=== PATIENT | male | born 1940 | race Caucasian/White ===

== ENCOUNTER → 2016-12-02 | Outpatient (CLI) | payer MEDICARE ==
--- NOTE | 2016-12-02 10:30 | US ---
EXAMINATION TYPE: US renal artery duplex complete DATE OF EXAM: 12/02/2016 9:35 AM COMPARISON: NONE CLINICAL HISTORY: N18.3 chronic kidney disease, stage 3; newly diabetic; Ht 5'10 and Wt 234lbs; patie nt states HTN is controlled with medication. Exam is limited in renal artery and aorta assessment due to overlying bowel gas and patient's large b alysia habitus. MEASUREMENTS: RENAL SIZE: Rt Kidney: 12.9 x 5.9 x 6.0cm Lt Kidney: 9.9 x 6.8 x 5.8cm Post void volume is normal at 42.6ml (normal <50ml). RESISTANCE INDEX Right: 0.74 Left: 0.97 RA/AO RATIO (< 3.5 ) Right: 1.8 Left: 1.4 RA VELOCITY ( < 180 cm/s) Right: 133.1cm/s mid Left: 104.6 cm/s prox Right Kidney: two cysts are noted mid and lower pole, larger cyst at lower pole = 4.0 x 3.6 x 3.6cm a nd smaller medial cyst = 2.5 x 2.2 x 2.1cm. Intimal wall thickening is noted throughout abdominal aor ta. Resistive index in left kidney at arcuate artery level is abnormal as is >0.8. Grayscale, color Doppler, spectral Doppler imaging performed over the kidneys and bladder no abdomina l aortic aneurysm is evident in the visualized portions of the aorta.. Bilateral ureteral flow is pre sent within the bladder. There is mild cortical thinning. Cortical medullary differentiation is maint ained. IMPRESSION: Exam is somewhat limited to evaluate renal artery stenosis. There is some mild elevation of the resis tance index on the left. There is cortical thinning bilaterally compatible with patient's history of chronic renal disease. Renal artery MRA or CTA could be performed for additional evaluation.
--- NOTE | 2016-12-02 12:22 | US ---
EXAMINATION TYPE: US Parathyroid per order DATE OF EXAM: 12/02/2016 8:32 AM COMPARISON: NONE CLINICAL HISTORY: E21.3 hyperparathyroidism. Thyroid was not measured but assessed at all neck levels during parathyroid US imaging. Right Parathyroid levels: no parathyroid nodules are seen. Left Parathyroid level inferiorly: a solid, hyperechoic oval nodule = 0.5 x 0.5 x 0.3cm is seen infer olateral to thyroid gland and second solid, hypoechoic oval nodule = 0.5 x 0.6 x 0.3cm is noted infer omedial to thyroid gland. Incidental Right thyroid nodule is seen in inferior gland: 1. 0.7 X 0.7 x 0.5 cm hypoechoic mixed nodule at the lower pole with well-defined margins. This nod ule is wider than tall and shows no intranodular vascularity. Grayscale, color Doppler imaging performed Thyroid echotexture somewhat heterogeneous. IMPRESSION: Hyperechoic appearance seen is not typical for adenoma however there is an additional hypoechoic focu s possibly representing parathyroid on the left. Dedicated nuclear medicine parathyroid imaging may b e of benefit. Right thyroid nodule is subcentimeter in size.
== END | disposition home or self-care (01) ==
LOC: RADUSMAIN 08:01
PROVIDERS: ATTEND Family Medicine
DX: N18.3 Chronic kidney disease, stage 3 (moderate) (principal); E04.1 Nontoxic single thyroid nodule
CPT/HCPCS: 76536; 93975

== ENCOUNTER → 2016-12-16 | Outpatient (CLI) | payer MEDICARE ==
--- NOTE | 2016-12-17 09:40 | NM ---
EXAMINATION TYPE: NM parathyroid DATE OF EXAM: 12/16/2016 4:27 PM COMPARISON: NONE HISTORY: TECHNIQUE: Following administration of 27.1 mCi Tc99m Sestamibi. Anterior projection images of the neck and ches t were obtained 10 minutes and 3 hours post injection FINDINGS: Thyroid tracer washout: Delayed images demonstrate near-complete tracer washout from the thyroid. Parathyroid uptake: No abnormal uptake is seen within the left thyroid bed corresponding to the ultra sound abnormality. There is faint uptake in the right but there is no corresponding ultrasound abnorm ality. This could be correlated with CT of the neck. Normal uptake: There is physiological tracer uptake in the myocardium, liver, salivary glands, and th yroid gland. IMPRESSION: No abnormal uptake is seen within the left thyroid bed corresponding to the ultrasound abnormality. T here is faint uptake in the right but there is no corresponding ultrasound abnormality. This could be correlated with CT of the neck. Therefore, no diagnostic evidence of adenoma.
== END | disposition home or self-care (01) ==
LOC: RADNMMAIN 11:14
PROVIDERS: ATTEND Family Medicine
DX: E21.3 Hyperparathyroidism, unspecified (principal)
CPT/HCPCS: 78070; A9500

== ENCOUNTER → 2016-12-29 | Outpatient (CLI) | payer MEDICARE ==
[2016-12-29 14:43] LABS: Blood Urea Nitrogen 21 mg/dL (9-20); Non-African American GFR(MDRD) 59 (>60 ml/min/1.73 sqM)
== END | disposition home or self-care (01) ==
LOC: RADMRIMAIN 14:16
PROVIDERS: ATTEND Family Medicine
DX: N18.3 Chronic kidney disease, stage 3 (moderate) (principal)
CPT/HCPCS: 36415; 82565; 84520

== ENCOUNTER → 2017-04-16 | Outpatient (CLI) | payer MEDICARE | END | disposition home or self-care (01) | LOC: LABWHC1 11:34 | PROVIDERS: ATTEND Family Medicine | DX: M54.16 Radiculopathy, lumbar region (principal) | CPT/HCPCS: 36415; 82565 ==

== ENCOUNTER → 2017-04-17 | Outpatient (CLI) | payer MEDICARE ==
--- NOTE | 2017-04-17 14:01 | MR ---
EXAMINATION TYPE: MR lumbar spine wo/w con DATE OF EXAM: 04/17/2017 COMPARISON: NONE HISTORY: Radiculopathy, lumbar region, back and leg pain TECHNIQUE: Multiplanar, multisequence images of the lumbar spine were acquired utilizing 10.5 mL intravenous Rene avist gadolinium contrast. L1-L2: Normal disc appearance without desiccation. No herniation, protrusion or disc bulging. No ca nal stenosis is present. Foramina are patent bilaterally. L2-L3: Small right eccentric broad-based disc bulge is seen without significant spinal canal stenosis or neural foraminal narrowing. Mild facet arthropathy and ligamentum flavum buckling are noted. L3-L4: Large broad-based disc bulge is present with extensive ligamentum flavum buckling and moderate facet arthropathy creating moderate spinal canal stenosis impressing upon the thecal sac and creatin g buckling of the cauda equina. L4-L5: Large broad-based disc bulge, slightly right eccentric creates moderate right neural foraminal narrowing and mild left neural foraminal narrowing as well as extensive ligamentum flavum buckling a nd moderate facet arthropathy contributing to mild spinal canal stenosis. L5-S1: Right lateral disc herniation extends into the neural foramen creating moderate to severe righ t neural foraminal narrowing. Mild left neural foraminal narrowing is seen as a result of a broad-bas ed disc bulge and facet arthropathy. Eccentric right-sided ligamentum flavum buckling is noted. No sp inal canal stenosis. Lumbar segments are intact. Bone marrow signal is within normal limits. Conus medullaris has a mayra l appearance. Partial visualization of a cystic T2 hyperintense/T1 hypointense lesion inferior to the right kidney is seen possibly representing an exophytic right lower pole renal cyst. No abnormal pos tcontrast enhancement. No enhancing mass. IMPRESSION: 1. Right lateral disc herniation at L5-S1 resulting in moderate to severe right neural foraminal narr owing with impression upon the L5 nerve root. 2. Large broad-based disc bulges and extensive ligamentum flavum buckling in combination with facet a rthropathy at L3-L4 and L4-L5 create moderate and mild spinal canal stenosis respectively. 3. Multilevel degenerative disc disease resulting in variable degrees of neural foraminal stenosis as described above. 4. Partial visualization of a right-sided cystic lesion inferior to the right kidney which could repr esent an exophytic renal cyst. This is incompletely visualized and characterized.
== END | disposition home or self-care (01) ==
LOC: RADMRIMAIN 10:18
PROVIDERS: ATTEND Family Medicine
DX: M48.06 Spinal stenosis, lumbar region (principal); M99.73 Connective tissue and disc stenosis of intervertebral foramina of lumbar region; M51.17 Intervertebral disc disorders with radiculopathy, lumbosacral region; M51.16 Intervertebral disc disorders with radiculopathy, lumbar region; M46.86 Other specified inflammatory spondylopathies, lumbar region
CPT/HCPCS: 72158; A9581

== ENCOUNTER 2017-12-28 09:36 | Emergency (ER) | payer MEDICARE ==
[2017-12-28] MEDS ORDERED: HYDROcodone/APAP 5-325MG 1 EACH TAB PO STA (10:50)
--- NOTE | 2017-12-28 10:53 | ED ---
General Adult HPI - General Chief complaint: Head Injury Stated complaint: Headache Time Seen by Provider: 12/28/17 10:36 Source: patient, RN notes reviewed Mode of arrival: ambulatory Limitations: no limitations - History of Present Illness Initial comments: 77-year-old male presents with chief complaint headache. Headache has been present for the past 5 weeks. Patient did have a fall with head injury at the onset of pain. No loss consciousness. He was seen by his primary care physician approximately one week after this and told to present to the emergency Department if symptoms persisted. He's had a daily headache since this time. Describes it as constant, dull aching headache which was initially global, now is frontal. He has some associated photophobia. No nausea or vomiting. No focal weakness. No paresthesias. Patient is on Coumadin with history of atrial fibrillation. - Related Data Home Medications Medication Instructions Recorded Confirmed Acetaminophen with Codeine 1 tab PO 5XD PRN 05/23/14 12/28/17 [Tylenol w/codeine #4] Omeprazole [PriLOSEC] 20 mg PO DAILY 03/27/15 12/28/17 Aspirin EC [Ecotrin Low Dose] 81 mg PO HS 02/05/16 12/28/17 Atorvastatin [Lipitor] 20 mg PO HS 12/28/17 12/28/17 Losartan [Cozaar] 25 mg PO DAILY 12/28/17 12/28/17 Warfarin [Coumadin] 2 mg PO HS 12/28/17 12/28/17 Previous Rx's Medication Instructions Recorded Amiodarone [Cordarone] 200 mg PO DAILY #90 tab 03/03/16 HYDROcodone/APAP 5-325MG [Brunswick 1 tab PO Q6HR PRN #24 tab 12/28/17 5-325] Allergies Allergy/AdvReac Type Severity Reaction Status Date / Time No Known Allergies Allergy Verified 12/28/17 11:00 Review of Systems ROS Statement: Those systems with pertinent positive or pertinent negative responses have been documented in the HPI. ROS Other: All systems not noted in ROS Statement are negative. Past Medical History Past Medical History: Atrial Fibrillation, Heart Failure, GI Bleed, Hyperlipidemia, Hypertension, Myocardial Infarction ([place]), Osteoarthritis (OA), Syncope Additional Past Medical History / Comment(s): past hx. GI bleed 2001, back pain , pt not sure about thyroid disorder states the doctor is still testing. Last Myocardial Infarction Date:: 2007 & 2013 History of Any Multi-Drug Resistant Organisms: None Reported Past Surgical History: Back Surgery, Heart Catheterization With Stent, Hernia Repair Additional Past Surgical History / Comment(s): sinus surgery, heart stents x2 Past Anesthesia/Blood Transfusion Reactions: No Reported Reaction Date of Last Stent Placement:: 09-21-14 Past Psychological History: No Psychological Hx Reported Smoking Status: Former smoker Past Alcohol Use History: None Reported Past Drug Use History: None Reported - Past Family History Son(s) Family Medical History: Cancer Additional Family Medical History / Comment(s): FROM LUNG CANCER Mother Family Medical History: No Reported History Additional Family Medical History / Comment(s): father had mi also Father Family Medical History: Myocardial Infarction ([place]) General Exam Limitations: no limitations General appearance: alert, in no apparent distress Head exam: Present: atraumatic, normocephalic Eye exam: Present: normal appearance, PERRL ENT exam: Present: normal exam Neck exam: Present: normal inspection. Absent: tenderness, meningismus Respiratory exam: Present: normal lung sounds bilaterally. Absent: respiratory distress, wheezes Cardiovascular Exam: Present: regular rate, normal rhythm GI/Abdominal exam: Present: soft. Absent: distended, tenderness Extremities exam: Present: normal inspection, full ROM, normal capillary refill. Absent: pedal edema Neurological exam: Present: alert, oriented X3, CN II-XII intact. Absent: motor sensory deficit Psychiatric exam: Present: normal affect, normal mood Skin exam: Present: warm, dry, intact. Absent: cyanosis, diaphoretic Course Vital Signs 12/28/17 09:52 Temperature 98.0 F Pulse Rate 61 Respiratory 20 Rate Blood Pressure 116/61 O2 Sat by Pulse 98 Oximetry Medical Decision Making - Medical Decision Making 77-year-old male presenting with 5 weeks of headache status post fall. Patient is on Coumadin, there is concern for intracranial hemorrhage, CT is obtained this is negative for intracranial hemorrhage or mass effect. CBC CMP and PT/ INR are obtained. INR is therapeutic at 2.2, no abnormalities in CBC or CMP. Patient given Brunswick with only minimal relief. Headache is likely posttraumatic and concussive in nature. He will follow-up with his primary care physician. He'll be prescribed Brunswick at this time as he is on anticoagulation. - Lab Data Result diagrams: 12/28/17 12:15 12/28/17 12:15 Lab Results 12/28/17 12/28/17 12/28/17 Range/Units 12:15 12:15 12:15 WBC 7.2 (3.8-10.6) k/uL RBC 4.82 (4.30-5.90) m/uL Hgb 14.4 (13.0-17.5) gm/dL Hct 45.8 (39.0-53.0) % MCV 95.0 (80.0-100.0) fL MCH 29.8 (25.0-35.0) pg MCHC 31.4 (31.0-37.0) g/dL RDW 14.9 (11.5-15.5) % Plt Count 106 L (150-450) k/uL Neutrophils % 72 % Lymphocytes % 18 % Monocytes % 7 % Eosinophils % 2 % Basophils % 0 % Neutrophils # 5.2 (1.3-7.7) k/uL Lymphocytes # 1.3 (1.0-4.8) k/uL Monocytes # 0.5 (0-1.0) k/uL Eosinophils # 0.1 (0-0.7) k/uL Basophils # 0.0 (0-0.2) k/uL PT 19.9 H (9.0-12.0) sec INR 2.2 H (<1.2) Sodium 141 (137-145) mmol/L Potassium 4.3 (3.5-5.1) mmol/L Chloride 104 (98-107) mmol/L Carbon Dioxide 24 (22-30) mmol/L Anion Gap 13 mmol/L BUN 19 (9-20) mg/dL Creatinine 1.32 H (0.66-1.25) mg/dL Est GFR (CKD-EPI)AfAm 60 (>60 ml/min/1.73 sqM) Est GFR (CKD-EPI)NonAf 52 (>60 ml/min/1.73 sqM) Glucose 94 (74-99) mg/dL Calcium 8.6 (8.4-10.2) mg/dL Total Bilirubin 0.9 (0.2-1.3) mg/dL AST 36 (17-59) U/L ALT 42 (21-72) U/L Alkaline Phosphatase 106 (38-126) U/L Total Protein 6.2 L (6.3-8.2) g/dL Albumin 3.7 (3.5-5.0) g/dL Disposition Clinical Impression: Closed head injury, Concussion without loss of consciousness Disposition: HOME SELF-CARE Condition: Fair Instructions: Concussion (ED) Prescriptions: HYDROcodone/APAP 5-325MG [Brunswick 5-325] 1 tab PO Q6HR PRN #24 tab PRN Reason: Pain Is patient prescribed a controlled substance at d/c from ED?: Yes When asked, does pt state using other controlled substances?: Yes If prescribed controlled substance>3 days was MAPS reviewed?: No If opioid is for acute pain is fill amount 7 days or less?: Yes Referrals: Kelvin Navas MD [Primary Care Provider] - 1-2 days Time of Disposition: 12:56
--- NOTE | 2017-12-28 11:37 | CT ---
EXAMINATION TYPE: CT brain cspine wo con DATE OF EXAM: 12/28/2017 COMPARISON: CT brain and cervical spine February 05, 2016 HISTORY: Left sided head injury 5 weeks ago. Headache and neck pain since. CT DLP: 1782 mGycm. Automated Exposure Control for Dose Reduction was Utilized. TECHNIQUE: CT scan of the head and cervical spine are performed without contrast. FINDINGS: There is no acute intracranial hemorrhage or midline shift identified. There is ventricul ar and sulcal prominence consistent with diffuse cerebral atrophy redemonstrated. There is low-atten uation in the periventricular and deep white matter likely on basis of product of chronic small vesse l ischemic change redemonstrated. The globes are intact and the visualized sinuses are clear. There i s evidence of prior surgery at level of the paranasal sinuses. The calvarium is intact. Cervical spine is visualized in its entirety from C1 through upper thoracic levels and demonstrates s atisfactory alignment without evidence of acute fracture or dislocation. Prevertebral soft tissue ap pears within normal limits. The C1-C2 articulation is within normal limits on the coronal images. Vertebral body heights are maintained. There is mild to moderate disc space narrowing C5-C6 level. Ca lcified disc herniation C3-C4 and C5-C6 level are effacing anterior thecal sac. Review of axial image s shows multilevel uncovertebral facet degenerative changes bilaterally. Thyroid gland is felt within normal limits. Lung apices are not included. Moderate to severe calcified plaque at bilateral caroti d bulbs is redemonstrated. IMPRESSION: 1. There is no acute fracture or dislocation evident in the cervical spine. 2. No acute intracranial hemorrhage or midline shift is seen.
[2017-12-28 12:26] LABS: Basophils % (A) 0 %; Eosinophils # (A) 0.1 k/uL (0-0.7); Eosinophils % (A) 2 %; HCT 45.8 % (39.0-53.0); HGB 14.4 gm/dL (13.0-17.5); Lymphocytes # (A) 1.3 k/uL (1.0-4.8); Lymphocytes % (A) 18 %; MCH 29.8 pg (25.0-35.0); MCHC 31.4 g/dL (31.0-37.0); Mean Platelet Volume 8.8; Monocytes # (A) 0.5 k/uL (0-1.0); Monocytes % (A) 7 %; Neutrophils # (A) 5.2 k/uL (1.3-7.7); Neutrophils % (A) 72 %; Platelet Count 106 k/uL (150-450); RBC 4.82 m/uL (4.30-5.90); RDW 14.9 % (11.5-15.5); WBC 7.2 k/uL (3.8-10.6)
[2017-12-28 12:35] LABS: Albumin 3.7 g/dL (3.5-5.0); Calcium 8.6 mg/dL (8.4-10.2); Potassium 4.3 mmol/L (3.5-5.1); Total Bilirubin 0.9 mg/dL (0.2-1.3); Total Protein 6.2 g/dL (6.3-8.2)
[2017-12-28 12:39] LABS: INR 2.2 (<1.2); Prothrombin Time 19.9 sec (9.0-12.0)
[2017-12-28 13:36] VITALS: BP 115/60; PULSE 78; RESP 18; TEMP 98.2
== END 2017-12-28 13:35 | disposition home or self-care (01) ==
LOC: EC 09:36
DX: S06.0X0A Concussion without loss of consciousness, initial encounter (principal); I48.91 Unspecified atrial fibrillation; I11.0 Hypertensive heart disease with heart failure; I50.9 Heart failure, unspecified; I25.2 Old myocardial infarction; E78.5 Hyperlipidemia, unspecified; Z95.5 Presence of coronary angioplasty implant and graft; Z87.891 Personal history of nicotine dependence; Z79.82 Long term (current) use of aspirin; Z79.01 Long term (current) use of anticoagulants; Z79.899 Other long term (current) drug therapy; W19.XXXA Unspecified fall, initial encounter; Y92.009 Unspecified place in unspecified non-institutional (private) residence as the place of occurrence of the external cause
CPT/HCPCS: 36415; 70450; 72125; 80053; 85025; 85610; 99284

== ENCOUNTER 2018-03-03 09:33 | Inpatient (IN) | payer MEDICARE ==
[2018-03-03] MEDS ORDERED: SODIUM CHLORIDE 0.9% 1,000 ML IV STA (10:56)
[2018-03-03 11:12] LABS: Basophils % (A) 0 %; Eosinophils # (A) 0.1 k/uL (0-0.7); Eosinophils % (A) 1 %; HCT 41.7 % (39.0-53.0); HGB 13.1 gm/dL (13.0-17.5); Lymphocytes # (A) 1.1 k/uL (1.0-4.8); Lymphocytes % (A) 13 %; MCH 30.2 pg (25.0-35.0); MCHC 31.5 g/dL (31.0-37.0); MCV 95.7 fL (80.0-100.0); Mean Platelet Volume 9.6; Monocytes # (A) 0.6 k/uL (0-1.0); Monocytes % (A) 7 %; Neutrophils # (A) 6.7 k/uL (1.3-7.7); Neutrophils % (A) 78 %; Platelet Count 105 k/uL (150-450); RBC 4.35 m/uL (4.30-5.90); RDW 14.6 % (11.5-15.5); WBC 8.7 k/uL (3.8-10.6)
[2018-03-03 11:25] LABS: Appearance,Urine Clear (Clear); Bilirubin,Urine Negative (Negative); Blood,Urine Negative (Negative); Color,Urine Yellow; Glucose,Urine (UA) Negative (Negative); Ketones,Urine Negative (Negative); Leukocyte Esterase,Urine Negative (Negative); Nitrite,Urine Negative (Negative); PH, Urine 5.5 (5.0-8.0); Protein,Urine Negative (Negative); Specific Gravity,Urine 1.015 (1.001-1.035)
[2018-03-03 11:26] LABS: Albumin 3.3 g/dL (3.5-5.0); Calcium 8.5 mg/dL (8.4-10.2); Magnesium 1.9 mg/dL (1.6-2.3); Potassium 4.8 mmol/L (3.5-5.1); Total Protein 5.7 g/dL (6.3-8.2)
[2018-03-03 11:43] LABS: Creatine Kinase 195 U/L (55-170)
--- NOTE | 2018-03-03 11:46 | XR ---
EXAMINATION TYPE: XR abdomen 1V DATE OF EXAM: 03/03/2018 COMPARISON: NONE HISTORY: Pain TECHNIQUE: One view abdominal series FINDINGS: The osseous structures are intact. The bowel gas pattern is nonspecific. Postsurgical change lumbar spine. Arthropathy involving the hip joints. IMPRESSION: 1. Nonspecific abdomen.
--- NOTE | 2018-03-03 11:47 | XR ---
EXAMINATION TYPE: XR chest 2V DATE OF EXAM: 03/03/2018 COMPARISON: 09/14/2014 TECHNIQUE: PA and lateral views submitted. HISTORY: Syncope FINDINGS: The lungs are clear and there is no pneumothorax, pleural effusion, or focal pneumonia. Pleural-bas ed calcifications are seen and there is evidence of calcified granuloma. Arthropathy of the shoulders . Subsegmental changes at both lung bases. Hypertrophic and degenerative change of the spine. IMPRESSION: 1. Blunting the costophrenic angle on the right likely related to tiny effusion or pleural thickening . Calcifications likely representing a combination of granulomatous disease and asbestos related dise ase.
[2018-03-03 11:50] LABS: INR 1.2 (<1.2); Partial Thromboplastin Time 23.8 sec (22.0-30.0); Prothrombin Time 11.1 sec (9.0-12.0)
--- NOTE | 2018-03-03 11:50 | XR ---
EXAMINATION TYPE: XR Hip Complete RT DATE OF EXAM: 03/03/2018 COMPARISON: NONE HISTORY: Pain TECHNIQUE: 2 views submitted FINDINGS: There is no evidence of erosive change or acute fracture. Moderate to severe concentric narrowing of the joint space. Vascular calcifications are seen. IMPRESSION: 1. No evidence of acute fracture or dislocation. 2. Post arthritic changes.
--- NOTE | 2018-03-03 11:50 | ED ---
General Adult HPI - General Chief complaint: Syncope Stated complaint: SYNCOPE, LEFT RIB PAIN, RT HIP PAIN Source: patient Mode of arrival: wheelchair Limitations: no limitations - History of Present Illness Initial comments: Dictation was produced using [employer] dictation software. please excuse any grammatical, word or spelling errors. Chief Complaint: 69-year-old male past medical history of A. fib, fell , GI bleed, [place] since after 2 episodes of syncope. History of Present Illness: She had 2 episodes of syncope. First episode was yesterday. He states he stood up to adjust the thermostat. While he was just in the thermostat he fell to the ground. Earlier today he had another episode where he was using the restroom. While he was being he syncopized. States that he has pain to his left rib area and is right hip. Denies any constitutional symptoms. Patient otherwise feels well. Besides standing patient does not report any other exacerbating or mitigating factors. The ROS documented in this emergency department record has been reviewed and confirmed by me. Those systems with pertinent positive or negative responses have been documented in the HPI. All other systems are other negative and/or noncontributory. - Related Data Home Medications Medication Instructions Recorded Confirmed Acetaminophen with Codeine 1 tab PO Q4H PRN 05/23/14 03/03/18 [Tylenol w/codeine #4] Omeprazole [PriLOSEC] 20 mg PO DAILY 03/27/15 03/03/18 Aspirin EC [Ecotrin Low Dose] 81 mg PO HS 02/05/16 03/03/18 Atorvastatin [Lipitor] 20 mg PO HS 12/28/17 03/03/18 Losartan [Cozaar] 25 mg PO DAILY 12/28/17 03/03/18 Warfarin [Coumadin] 2 mg PO HS 12/28/17 03/03/18 Previous Rx's Medication Instructions Recorded Amiodarone [Cordarone] 200 mg PO DAILY #90 tab 03/03/16 Allergies Allergy/AdvReac Type Severity Reaction Status Date / Time No Known Allergies Allergy Verified 03/03/18 09:50 Review of Systems ROS Statement: Those systems with pertinent positive or pertinent negative responses have been documented in the HPI. ROS Other: All systems not noted in ROS Statement are negative. Past Medical History Past Medical History: Atrial Fibrillation, Heart Failure, GI Bleed, Hyperlipidemia, Hypertension, Myocardial Infarction ([place]), Osteoarthritis (OA), Syncope Additional Past Medical History / Comment(s): past hx. GI bleed 2001, back pain , pt not sure about thyroid disorder states the doctor is still testing. Last Myocardial Infarction Date:: 2007 & 2013 History of Any Multi-Drug Resistant Organisms: None Reported Past Surgical History: Back Surgery, Heart Catheterization With Stent, Hernia Repair Additional Past Surgical History / Comment(s): sinus surgery, heart stents x2, back surgery 05-20-17 Past Anesthesia/Blood Transfusion Reactions: No Reported Reaction Date of Last Stent Placement:: 09-21-14 Past Psychological History: No Psychological Hx Reported Smoking Status: Former smoker Past Alcohol Use History: None Reported Past Drug Use History: None Reported - Past Family History Son(s) Family Medical History: Cancer Additional Family Medical History / Comment(s): FROM LUNG CANCER Mother Family Medical History: No Reported History Additional Family Medical History / Comment(s): father had mi also Father Family Medical History: Myocardial Infarction ([place]) General Exam - General Exam Comments Initial Comments: PHYSICAL EXAM: General Impression: Alert and oriented x3, not in acute distress HEENT: Normocephalic atraumatic, extra-ocular movements intact, pupils equal and reactive to light bilaterally, mucous membranes moist. Cardiovascular: Heart regular rate and rhythm, S1&S2 audible, no murmurs, rubs or gallops Chest: Lungs clear to auscultation bilaterally, no rhonchi, no wheeze, no rales , tenderness to the left anterior ribs Abdomen: Bowel sounds present, abdomen soft, non-tender, non-distended, no organomegaly Musculoskeletal: Pulses present and equal in all extremities, no peripheral edema Motor: Power 5/5 bilaterally, no focal deficits noted Neurological: CN II-XII grossly intact, no focal motor or sensory deficits noted Skin: Intact with no visualized rashes Psych: Normal affect and mood Limitations: no limitations Course Vital Signs 03/03/18 03/03/18 03/03/18 09:34 10:19 11:04 Temperature 97.7 F Pulse Rate 67 63 70 Respiratory 18 18 16 Rate Blood Pressure 109/64 135/62 125/54 O2 Sat by Pulse 96 94 L 100 Oximetry 03/03/18 12:56 Temperature Pulse Rate 55 L Respiratory 16 Rate Blood Pressure 141/59 O2 Sat by Pulse 93 L Oximetry Medical Decision Making - Medical Decision Making ED course: 77-year-old male with multiple comorbidities presents with episodes of syncope. Patient hemodynamically stable at this time. Vital signs upon arrival are within normal limits. Lavatory evaluation obtained. CBC unremarkable. Coag panel is unremarkable. D -dimer is 3.36. Elevated creatinine with a number of 1.46. Mild hyperglycemia. Rest of labs look okay. Urinalysis is negative. Hip x-ray, chest x-ray and abdominal x-ray are unremarkable unremarkable. There was some concern that patient's symptoms represent abdominal aortic aneurysm. There appears to be no evidence to suggest aortic aneurysm. Given elevated d-dimer and elevated creatinine nuclear medicine scan/Pollner perfusion imaging was obtained showing intermediate risk of PE. Patient started on heparin at this time. Patient be admitted. There is suspicion that patient's symptoms are suggestive of PE given that he is mildly hypoxic, there are EKG changes and nuclear medicine scan to suggest PE. EKG interpretation: Ventricular rate 57, sinus bradycardia, MI interval 242, QS 160, QTc 502, right bundle branch block pattern. No MI prolongation, no QTC prolongation, no ST or T-wave changes noted. - Lab Data Result diagrams: 03/03/18 10:26 03/03/18 10:26 Lab Results 03/03/18 03/03/18 03/03/18 Range/Units 10:26 10:26 10:26 WBC 8.7 (3.8-10.6) k/uL RBC 4.35 (4.30-5.90) m/uL Hgb 13.1 (13.0-17.5) gm/dL Hct 41.7 (39.0-53.0) % MCV 95.7 (80.0-100.0) fL MCH 30.2 (25.0-35.0) pg MCHC 31.5 (31.0-37.0) g/dL RDW 14.6 (11.5-15.5) % Plt Count 105 L (150-450) k/uL Neutrophils % 78 % Lymphocytes % 13 % Monocytes % 7 % Eosinophils % 1 % Basophils % 0 % Neutrophils # 6.7 (1.3-7.7) k/uL Lymphocytes # 1.1 (1.0-4.8) k/uL Monocytes # 0.6 (0-1.0) k/uL Eosinophils # 0.1 (0-0.7) k/uL Basophils # 0.0 (0-0.2) k/uL PT (9.0-12.0) sec INR (<1.2) APTT (22.0-30.0) sec D-Dimer (<0.60) mg/L FEU Sodium 137 (137-145) mmol/L Potassium 4.8 (3.5-5.1) mmol/L Chloride 106 (98-107) mmol/L Carbon Dioxide 22 (22-30) mmol/L Anion Gap 9 mmol/L BUN 19 (9-20) mg/dL Creatinine 1.46 H (0.66-1.25) mg/dL Est GFR (CKD-EPI)AfAm 53 (>60 ml/min/1.73 sqM) Est GFR (CKD-EPI)NonAf 45 (>60 ml/min/1.73 sqM) Glucose 121 H (74-99) mg/dL POC Glucose (mg/dL) (75-99) mg/dL POC Glu Spot Worker ID Calcium 8.5 (8.4-10.2) mg/dL Magnesium 1.9 (1.6-2.3) mg/dL Total Bilirubin 1.0 (0.2-1.3) mg/dL AST 46 (17-59) U/L ALT 42 (21-72) U/L Alkaline Phosphatase 102 (38-126) U/L Total Creatine Kinase 195 H (55-170) U/L CK-MB (CK-2) 3.0 H* (0.0-2.4) ng/mL CK-MB (CK-2) Rel Index 1.5 Troponin I <0.012 (0.000-0.034) ng/mL Total Protein 5.7 L (6.3-8.2) g/dL Albumin 3.3 L (3.5-5.0) g/dL Urine Color Urine Appearance (Clear) Urine pH (5.0-8.0) Ur Specific [place] (1.001-1.035) Urine Protein (Negative) Urine Glucose (UA) (Negative) Urine Ketones (Negative) Urine Blood (Negative) Urine Nitrite (Negative) Urine Bilirubin (Negative) Urine Urobilinogen (<2.0) mg/dL Ur Leukocyte Esterase (Negative) 03/03/18 03/03/18 03/03/18 Range/Units 10:26 11:05 11:42 WBC (3.8-10.6) k/uL RBC (4.30-5.90) m/uL Hgb (13.0-17.5) gm/dL Hct (39.0-53.0) % MCV (80.0-100.0) fL MCH (25.0-35.0) pg MCHC (31.0-37.0) g/dL RDW (11.5-15.5) % Plt Count (150-450) k/uL Neutrophils % % Lymphocytes % % Monocytes % % Eosinophils % % Basophils % % Neutrophils # (1.3-7.7) k/uL Lymphocytes # (1.0-4.8) k/uL Monocytes # (0-1.0) k/uL Eosinophils # (0-0.7) k/uL Basophils # (0-0.2) k/uL PT 11.1 (9.0-12.0) sec INR 1.2 H (<1.2) APTT 23.8 (22.0-30.0) sec D-Dimer 3.36 H (<0.60) mg/L FEU Sodium (137-145) mmol/L Potassium (3.5-5.1) mmol/L Chloride (98-107) mmol/L Carbon Dioxide (22-30) mmol/L Anion Gap mmol/L BUN (9-20) mg/dL Creatinine (0.66-1.25) mg/dL Est GFR (CKD-EPI)AfAm (>60 ml/min/1.73 sqM) Est GFR (CKD-EPI)NonAf (>60 ml/min/1.73 sqM) Glucose (74-99) mg/dL POC Glucose (mg/dL) 109 H (75-99) mg/dL POC Glu Spot Worker ID JanitLandon searsn Calcium (8.4-10.2) mg/dL Magnesium (1.6-2.3) mg/dL Total Bilirubin (0.2-1.3) mg/dL AST (17-59) U/L ALT (21-72) U/L Alkaline Phosphatase (38-126) U/L Total Creatine Kinase (55-170) U/L CK-MB (CK-2) (0.0-2.4) ng/mL CK-MB (CK-2) Rel Index Troponin I (0.000-0.034) ng/mL Total Protein (6.3-8.2) g/dL Albumin (3.5-5.0) g/dL Urine Color Yellow Urine Appearance Clear (Clear) Urine pH 5.5 (5.0-8.0) Ur Specific [place] 1.015 (1.001-1.035) Urine Protein Negative (Negative) Urine Glucose (UA) Negative (Negative) Urine Ketones Negative (Negative) Urine Blood Negative (Negative) Urine Nitrite Negative (Negative) Urine Bilirubin Negative (Negative) Urine Urobilinogen 3.0 (<2.0) mg/dL Ur Leukocyte Esterase Negative (Negative) Disposition Clinical Impression: Pulmonary embolus, Syncope Disposition: ADMITTED IP TO THIS HOSP Condition: Fair Referrals: Kelvin Navas MD [Primary Care Provider] - 1-2 days Time of Disposition: 15:53
[2018-03-03 11:56] LABS: D-Dimer 3.36 mg/L FEU (<0.60); Troponin I <0.012 ng/mL (0.000-0.034)
[2018-03-03 12:20] LABS: Glucose,Whole Blood 109 mg/dL (75-99)
--- NOTE | 2018-03-03 13:47 | US ---
EXAMINATION TYPE: US abdomen complete DATE OF EXAM: 03/03/2018 COMPARISON: 12/02/2016 CLINICAL HISTORY: Pain. Pain post fall EXAM MEASUREMENTS: Liver Length: 16.9 cm Gallbladder Wall: 0.2 cm CBD: 0.6 cm Spleen: 13.3 cm Right Kidney: 9.3 x 4.5 x 5.1 cm Left Kidney: 10.4 x 5.9 x 4.9 cm Pt very gassy, limited exam Pancreas: Obscured by bowel gas Liver: Left lobe unable to be visualized, right lobe visualized intercostally only Gallbladder: wnl Evidence for sonographic Thomas's sign: No CBD: wnl Spleen: Enlarged Right Kidney: Cortical thinning, cyst lower pole= 4.3 x 3.5 x 3.3 cm Left Kidney: Cortical thinning Upper IVC: wnl Abd Aorta: Proximal portion gassed out/ Wall calcifications, ectatic with no evidence of AAA IMPRESSION: 1. Splenomegaly 2. Bilateral cortical thinning correlate for chronic medical renal disease.
--- NOTE | 2018-03-03 15:43 | NM ---
EXAMINATION TYPE: NM pul vent and perfuse DATE OF EXAM: 03/03/2018 COMPARISON: Chest x-ray 03-19 HISTORY: Elevated d-dimer TECHNIQUE: Utilizing inhalation of 38.3 mCi Tc 99m DTPA aerosol and intravenous injection of 5.4 mCi of Tc 99m MAA, ventilation and perfusion images are acquired post injection in multiple projections. FINDINGS: Is patchy uptake seen on ventilation images. Suggestion of a small fixed matched defect involving the right upper lobe and left upper lobe. No mismatch ventilation perfusion defects. IMPRESSION: Intermediate probability for pulmonary embolism.
[2018-03-03] MEDS ORDERED: HEPARIN SODIUM,PORCINE 5,000 UNIT/ML 1 ML VIAL IV PRN (15:48)
[2018-03-03] MEDS ORDERED: HEPARIN SODIUM,PORCINE 10,000 UNIT/ML 1 ML VIAL IV ONE (15:48)
[2018-03-03] MEDS ORDERED: NALOXONE 0.4 MG/ML 1 ML VIAL IV PRN (15:49)
[2018-03-03] MEDS: HEPARIN SOD,PORK IN 0.45% NACL 25,000 UNIT in 0.45% NACL 1 500ML.BAG IV SCH (16:08)
[2018-03-03] MEDS ORDERED: Acetaminophen-Codeine 300-30mg TAB PO STA (17:14)
[2018-03-03] MEDS: ATORVASTATIN 20 MG TAB PO SCH (19:40)
[2018-03-03] MEDS: Acetaminophen-Codeine 300-30mg TAB PO PRN (19:48)
--- NOTE | 2018-03-03 21:38 | US ---
EXAMINATION TYPE: US venous doppler duplex LE BI DATE OF EXAM: 03/03/2018 7:42 PM COMPARISON: NONE CLINICAL HISTORY: r/o dvt. Pain SIDE PERFORMED: Bilateral TECHNIQUE: The lower extremity deep venous system is examined utilizing real time linear array sonog rainer with graded compression, doppler sonography and color-flow sonography. VESSELS IMAGED: External Iliac Vein (EIV) Common Femoral Vein Deep Femoral Vein Greater Saphenous Vein * Femoral Vein Popliteal Vein Small Saphenous Vein * Proximal Calf Veins (* superficial vessels) Right Leg: Negative for DVT Left Leg: Negative for DVT No evidence of DVT bilateral legs. IMPRESSION: Normal bilateral leg duplex venous sonogram.
[2018-03-03] MEDS ORDERED: WARFARIN 5 MG TAB PO ONE (23:15)
--- NOTE | 2018-03-03 23:55 | HP ---
HISTORY AND PHYSICAL DATE OF ADMISSION: 03/03/2018 PRESENTING COMPLAINT: Passed out. HISTORY OF PRESENTING COMPLAINT: This is a very pleasant 77-year-old patient of Dr. Navas. Chronic stable medical conditions include coronary artery disease, hypertension, hyperlipidemia. Two days ago the patient got up and went to get to the lights and patient does not remember then. Patient maybe for a second passed out. There was no palpitation. No chest pain. There was no tongue-biting or incontinence. The following day, patient went to the bathroom and then he had another episode when patient suddenly nearly passed out, bumped his head on the back of the wall. He really did not pass out, he thinks. Again there was no palpitation, no premonition or symptoms coming on. Normally patient is rather active and does not get any symptoms with activity or exertion. He has had no precordial pain. He presented for the above presentation. REVIEW OF SYSTEMS: CONSTITUTIONAL: None. HEENT: None. RESPIRATORY: None. CARDIOVASCULAR: As above. GASTROINTESTINAL: None. GENITOURINARY: None. MUSCULOSKELETAL: None. DERMATOLOGICAL: None. HEMATOLOGICAL: None. LYMPHATICS: None. PSYCHIATRY: None. NEUROLOGICAL: No focal symptoms. PAST MEDICAL HISTORY: 1. Atrial fibrillation. 2. GI bleed. 3. Hypertension. 4. Hyperlipidemia. 5. Osteoarthritis, minimal. PAST SURGICAL HISTORY: 1. Back surgery in 2017. 2. Cardiac cath with stent. 3. Sinus surgery. SOCIAL HISTORY: Did smoke in the past. No alcohol. 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 . FAMILY HISTORY: Father had a heart attack. HOME MEDICATIONS: 1. Coumadin 2 mg at bedtime. 2. Prilosec 20 mg a day. 3. Cozaar 25 mg a day. 4. Lipitor 20 mg at bedtime. 5. Aspirin 81 mg at bedtime. 6. Cordarone 200 mg p.o. daily. 7. Tylenol with codeine 1 tablet q.4 p.r.n. ALLERGIES: NONE. PHYSICAL EXAMINATION: VITAL SIGNS ON PRESENTATION: Temperature 97.7, pulse 57, respiration 18, blood pressure 109/64, pulse ox 96% on room air. GENERAL APPEARANCE: Average build. Sitting up, awake. EYES: Pupils equal. Conjunctivae normal. HEENT: External appearance of nose and ears normal. Oral cavity normal. NECK: JVD not raised. Mass not palpable. RESPIRATORY: Effort normal. Lungs are clear. CARDIOVASCULAR: First and second sounds normal. No edema. ABDOMEN: Soft, non-tender. Liver and spleen not palpable. LYMPHATIC: No lymph node palpable in neck or axillae. PSYCHIATRY: Alert and oriented x3. Mood and affect normal. NEUROLOGICAL: Pupils equal. Cranial nerves grossly intact. Power and sensation grossly intact. INVESTIGATIONS: White count 8.7, hemoglobin 13.1, potassium 4.8, BUN 19, creatinine 1.46. Troponin negative. EKG tracing reviewed by me shows right bundle branch block and a first- degree block. V/Q scan intermediate probability. Abdominal ultrasound shows splenomegaly and bilateral cortical thinning, kidneys. Chest x-ray film interpreted by me may be showing some chronic changes. ASSESSMENT: 1. The patient has had 2 episodes of syncope, rather short-lived, with no other cardiac symptoms. No focal neurological symptoms. The patient has a history of atrial fibrillation. The patient may well have had underlying arrhythmia that may have precipitated the presentation. It may be noted that the patient has bradycardia with first-degree block; heart block cannot be ruled out; at least it could have been intermittent. The patient will be kept on telemetry. If nothing shows up while he is here, the patient may be considered for an event monitor or even a loop recorder. 2. Coronary artery disease with prior history of stent. 3. Paroxysmal atrial fibrillation, on Coumadin, currently in sinus rhythm. 4. Essential hypertension. 5. Hyperlipidemia. 6. Intermediate V/Q scan. I did order Dopplers of the lower extremities that have come back negative. I highly doubt patient has got a PE and my clinical suspicion is rather very low. PLAN: Will get a pulmonary opinion to see if they agree that the patient unlikely has a PE. In that case, heparin can be discontinued. The patient is already on Coumadin. Coumadin dose can be adjusted accordingly. Will also get a cardiology opinion. Care was discussed with the patient. Questions were answered. The patient will have to be kept on IV heparin until Coumadin is therapeutic. MMODL / IJN: [id number] /
[2018-03-04] MEDS: HEPARIN SOD,PORK IN 0.45% NACL 25,000 UNIT in 0.45% NACL 1 500ML.BAG IV SCH (00:17)
[2018-03-04] MEDS: Acetaminophen-Codeine 300-30mg TAB PO PRN ×4 (06:24→19:21)
[2018-03-04 06:40] LABS: Basophils % (A) 0 %; Eosinophils # (A) 0.1 k/uL (0-0.7); Eosinophils % (A) 2 %; HCT 37.1 % (39.0-53.0); HGB 11.5 gm/dL (13.0-17.5); Hypochromasia Slight; Lymphocytes # (A) 1.2 k/uL (1.0-4.8); Lymphocytes % (A) 19 %; MCH 29.5 pg (25.0-35.0); MCV 95.2 fL (80.0-100.0); Monocytes # (A) 0.5 k/uL (0-1.0); Monocytes % (A) 8 %; Neutrophils # (A) 4.2 k/uL (1.3-7.7); Neutrophils % (A) 69 %; RDW 14.2 % (11.5-15.5); WBC 6.1 k/uL (3.8-10.6)
[2018-03-04 07:04] LABS: Platelet Count 81 k/uL (150-450)
[2018-03-04] MEDS: PANTOPRAZOLE 40 MG TABLET PO SCH (08:39)
[2018-03-04] MEDS: LOSARTAN 25 MG TAB PO SCH (08:39)
[2018-03-04] MEDS ORDERED: AMIODARONE 200 MG TAB PO SCH (09:00)
[2018-03-04 09:03] LABS: INR 1.4 (<1.2); Prothrombin Time 13.4 sec (9.0-12.0)
--- NOTE | 2018-03-04 10:40 | P.CRDCN ---
History of Present Illness Consult date: 03/04/18 Requesting physician: Froilan Norton Consult reason: sycope Chief complaint: Syncope History of present illness: This is a pleasant 77-year-old gentleman who follows regularly with Dr. Alegre in the office. He has a known history of coronary artery disease with prior stent placement to the RCA in 2007, peripheral vascular disease, hyperlipidemia, family history of coronary artery disease, hypertension , paroxysmal atrial fibrillation, on Coumadin for anticoagulation. Patient recently had some teeth pulled, states that he was off Coumadin for 4 days, he is back on it now. He does have a prior history of smoking. Patient presents to the hospital on this occasion following 2 syncopal episodes at home. According to the patient, the initial event happened when he was getting up out of bed to adjust the thermostat, he states that he reached out for the thermostat in the next thing he recalls is waking up on the floor. Subsequent to that patient states he was in the bathroom and had another syncopal episode. He denies any warning prior to passing out, no dizziness, no lightheadedness, no palpitations, no chest discomfort. Patient started on the second event, he hit himself quite hard, his neck is very sore this morning as is his right hip. Laboratory data on admission here, white blood cell count 8.7, hemoglobin 13.1 , 11.5 this morning. Platelet count 105, 81 this morning. D-dimer 3.36, sodium 137, potassium 4.8, BUN 19, creatinine 1.4. Initial troponin negative. Because of the abnormal d-dimer, patient underwent lung perfusion scan which came back intermediate probability for pulmonary embolism. Hip x-ray does not reveal evidence of acute fracture or dislocation. Chest x-ray shows blunting of the costophrenic angle likely related to tiny effusion or pleural thickening. X-ray of the abdomen did not reveal any acute findings. Abdominal ultrasound shows splenomegaly, bilateral cortical thinning, correlate for chronic medical renal disease. Venous duplex negative for DVT in either extremity. Blood pressure on admission 108/60, heart rate in the 60s, temperature 97.7, he is 96% on room air. EKG on admission shows sinus bradycardia with first-degree AV block and right bundle branch block pattern. At the time of my examination this morning, patient states his neck is sore, he also complains of right hip pain. Denies any chest discomfort, no palpitations , no dizziness or lightheadedness. Past Medical History Past Medical History: Atrial Fibrillation, Heart Failure, GI Bleed, Hyperlipidemia, Hypertension, Myocardial Infarction (MT), Osteoarthritis (OA), Syncope Additional Past Medical History / Comment(s): past hx. GI bleed 2001, back pain , pt not sure about thyroid disorder states the doctor is still testing. Last Myocardial Infarction Date:: 2007 & 2013 History of Any Multi-Drug Resistant Organisms: None Reported Past Surgical History: Back Surgery, Heart Catheterization With Stent, Hernia Repair Additional Past Surgical History / Comment(s): sinus surgery, heart stents x2, back surgery 05-20-17 Past Anesthesia/Blood Transfusion Reactions: No Reported Reaction Date of Last Stent Placement:: 09-21-14 Smoking Status: Former smoker - Past Family History Son(s) Family Medical History: Cancer Additional Family Medical History / Comment(s): FROM LUNG CANCER Mother Family Medical History: No Reported History Additional Family Medical History / Comment(s): father had mi also Father Family Medical History: Myocardial Infarction (MT) Medications and Allergies Home Medications Medication Instructions Recorded Confirmed Type Acetaminophen with Codeine 1 tab PO Q4H PRN 05/23/14 03/03/18 History [Tylenol w/codeine #4] Omeprazole [PriLOSEC] 20 mg PO DAILY 03/27/15 03/03/18 History Aspirin EC [Ecotrin Low Dose] 81 mg PO HS 02/05/16 03/03/18 History Amiodarone [Cordarone] 200 mg PO DAILY #90 tab 03/03/16 03/03/18 Rx Atorvastatin [Lipitor] 20 mg PO HS 12/28/17 03/03/18 History Losartan [Cozaar] 25 mg PO DAILY 12/28/17 03/03/18 History Warfarin [Coumadin] 2 mg PO HS 12/28/17 03/03/18 History Allergies Allergy/AdvReac Type Severity Reaction Status Date / Time No Known Allergies Allergy Verified 03/03/18 09:50 Physical Exam Vitals: Vital Signs Temp Pulse Pulse Resp BP BP Pulse Ox 03/04/18 08:00 97.2 F L 67 18 114/57 96 03/04/18 04:00 59 L 16 119/78 98 03/04/18 00:00 97.8 F 58 L 16 119/70 97 03/03/18 20:00 97.9 F 56 L 16 122/68 98 03/03/18 18:59 98.5 F 56 L 16 130/74 96 03/03/18 17:22 98.8 F 66 18 182/75 99 03/03/18 16:11 54 L 16 98/61 96 03/03/18 14:00 54 L 16 157/78 92 L 03/03/18 12:56 55 L 16 141/59 93 L 03/03/18 11:04 70 16 125/54 100 Intake and Output 03/03/18 03/04/18 03/04/18 22:59 06:59 14:59 Intake Total 267.231 371.208 Output Total 450 500 Balance -450 -232.769 371.208 Intake: Intake, IV Titration 267.231 371.208 Amount Heparin Sod,Pork in 0.45% 267.231 211.208 NaCl 25,000 unit In 0.45 % NaCl 1 500ml.bag @ 18 UNITS/KG/HR 37.55 mls/hr IV .[id number] [facility] Rx#: [id number] Sodium Chloride 0.9% 1, 160 000 ml @ 999 mls/hr IV . Q1H1M STA Rx#:[id number] Output: Urine 450 500 Other: Voiding Method Urinal Urinal # Voids 0 0 # Bowel Movements 0 Weight 104.32 kg 104 kg PHYSICAL EXAMINATION: GENERAL: 77-year-old gentleman in no acute distress at the time of my examination HEENT: Head is atraumatic, normocephalic. Pupils equal, round. Sclera anicteric. Conjunctiva are clear. Mucous membranes of the mouth are moist. Neck is supple. There is no elevated jugular venous pressure. No carotid bruit is heard. HEART EXAMINATION: Heart S1 S2 1 systolic murmur is heard. CHEST EXAMINATION: Lungs are clear to auscultation and precussion. No chest wall tenderness is noted on palpation or with deep breathing. ABDOMEN: Soft, nontender. Bowel sounds are heard. No organomegaly noted. EXTREMITIES: 2+ peripheral pulses with no evidence of peripheral edema and no calf tenderness noted. NEUROLOGIC patient is awake, alert and oriented X3. . Results 03/04/18 05:59 03/03/18 10:26 Cardiac Enzymes 03/03/18 03/03/18 Range/Units 10:26 10:26 AST 46 (17-59) U/L CK-MB (CK-2) 3.0 H* (0.0-2.4) ng/mL Troponin I <0.012 (0.000-0.034) ng/mL Coagulation 03/03/18 03/03/18 03/04/18 Range/Units 10:26 21:52 05:59 PT 11.1 (9.0-12.0) sec APTT 23.8 >200.0 H* >200.0 H* (22.0-30.0) sec 03/04/18 Range/Units 05:59 PT 13.4 H (9.0-12.0) sec APTT (22.0-30.0) sec CBC 03/03/18 03/04/18 Range/Units 10:26 05:59 WBC 8.7 6.1 (3.8-10.6) k/uL RBC 4.35 3.90 L (4.30-5.90) m/uL Hgb 13.1 11.5 L (13.0-17.5) gm/dL Hct 41.7 37.1 L (39.0-53.0) % Plt Count 105 L 81 L (150-450) k/uL Comprehensive Metabolic Panel 03/03/18 Range/Units 10:26 Sodium 137 (137-145) mmol/L Potassium 4.8 (3.5-5.1) mmol/L Chloride 106 (98-107) mmol/L Carbon Dioxide 22 (22-30) mmol/L BUN 19 (9-20) mg/dL Creatinine 1.46 H (0.66-1.25) mg/dL Glucose 121 H (74-99) mg/dL Calcium 8.5 (8.4-10.2) mg/dL AST 46 (17-59) U/L ALT 42 (21-72) U/L Alkaline Phosphatase 102 (38-126) U/L Total Protein 5.7 L (6.3-8.2) g/dL Albumin 3.3 L (3.5-5.0) g/dL Current Medications Generic Name Dose Route Start Last Admin Trade Name Freq PRN Reason Stop Dose Admin Acetaminophen/Codeine Phosphate 1 each 03/03/18 19:38 03/04/18 06:24 Tylenol #3 PO 1 each Q4H PRN Administration MODERATE Pain Amiodarone HCl 200 mg 03/04/18 09:00 03/04/18 08:39 Cordarone PO 200 mg DAILY [facility] Administration Atorvastatin Calcium 20 mg 03/03/18 21:00 03/03/18 19:40 Lipitor PO 20 mg HS [facility] Administration Heparin Sodium (Porcine) 0 unit 03/03/18 15:48 Heparin IV PER PROTOCOL PRN Low PTT Protocol Heparin Sodium/Sodium Chloride 500 mls @ 37.55 mls/hr 03/03/18 16:00 08:30 25,000 unit/ Sodium Chloride IV 12 units/kg/hr .[id number] [facility] 25.03 mls/hr Titration Protocol 18 UNITS/KG/HR Losartan Potassium 25 mg 03/04/18 09:00 03/04/18 08:39 Cozaar PO 25 mg DAILY [facility] Administration Naloxone HCl 0.2 mg 03/03/18 15:49 Narcan IV Q2M PRN Opioid Reversal Pantoprazole Sodium 40 mg 03/04/18 09:00 03/04/18 08:39 Protonix PO 40 mg DAILY [facility] Administration Warfarin Sodium 2.5 mg 03/04/18 18:00 Coumadin PO DAILY@1800 [facility] Intake and Output 03/03/18 03/04/18 03/04/18 22:59 06:59 14:59 Intake Total 267.231 371.208 Output Total 450 500 Balance -450 -232.769 371.208 Intake: Intake, IV Titration 267.231 371.208 Amount Heparin Sod,Pork in 0.45% 267.231 211.208 NaCl 25,000 unit In 0.45 % NaCl 1 500ml.bag @ 18 UNITS/KG/HR 37.55 mls/hr IV .[id number] [facility] Rx#: [id number] Sodium Chloride 0.9% 1, 160 000 ml @ 999 mls/hr IV . Q1H1M STA Rx#:[id number] Output: Urine 450 500 Other: Voiding Method Urinal Urinal # Voids 0 0 # Bowel Movements 0 Weight 104.32 kg 104 kg 03/04/18 05:59 03/03/18 10:26 EKG Interpretations (text) EKG shows a sinus bradycardia with first-degree AV block and right bundle branch block pattern Assessment and Plan Plan: Assessment and plan #1 syncope, rule out cardiac causes. Patient has noted bradycardia with first- degree AV block and right bundle branch block pattern and EKG. He also has history of paroxysmal atrial fibrillation. We will check orthostatics. #2 abnormal d-dimer, lung scan intermediate probability for pulmonary embolism, venous duplex study negative. #3 coronary artery disease with prior stent placement #4 hypertension #5 paroxysmal atrial fibrillation, on Coumadin for anticoagulation #6 peripheral vascular disease #7 hyperlipidemia Plan We will obtain an echocardiogram with Doppler study. Check TSH level. We will continue to monitor for any significant bradycardia or tachyarrhythmias. Check orthostatic heart rate and blood pressure every shift. Patient's lung scan did reveal intermediate probability for pulmonary embolism however the venous duplex study was negative for any DVT. Further recommendations to follow. DNP note has been reviewed, I agree with a documented findings and plan of care. Patient was seen and examined.
[2018-03-04 10:59] LABS: Calcium 8.1 mg/dL (8.4-10.2); Potassium 4.5 mmol/L (3.5-5.1)
--- NOTE | 2018-03-04 12:01 | CT ---
EXAMINATION TYPE: CT hip RT wo con DATE OF EXAM: 03/04/2018 COMPARISON: 03/03/2018 HISTORY: Rt hip pain after fall. CT DLP: 575.5 mGycm Automated exposure control for dose reduction was used. FINDINGS: No evidence of acute fracture or dislocation is seen of the right hip. There is cephalad joint space narrowing and acetabular roof sclerosis with small inferior femoral head osteophyte and chondrocalcin osis of the superior chondral labral junction. Subcutaneous soft tissue swelling is seen overlying th e right posterior lateral right hemisacrum and gluteal musculature. No evidence of acute intramuscula r hemorrhage. Enthesophytes at the initial tuberosity are seen from chronic tendinosis. There is hete rogeneity of the prostate gland seen on the sagittal images. Moderate degree atherosclerosis is seen of the femoral artery. IMPRESSION: 1. NO EVIDENCE OF ACUTE FRACTURE OR DISLOCATION OF THE RIGHT HIP. 2. MODERATE RIGHT FEMORAL ACETABULAR ARTHROPATHY AND CHONDROCALCINOSIS OF THE CHONDRAL LABRAL JUNCTIO N. 3. SUBCUTANEOUS SOFT TISSUE SWELLING OVER THE GLUTEAL MUSCULATURE WITHOUT FOCAL FLUID COLLECTION 4 CT EVIDENCE OF INTRAMUSCULAR HEMATOMA.
--- NOTE | 2018-03-04 12:37 | ECHOF ---
Referral Reason:syncope MEASUREMENTS -------- HEIGHT: 177.8 cm WEIGHT: 103.9 kg BP: RVIDd: 2.8 cm (< 3.3) IVSd: 1.4 cm (0.6 - 1.1) LVIDd: 3.8 cm (3.9 - 5.3) LVPWd: 1.5 cm (0.6 - 1.1) IVSs: 1.6 cm LVIDs: 2.2 cm LVPWs: 2.1 cm Ao Diam: 3.5 cm (2.0 - 3.7) AV Cusp: 1.2 cm (1.5 - 2.6) LA Diam: 3.7 cm (2.7 - 3.8) MV EXCURSION: 17.310 mm (> 18.000) MV EF SLOPE: 47 mm/s (70 - 150) EPSS: 2.4 cm MV E Damien: 0.62 m/s MV DecT: 216 ms MV A Damien: 0.90 m/s MV E/A Ratio: 0.69 AV maxP.02 mmHg AV meanP.78 mmHg RAP: 5.00 mmHg RVSP: 14.63 mmHg FINDINGS -------- Sinus rhythm. This was a technically good study. The left ventricular size is normal. There is moderate concentric left ventricular hypertrophy. O verall left ventricular systolic function is normal with, an EF between 55 - 60 %. The right ventricle is normal in size. The left atrial size is normal. The right atrium is normal in size. Aortic valve is trileaflet and is moderately thickened. Trace amount of aortic regurgitation. Th ere is moderate aortic stenosis present. Peak/mean gradient across the Aortic Valve is 33.02mmHg / 17.78mmHg. The mitral valve leaflets are mildly thickened. Mild mitral regurgitation is present. Mild tricuspid regurgitation present. The right ventricular systolic pressure, as measured by Doppl er, is 14.63mmHg. Pulmonic valve appears structurally normal. The aortic root size is normal. Normal inferior vena cava with normal inspiratory collapse consistent with estimated right atrial pre ssure of 5 mmHg. The pericardium is normal. CONCLUSIONS -------- 1. Sinus rhythm. 2. This was a technically good study. 3. The left ventricular size is normal. 4. There is moderate concentric left ventricular hypertrophy. 5. Overall left ventricular systolic function is normal with, an EF between 55 - 60 %. 6. The right ventricle is normal in size. 7. The left atrial size is normal. 8. The right atrium is normal in size. 9. Aortic valve is trileaflet and is moderately thickened. 10. Trace amount of aortic regurgitation. 11. There is moderate aortic stenosis present. 12. Peak/mean gradient across the Aortic Valve is 33.02mmHg / 17.78mmHg. 13. The mitral valve leaflets are mildly thickened. 14. Mild mitral regurgitation is present. 15. Mild tricuspid regurgitation present. 16. The right ventricular systolic pressure, as measured by Doppler, is 14.63mmHg. 17. Pulmonic valve appears structurally normal. 18. The aortic root size is normal. 19. Normal inferior vena cava with normal inspiratory collapse consistent with estimated right atrial pressure of 5 mmHg. 20. The pericardium is normal. ASSISTANT PARALEGAL: Elizabeth Dumont RDCS
--- NOTE | 2018-03-04 13:52 | P.CNPUL ---
History of Present Illness Consult date: 03/04/18 Chief complaint: Syncope History of present illness: 77-year-old male patient who came in to the hospital after 2 episodes of syncope that occurred [id number] over 2 days. The patient is known to have coronary artery disease and he has undergone previous stenting of RCA back in 2007. He is also known to have paroxysmal atrial fibrillation and his maintained on long-term medical condition with Coumadin addition to peripheral vascular disease and hyperlipidemia and hypertension. The patient was having dental procedures and the patient was taken off Coumadin for a total of 4-5 days prior to his dental procedure and dental extraction. The dental procedure was done without any complications. At home, while patient will calendar thermostats, he acutely had an episode of syncope to which she has no recollection. The describes 1 minutes of loss in consciousness and subsequent regain of consciousness. The second episode occurred while the patient urinating in the bathroom and the patient acutely dropped having a trauma to his head and neck area. This was a similar episode that lasted for around a minute and the patient recovered without any intervention. At that point I decided to bring this patient to the hospital for further workup. Noted the patient did not have any warning signs prior to these episodes of syncope. No dizziness. No irregular heartbeats. No chest pain. No shortness of breath. No pleurisy. No angina. No headaches. No change in her vision or speech. No facial asymmetry. No focal neurological deficit. No seizure activity. His PT/INR was subtherapeutic. Doppler of the lower extremity has been negative. A VQ scan was done and was reported to be of intermediate probability. His d-dimer was at 3.36. Creatinine was at 1.4. His edema was at 315.1. Pulse ox is 96% on room air. His EKG showing sinus bradycardia and first-degree AV block with a right bundle branch block pattern. His PT/INR is subtherapeutic as the patient was off the anticoagulation during these episodes. Currently is resting comfortably in bed. CAT scan of the right hip shows moderate right femoral stop alert arthropathy without evidence of any fractures. There is some subcutaneous tissue swelling over the gluteal musculature without any hematoma. A CAT scan of the brain that was done on in addition to a CAT scan of the neck showed no evidence of any fractures of the cervical spine or acute abnormalities in the head and the CAT scan was done due to a fall and left sided head injury that occurred approximately in November 2017. This episode was not related to syncope. Review of Systems Constitutional: Denies chills, Denies fever Eyes: denies blurred vision, denies bulging eye, denies decreased vision Ears: deny: decreased hearing, ear discharge, earache, tinnitus Ears, nose, mouth and throat: Denies headache, Denies sore throat Cardiovascular: Reports syncope Respiratory: Denies cough Gastrointestinal: Denies abdominal pain, Denies diarrhea, Denies nausea, Denies vomiting Genitourinary: Reports as per HPI Musculoskeletal: Reports as per HPI Musculoskeletal: absent: ankle pain, ankle stiffness, ankle swelling Integumentary: Denies pruritus, Denies rash Neurological: Reports syncope Psychiatric: Denies anxiety, Denies depression Endocrine: Denies fatigue, Denies weight change Hematologic/Lymphatic: Reports as per HPI Allergic/Immunologic: Reports as per HPI Past Medical History Past Medical History: Atrial Fibrillation, Coronary Artery Disease (CAD), GI Bleed, Hyperlipidemia, Hypertension, Myocardial Infarction (SD), Osteoarthritis (OA), Syncope Additional Past Medical History / Comment(s): past hx. GI bleed 2001, back pain , pt not sure about thyroid disorder states the doctor is still testing. Last Myocardial Infarction Date:: 2007 & 2013 History of Any Multi-Drug Resistant Organisms: None Reported Past Surgical History: Back Surgery, Heart Catheterization With Stent, Hernia Repair Additional Past Surgical History / Comment(s): sinus surgery, heart stents x2, back surgery 05-20-17 Past Anesthesia/Blood Transfusion Reactions: No Reported Reaction Date of Last Stent Placement:: 09-21-14 Smoking Status: Former smoker - Past Family History Son(s) Family Medical History: Cancer Additional Family Medical History / Comment(s): FROM LUNG CANCER Mother Family Medical History: No Reported History Additional Family Medical History / Comment(s): father had mi also Father Family Medical History: Myocardial Infarction (SD) Medications and Allergies Home Medications Medication Instructions Recorded Confirmed Type Acetaminophen with Codeine 1 tab PO Q4H PRN 05/23/14 03/03/18 History [Tylenol w/codeine #4] Omeprazole [PriLOSEC] 20 mg PO DAILY 03/27/15 03/03/18 History Aspirin EC [Ecotrin Low Dose] 81 mg PO HS 02/05/16 03/03/18 History Amiodarone [Cordarone] 200 mg PO DAILY #90 tab 03/03/16 03/03/18 Rx Atorvastatin [Lipitor] 20 mg PO HS 12/28/17 03/03/18 History Losartan [Cozaar] 25 mg PO DAILY 12/28/17 03/03/18 History Warfarin [Coumadin] 2 mg PO HS 12/28/17 03/03/18 History Allergies Allergy/AdvReac Type Severity Reaction Status Date / Time No Known Allergies Allergy Verified 03/03/18 09:50 Physical Exam Vitals: Vital Signs Temp Pulse Pulse Resp BP BP Pulse Ox 03/04/18 12:00 98.4 F 67 18 117/58 98 03/04/18 08:00 97.2 F L 67 18 114/57 96 03/04/18 04:00 59 L 16 119/78 98 03/04/18 00:00 97.8 F 58 L 16 119/70 97 03/03/18 20:00 97.9 F 56 L 16 122/68 98 03/03/18 18:59 98.5 F 56 L 16 130/74 96 03/03/18 17:22 98.8 F 66 18 182/75 99 03/03/18 16:11 54 L 16 98/61 96 03/03/18 14:00 54 L 16 157/78 92 L Intake and Output 03/03/18 03/04/18 03/04/18 22:59 06:59 14:59 Intake Total 267.231 371.208 Output Total 450 500 Balance -450 -232.769 371.208 Intake: Intake, IV Titration 267.231 371.208 Amount Heparin Sod,Pork in 0.45% 267.231 211.208 NaCl 25,000 unit In 0.45 % NaCl 1 500ml.bag @ 18 UNITS/KG/HR 37.55 mls/hr IV .[id number] [facility] Rx#: [id number] Sodium Chloride 0.9% 1, 160 000 ml @ 999 mls/hr IV . Q1H1M STA Rx#:[id number] Output: Urine 450 500 Other: Voiding Method Urinal Urinal # Voids 0 0 # Bowel Movements 0 Weight 104.32 kg 104 kg Gen. appearance the patient is calm comfortable no acute distress. Some limited scalp laceration without evidence of any acute bleed. Head exam was generally normal. There was no scleral icterus or corneal arcus. Mucous membranes were moist. Neck was supple and without jugular venous distension, thyromegaly, or carotid bruits. Carotids were easily palpable bilaterally. There was no adenopathy. Lungs were clear to auscultation and percussion, and with normal diaphragmatic excursion. No wheezes or rales were noted. Heart sounds are regular and there is a systolic ejection murmur grade 3/6 heard of the left apex and radiating to the neck. Abdominal exam revealed normal bowel sounds. The abdomen was soft, non-tender, and without masses, organomegaly, or appreciable enlargement of the abdominal aorta. Examination of the extremities revealed easily palpable radial, femoral and pedal pulses. There was no cyanosis, clubbing or edema. Examination of the skin revealed no evidence of significant rashes, suspicious appearing nevi or other concerning lesions. Neurologically the patient is awake and alert and there is no focal neurological deficits. Results - Laboratory Findings CBC and BMP: 03/04/18 05:59 03/04/18 05:59 PT/INR, D-dimer PT 13.4 sec (9.0-12.0) H 03/04/18 05:59 INR 1.4 (<1.2) H 03/04/18 05:59 D-Dimer 3.36 mg/L FEU (<0.60) H 03/03/18 10:26 Abnormal lab findings: Abnormal Labs 03/03/18 03/03/18 03/03/18 10:26 10:26 10:26 RBC Hgb Hct Plt Count 105 L PT INR APTT D-Dimer Creatinine 1.46 H Glucose 121 H POC Glucose (mg/dL) Calcium Total Creatine Kinase 195 H CK-MB (CK-2) 3.0 H* Total Protein 5.7 L Albumin 3.3 L 03/03/18 03/03/18 03/03/18 10:26 11:42 21:52 RBC Hgb Hct Plt Count PT INR 1.2 H APTT >200.0 H* D-Dimer 3.36 H Creatinine Glucose POC Glucose (mg/dL) 109 H Calcium Total Creatine Kinase CK-MB (CK-2) Total Protein Albumin 03/04/18 03/04/18 03/04/18 05:59 05:59 05:59 RBC 3.90 L Hgb 11.5 L Hct 37.1 L Plt Count 81 L PT 13.4 H INR 1.4 H APTT >200.0 H* D-Dimer Creatinine Glucose POC Glucose (mg/dL) Calcium Total Creatine Kinase CK-MB (CK-2) Total Protein Albumin 03/04/18 05:59 RBC Hgb Hct Plt Count PT INR APTT D-Dimer Creatinine 1.26 H Glucose POC Glucose (mg/dL) Calcium 8.1 L Total Creatine Kinase CK-MB (CK-2) Total Protein Albumin - Diagnostic Findings Chest x-ray: image reviewed Assessment and Plan Plan: Assessment 1 syncope currently under investigation. The patient had 2 episodes of syncope , the second occurred while the patient was urinating. Rule out cardiogenic causes for this patient syncope. I do not think there is any indication for pulmonary embolism at least on clinical grounds and I would dismiss the results of the VQ scan which is really came back at an intermediate probability. Doppler proximity to negative. 2 abnormal d-dimer, nonspecific. Overall clicks suspicion for pulmonary embolism is low. Doppler of lower extremities negative. The patient will restart on anticoagulation knowing that the patient has been on long-term articulation with warfarin regarding his history of paroxysmal atrial fibrillation. As such, there is no need for any further investigation workup at this point in time 3 coronary artery disease 4 hypertension 5 peripheral vascular disease 6 chronic renal failure 7 hyperlipidemia 8 osteoarthritis 9 cardiac murmur rule out underlying aortic stenosis. Plan Cardiac monitoring. Restart anticoagulation with warfarin. Keep the patient IV heparin until the anticoagulation is completed with INR is achieved between 2 and 3. Obtain Doppler of the carotids. CAT scan of the brain that was done back in November 2017 was within normal limits. Consider MRI of the brain, if the cardiac workup is negative and not suggestive of or any abnormalities to explain the patient's recurrent syncope. Awaiting the results of the echocardiogram. We'll continue to follow. Cardiology is on the case.
--- NOTE | 2018-03-04 16:47 | CONS ---
CONSULTATION ADDENDUM TO CARDIOLOGY CONSULTATION: Mr. Campa presented with a syncopal episode. He has no prior syncope. He has a history of coronary artery disease, status post percutaneous revascularization, and paroxysmal atrial fibrillation. He presented with 2 syncopal episodes, the first one after he got up to adjust his thermostat and the other one after going to the bathroom. Both of them occurred suddenly, were not preceded by any symptoms and did not have any post-syncopal symptoms. He did not have any chest pain. No dyspnea. No dizziness. No palpitation. On presentation, he was in sinus mechanism and there was no evidence of atrial fibrillation. The patient has no history of significant bradycardia in the past. He underwent a ventilation perfusion scan that showed an intermediate probability for pulmonary embolism. The patient has been anticoagulated in the past in regard to his atrial fibrillation. His EKG shows a sinus mechanism, first-degree block, right bundle branch block and left axis deviation. His lab data showed a hemoglobin of 11.5, BUN and creatinine of 16 and 1.26. His troponin is less than 0.012. His echocardiogram revealed a preserved left ventricular size and systolic function with a mean gradient of 18 mmHg across the aortic valve. IMPRESSION: Syncopal episode of unclear etiology. I do not believe that the patient had a pulmonary embolism and does not explain his symptoms. At the same time, his symptoms are not clearly orthostatic in origin. The patient did not change position rapidly. I have a suspicion that this christiane may have high-grade AV block in view of his right bundle branch block, first-degree AV block and left axis deviation. Will increase his activity, observe his symptoms. If he has no symptoms, then he may be either a candidate for a loop recorder or permanent pacemaker implantation. Depending on his progress, further recommendations will be made. Thank you for this consult. We will follow with you. MMODL / IJN: [id number] /
--- NOTE | 2018-03-04 17:26 | US ---
EXAMINATION TYPE: US carotid duplex BILAT DATE OF EXAM: 03/04/2018 COMPARISON: CLINICAL HISTORY: syncopal episodes. Patient states he passed out twice- Wednesday and Wednesday night. No HTN. EXAM MEASUREMENTS: RIGHT: Peak Systolic Velocity (PSV) cm/sec ----- Right CCA: 79.0 ----- Right ICA: 94.4 ----- Right ECA: 100.8 ICA/CCA ratio: 1.2 RIGHT: End Diastole cm/sec ----- Right CCA: 14.2 ----- Right ICA: 14.2 ----- Right ECA: 0.0 LEFT: Peak Systolic Velocity (PSV) cm/sec ----- Left CCA: 128.6 ----- Left ICA: 149.5 ----- Left ECA: 121.0 ICA/CCA ratio: 1.2 LEFT: End Diastole cm/sec ----- Left CCA: 26.8 ----- Left ICA: 39.2 ----- Left ECA: 0.0 VERTEBRALS (direction of flow): Right Vertebral: Antegrade Left Vertebral: Antegrade Rhythm: Normal Plaque seen in bilateral CCA, bilateral bulbs and right ICA. Elevated proximal right CCA, right dist al CCA and right proximal ICA. No significant stenosis. Bilateral wall thickening. IMPRESSION: Bilateral plaque formation. There is antegrade flow in the vertebral arteries. The image s and measurements suggest 50-70% stenosis in the left internal carotid artery and left common caroti d artery. There is close to 50% stenosis in the right internal carotid artery. Criteria for Assigning % of Stenosis / Diameter reduction (Estimation based on the indirect measurements of the internal carotid artery velocities (ICA PSV). 1. Normal (no stenosis)=ICA PSV < 125 cm/s: ratio < 2.0: ICA EDV<40 cm/s. 2. Less than 50% stenosis=ICA PSV < 125 cm/s: ratio < 2.0: ICA EDV<40 cm/s. 3. 50 to 69% stenosis=ICA PSV of 125 to 230 cm/s: ration 2.0 ? 4.0: ICA EDV 40-100 cm/s. 4. Greater than 70% stenosis to near occlusion= ICA PSV > 230 cm/s: ratio > 4.0: ICA EDV > 100 cm/s. 5. Near occlusion= ICA PSV velocities may be low or undetectable: variable ratio and ICA EDV. 6. Total occlusion=unable to detect flow.
--- NOTE | 2018-03-04 17:29 | CT ---
EXAMINATION TYPE: CT brain wo con DATE OF EXAM: 03/04/2018 COMPARISON: 12/28/2017 HISTORY: Recent syncopal episode with injury CT DLP: 1302 mGycm Automated exposure control for dose reduction was used. FINDINGS: There is mild cerebral cortical atrophy. There is no mass effect nor midline shift. There is no sign of intracranial hemorrhage. There is some mild hypodensity in the white matter around the frontal hor ns of the lateral ventricles. The calvarium is intact. IMPRESSION: CEREBRAL ATROPHY. MINIMAL CHRONIC SMALL VESSEL ISCHEMIA. NO CHANGE COMPARED TO OLD EXAM. NO ACUTE ABN ORMALITY.
[2018-03-04] MEDS: ENOXAPARIN 100 MG/ML SYRINGE SQ SCH ×2 (17:48→19:24)
[2018-03-04] MEDS: WARFARIN 5 MG TAB PO SCH (17:48)
[2018-03-04] MEDS ORDERED: WARFARIN 2.5 MG TAB PO SCH (18:00)
--- NOTE | 2018-03-04 18:14 | PN ---
PROGRESS NOTE DATE OF SERVICE: 03/04/18. PRESENTING COMPLAINT: Passed out INTERVAL HISTORY: This patient presented with 2 episodes of syncope. Consultation being made for arrhythmia. PE is felt to be unlikely. The patient did get consult from Dr. Connell who feels the same. The patient is on IV heparin as INR is subtherapeutic. The patient is having pain in the right hip, not able to weight bear. Hip x-ray was negative for fracture. Some pain in both the shoulders. Breathing is stable. No chest pain. No dizziness, lightheadedness. REVIEW OF SYSTEMS: Done for constitutional, cardiovascular, GI, pulmonary, musculoskeletal; relevant findings as above. CURRENT MEDICATIONS: Reviewed that include IV heparin, Coumadin. PHYSICAL EXAMINATION: Temperature 97.2, pulse 57, respiratory 18, blood pressure 104/57, pulse ox 96% on room air. GENERAL APPEARANCE: Lying in bed, awake. EYES: Pupils equal. Conjunctivae normal. HEENT: External appearance of nose and ears normal. Oral cavity normal. NECK: JVD not raised. Mass not palpable. RESPIRATORY: Effort normal. Lungs are clear. CARDIOVASCULAR: 1st and 2nd sounds, no edema. ABDOMEN: Soft, nontender. Liver and spleen not palpable. MUSCULOSKELETAL: Limited range of motion of the right hip. INVESTIGATIONS: White count 6.1, hemoglobin 11.5, INR 1.4, potassium 4.5, creatinine 1.26. TSH is normal. ProBNP 333. ASSESSMENT: 1. Two episodes of syncope, suspicious for underlying arrhythmia with a prior history of atrial fibrillation. 2. IV heparin monitoring. 3. Coronary artery disease, prior history of stent. 4. Paroxysmal atrial fibrillation on Coumadin, currently in sinus rhythm. 5. Essential hypertension. 6. Hyperlipidemia. 7. Pulmonary embolism extremely doubtful. 8. Coumadin monitoring. 9. Chronic kidney disease stage III from nephrosclerosis. PLAN: At this point, we will switch patient IV heparin to Lovenox until INR is therapeutic. The patient to be maintained on telemetry had. Continue current medication and treatment plan. Increase the dose of Coumadin to 5 mg in the evening and follow INR. MMODL / IJN: [id number] /
[2018-03-04] MEDS: ATORVASTATIN 20 MG TAB PO SCH (21:01)
[2018-03-04 21:12] LABS: Glucose,Whole Blood 114 mg/dL (75-99)
[2018-03-05] MEDS: Acetaminophen-Codeine 300-30mg TAB PO PRN ×6 (03:58→21:27)
[2018-03-05 06:35] LABS: INR 1.9 (<1.2); Prothrombin Time 17.5 sec (9.0-12.0)
[2018-03-05 06:46] LABS: Basophils % (A) 0 %; Eosinophils # (A) 0.1 k/uL (0-0.7); Eosinophils % (A) 1 %; HCT 33.4 % (39.0-53.0); HGB 10.8 gm/dL (13.0-17.5); Lymphocytes # (A) 1.6 k/uL (1.0-4.8); Lymphocytes % (A) 16 %; MCH 30.6 pg (25.0-35.0); MCHC 32.2 g/dL (31.0-37.0); MCV 94.8 fL (80.0-100.0); Mean Platelet Volume 9.4; Monocytes # (A) 0.8 k/uL (0-1.0); Monocytes % (A) 8 %; Neutrophils % (A) 73 %; RBC 3.52 m/uL (4.30-5.90); RDW 14.2 % (11.5-15.5); WBC 9.6 k/uL (3.8-10.6)
[2018-03-05 06:52] LABS: Platelet Count 87 k/uL (150-450)
[2018-03-05] MEDS: LOSARTAN 25 MG TAB PO SCH (08:49)
[2018-03-05] MEDS: ENOXAPARIN 100 MG/ML SYRINGE SQ SCH (08:49)
[2018-03-05] MEDS: PANTOPRAZOLE 40 MG TABLET PO SCH (08:49)
--- NOTE | 2018-03-05 08:50 | P.CNOR ---
History of Present Illness - HPI Consult date: 03/05/18 History of present illness: This is a 77-year-old male who was admitted after 2 episodes of syncope over the last 2-3 days. Patient medical history significant for atrial fibrillation , GI bleed, and myocardial infarction. Orthopedics is consulted due to right hip pain. Patient complains of right hip pain after his syncopal episodes. Patient states that he has not been up and walking on the right lower extremity. Patient states that the pain only occurs with walking and not while sitting in bed. Patient denies any hip pain prior to the syncopal episodes. Patient denies any fever/chills, numbness, weakness or tingling. Review of Systems See HPI. Past Medical History Past Medical History: Atrial Fibrillation, Coronary Artery Disease (CAD), GI Bleed, Hyperlipidemia, Hypertension, Myocardial Infarction ([place]), Osteoarthritis (OA), Syncope Additional Past Medical History / Comment(s): past hx. GI bleed 2001, back pain , pt not sure about thyroid disorder states the doctor is still testing. Last Myocardial Infarction Date:: 2007 & 2013 History of Any Multi-Drug Resistant Organisms: None Reported Past Surgical History: Back Surgery, Heart Catheterization With Stent, Hernia Repair Additional Past Surgical History / Comment(s): sinus surgery, heart stents x2, back surgery 05-20-17 Past Anesthesia/Blood Transfusion Reactions: No Reported Reaction Date of Last Stent Placement:: 09-21-14 Smoking Status: Former smoker - Past Family History Son(s) Family Medical History: Cancer Additional Family Medical History / Comment(s): FROM LUNG CANCER Mother Family Medical History: No Reported History Additional Family Medical History / Comment(s): father had mi also Father Family Medical History: Myocardial Infarction ([place]) Medications and Allergies Home Medications Medication Instructions Recorded Confirmed Type Acetaminophen with Codeine 1 tab PO Q4H PRN 05/23/14 03/03/18 History [Tylenol w/codeine #4] Omeprazole [PriLOSEC] 20 mg PO DAILY 03/27/15 03/03/18 History Aspirin EC [Ecotrin Low Dose] 81 mg PO HS 02/05/16 03/03/18 History Amiodarone [Cordarone] 200 mg PO DAILY #90 tab 03/03/16 03/03/18 Rx Atorvastatin [Lipitor] 20 mg PO HS 12/28/17 03/03/18 History Losartan [Cozaar] 25 mg PO DAILY 12/28/17 03/03/18 History Warfarin [Coumadin] 2 mg PO HS 12/28/17 03/03/18 History Allergies Allergy/AdvReac Type Severity Reaction Status Date / Time No Known Allergies Allergy Verified 03/03/18 09:50 Physical Examination On exam patient is lying in bed in no acute distress and is alert and oriented 3. There is no ecchymosis, swelling or erythema of the right hip. There is no tenderness to palpation over the right hip. Patient has full range of motion of the right hip without pain or difficulty. Calf is soft and nontender to palpation. Sensation intact. Neurovascular status and circulatory status are intact. Results X-rays of the right hip and pelvis dated 03/03/2018 for any fracture or dislocation. Mild arthritic changes. A CT of the right hip dated 03/04/2018 shows: 1. No evidence of acute fracture or dislocation of the right hip. 2. Moderate right femoral acetabular arthropathy and chondrocalcinosis of the chondral labral junction. 3. Subcutaneous soft tissue swelling over the gluteal musculature without focal fluid collection for CT evidence of intramuscular hematoma. - Labs Labs: Abnormal Lab Results - Last 24 Hours (Table) 03/04/18 03/04/18 03/04/18 Range/Units 05:59 05:59 14:40 RBC (4.30-5.90) m/uL Hgb (13.0-17.5) gm/dL Hct (39.0-53.0) % Plt Count (150-450) k/uL PT 13.4 H (9.0-12.0) sec INR 1.4 H (<1.2) APTT >200.0 H* (22.0-30.0) sec Creatinine 1.26 H (0.66-1.25) mg/dL POC Glucose (mg/dL) (75-99) mg/dL Calcium 8.1 L (8.4-10.2) mg/dL 03/04/18 03/05/18 03/05/18 Range/Units 21:10 05:57 05:57 RBC 3.52 L (4.30-5.90) m/uL Hgb 10.8 L (13.0-17.5) gm/dL Hct 33.4 L (39.0-53.0) % Plt Count 87 L (150-450) k/uL PT 17.5 H (9.0-12.0) sec INR 1.9 H (<1.2) APTT (22.0-30.0) sec Creatinine (0.66-1.25) mg/dL POC Glucose (mg/dL) 114 H (75-99) mg/dL Calcium (8.4-10.2) mg/dL H & H 03/03/18 03/04/18 03/05/18 Range/Units 10:26 05:59 05:57 Hgb 13.1 11.5 L 10.8 L (13.0-17.5) gm/dL Hct 41.7 37.1 L 33.4 L (39.0-53.0) % Coagulation 03/03/18 03/04/18 03/05/18 Range/Units 10:26 05:59 05:57 INR 1.2 H 1.4 H 1.9 H (<1.2) Result Diagrams: 03/05/18 05:57 03/04/18 05:59 Assessment and Plan (1) Right hip pain Current Visit: Yes Status: Acute Code(s): M25.551 - PAIN IN RIGHT HIP SNOMED Code(s): 41032259 (2) Fall Current Visit: Yes Status: Acute Code(s): W19.XXXA - UNSPECIFIED FALL, INITIAL ENCOUNTER SNOMED Code(s): 6190356 (3) Contusion of right hip Current Visit: Yes Status: Acute Code(s): S70.01XA - CONTUSION OF RIGHT HIP , INITIAL ENCOUNTER SNOMED Code(s): 77556714 (4) Syncope Current Visit: Yes Status: Acute Code(s): R55 - SYNCOPE AND COLLAPSE SNOMED Code(s): 328385478 Plan: 1. There is no evidence for hip fracture on x-ray or CT. On exam patient has no pain with full range of motion of the right hip. 2. Recommend weightbearing as tolerated with a walker. 3. Recommend physical therapy for gait training. 4. No surgical intervention planned and patient may follow up as an outpatient on an as-needed basis.
--- NOTE | 2018-03-05 10:21 | P.PN ---
Subjective Progress Note Date: 03/05/18 Principal diagnosis: Syncope of unclear etiology 77-year-old male patient who came in to the hospital after 2 episodes of syncope that occurred [id number] over 2 days. The patient is known to have coronary artery disease and he has undergone previous stenting of RCA back in 2007. He is also known to have paroxysmal atrial fibrillation and his maintained on long-term medical condition with Coumadin addition to peripheral vascular disease and hyperlipidemia and hypertension. The patient was having dental procedures and the patient was taken off Coumadin for a total of 4-5 days prior to his dental procedure and dental extraction. The dental procedure was done without any complications. At home, while patient will calendar thermostats, he acutely had an episode of syncope to which she has no recollection. The describes 1 minutes of loss in consciousness and subsequent regain of consciousness. The second episode occurred while the patient urinating in the bathroom and the patient acutely dropped having a trauma to his head and neck area. This was a similar episode that lasted for around a minute and the patient recovered without any intervention. At that point I decided to bring this patient to the hospital for further workup. Noted the patient did not have any warning signs prior to these episodes of syncope. No dizziness. No irregular heartbeats. No chest pain. No shortness of breath. No pleurisy. No angina. No headaches. No change in her vision or speech. No facial asymmetry. No focal neurological deficit. No seizure activity. His PT/INR was subtherapeutic. Doppler of the lower extremity has been negative. A VQ scan was done and was reported to be of intermediate probability. His d-dimer was at 3.36. Creatinine was at 1.4. His edema was at 315.1. Pulse ox is 96% on room air. His EKG showing sinus bradycardia and first-degree AV block with a right bundle branch block pattern. His PT/INR is subtherapeutic as the patient was off the anticoagulation during these episodes. Currently is resting comfortably in bed. CAT scan of the right hip shows moderate right femoral stop alert arthropathy without evidence of any fractures. There is some subcutaneous tissue swelling over the gluteal musculature without any hematoma. A CAT scan of the brain that was done on in addition to a CAT scan of the neck showed no evidence of any fractures of the cervical spine or acute abnormalities in the head and the CAT scan was done due to a fall and left sided head injury that occurred approximately in November 2017. This episode was not related to syncope. Patient is seen today 03/05/2018 in follow-up on the selective care unit. He is currently awake and alert in no acute distress. He denies any further syncopal episodes. No dizziness or lightheadedness. He is maintaining good O2 saturations in the 90s on 2 L/m per nasal cannula. His been afebrile. Hemodynamically stable. Heart rate in the 60s and 70s. Anus rhythm with a first-degree AV block. White count 9.6. Hemoglobin 10.8. INR 1.9. Carotid Doppler reveals 50-70% stenosis of the left internal carotid, 50% stenosis of the right internal carotid. Objective - Vital Signs Vital signs: Vital Signs Temp 97.9 F 03/05/18 08:00 Pulse 72 03/05/18 08:00 Resp 18 03/05/18 08:00 BP 113/48 03/05/18 08:00 Pulse Ox 96 03/05/18 08:00 Intake & Output 03/04/18 03/05/18 03/05/18 18:59 06:59 18:59 Intake Total 521.208 Output Total 200 200 Balance 321.208 -200 Weight 103.1 kg Intake: Intake, IV Titration 371.208 Amount Heparin Sod,Pork in 0.45% 211.208 NaCl 25,000 unit In 0.45 % NaCl 1 500ml.bag @ 18 UNITS/KG/HR 37.55 mls/hr IV [id number] PRINCESS Rx#: [id number] Sodium Chloride 0.9% 1, 160 000 ml @ 999 mls/hr IV . Q1H1M STA Rx#:[id number] Oral 150 Output: Urine 200 200 Other: Voiding Method Urinal - Exam GENERAL EXAM: Alert, active, comfortable in no apparent distress. HEAD: Normocephalic. EYES: Normal reaction of pupils, equal size. NOSE: Clear with pink turbinates. THROAT: No erythema or exudates. NECK: No masses, no JVD. CHEST: No chest wall deformity. LUNGS: Equal air entry with no crackles, wheeze, rhonchi or dullness. CVS: S1 and S2 normal with no audible murmur, regular rhythm. ABDOMEN: No hepatosplenomegaly, normal bowel sounds, no guarding or rigidity. SPINE: No scoliosis or deformity SKIN: No rashes CENTRAL NERVOUS SYSTEM: No focal deficits, tone is normal in all 4 extremities. EXTREMITIES: There is no peripheral edema. No clubbing, no cyanosis. Peripheral pulses are intact. - Labs CBC & Chem 7: 03/05/18 05:57 03/04/18 05:59 Labs: Abnormal Lab Results - Last 24 Hours (Table) 03/04/18 03/04/18 03/04/18 Range/Units 05:59 14:40 21:10 RBC (4.30-5.90) m/uL Hgb (13.0-17.5) gm/dL Hct (39.0-53.0) % Plt Count (150-450) k/uL PT (9.0-12.0) sec INR (<1.2) APTT >200.0 H* (22.0-30.0) sec Creatinine 1.26 H (0.66-1.25) mg/dL POC Glucose (mg/dL) 114 H (75-99) mg/dL Calcium 8.1 L (8.4-10.2) mg/dL 03/05/18 03/05/18 Range/Units 05:57 05:57 RBC 3.52 L (4.30-5.90) m/uL Hgb 10.8 L (13.0-17.5) gm/dL Hct 33.4 L (39.0-53.0) % Plt Count 87 L (150-450) k/uL PT 17.5 H (9.0-12.0) sec INR 1.9 H (<1.2) APTT (22.0-30.0) sec Creatinine (0.66-1.25) mg/dL POC Glucose (mg/dL) (75-99) mg/dL Calcium (8.4-10.2) mg/dL Assessment and Plan Assessment: Assessment 1 syncope currently under investigation. The patient had 2 episodes of syncope , the second occurred while the patient was urinating. Rule out cardiogenic causes for this patient syncope. I do not think there is any indication for pulmonary embolism at least on clinical grounds and I would dismiss the results of the VQ scan which is really came back at an intermediate probability. Doppler of the lower extremities is negative. 2 abnormal d-dimer, nonspecific. Overall suspicion for pulmonary embolism is low. Doppler of lower extremities negative. The patient will restart on anticoagulation knowing that the patient has been on long-term articulation with warfarin regarding his history of paroxysmal atrial fibrillation. As such , there is no need for any further investigation workup at this point in time 3 coronary artery disease 4 hypertension 5 peripheral vascular disease 6 chronic renal failure 7 hyperlipidemia 8 osteoarthritis 9 cardiac murmur rule out underlying aortic stenosis. Echocardiogram reveals preserved left ventricular systolic function. There is moderate aortic stenosis present. No pulmonary hypertension. Plan The patient was seen and evaluated by Dr. Connell. No further episodes of syncope. No significant carotid stenosis. Cardiology is on the case and planning loop recorder versus pacemaker. We will follow the patient on as- needed basis. I, the cosigning physician, performed a history & physical examination of the patient. Lungs sounds are clear. Maintaining good O2 saturations in the 90s on room air. I discussed the assessment and plan of care with my nurse practitioner, Kira Lemus. I attest to the above note as dictated by her.
[2018-03-05] MEDS: AMIODARONE 100 MG TAB PO SCH (14:08)
--- NOTE | 2018-03-05 16:30 | PN ---
PROGRESS NOTE DATE OF SERVICE: 03/05/2018 PRESENTING COMPLAINT: Passed out. INTERVAL HISTORY: Patient presented with 2 episodes of syncope. PE is felt to be unlikely. Cardiology is contemplating an event monitor versus a loop recorder. Fracture was ruled out in the right hip. PT was consulted. Otherwise stable. REVIEW OF SYSTEMS: Done for constitutional, cardiovascular, GI, pulmonary, musculoskeletal; relevant findings as above. CURRENT MEDICATIONS: Reviewed. They include Coumadin. PHYSICAL EXAMINATION: Temperature 97.2, pulse 70, respiration 18, blood pressure 116/44, pulse ox 100% on 3 L. GENERAL APPEARANCE: Sitting in bed, awake. EYES: Pupils equal. Conjunctivae normal. HEENT: External appearance of nose and ears normal. Oral cavity normal. NECK: JVD not raised. Mass not palpable. RESPIRATORY: Effort normal. Lungs are clear. CARDIOVASCULAR: First and second sounds normal. No edema. ABDOMEN: Soft, non-tender. Liver and spleen not palpable. PSYCHIATRY: Alert and oriented x3. Mood and affect normal. INVESTIGATIONS: White count 9.6, INR 1.9. ASSESSMENT: 1. Two episodes of syncope, felt to be possibly arrhythmia in a patient with a history of atrial fibrillation. 2. Coronary artery disease with prior history of stent. 3. Paroxysmal atrial fibrillation, on Coumadin, currently in sinus rhythm. 4. Essential hypertension. 5. Hyperlipidemia. 6. Pulmonary embolism extremely doubtful. 7. Coumadin monitoring. 8. Chronic kidney disease, stage III, from nephrosclerosis. PLAN: Care was discussed with the patient. Awaiting PT input for physical therapy and will go from there. MMODL / IJN: [id number] /
[2018-03-05] MEDS: WARFARIN 5 MG TAB PO SCH (17:10)
--- NOTE | 2018-03-05 20:48 | PN ---
PROGRESS NOTE This patient was admitted with 2 episodes of syncope. The patient has a history of paroxysmal atrial fibrillation. EKG shows evidence of normal sinus rhythm with right bundle branch block pattern as well as first degree AV block. A possibility of intermittent high-degree AV block is considered. We will discuss with Dr. Alegre and may consider putting a loop monitor or consider permanent pacemaker. First and second heart sounds are normal. Lungs are clinically clear to auscultation and percussion. We will decrease the dose of amiodarone to 100 mg daily. MMODL / IJN: [id number] /
[2018-03-05] MEDS: ATORVASTATIN 20 MG TAB PO SCH (21:27)
[2018-03-06] MEDS: Acetaminophen-Codeine 300-30mg TAB PO PRN ×5 (03:01→23:07)
[2018-03-06 06:09] LABS: Basophils % (A) 0 %; Eosinophils # (A) 0.1 k/uL (0-0.7); Eosinophils % (A) 1 %; HCT 30.6 % (39.0-53.0); HGB 9.4 gm/dL (13.0-17.5); Lymphocytes # (A) 1.3 k/uL (1.0-4.8); Lymphocytes % (A) 14 %; MCHC 30.7 g/dL (31.0-37.0); MCV 94.4 fL (80.0-100.0); Mean Platelet Volume 9.9; Monocytes # (A) 0.7 k/uL (0-1.0); Monocytes % (A) 7 %; Neutrophils # (A) 7.2 k/uL (1.3-7.7); Neutrophils % (A) 76 %; RBC 3.24 m/uL (4.30-5.90); RDW 14.4 % (11.5-15.5); WBC 9.4 k/uL (3.8-10.6)
[2018-03-06 06:17] LABS: INR 2.9 (<1.2); Prothrombin Time 26.3 sec (9.0-12.0)
[2018-03-06 06:23] LABS: Platelet Count 86 k/uL (150-450)
[2018-03-06] MEDS: AMIODARONE 100 MG TAB PO SCH (08:52)
[2018-03-06] MEDS: PANTOPRAZOLE 40 MG TABLET PO SCH (08:52)
[2018-03-06] MEDS: LOSARTAN 25 MG TAB PO SCH (08:52)
--- NOTE | 2018-03-06 13:01 | P.PN ---
Subjective Progress Note Date: 03/06/18 This is a 77-year-old male who was admitted for syncopal episodes. Orthopedics was consulted due to right hip pain. Patient states that his right hip is still painful, but much improved over the last 2 days. Patient states that he was able to walk to his door and back using a walker. Patient states she was able to put some weight on the right lower extremity. Patient denies any new complaints or symptoms today. Patient denies any fever/chills, numbness, weakness, tingling, abdominal pain, shortness of breath or chest pain. Objective - Vital Signs Vital signs: Vital Signs Temp 98.4 F 03/06/18 11:49 Pulse 69 03/06/18 11:49 Resp 18 03/06/18 11:49 BP 122/59 03/06/18 11:49 Pulse Ox 93 L 03/06/18 11:49 Intake & Output 03/05/18 03/06/18 03/06/18 18:59 06:59 18:59 Intake Total 240 240 Output Total 250 200 Balance 240 -250 40 Weight 101.5 kg Intake: Oral 240 240 Output: Urine 250 200 Other: Voiding Method Urinal # Voids 1 - Exam On exam patient is alert and oriented 3 and lying in bed in no acute distress. Patient has full active range of motion of the right hip without pain or difficulty. Calf is soft and nontender to palpation. Sensation intact. Neurovascular status and circulatory status are intact. - Labs CBC & Chem 7: 03/06/18 05:37 03/04/18 05:59 Labs: Abnormal Lab Results - Last 24 Hours (Table) 03/06/18 03/06/18 Range/Units 05:37 05:37 RBC 3.24 L (4.30-5.90) m/uL Hgb 9.4 L (13.0-17.5) gm/dL Hct 30.6 L (39.0-53.0) % MCHC 30.7 L (31.0-37.0) g/dL Plt Count 86 L (150-450) k/uL PT 26.3 H (9.0-12.0) sec INR 2.9 H (<1.2) Assessment and Plan (1) Right hip pain Current Visit: Yes Status: Acute Code(s): M25.551 - PAIN IN RIGHT HIP SNOMED Code(s): 46723791 (2) Fall Current Visit: Yes Status: Acute Code(s): W19.XXXA - UNSPECIFIED FALL, INITIAL ENCOUNTER SNOMED Code(s): 6136011 (3) Contusion of right hip Current Visit: Yes Status: Acute Code(s): S70.01XA - CONTUSION OF RIGHT HIP , INITIAL ENCOUNTER SNOMED Code(s): 73399134 (4) Syncope Current Visit: Yes Status: Acute Code(s): R55 - SYNCOPE AND COLLAPSE SNOMED Code(s): 359943788 Plan: 1. There is no evidence for hip fracture on x-ray or CT. On exam patient has no pain with full range of motion of the right hip. 2. Recommend weightbearing as tolerated with a walker. 3. Recommend physical therapy for gait training. 4. No surgical intervention planned and patient may follow up as an outpatient on an as-needed basis. If right hip pain persists patient may need an MRI which can be done as an outpatient.
[2018-03-06] MEDS ORDERED: WARFARIN 2.5 MG TAB PO SCH (18:00)
[2018-03-06] MEDS: ATORVASTATIN 20 MG TAB PO SCH (19:54)
--- NOTE | 2018-03-06 20:37 | PN ---
PROGRESS NOTE DATE OF SERVICE: 03/06/18 PRESENTING COMPLAINT: Passed out. INTERVAL HISTORY: The patient presented with two episodes of syncope. The patient is felt to have arrhythmia. Also the patient had blunt injury to the shoulder and the right hip. The patient actually walked a few steps with a walker, feeling more confident. No arrhythmias. Obvious arrhythmias picked up on the telemetry. The patient tolerated his diet. Pain is better. is present. REVIEW OF SYSTEMS: Done for constitutional, cardiovascular, GI, pulmonary, musculoskeletal; relevant findings as above. CURRENT MEDICATIONS: Reviewed. PHYSICAL EXAMINATION: Temperature 98.4, pulse 69, respirations 18, blood pressure 122/59, pulse ox 93% on room air. GENERAL APPEARANCE: Propped up in bed, awake. EYES: Pupils equal. Conjunctivae normal. HEENT: External appearance of nose and ears normal. Oral cavity normal. NECK: JVD not raised. Mass not palpable. RESPIRATORY: Effort normal. Lungs are clear. CARDIOVASCULAR: 1st and 2nd sounds, no edema. ABDOMEN: Soft, nontender. Liver and spleen not palpable. PSYCHIATRY: Alert and oriented x3. Mood and affect normal. INVESTIGATIONS: White count 9.4, hemoglobin 9.4, INR 2.9. ASSESSMENT: 1. Two episodes of syncope, felt to be a possible arrhythmia in a patient with history of atrial fibrillation. 2. Coronary artery disease with prior history of stent. 3. Paroxysmal atrial fibrillation on Coumadin, currently in sinus rhythm. 4. Right bundle branch block pattern. 5. Essential hypertension. 6. Hyperlipidemia. 7. Pulmonary embolism felt to be unlikely. 8. Coumadin monitoring. 9. Chronic kidney disease stage 3 from nephrosclerosis. 10.Blunt injury to the shoulders and hip. PLAN: Patient started to walk better. Did speak to PA from Orthopedics. No further intervention. Patient to ambulate as tolerated. Also spoke to Dr. Rl Bradley. The patient will probably go home with event monitor tomorrow and then will have a loop recorder placed. I did talk at length with the patient and . Encouraged him to be out of bed. MMODL / MARINAN: [id number] /
[2018-03-07] MEDS: Acetaminophen-Codeine 300-30mg TAB PO PRN ×2 (03:23→07:40)
[2018-03-07 06:27] LABS: INR 3.6 (<1.2); Prothrombin Time 32.3 sec (9.0-12.0)
[2018-03-07 06:31] LABS: Calcium 7.8 mg/dL (8.4-10.2); Potassium 4.8 mmol/L (3.5-5.1)
[2018-03-07 06:38] LABS: Basophils % (A) 0 %; Eosinophils # (A) 0.2 k/uL (0-0.7); Eosinophils % (A) 2 %; HCT 28.5 % (39.0-53.0); HGB 8.8 gm/dL (13.0-17.5); Lymphocytes # (A) 1.3 k/uL (1.0-4.8); Lymphocytes % (A) 16 %; MCH 29.1 pg (25.0-35.0); MCHC 30.9 g/dL (31.0-37.0); MCV 94.1 fL (80.0-100.0); Mean Platelet Volume 10.3; Monocytes # (A) 0.5 k/uL (0-1.0); Monocytes % (A) 6 %; Neutrophils # (A) 6.2 k/uL (1.3-7.7); Neutrophils % (A) 75 %; Platelet Count 92 k/uL (150-450); RBC 3.03 m/uL (4.30-5.90); RDW 14.4 % (11.5-15.5); WBC 8.4 k/uL (3.8-10.6)
[2018-03-07] MEDS: PANTOPRAZOLE 40 MG TABLET PO SCH (07:36)
[2018-03-07] MEDS: AMIODARONE 100 MG TAB PO SCH (07:36)
[2018-03-07] MEDS: ATORVASTATIN 20 MG TAB PO SCH (07:36)
[2018-03-07] MEDS: LOSARTAN 25 MG TAB PO SCH (07:36)
[2018-03-07 11:03] LABS: Reticulocyte % 1.8 % (0.5-2.0)
[2018-03-07] MEDS: TYLENOL PO SCH ×4 (11:15→23:23)
[2018-03-07] MEDS ORDERED: LACTULOSE 20 GM/30 ML CUP PO ONE (11:17)
[2018-03-07 11:26] VITALS: BMI 32.2
--- NOTE | 2018-03-07 14:36 | P.PN ---
Subjective Progress Note Date: 03/07/18 This is a 77-year-old male who was admitted for syncopal episodes. Orthopedics was consulted due to right hip pain. Patient states that there is pain of the right hip this morning. Patient states that he is going to work with physical therapy this morning. Patient denies any new complaints or symptoms today. Patient denies any fever/chills, numbness, weakness, tingling, abdominal pain, shortness of breath or chest pain. Objective - Vital Signs Vital signs: Vital Signs Temp 98.2 F 03/07/18 07:32 Pulse 79 03/07/18 07:32 Resp 16 03/07/18 07:32 BP 134/62 03/07/18 07:32 Pulse Ox 90 L 03/07/18 07:32 Intake & Output 03/06/18 03/07/18 03/07/18 18:59 06:59 18:59 Intake Total 480 250 Output Total 200 750 Balance 280 -500 Weight 101.8 kg Intake: Oral 480 250 Output: Urine 200 750 Other: Voiding Method Urinal Urinal - Exam On exam patient is alert and oriented 3 and lying in bed in no acute distress. Patient has full active range of motion of the right hip without pain or difficulty. Calf is soft and nontender to palpation. Sensation intact. Neurovascular status and circulatory status are intact. - Labs CBC & Chem 7: 03/07/18 05:33 03/07/18 05:33 Labs: Abnormal Lab Results - Last 24 Hours (Table) 03/07/18 03/07/18 03/07/18 Range/Units 05:33 05:33 05:33 RBC 3.03 L (4.30-5.90) m/uL Hgb 8.8 L (13.0-17.5) gm/dL Hct 28.5 L (39.0-53.0) % MCHC 30.9 L (31.0-37.0) g/dL Plt Count 92 L (150-450) k/uL PT 32.3 H (9.0-12.0) sec INR 3.6 H (<1.2) Sodium 133 L (137-145) mmol/L BUN 22 H (9-20) mg/dL Glucose 108 H (74-99) mg/dL Calcium 7.8 L (8.4-10.2) mg/dL Assessment and Plan (1) Right hip pain Current Visit: Yes Status: Acute Code(s): M25.551 - PAIN IN RIGHT HIP SNOMED Code(s): 30376306 (2) Fall Current Visit: Yes Status: Acute Code(s): W19.XXXA - UNSPECIFIED FALL, INITIAL ENCOUNTER SNOMED Code(s): 8574181 (3) Contusion of right hip Current Visit: Yes Status: Acute Code(s): S70.01XA - CONTUSION OF RIGHT HIP , INITIAL ENCOUNTER SNOMED Code(s): 44215039 (4) Syncope Current Visit: Yes Status: Acute Code(s): R55 - SYNCOPE AND COLLAPSE SNOMED Code(s): 482121563 Plan: 1. There is no evidence for hip fracture on x-ray or CT. On exam patient has no pain with full range of motion of the right hip. 2. Recommend weightbearing as tolerated with a walker. 3. Recommend physical therapy for gait training. 4. No surgical intervention planned and patient may follow up as an outpatient on an as-needed basis. If right hip pain persists patient may need an MRI which can be done as an outpatient.
--- NOTE | 2018-03-07 14:44 | P.PN ---
Subjective Progress Note Date: 03/07/18 This is a pleasant 77-year-old gentleman who follows regularly with Dr. Alegre in the office. He has a known history of coronary artery disease with prior stent placement to the RCA in 2007, peripheral vascular disease, hyperlipidemia, family history of coronary artery disease, hypertension , paroxysmal atrial fibrillation, on Coumadin for anticoagulation. Patient recently had some teeth pulled, states that he was off Coumadin for 4 days, he is back on it now. He does have a prior history of smoking. Patient presents to the hospital on this occasion following 2 syncopal episodes at home. According to the patient, the initial event happened when he was getting up out of bed to adjust the thermostat, he states that he reached out for the thermostat in the next thing he recalls is waking up on the floor. Subsequent to that patient states he was in the bathroom and had another syncopal episode. He denies any warning prior to passing out, no dizziness, no lightheadedness, no palpitations, no chest discomfort. Patient started on the second event, he hit himself quite hard, his neck is very sore this morning as is his right hip. Laboratory data on admission here, white blood cell count 8.7, hemoglobin 13.1 , 11.5 this morning. Platelet count 105, 81 this morning. D-dimer 3.36, sodium 137, potassium 4.8, BUN 19, creatinine 1.4. Initial troponin negative. Because of the abnormal d-dimer, patient underwent lung perfusion scan which came back intermediate probability for pulmonary embolism. Hip x-ray does not reveal evidence of acute fracture or dislocation. Chest x-ray shows blunting of the costophrenic angle likely related to tiny effusion or pleural thickening. X-ray of the abdomen did not reveal any acute findings. Abdominal ultrasound shows splenomegaly, bilateral cortical thinning, correlate for chronic medical renal disease. Venous duplex negative for DVT in either extremity. Blood pressure on admission 108/60, heart rate in the 60s, temperature 97.7, he is 96% on room air. EKG on admission shows sinus bradycardia with first-degree AV block and right bundle branch block pattern. At the time of my examination this morning, patient states his neck is sore, he also complains of right hip pain. Denies any chest discomfort, no palpitations , no dizziness or lightheadedness. 03/07/2018 Patient seen and examined this morning, overall feeling well, it is noted this morning that the patient did have a drop in his hemoglobin, according to the patient, he states he has not had a bowel movement for the past 5 days. We will recommend to give the patient a stool softener, check stool for Hemoccult. Recommend GI workup. Blood pressure 134/60 with a heart rate in the 70s, 92% on room air. Blood cell count 8.4, hemoglobin 8.8, INR 3.6, sodium 133, potassium 4.8, BUN 22, creatinine 1.2. Objective - Vital Signs Vital signs: Vital Signs Temp 97.8 F 03/07/18 11:18 Pulse 70 03/07/18 11:18 Resp 18 03/07/18 11:18 BP 145/69 03/07/18 11:18 Pulse Ox 92 L 03/07/18 11:18 Intake & Output 03/06/18 03/07/18 03/07/18 18:59 06:59 18:59 Intake Total 480 250 358 Output Total 200 750 Balance 280 -500 358 Weight 101.8 kg 101.8 kg Intake: Oral 480 250 358 Output: Urine 200 750 Other: Voiding Method Urinal Urinal - Exam PHYSICAL EXAMINATION: GENERAL: 77-year-old gentleman in no acute distress at the time of my examination HEENT: Head is atraumatic, normocephalic. Pupils equal, round. Sclera anicteric. Conjunctiva are clear. Mucous membranes of the mouth are moist. Neck is supple. There is no elevated jugular venous pressure.] bruit is heard. HEART EXAMINATION: Heart S1, S2 systolic murmur heard . No murmur or gallop heard. CHEST EXAMINATION: Lungs are clear to auscultation and precussion. No chest wall tenderness is noted on palpation or with deep breathing. Ecchymosis at the flank areas noted. ABDOMEN: Soft, nontender. Bowel sounds are heard. No organomegaly noted. EXTREMITIES: 2+ peripheral pulses with no evidence of peripheral edema and no calf tenderness noted. NEUROLOGIC patient is awake, alert and oriented ?-3. . - Labs CBC & Chem 7: 03/07/18 05:33 03/07/18 05:33 Labs: Abnormal Lab Results - Last 24 Hours (Table) 03/07/18 03/07/18 03/07/18 Range/Units 05:33 05:33 05:33 RBC 3.03 L (4.30-5.90) m/uL Hgb 8.8 L (13.0-17.5) gm/dL Hct 28.5 L (39.0-53.0) % MCHC 30.9 L (31.0-37.0) g/dL Plt Count 92 L (150-450) k/uL PT 32.3 H (9.0-12.0) sec INR 3.6 H (<1.2) Sodium 133 L (137-145) mmol/L BUN 22 H (9-20) mg/dL Glucose 108 H (74-99) mg/dL Calcium 7.8 L (8.4-10.2) mg/dL Assessment and Plan Plan: Assessment and plan #1 syncope, rule out cardiac causes. Patient has noted bradycardia with first- degree AV block and right bundle branch block pattern and EKG. He also has history of paroxysmal atrial fibrillation. . #2 abnormal d-dimer, lung scan intermediate probability for pulmonary embolism, venous duplex study negative. #3 coronary artery disease with prior stent placement #4 hypertension #5 paroxysmal atrial fibrillation, on Coumadin for anticoagulation #6 peripheral vascular disease #7 hyperlipidemia #8 anemia Plan Patient does have ice possibility of intermittent high degree AV block, once he is discharged from the hospital a loop monitor may be placed and consider possible pacemaker. However today because of the drop in hemoglobin, we recommend patient have a workup from a GI perspective prior to discharge. DNP note has been reviewed, I agree with a documented findings and plan of care. Patient was seen and examined.
--- NOTE | 2018-03-07 16:35 | PN ---
PROGRESS NOTE DATE OF SERVICE: 03/06/2018 This patient came with 2 episodes of syncope. He is doing well while on the monitor. No dysrhythmias are noted. Blood pressure is 120/59 mmHg. Heart rate is 80 per minute. First and second heart sounds are normal. Lungs are clinically clear to auscultation and percussion. Patient's hemoglobin has dropped to 8.8. On admission, patient's hemoglobin was 13 grams patient did not had any bowel movement since admission. Serial hemoglobins will be followed. Discussed the condition with Dr. Norton. We will discharge patient home on an event monitor and subsequently, if no bradyarrhythmias are noted, a loop monitor would be considered. Patient has a right bundle branch block, first-degree AV block and mild aortic stenosis. MMODL / IJN: [id number] /
[2018-03-07 16:58] LABS: Iron Saturation 5.58 (15.00-50.00)
[2018-03-07] MEDS ORDERED: WARFARIN 5 MG TAB PO SCH (18:00)
--- NOTE | 2018-03-07 21:41 | PN ---
PROGRESS NOTE DATE OF SERVICE: March 07, 2018. PRESENTING COMPLAINT: Passed out. INTERVAL HISTORY: This patient presented with two episodes of syncope, felt to be underlying arrhythmia. Patient did have a blunt injury to the shoulder and the right hip, buttock area. The patient has dropped his hemoglobin down to 8.2, the hematoma on his but is not that big. The patient has not had any bowel movements for the last 4 or 5 days. The patient does feel a bit tired and run down. is present. REVIEW OF SYSTEMS: Done for constitutional, cardiovascular, GI, pulmonary; relevant findings as above. CURRENT MEDICATIONS: Reviewed. Coumadin has been held. PHYSICAL EXAMINATION: VITAL SIGNS: Temperature 97.8, pulse 72, respiratory 18, blood pressure 145/69, pulse ox 92% on room air. GENERAL APPEARANCE: Sitting up, awake. EYES: Pupils equal. Conjunctivae pale. HEENT: External appearance of nose and ears normal. Oral cavity normal. NECK: JVD not raised. Mass not palpable. RESPIRATORY: Effort normal. LUNGS: Clear. CARDIOVASCULAR: 1st and 2nd sounds normal. No edema. ABDOMEN: Soft, nontender. Liver and spleen not palpable. MUSCULOSKELETAL: There is a hematoma in the buttock area, maybe size of the half of tennis ball. Some bruising also in the right shoulder area. PSYCH: AO x3. Mood and affect normal. INVESTIGATIONS: White count 8.4, hemoglobin 8.8, INR 3.6, creatinine 1.22. Stool occult blood negative. ASSESSMENT: 1. Two episodes of syncope felt to be possible in a patient with a history of atrial fibrillation, will be getting an event monitor. 2. Coronary artery disease with prior history of stent. 3. Paroxysmal atrial fibrillation on Coumadin, currently in sinus rhythm. 4. Acute blood loss anemia. Given the size of the hemoglobin drop, cannot explain that. Maybe that the patient was dehydrated when he came in and the hemoglobin does drop is not significant. Also patient has not had a bowel movement, but later when I called to check, the patient did have a good size bowel movement, but no blood was present. 5. Right bundle branch block. 6. Essential hypertension. 7. Hyperlipidemia. 8. Coumadin monitoring. 9. Chronic kidney stage 3 from nephrosclerosis. 10.Blunt injury to shoulder and the right hip and buttocks with a hematoma. PLAN: At this point, we will repeat hemoglobin in the morning. Gastroenterology consult was done. The stool was dark stool but the occult was negative. We will decide tomorrow based on hemoglobin which course to take. The patient is rather tachycardia and blood pressure is well maintained. Hence there is no need for any blood transfusion. Care was discussed at length with the and also Dr. Bradley from Cardiology. MMODL / MARINAN: [id number] /
[2018-03-08 00:02] VITALS: RESP 18
[2018-03-08] MEDS: TYLENOL PO SCH ×4 (02:58→16:24)
[2018-03-08 06:29] LABS: Basophils % (A) 0 %; Eosinophils # (A) 0.2 k/uL (0-0.7); Eosinophils % (A) 3 %; HCT 27.6 % (39.0-53.0); HGB 9.2 gm/dL (13.0-17.5); Lymphocytes # (A) 1.3 k/uL (1.0-4.8); Lymphocytes % (A) 18 %; MCH 31.2 pg (25.0-35.0); MCHC 33.3 g/dL (31.0-37.0); MCV 93.7 fL (80.0-100.0); Mean Platelet Volume 9.1; Monocytes # (A) 0.5 k/uL (0-1.0); Monocytes % (A) 6 %; Neutrophils # (A) 5.1 k/uL (1.3-7.7); Neutrophils % (A) 71 %; Platelet Count 108 k/uL (150-450); RBC 2.94 m/uL (4.30-5.90); RDW 14.4 % (11.5-15.5); WBC 7.1 k/uL (3.8-10.6)
[2018-03-08 06:30] LABS: INR 3.9 (<1.2); Prothrombin Time 35.2 sec (9.0-12.0)
[2018-03-08 06:55] LABS: Calcium 7.8 mg/dL (8.4-10.2); Potassium 4.7 mmol/L (3.5-5.1)
[2018-03-08] MEDS: LOSARTAN 25 MG TAB PO SCH (08:30)
[2018-03-08] MEDS: PANTOPRAZOLE 40 MG TABLET PO SCH (08:30)
[2018-03-08] MEDS: AMIODARONE 100 MG TAB PO SCH (08:30)
[2018-03-08 09:45] VITALS: TEMP 98.7
--- NOTE | 2018-03-08 14:09 | P.PN ---
Subjective Progress Note Date: 03/08/18 This is a pleasant 77-year-old gentleman who follows regularly with Dr. Alegre in the office. He has a known history of coronary artery disease with prior stent placement to the RCA in 2007, peripheral vascular disease, hyperlipidemia, family history of coronary artery disease, hypertension , paroxysmal atrial fibrillation, on Coumadin for anticoagulation. Patient recently had some teeth pulled, states that he was off Coumadin for 4 days, he is back on it now. He does have a prior history of smoking. Patient presents to the hospital on this occasion following 2 syncopal episodes at home. According to the patient, the initial event happened when he was getting up out of bed to adjust the thermostat, he states that he reached out for the thermostat in the next thing he recalls is waking up on the floor. Subsequent to that patient states he was in the bathroom and had another syncopal episode. He denies any warning prior to passing out, no dizziness, no lightheadedness, no palpitations, no chest discomfort. Patient started on the second event, he hit himself quite hard, his neck is very sore this morning as is his right hip. Laboratory data on admission here, white blood cell count 8.7, hemoglobin 13.1 , 11.5 this morning. Platelet count 105, 81 this morning. D-dimer 3.36, sodium 137, potassium 4.8, BUN 19, creatinine 1.4. Initial troponin negative. Because of the abnormal d-dimer, patient underwent lung perfusion scan which came back intermediate probability for pulmonary embolism. Hip x-ray does not reveal evidence of acute fracture or dislocation. Chest x-ray shows blunting of the costophrenic angle likely related to tiny effusion or pleural thickening. X-ray of the abdomen did not reveal any acute findings. Abdominal ultrasound shows splenomegaly, bilateral cortical thinning, correlate for chronic medical renal disease. Venous duplex negative for DVT in either extremity. Blood pressure on admission 108/60, heart rate in the 60s, temperature 97.7, he is 96% on room air. EKG on admission shows sinus bradycardia with first-degree AV block and right bundle branch block pattern. At the time of my examination this morning, patient states his neck is sore, he also complains of right hip pain. Denies any chest discomfort, no palpitations , no dizziness or lightheadedness. 03/07/2018 Patient seen and examined this morning, overall feeling well, it is noted this morning that the patient did have a drop in his hemoglobin, according to the patient, he states he has not had a bowel movement for the past 5 days. We will recommend to give the patient a stool softener, check stool for Hemoccult. Recommend GI workup. Blood pressure 134/60 with a heart rate in the 70s, 92% on room air. Blood cell count 8.4, hemoglobin 8.8, INR 3.6, sodium 133, potassium 4.8, BUN 22, creatinine 1.2. 03/08/2018 Patient seen and examined this morning, he did have a bowel movement. Stool was sent which was negative for any occult blood. Sitting up in the chair at the time of my examination, feeling mildly weak. Blood pressure 108/56, heart rate in the 70s, 93% on room air. Hemoglobin today is 9.2, INR 3.9, sodium 134 , potassium 4.7, BUN 21, creatinine 1.1. Objective - Vital Signs Vital signs: Vital Signs Temp 98.7 F 03/08/18 08:00 Pulse 73 03/08/18 12:00 Resp 18 03/08/18 12:00 BP 108/55 03/08/18 12:00 Pulse Ox 93 L 03/08/18 12:00 Intake & Output 03/07/18 03/08/18 03/08/18 18:59 06:59 18:59 Intake Total 598 550 240 Output Total 500 Balance 598 50 240 Weight 101.8 kg 102.6 kg Intake: Oral 598 550 240 Output: Urine 500 Other: Voiding Method Urinal Urinal # Voids 2 # Bowel Movements 1 - Exam PHYSICAL EXAMINATION: GENERAL: 77-year-old gentleman in no acute distress at the time of my examination HEENT: Head is atraumatic, normocephalic. Pupils equal, round. Sclera anicteric. Conjunctiva are clear. Mucous membranes of the mouth are moist. Neck is supple. There is no elevated jugular venous pressure.] bruit is heard. HEART EXAMINATION: Heart S1, S2 systolic murmur heard . No murmur or gallop heard. CHEST EXAMINATION: Lungs are clear to auscultation and precussion. No chest wall tenderness is noted on palpation or with deep breathing. Ecchymosis noted at the right posterior shoulder and right shoulder area as well as the patient' s buttocks ABDOMEN: Soft, nontender. Bowel sounds are heard. No organomegaly noted. EXTREMITIES: 2+ peripheral pulses with no evidence of peripheral edema and no calf tenderness noted. NEUROLOGIC patient is awake, alert and oriented ?-3. . - Labs CBC & Chem 7: 03/08/18 06:07 03/08/18 06:07 Labs: Abnormal Lab Results - Last 24 Hours (Table) 03/07/18 03/08/18 03/08/18 Range/Units 05:53 06:07 06:07 RBC 2.94 L (4.30-5.90) m/uL Hgb 9.2 L (13.0-17.5) gm/dL Hct 27.6 L (39.0-53.0) % Plt Count 108 L (150-450) k/uL PT 35.2 H (9.0-12.0) sec INR 3.9 H (<1.2) Sodium (137-145) mmol/L BUN (9-20) mg/dL Glucose (74-99) mg/dL Calcium (8.4-10.2) mg/dL Iron 11 L (65-175) ug/dL TIBC 197 L (228-460) ug/dL Iron Saturation 5.58 L (15.00-50.00) 03/08/18 Range/Units 06:07 RBC (4.30-5.90) m/uL Hgb (13.0-17.5) gm/dL Hct (39.0-53.0) % Plt Count (150-450) k/uL PT (9.0-12.0) sec INR (<1.2) Sodium 134 L (137-145) mmol/L BUN 21 H (9-20) mg/dL Glucose 107 H (74-99) mg/dL Calcium 7.8 L (8.4-10.2) mg/dL Iron (65-175) ug/dL TIBC (228-460) ug/dL Iron Saturation (15.00-50.00) Assessment and Plan Plan: Assessment and plan #1 syncope, rule out cardiac causes. Patient has noted bradycardia with first- degree AV block and right bundle branch block pattern and EKG. He also has history of paroxysmal atrial fibrillation. . #2 abnormal d-dimer, lung scan intermediate probability for pulmonary embolism, venous duplex study negative. #3 coronary artery disease with prior stent placement #4 hypertension #5 paroxysmal atrial fibrillation, on Coumadin for anticoagulation #6 peripheral vascular disease #7 hyperlipidemia #8 anemia Plan Patient does have ice possibility of intermittent high degree AV block, once he is discharged from the hospital a loop monitor may be placed and consider possible pacemaker. He may be able to be discharged home from our perspective, we'll make him a follow-up appointment to see Dr. Alegre in the office post discharge. DNP note has been reviewed, I agree with a documented findings and plan of care. Patient was seen and examined.
[2018-03-08 14:34] LABS: Reticulocyte % 1.8 % (0.5-2.0)
[2018-03-08 17:55] VITALS: BP 129/56; PULSE 70
--- NOTE | 2018-03-10 07:59 | DS ---
DISCHARGE SUMMARY DATE OF ADMISSION: 03/03/2018 DATE OF DISCHARGE: 03/08/2018 FINAL DIAGNOSES: 1. Two episodes of syncope, felt to be from underlying arrhythmia. The patient has known atrial fibrillation. 2. Coronary artery disease with prior history of stent. 3. Paroxysmal atrial fibrillation, currently in sinus rhythm. 4. Acute blood loss anemia probably from hematoma. 5. Right bundle branch block. 6. Essential hypertension. 7. Hyperlipidemia. 8. Coumadin monitoring. 9. Chronic kidney disease stage III from nephrosclerosis. 10.Blunt injury to shoulder and right hip and buttock resulting in a hematoma. 11.Moderate aortic stenosis, nonrheumatic. CONSULTATION: Dr. Rl Bradley from Cardiology; Dr. Coguhlin from Orthopedics; Dr. Connell from Pulmonary. HOSPITAL COURSE: This patient presented with 2 episodes of near syncope. It is suspected the patient may have underlying arrhythmia. The patient does have a history of paroxysmal atrial fibrillation. The patient had some bruising on the shoulders and a hematoma on the buttock. Patient did drop hemoglobin, some of that was felt to be dilutional getting corrected. It was 13.5 and 11.5, did stabilize at 9.2. The patient is seen by PT, OTYolanda Johnson to go home. DISCHARGE MEDICATIONS: 1. Tylenol No. 4 one tablet q.4 p.r.n. 2. Prilosec 20 mg a day. 3. Aspirin 81 mg at bedtime. 4. Lipitor 20 mg at bedtime. 5. Cozaar 25 mg p.o. daily. 6. Cordarone 100 mg p.o. daily. 7. Coumadin 2.5 mg p.o. daily. Follow up with Dr. Navas on 03/11/2018; Dr. Alegre on 03/17/2018; Dr. Coughlin as needed. PT, INR, CBC in 3 days. Event monitor will be sent to the patient after discharge. Discussion and discharge planning more than 35 minutes. The patient did have a carotid Doppler that showed 50% to 70% stenosis left internal carotid artery and 50% stenosis of right internal carotid artery, not felt to be related to the current presentation. CT scan of the brain shows cerebral atrophy. CT scan of the hip was negative for fracture. A 2-D echocardiogram showed EF of 55% to 60% and moderate amount of aortic stenosis. Venous Doppler negative for DVT. Discussion and discharge planning more than 35 minutes. ON EXAMINATION: LUNGS: Decreased breath sounds. Cardiovascular: First and second sounds normal. PSYCH: AO x3. MMODL / IJN: [id number] /
== END 2018-03-08 18:19 | disposition home or self-care (01) | DRG 309 ==
LOC: EC 09:33 → 6SEL 15:49
PROVIDERS: ADMIT Hospitalist; ATTEND Hospitalist
DX: I49.9 Cardiac arrhythmia, unspecified (principal); D62 Acute posthemorrhagic anemia; I13.0 Hypertensive heart and chronic kidney disease with heart failure and stage 1 through stage 4 chronic kidney disease, or unspecified chronic kidney disease; S09.90XA Unspecified injury of head, initial encounter; E78.5 Hyperlipidemia, unspecified; I50.9 Heart failure, unspecified; I65.23 Occlusion and stenosis of bilateral carotid arteries; R16.1 Splenomegaly, not elsewhere classified; E86.0 Dehydration; I44.0 Atrioventricular block, first degree; I25.10 Atherosclerotic heart disease of native coronary artery without angina pectoris; I25.2 Old myocardial infarction; I35.0 Nonrheumatic aortic (valve) stenosis; I45.10 Unspecified right bundle-branch block; I48.0 Paroxysmal atrial fibrillation; I73.9 Peripheral vascular disease, unspecified; M19.90 Unspecified osteoarthritis, unspecified site; N18.3 Chronic kidney disease, stage 3 (moderate); R79.1 Abnormal coagulation profile; M25.551 Pain in right hip; R73.9 Hyperglycemia, unspecified; S30.0XXA Contusion of lower back and pelvis, initial encounter; S70.01XA Contusion of right hip, initial encounter; Z79.01 Long term (current) use of anticoagulants; Z79.82 Long term (current) use of aspirin; Z79.899 Other long term (current) drug therapy; Z95.5 Presence of coronary angioplasty implant and graft; Z87.891 Personal history of nicotine dependence; Z82.49 Family history of ischemic heart disease and other diseases of the circulatory system; Z80.1 Family history of malignant neoplasm of trachea, bronchus and lung; W19.XXXA Unspecified fall, initial encounter
CPT/HCPCS: 36415; 70450; 71046; 73502; 74018; 76700; 78582; 80048; 80053; 81003; 82272; 82550; 82553; 82728; 83540; 83550; 83735; 83880; 84443; 84484; 85025; 85045; 85379; 85610; 85730; 93005; 93306; 93880; 93970; 96361; 96365; 96376; 99285

== ENCOUNTER 2018-07-19 07:51 | Day surgery (SDC) | payer MEDICARE ==
[2018-07-14 15:17] VITALS: BMI 29.0
[~2018-07-19 07:51] MED LIST: SODIUM CHLORIDE 0.9% 1,000 ML IV SCH
[2018-07-19] MEDS ORDERED: SODIUM CHLORIDE 0.9% 500 ML 500 ML IV ONE (08:16)
[2018-07-19 08:20] VITALS: RESP 16; TEMP 97.6
[2018-07-19 08:38] LABS: INR 1.7 (<1.2); Prothrombin Time 16.5 sec (9.0-12.0)
[2018-07-19 10:18] VITALS: BP 149/83; PULSE 69
--- NOTE | 2018-07-19 13:54 | P.PCN ---
Preoperative Diagnosis: Diagnosis Recurrent syncope Twelve-lead ECG shows sinus rhythm mildly prolonged [place] interval right bundle branch block pattern secondary ST-T changes Tilt table test per protocol Baseline blood pressure 142/56. His mercury 158 beats a minute patient was tilted upright at an angle of 70 per protocol there was any major drop in blood pressure by about 25 points. The blood pressure remained between 110-120 mmHg with a mild increase in heart rate and he remained asymptomatic through the procedure When he was laid supine his but pressure improved to 147/65 mmHg Impression Likely orthostatic hypotension syndrome based upon the blood pressure response during this tilt table test but the patient had no syncopal spell during this procedure. He remained asymptomatic despite the drop in blood pressure of 25 mmHg Disposition: same day
== END 2018-07-19 10:18 | disposition home or self-care (01) ==
LOC: CATHEP 07:51
PROVIDERS: ATTEND Internal Medicine Clinical Cardiac Electrophysiology
DX: I95.1 Orthostatic hypotension (principal)
CPT/HCPCS: 85610; 93660

== ENCOUNTER 2019-01-01 13:35 | Inpatient (IN) | payer MEDICARE ==
[2019-01-01] MEDS ORDERED: MORPHINE SULFATE 2 MG/ML SYRINGE IVP ONE (13:59)
[2019-01-01] MEDS ORDERED: ONDANSETRON 4 MG/2 ML VIAL IVP STA (13:59)
--- NOTE | 2019-01-01 14:03 | ED ---
Chest Pain HPI - General Chief Complaint: Chest Pain Stated Complaint: chest pain, syncope Time Seen by Provider: 01/01/19 13:52 Source: patient, RN notes reviewed Mode of arrival: wheelchair Limitations: no limitations - History of Present Illness Initial Comments: 78-year-old male presents emergency Department chief complaint of chest pain. Patient states pain started approximately 30-45 minutes prior arrival. Patient states is sharp stabbing pain and central chest. Patient had multiple heart attacks in the past multiple stent placement. Patient states he does take daily Coumadin. Patient has a history of hypertension and hyperlipidemia and is a former smoker. Patient denies any nausea vomiting. Patient has no current shortness of breath. Patient took 2 nitro while in the car and states that he became very lightheaded and passed out. Patient states it was very brief. He denies any current headache no focal weakness no blurred vision this time. - Related Data Home Medications Medication Instructions Recorded Confirmed Aspirin EC [Ecotrin Low Dose] 81 mg PO HS 02/05/16 01/01/19 Albuterol Inhaler [Ventolin Hfa 1 puff INHALATION BID PRN 07/14/18 01/01/19 Inhaler] Ascorbic Acid [Vitamin C] 1,000 mg PO DAILY 07/14/18 01/01/19 Atorvastatin [Lipitor] 80 mg PO HS 07/14/18 01/01/19 Calcium Carbonate/Vitamin D3 1 tab PO DAILY 07/14/18 01/01/19 [Calcium 600-Vit D3 400 Tablet] Cholecalciferol [Vitamin D3] 5,000 unit PO DAILY 07/14/18 01/01/19 Losartan Potassium 25 mg PO DAILY 07/14/18 01/01/19 Warfarin [Coumadin] 2 mg PO DAILY 07/14/18 01/01/19 Ferrous Sulfate [Feosol] 325 mg PO Q48H 01/01/19 01/01/19 Warfarin [Coumadin] 3 mg PO MOFR 01/01/19 01/01/19 Previous Rx's Medication Instructions Recorded Amiodarone [Cordarone] 100 mg PO DAILY #90 tab 03/08/18 Allergies Allergy/AdvReac Type Severity Reaction Status Date / Time No Known Allergies Allergy Verified 01/01/19 14:05 Review of Systems ROS Statement: Those systems with pertinent positive or pertinent negative responses have been documented in the HPI. ROS Other: All systems not noted in ROS Statement are negative. EKG Findings - EKG Comments: EKG Findings:: EKG performed at 13:59 sinus bradycardia with first-degree block and right bundle rate of 57 DC to 36 QRS 146 QT/QTC 498/484 there are no acute changes from prior EKG Past Medical History Past Medical History: GI Bleed, Osteoarthritis (OA), Pneumonia Additional Past Medical History / Comment(s): GI Bleed 2001, See Dr Mcdonough H&P, having dizzy spells Last Myocardial Infarction Date:: 2007 & 2013 History of Any Multi-Drug Resistant Organisms: None Reported Past Surgical History: Back Surgery, Heart Catheterization With Stent, Hernia Repair Additional Past Surgical History / Comment(s): sinus surgery, heart stents x2, karina cataracts Past Anesthesia/Blood Transfusion Reactions: No Reported Reaction Date of Last Stent Placement:: 09-21-14 Past Psychological History: No Psychological Hx Reported Smoking Status: Former smoker Past Alcohol Use History: None Reported Past Drug Use History: None Reported - Past Family History Son(s) Family Medical History: Cancer Additional Family Medical History / Comment(s): FROM LUNG CANCER General Exam Limitations: no limitations General appearance: alert, in no apparent distress Head exam: Present: atraumatic, normocephalic, normal inspection ENT exam: Present: normal exam, normal oropharynx, mucous membranes moist Neck exam: Present: normal inspection, full ROM. Absent: tenderness, meningismus, lymphadenopathy Respiratory exam: Present: normal lung sounds bilaterally. Absent: respiratory distress, wheezes, rales, rhonchi, stridor Cardiovascular Exam: Present: regular rate, normal rhythm, normal heart sounds. Absent: systolic murmur, diastolic murmur, rubs, gallop, clicks GI/Abdominal exam: Present: soft, normal bowel sounds. Absent: distended, tenderness, guarding, rebound, rigid Back exam: Absent: CVA tenderness (R), CVA tenderness (L) Neurological exam: Present: alert, oriented X3, CN II-XII intact Skin exam: Present: warm, dry, intact, normal color. Absent: rash Course Vital Signs 01/01/19 01/01/19 13:40 15:20 Temperature 97.9 F Pulse Rate 63 56 L Respiratory 18 18 Rate Blood Pressure 104/58 141/77 O2 Sat by Pulse 95 94 L Oximetry Chest Pain MDM - MDM 78-year-old male present emergency Department for chest pain. Patient's symptoms have improved at this time. EKG does not reveal any acute changes troponin is negative. Patiently admitted for observation for cardiac rule out. Disposition Clinical Impression: Chest pain Disposition: ADMITTED IP TO THIS HOSP Condition: Fair Referrals: Kelvin Navas MD [Primary Care Provider] - 1-2 days
[2019-01-01 15:33] LABS: Calcium 7.7 mg/dL (8.4-10.2); Potassium 5.1 mmol/L (3.5-5.1); Total Bilirubin 1.1 mg/dL (0.2-1.3); Total Protein 5.5 g/dL (6.3-8.2)
[2019-01-01 15:37] LABS: Basophils % (A) 0 %; Eosinophils # (A) 0.2 k/uL (0-0.7); Eosinophils % (A) 2 %; HCT 39.3 % (39.0-53.0); HGB 12.6 gm/dL (13.0-17.5); Lymphocytes # (A) 1.3 k/uL (1.0-4.8); Lymphocytes % (A) 15 %; MCH 30.1 pg (25.0-35.0); MCV 93.9 fL (80.0-100.0); Mean Platelet Volume 10.1; Monocytes # (A) 0.6 k/uL (0-1.0); Monocytes % (A) 7 %; Neutrophils # (A) 6.5 k/uL (1.3-7.7); Neutrophils % (A) 75 %; RBC 4.19 m/uL (4.30-5.90); RDW 14.7 % (11.5-15.5); WBC 8.7 k/uL (3.8-10.6)
--- NOTE | 2019-01-01 15:41 | XR ---
EXAMINATION TYPE: XR chest 2V DATE OF EXAM: 01/01/2019 COMPARISON: 03/03/2018 HISTORY: Chest pain and syncopal episode TECHNIQUE: Frontal and lateral views of the chest are obtained. FINDINGS: There is no focal air space opacity, pleural effusion, or pneumothorax seen. The cardiac silhouette size is within normal limits. The osseous structures are intact. Chronic interstitial pr ominence is unchanged from the prior with biapical pleural parenchymal scarring. Mild multilevel dege nerative changes of the spine and diffuse osseous demineralization are noted. Pleural based calcifica tions and granulomas are again suggested. IMPRESSION: Chronic findings with no acute cardiopulmonary process.
[2019-01-01 15:51] LABS: INR 1.9 (<1.2); Partial Thromboplastin Time 23.7 sec (22.0-30.0); Prothrombin Time 18.7 sec (9.0-12.0)
[2019-01-01 15:59] LABS: Platelet Count 92 k/uL (150-450)
[2019-01-01] MEDS ORDERED: NITROGLYCERIN SL TABS 0.4 MG TAB SUBLINGUAL PRN (16:02)
[2019-01-01] MEDS ORDERED: ALBUTEROL NEBULIZED 2.5 MG/3 ML INHALATION PRN (19:04)
[2019-01-01] MEDS ORDERED: WARFARIN 2 MG TAB PO SCH (20:00)
[2019-01-01] MEDS: ATORVASTATIN 80 MG TAB PO SCH (20:54)
[2019-01-01] MEDS: WARFARIN 2 MG TAB PO SCH (20:54)
[2019-01-01] MEDS ORDERED: NON-FORMULARY DRUG (Aspirin Ec 81 MG) PO SCH (21:00)
[2019-01-01] MEDS: GABAPENTIN 300 MG CAP PO SCH (21:37)
[2019-01-02] MEDS: MAG HYDROX/AL HYDROX/SIMETH 30 ML CUP PO PRN ×2 (03:15→22:15)
[2019-01-02 03:48] LABS: Cholesterol 93 mg/dL (<200); HDL Cholesterol 41 mg/dL (40-60); LDL Cholesterol,Calculated 31 mg/dL (0-99); Triglycerides 103 mg/dL (<150)
--- NOTE | 2019-01-02 08:05 | P.CRDCN ---
History of Present Illness Consult date: 01/02/19 Chief complaint: Chest discomfort History of present illness: This is a 78-year-old gentleman who sees Dr. Dr. Alegre in the office as an outpatient with history of CAD and prior stenting of the RCA in 2014, paroxysmal atrial fibrillation on oral anticoagulation, hypertension, and dyslipidemia, and history of syncope, presented to the hospital complaining of chest discomfort. He was in his usual state of health where he was in the car with his and suddenly started experiencing discomfort in the mid of the chest, as a pressure on the chest, without any radiation to the arm or neck or shoulders, and without any associated symptoms of shortness of breath, sweating, dizziness, heart racing, but he did develop syncope. He stated that he lost his consciousness for a few seconds. That was witnessed with his was driving the car. After he was brought to the hospital, he did have another episode of chest discomfort. Currently he is chest pain-free. The EKG showed sinus rhythm with bifascicular block with first-degree AV block and right bundle branch block. Cardiac enzymes were checked and came in to be unremarkable. The chest x-ray did not show any acute abnormalities. The patient underwent stenting of the RCA back in 2014. The last echocardiogram from March 2018 revealed normal LV function with evidence of [id number] aortic stenosis. Currently on exam, he does have fairly significant systolic murmur consistent with aortic stenosis. Before we pursue any testing to assess for coronary artery disease, I am going to obtain an echocardiogram to assess the severity of the aortic stenosis. Further r ecommendation to follow that. Past Medical History Past Medical History: GI Bleed, Osteoarthritis (OA), Pneumonia Additional Past Medical History / Comment(s): GI Bleed 2001, having dizzy spells Last Myocardial Infarction Date:: 2007 & 2013 History of Any Multi-Drug Resistant Organisms: None Reported Past Surgical History: Back Surgery, Heart Catheterization With Stent, Hernia Repair Additional Past Surgical History / Comment(s): sinus surgery, heart stents x2, karina cataracts Past Anesthesia/Blood Transfusion Reactions: No Reported Reaction Date of Last Stent Placement:: 09-21-14 Past Psychological History: No Psychological Hx Reported Smoking Status: Former smoker Past Alcohol Use History: None Reported Additional Past Alcohol Use History / Comment(s): quit smoking 1979, smoked since age 5. Past Drug Use History: None Reported - Past Family History Son(s) Family Medical History: Cancer Additional Family Medical History / Comment(s): FROM LUNG CANCER Medications and Allergies Home Medications Medication Instructions Recorded Confirmed Type Aspirin EC [Ecotrin Low Dose] 81 mg PO HS 02/05/16 01/01/19 History Amiodarone [Cordarone] 100 mg PO DAILY #90 tab 03/08/18 01/01/19 Rx Albuterol Inhaler [Ventolin Hfa 1 puff INHALATION BID PRN 07/14/18 01/01/19 History Inhaler] Ascorbic Acid [Vitamin C] 1,000 mg PO DAILY 07/14/18 01/01/19 History Atorvastatin [Lipitor] 80 mg PO HS 07/14/18 01/01/19 History Calcium Carbonate/Vitamin D3 1 tab PO DAILY 07/14/18 01/01/19 History [Calcium 600-Vit D3 400 Tablet] Cholecalciferol [Vitamin D3] 5,000 unit PO DAILY 07/14/18 01/01/19 History Losartan Potassium 25 mg PO DAILY 07/14/18 01/01/19 History Warfarin [Coumadin] 2 mg PO DAILY 07/14/18 01/01/19 History Ferrous Sulfate [Feosol] 325 mg PO Q48H 01/01/19 01/01/19 History Gabapentin [Neurontin] 300 mg PO TID 01/01/19 01/01/19 History Warfarin [Coumadin] 3 mg PO MOFR 01/01/19 01/01/19 History Allergies Allergy/AdvReac Type Severity Reaction Status Date / Time No Known Allergies Allergy Verified 01/01/19 14:05 Physical Exam Vitals: Vital Signs Temp Pulse Pulse Resp BP BP Pulse Ox 01/02/19 07:10 98 F 63 15 144/73 95 01/02/19 04:00 98.0 F 66 15 140/61 98 01/02/19 03:19 16 01/01/19 23:35 16 01/01/19 23:25 98.2 F 59 L 15 118/68 97 01/01/19 20:00 18 01/01/19 17:38 61 18 01/01/19 17:12 97.6 F 61 18 184/75 97 01/01/19 16:30 98.1 F 57 L 18 150/67 96 01/01/19 15:20 56 L 18 141/77 94 L 01/01/19 13:40 97.9 F 63 18 104/58 95 Intake and Output 01/01/19 01/02/19 01/02/19 22:59 06:59 14:59 Other: Voiding Method Toilet Toilet # Voids 1 - Constitutional General appearance: no acute distress - Respiratory Respiratory: bilateral: CTA - Cardiovascular Rhythm: regular Heart sounds: normal: S1, S2 Abnormal Heart Sounds: systolic murmur Results 01/01/19 15:16 01/01/19 15:16 Cardiac Enzymes 01/01/19 01/01/19 01/01/19 Range/Units 15:16 15:16 21:21 AST 25 (17-59) U/L Troponin I <0.012 <0.012 (0.000-0.034) ng/mL 01/02/19 Range/Units 02:56 AST (17-59) U/L Troponin I <0.012 (0.000-0.034) ng/mL Coagulation 01/01/19 Range/Units 15:16 PT 18.7 H (9.0-12.0) sec APTT 23.7 (22.0-30.0) sec Lipids 01/02/19 Range/Units 02:56 Triglycerides 103 (<150) mg/dL Cholesterol 93 (<200) mg/dL HDL Cholesterol 41 (40-60) mg/dL CBC 01/01/19 Range/Units 15:16 WBC 8.7 (3.8-10.6) k/uL RBC 4.19 L (4.30-5.90) m/uL Hgb 12.6 L (13.0-17.5) gm/dL Hct 39.3 (39.0-53.0) % Plt Count 92 L (150-450) k/uL Comprehensive Metabolic Panel 01/01/19 Range/Units 15:16 Sodium 139 (137-145) mmol/L Potassium 5.1 (3.5-5.1) mmol/L Chloride 109 H (98-107) mmol/L Carbon Dioxide 26 (22-30) mmol/L BUN 17 (9-20) mg/dL Creatinine 1.32 H (0.66-1.25) mg/dL Glucose 96 (74-99) mg/dL Calcium 7.7 L (8.4-10.2) mg/dL AST 25 (17-59) U/L ALT 22 (21-72) U/L Alkaline Phosphatase 70 (38-126) U/L Total Protein 5.5 L (6.3-8.2) g/dL Albumin 3.0 L (3.5-5.0) g/dL Current Medications Generic Name Dose Route Start Last Admin Trade Name Freq PRN Reason Stop Dose Admin Acetaminophen 650 mg 01/02/19 03:17 Tylenol Tab PO Q4HR PRN Fever and/ or Pain Al Hydroxide/Mg Hydroxide 30 ml 01/02/19 03:03 01/02/19 03:15 Maalox PO 30 ml Q4HR PRN Administration GI Upset Albuterol Sulfate 2.5 mg 01/01/19 19:04 Ventolin Nebulized INHALATION RT-BID PRN Shortness Of Breath Amiodarone HCl 100 mg 01/02/19 09:00 Cordarone PO DAILY [facility] Ascorbic Acid 1,000 mg 01/02/19 09:00 Vitamin C PO DAILY [facility] Aspirin 325 mg 01/02/19 09:00 Aspirin PO DAILY [facility] Atorvastatin Calcium 80 mg 01/01/19 21:00 01/01/19 20:54 Lipitor PO 80 mg HS [facility] Administration Calcium Carbonate 1 each 01/02/19 09:00 Oscal 500+D PO DAILY [facility] Cholecalciferol 5,000 unit 01/02/19 09:00 Vitamin D3 (25 Mcg = 1000 Iu) PO DAILY [facility] Ferrous Sulfate 325 mg 01/03/19 09:00 Feosol PO Q48H [facility] Gabapentin 300 mg 01/01/19 22:00 01/01/19 21:37 Neurontin PO 300 mg TID [facility] Administration Losartan Potassium 25 mg 01/02/19 09:00 Cozaar PO DAILY [facility] Nitroglycerin 0.4 mg 01/01/19 16:02 Nitrostat SUBLINGUAL Q5M PRN Chest Pain Warfarin Sodium 3 mg 01/02/19 18:00 Coumadin PO [id number] [facility] Warfarin Sodium 2 mg 01/01/19 20:00 01/01/19 20:54 Coumadin PO 2 mg [id number] [facility] Administration Intake and Output 01/01/19 01/02/19 01/02/19 22:59 06:59 14:59 Other: Voiding Method Toilet Toilet # Voids 1 01/01/19 15:16 01/01/19 15:16 Assessment and Plan Assessment: Assessment #1 chest discomfort #2 syncopal episode #3 known CAD and prior RCA stenting #4 known aortic stenosis #5 multiple comorbid conditions Plan #1 acute coronary event was ruled out #2 currently the patient is chest pain-free #3 before we pursue any further testing for the CAD, I am going to obtain an echocardiogram to assess the severity of aortic stenosis. The patient does have very significant systolic murmur. #4 further recommendation to follow that Thank you for allowing us participate in his care and we will continue following up with the patient
[2019-01-02] MEDS: CHOLECALCIFEROL 1,000 UNIT TAB PO SCH (10:25)
[2019-01-02] MEDS: ASPIRIN 325 MG TAB PO SCH (10:26)
[2019-01-02] MEDS: ASCORBIC ACID 500 MG TAB PO SCH (10:26)
[2019-01-02] MEDS: AMIODARONE 100 MG TAB PO SCH (10:26)
[2019-01-02] MEDS: CALCIUM CARB-VIT D 500MG-200UN 1 EACH TAB PO SCH (10:26)
[2019-01-02] MEDS: GABAPENTIN 300 MG CAP PO SCH ×3 (10:26→20:24)
[2019-01-02] MEDS: LOSARTAN 25 MG TAB PO SCH (10:26)
[2019-01-02] MEDS ORDERED: SODIUM CHLORIDE 0.9% IV ONE (10:56)
[2019-01-02] MEDS ORDERED: CAFFEINE CITRATE 60 MG/3 ML VIAL IV PRN (10:56)
[2019-01-02] MEDS ORDERED: DIPYRIDAMOLE IV ONE (10:56)
[2019-01-02] MEDS ORDERED: AMINOPHYLLINE 500 MG/20 ML VIAL IV PRN (10:56)
--- NOTE | 2019-01-02 10:56 | ECHOF ---
Referral Reason:murmur MEASUREMENTS -------- HEIGHT: 162.6 cm WEIGHT: 106.6 kg BP: IVSd: 1.3 cm (0.6 - 1.1) LVIDd: 4.2 cm (3.9 - 5.3) LVPWd: 1.3 cm (0.6 - 1.1) IVSs: 2.0 cm LVIDs: 2.2 cm LVPWs: 1.4 cm Ao Diam: 2.9 cm (2.0 - 3.7) AV Cusp: 1.3 cm (1.5 - 2.6) LA Diam: 5.0 cm (2.7 - 3.8) EPSS: 1.9 cm MV E Damien: 0.75 m/s MV DecT: 306 ms MV A Damien: 0.93 m/s MV E/A Ratio: 0.81 AV maxP.01 mmHg AV meanP.93 mmHg RAP: 5.00 mmHg RVSP: 25.42 mmHg MV EF SLOPE: 42.54 mm/s (70 - 150) MV EXCURSION: 1.27 cm (> 18.000) FINDINGS -------- Sinus rhythm. This was a technically good study. The left ventricular size is normal. There is mild concentric left ventricular hypertrophy. Overa ll left ventricular systolic function is normal with, an EF between 55 - 60 %. The right ventricle is normal in size. The left atrium is moderately dilated. The right atrial size is normal. Aortic valve is trileaflet and is mildly thickened. There is mild aortic stenosis present. Peak/m yifan gradient across the valve is 28.01mmHg / 15.93mmHg. The mitral valve leaflets are mildly thickened. Mild mitral regurgitation is present. Mild tricuspid regurgitation present. The right ventricular systolic pressure, as measured by Doppl er, is 25.42mmHg. There is no pulmonic regurgitation present. The aortic root size is normal. The inferior vena cava was not well visualized. There is no pericardial effusion. CONCLUSIONS -------- 1. Sinus rhythm. 2. This was a technically good study. 3. The left ventricular size is normal. 4. There is mild concentric left ventricular hypertrophy. 5. Overall left ventricular systolic function is normal with, an EF between 55 - 60 %. 6. The right ventricle is normal in size. 7. The left atrium is moderately dilated. 8. The right atrial size is normal. 9. Aortic valve is trileaflet and is mildly thickened. 10. There is mild aortic stenosis present. 11. Peak/mean gradient across the valve is 28.01mmHg / 15.93mmHg. 12. The mitral valve leaflets are mildly thickened. 13. Mild mitral regurgitation is present. 14. Mild tricuspid regurgitation present. 15. The right ventricular systolic pressure, as measured by Doppler, is 25.42mmHg. 16. There is no pulmonic regurgitation present. 17. The aortic root size is normal. 18. The inferior vena cava was not well visualized. 19. There is no pericardial effusion. CHEFS: Elizabeth Dumont RDCS
[2019-01-02] MEDS: ACETAMINOPHEN TAB 325 MG TAB PO PRN ×2 (15:52→22:14)
--- NOTE | 2019-01-02 16:22 | HP ---
HISTORY AND PHYSICAL DATE OF ADMISSION: January 01, 2019. DATE OF SERVICE: January 02, 2019. PRESENTING COMPLAINT: Chest pain. HISTORY OF PRESENTING COMPLAINT: This is a 78-year-old patient of Dr. Navas and interactive digital media specialist Dr. Alegre. Patient's chronic stable medical conditions include coronary artery disease with stent, paroxysmal atrial fibrillation, right bundle branch block, hypertension, hyperlipidemia, chronic kidney disease stage 3 from nephrosclerosis and aortic stenosis, nonrheumatic. Patient follows with Dr. Alegre from Cardiology. The patient yesterday driving [place]. was driving. Suddenly developed pressure across the chest. The patient 1st took 1 nitroglycerin, then took a 2nd one. The 2nd one did help and the patient kept holding his chest. The pain did not radiate and the patient did start perspiring. The patient for a short time passed out. According to the , was totally pale. Patient presented to the ER admitted with unstable angina. Currently no more cardiac symptoms. Cardiology was consulted. The patient's last stress test was a while ago. The patient is on Coumadin for his atrial fibrillation. REVIEW OF SYSTEMS: CONSTITUTIONAL: Tired. HEENT: None. RESPIRATORY: As above. CARDIOVASCULAR as above. GASTROINTESTINAL: None. GENITOURINARY: None. MUSCULOSKELETAL: None. DERMATOLOGIC, HEMATOLOGIC AND LYMPHATIC: None. PSYCHIATRY none. NEUROLOGICAL none. PAST MEDICAL HISTORY: Of aortic stenosis, chronic kidney disease stage 3, hyperlipidemia, hypertension, right bundle branch block. Paroxysmal atrial fibrillation, coronary artery disease with stent. PAST SURGICAL HISTORY: Back surgery, cardiac cath with stent, hernia repair, sinus surgery, bilateral cataract surgery. SOCIAL HISTORY: The patient is . 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 The patient smoked for about 30 years, stopped in 1979. FAMILY HISTORY: Lung cancer. HOME MEDICATIONS: 1. Coumadin 3 mg on Wednesday and Wednesday 2 mg daily. 2. Losartan 25 mg a day. 3. Neurontin 300 mg t.i.d. 4. Iron 325 p.o. q.48 hours. 5. Vitamin D3 units p.o. daily. 6. Calcium with vitamin D3 one tablet p.o. daily. 7. Lipitor 80 mg q.h.s. 8. Aspirin 81 mg p.o. q.h.s. 9. Vitamin C 1000 mg p.o. daily. 10.Amiodarone 100 mg p.o. daily. 11.Ventolin HFA 1 puff b.i.d. p.r.n. ALLERGIES: None. PHYSICAL EXAMINATION: VITAL SIGNS: Vital signs on presentation: Temperature 97.9, pulse 63, respiratory 18, blood pressure 104/58, pulse ox 95% on room air. GENERAL APPEARANCE: Well built. BMI 40.3. Lying in bed, a bit tired-appearing. EYES: Pupils are equal. Conjunctivae normal. HEENT: External appearance of nose and ears normal. Oral cavity normal. NECK: JVD not raised. Mass not palpable. RESPIRATORY: Effort normal. LUNGS fair entry. CARDIOVASCULAR: First and second sounds normal. No edema. ABDOMEN: Soft, nontender. Liver and spleen not palpable. LYMPHATICS: No lymph nodes palpable in the neck and axilla. PSYCHIATRY: Alert and oriented x3. Mood and affect normal. NEUROLOGICAL: Pupils equal. Cranial nerves grossly intact. Power and sensation grossly intact. INVESTIGATIONS: White count 8.7, hemoglobin 12.6, INR 1.9, potassium 5.1, BUN 17, creatinine 1.32. Troponin x3 negative. LDL 31. 2D echocardiogram shows EF of 55-60 percent, mild aortic stenosis. EKG tracing personally reviewed by me, shows right bundle branch block pattern, first-degree AV block. Chest x-ray film personally reviewed by me shows borderline cardiomegaly, questionable venous prominence. The patient's proBNP is 384. ASSESSMENT: 1. Possible unstable angina in a patient with known coronary artery disease. 2. Coronary artery disease with prior history of stent. 3. Paroxysmal atrial fibrillation currently in sinus rhythm. 4. Right bundle branch block. 5. Essential hypertension. 6. Hyperlipidemia. 7. Coumadin monitoring. 8. Chronic kidney disease stage 3 from nephrosclerosis. 9. Aortic stenosis, documented as moderate in the past. On this echocardiogram, appears to be mild. PLAN: Home medications are resumed. Cardiology was consulted. The patient may need at least a nuclear stress test. Discussed with Dr. Keen. He will make a clinical determination of the same. Copy to Dr. Navas, Dr. Alegre. MMODL / IJN: [id number] /
[2019-01-02] MEDS ORDERED: WARFARIN 3 MG TAB PO SCH (18:00)
[2019-01-02] MEDS: ATORVASTATIN 80 MG TAB PO SCH (20:24)
[2019-01-03] MEDS ORDERED: DIPYRIDAMOLE IV ONE (09:00)
[2019-01-03] MEDS ORDERED: SODIUM CHLORIDE 0.9% IV ONE (09:00)
--- NOTE | 2019-01-03 09:45 | P.PN ---
Subjective This is a pleasant 78-year-old male past medical history significant for coronary artery disease status post stent placement to the RCA in 2014, paroxysmal atrial fibrillation on long-term anticoagulation, hypertension and dyslipidemia. He follows in the office with Dr. Alegre. Echocardiogram obtained reveals preserved LV systolic function with ejection fraction 55-60%, mild aortic stenosis with a mean gradient of 15 mmHg, mild mitral regurgitation and mild tricuspid regurgitation. Blood pressure 154/69 heart rate 88 afebrile maintaining oxygen saturation on room air. Currently maintained on amiodarone 100 mg daily, aspirin 325 mg daily, atorvastatin 80 mg daily, losartan 25 mg daily and Coumadin. Pt is seen and examined in no acute distress. He denies any symptoms of chest pain, shortness of breath, dizziness or palpitations. Telemetry tracings reviewed and unremarkable. GENERAL: Well-appearing, well-nourished and in no acute distress. NECK: Supple without JVD or thyromegaly. LUNGS: Breath sounds clear to auscultation bilaterally. Respiration equal and unlabored. No wheezes, rales or rhonchi. HEART: Regular rate and rhythm with systolic ejection murmur at the base, no rubs or gallops. S1 and S2 heard. EXTREMITIES: Normal range of motion, no edema. No clubbing or cyanosis. Peripheral pulses intact. ASSESSMENT Chest pain, atypical for angina. An acute coronary event has been ruled out Syncopal episode Aortic stenosis, mild History of coronary artery disease status post stent placement to the RCA Paroxysmal atrial fibrillation on long-term anticoagulation Hypertension Dyslipidemia PLAN Proceed with stress test as ordered. If abnormal we will consider coronary angiography. If negative he is stable for a discharge to follow up with Dr. Alegre. Nurse Practitioner note has been reviewed, I agree with a documented findings and plan of care. Patient was seen and examined. Objective - Vital Signs Vital signs: Vital Signs Temp 97.8 F 01/03/19 07:10 Pulse 80 01/03/19 07:10 Resp 18 01/03/19 07:10 BP 154/69 01/03/19 07:10 Pulse Ox 94 L 01/03/19 07:10 Intake & Output 01/02/19 01/03/19 01/03/19 18:59 06:59 18:59 Other: Voiding Method Toilet Toilet Toilet # Voids 3 1 - Labs CBC & Chem 7: 06/02/19 15:16 01/01/19 15:16
[2019-01-03] MEDS: ACETAMINOPHEN TAB 325 MG TAB PO PRN ×2 (10:37→21:49)
[2019-01-03] MEDS: AMIODARONE 100 MG TAB PO SCH (10:38)
[2019-01-03] MEDS: ASPIRIN 325 MG TAB PO SCH (10:38)
[2019-01-03] MEDS: CHOLECALCIFEROL 1,000 UNIT TAB PO SCH (10:38)
[2019-01-03] MEDS: LOSARTAN 25 MG TAB PO SCH (10:38)
[2019-01-03] MEDS: GABAPENTIN 300 MG CAP PO SCH ×3 (10:38→21:49)
[2019-01-03] MEDS: CALCIUM CARB-VIT D 500MG-200UN 1 EACH TAB PO SCH (10:39)
[2019-01-03] MEDS: FERROUS SULFATE 325 MG TAB PO SCH (10:39)
[2019-01-03] MEDS: ASCORBIC ACID 500 MG TAB PO SCH (10:39)
--- NOTE | 2019-01-03 11:25 | NM ---
EXAMINATION TYPE: NM stress persantine cardiolit DATE OF EXAM: 01/03/2019 COMPARISON: NONE HISTORY: Chest pain TECHNIQUE: After the intravenous administration of 10.1 mCi Tc 99m Sestamibi - Cardiolite resting SP ECT images acquired 60 minutes post injection. The patient received 61 mg Persantine, 26.9 mCi Tc 99m Sestamibi - Stress images obtained 35 minutes post injection FINDINGS: Review of stress and rest SPECT images demonstrates fixed defect involving the inferior wall the myoc ardium with corresponding wall motion abnormality. Small area of stress-induced reversibility within the apex not excluded. Ejection fraction 67%. IMPRESSION: Predominantly fixed defect involving the inferior wall the myocardium. However, small are a of stress-induced reversible ischemia in the anteroapical myocardium not excluded correlate clinica lly.
[2019-01-03] MEDS ORDERED: traMADol 50 MG TAB PO STA (11:47)
--- NOTE | 2019-01-03 12:11 | EST ---
EXERCISE STRESS DATE OF SERVICE: 01/03/2019 AGE: 78 SEX: Male HT: 5'4" WT: 235 PROTOCOL: Persantine Cardiolite STAGE: DURATION OF EXERCISE: HEART RATE REST: 73 BLOOD PRESSURE REST: 150/57 MAXIMUM HEART RATE ACHIEVED: 76 MAXIMUM BLOOD PRESSURE: 150/57 85% MPHR: 100% MPHR: METS: INDICATIONS: Chest pain. CLINICAL INFORMATION: STRESS DATA: Heart rate 73, pressure is 150/57 mmHg. Baseline EKG showed sinus mechanism with RBBB. The patient was given 61 mg of Persantine per protocol. Max heart rate was 76 beats per minute and maximum pressure was 150/57 mmHg. Clinically the patient did not have any symptoms and the EKG did not show any significant ST or T-wave abnormalities concerning for ischemia. CONCLUSION: 1. Nondiagnostic electrocardiogram stress testing in response to . 2. Please follow up on the Cardiolite portion on separate report from radiology department. MMODL / IJN: [id number] /
[2019-01-03] MEDS: WARFARIN 2 MG TAB PO SCH (17:19)
[2019-01-03] MEDS ORDERED: SODIUM CHLORIDE 0.9% 1,000 ML in EMPTY BAG 1 BAG IV ONE (18:15)
[2019-01-03] MEDS ORDERED: ALPRAZolam 0.5 MG TAB PO PRN (18:15)
[2019-01-03] MEDS ORDERED: ALPRAZolam 0.25 MG TAB PO PRN (18:15)
--- NOTE | 2019-01-03 18:21 | P.PN ---
Progress Note - Text Persantine stress test results reviewed with the patient and his family at the bedside. We recommend proceeding with cardiac catheterization to assess for progression of coronary artery disease. Procedure has been explained in great detail including risks involved such as bleeding, infection, heart attack, stroke and . Questions have been answered appropriately and he is agreeable to move forward with the above stated procedure. Case has been boarded with his primary cardiolgist, Dr. Alegre, for tomorrow morning at 0900. NPO after midnight tonight. Hold coumadin. Hydrate the patient and repeat PT/INR/BMP in the am.
[2019-01-03] MEDS: ATORVASTATIN 80 MG TAB PO SCH (21:49)
--- NOTE | 2019-01-03 23:47 | PN ---
PROGRESS NOTE DATE OF SERVICE: 01/03/2019 PRESENTING COMPLAINT: Chest pain. INTERVAL HISTORY: This patient presented with chest pain, had a stress test today that came back positive. The patient is now getting boarded for a cardiac cath tomorrow morning. REVIEW OF SYSTEMS: Done for constitutional, cardiovascular, GI, pulmonary; relevant findings as above. CURRENT MEDICATIONS: Reviewed. PHYSICAL EXAMINATION: Temperature 97.6, pulse 64, respiration 16, blood pressure 155/91, pulse ox 97% on room air. GENERAL APPEARANCE: Lying in bed. Awake. EYES: Pupils equal. Conjunctivae normal. NECK: JVD not raised. Mass not palpable. RESPIRATORY: Effort normal. LUNGS: Fair air entry. CARDIOVASCULAR: First and second sounds normal. No edema. ABDOMEN: Soft, non-tender. Liver and spleen not palpable. PSYCHIATRY: Alert and oriented x3. Mood and affect normal. ASSESSMENT: 1. Unstable angina in a patient now with a positive stress test. 2. Coronary artery disease with prior history of stent. 3. Paroxysmal atrial fibrillation, currently in sinus rhythm. 4. Right bundle branch block. 5. Essential hypertension. 6. Hyperlipidemia. 7. Coumadin monitoring. 8. Chronic kidney disease, stage III, from nephrosclerosis. 9. Aortic stenosis, documented as moderate in the past. PLAN: Continue current medication and treatment plan. Repeat electrolytes in the morning. Patient is on normal saline. MMODL / IJN: [id number] /
[2019-01-04] MEDS ORDERED: ASPIRIN 325 MG TAB PO ONE (06:00)
[2019-01-04 06:27] LABS: INR 1.9 (<1.2); Prothrombin Time 18.9 sec (9.0-12.0)
[2019-01-04] MEDS: GABAPENTIN 300 MG CAP PO SCH ×3 (06:27→22:38)
[2019-01-04] MEDS: ATORVASTATIN 80 MG TAB PO SCH (06:27)
[2019-01-04] MEDS: AMIODARONE 100 MG TAB PO SCH (06:27)
[2019-01-04] MEDS: CHOLECALCIFEROL 1,000 UNIT TAB PO SCH (06:27)
[2019-01-04] MEDS: ASCORBIC ACID 500 MG TAB PO SCH (06:27)
[2019-01-04] MEDS: LOSARTAN 25 MG TAB PO SCH (06:27)
[2019-01-04] MEDS: CALCIUM CARB-VIT D 500MG-200UN 1 EACH TAB PO SCH (06:27)
[2019-01-04 06:29] LABS: Calcium 8.3 mg/dL (8.4-10.2); Potassium 4.9 mmol/L (3.5-5.1)
[2019-01-04] MEDS ORDERED: IV FLUID CONTINUATION 1,000 ML IV ONE (08:56)
[2019-01-04] MEDS ORDERED: LIDOCAINE 1% INJ 10MG/ML (20 ML MDV) ONE (08:57)
[2019-01-04] MEDS ORDERED: VERAPAMIL 2.5 MG/ML 2 ML AMP ONE (08:58)
[2019-01-04] MEDS ORDERED: ASPIRIN 81 MG PO SCH (09:00)
[2019-01-04] MEDS ORDERED: fentaNYL (PF) 50 MCG/ML 2 ML AMP ONE (09:18)
[2019-01-04] MEDS ORDERED: MIDAZOLAM (PF) 2 MG/2 ML VIAL IV ONE (09:20)
[2019-01-04] MEDS ORDERED: fentaNYL (PF) 50 MCG/ML 2 ML AMP IV ONE (09:20)
[2019-01-04] MEDS ORDERED: LIDOCAINE 1% INJ 10MG/ML (20 ML MDV) SQ ONE (09:21)
[2019-01-04] MEDS ORDERED: VERAPAMIL SYRINGE (5 MG/10 ML) INTRAARTER ONE (09:23)
[2019-01-04] MEDS ORDERED: HEPARIN SODIUM 1,000 UN/ML (10ML VL) ONE (09:23)
[2019-01-04] MEDS ORDERED: HEPARIN SODIUM 1,000 UN/ML (10ML VL) IV ONE (09:24)
[2019-01-04] MEDS ORDERED: BIVALIRUDIN BOLUS 250 MG/50 ML IV ONE (09:58)
[2019-01-04] MEDS ORDERED: BIVALIRUDIN 250 MG in SODIUM CHLORIDE 0.9% 50 ML IV ONE (09:59)
[2019-01-04] MEDS ORDERED: IOPAMIDOL-370 125ML BTL INJ ONE (10:06)
[2019-01-04] MEDS ORDERED: NITROGLYCERIN 1000MCG/10ML SYRINGE INTRACORON ONE (10:18)
[2019-01-04] MEDS ORDERED: CLOPIDOGREL 75 MG TAB ONE ×2 (10:19→10:20)
[2019-01-04] MEDS ORDERED: CLOPIDOGREL 75 MG TAB PO ONE (10:25)
[2019-01-04] MEDS ORDERED: RX INFO: IV CONTRAST WAS GIVEN 1 EACH MISC MISCELLANE PRN (10:34)
[2019-01-04] MEDS ORDERED: ATROPINE SULFATE 0.1 MG/ML 10ML SYRINGE IV PRN (10:34)
[2019-01-04] MEDS ORDERED: IOPAMIDOL-370 100ML BTL INJ ONE (10:45)
[2019-01-04] MEDS ORDERED: SODIUM CHLORIDE 0.9% 1,000 ML IV SCH (10:45)
[2019-01-04] MEDS: MAG HYDROX/AL HYDROX/SIMETH 30 ML CUP PO PRN ×2 (12:44→17:13)
[2019-01-04 14:07] VITALS: BMI 40.3
[2019-01-04 17:05] LABS: Glucose,Whole Blood 148 mg/dL (75-99)
[2019-01-04 19:38] VITALS: RESP 18
--- NOTE | 2019-01-04 19:42 | PTCA ---
PERCUTANEOUSTRANS CORORONARY ANGIOGRAPHY DATE OF SERVICE: January 04, 2019 PERFORMING PHYSICIAN: Isai Keen MD, senior property manager. PROCEDURE PERFORMED: Successful stenting of the mid LAD using 3.25 x 15 mm Xience drug-eluting stent as well as a 2.0 x 15 mm om next drug-eluting stent, which was postdilated using 3.5 mm balloon with an excellent angiographic results and reduction of stenosis from 70% to 0%. INDICATION: This is a 78-year-old gentleman who sees Dr. Alegre in the office as an outpatient who was experiencing symptoms of chest discomfort and he underwent myocardial perfusion imaging stress test and that revealed an intact anterior ischemia. Because of that, a heart catheterization was advised. The patient underwent heart catheterization by Dr. Alegre and was found to have severe disease involving the mid LAD. Because of that, PCI was advised. APPROACH: Right radial artery. COMPLICATION: None. LEVEL OF SEDATION: Moderate with sedation length of 60 minutes. PROCEDURE DESCRIPTION: Please refer to diagnostic heart catheterization was performed by Dr. Alegre earlier today. Anticoagulation was initiated using Angiomax. Subsequently I took an XB3 guide and the left main was engaged. I did wire the LAD using a run-through wire. I did balloon angioplasty of the lesion in mid LAD using a 3.0 x 12 mm balloon. I tried advancing 3.25 x 15 mm stent to the LAD in the midportion, but the stent will not cross the proximal portion. I was able to get the stent to the proximal portion using adjunctive GuideLiner. The stent in the mid LAD was positioned under fluoroscopy guidance and deployed under 14 atmospheres for 20 seconds. The following angiogram showed that lesion proximal to the stented segment is hazy and concerning and because of that, I decided to cover that with a stent. I attempted advancing 2nd stent to that LAD proximal to the previous stent but the stent will not make the turn in spite of adjunctive use of GuideLiner and also in spite of using double wire. Finally, I was able to get our next drug-eluting stent, which was 2.0 x 15 to the mid LAD where the stent was positioned under fluoroscopy guidance and deployed under 18 atmospheres for 20 seconds. I post dilated the stent using 3.5 mm balloon. The final angiogram showed good results and the procedure was completed without any complication. POSTPROCEDURE MANAGEMENT: 1. Dual anti-platelet therapy. 2. Risk factors modifications. 3. Follow up with the patient. MMODL / IJN: [id number] /
--- NOTE | 2019-01-04 19:42 | LTR ---
DATE OF SERVICE: January 04, [address] Navas: Mr. Conrad Campa presented to the hospital with chest discomfort and underwent myocardial perfusion imaging stress test and that came in to be abnormal showing anterior ischemia. He underwent a heart catheterization by Dr. Alegre and was found to have severe disease involving the mid LAD. I did perform successful stenting of the mid LAD with good angiographic results and without any complication. Thank you for allowing us to participate in his care and please do not hesitate to call if you have any question or concerns. Sincerely, MMODL / IJN: [id number] /
[2019-01-05 01:56] LABS: Glucose,Whole Blood 104 mg/dL (75-99)
[2019-01-05 06:44] LABS: Basophils % (A) 0 %; Eosinophils # (A) 0.2 k/uL (0-0.7); Eosinophils % (A) 2 %; HCT 40.6 % (39.0-53.0); HGB 12.8 gm/dL (13.0-17.5); Lymphocytes # (A) 1.6 k/uL (1.0-4.8); Lymphocytes % (A) 18 %; MCH 29.8 pg (25.0-35.0); MCHC 31.6 g/dL (31.0-37.0); MCV 94.4 fL (80.0-100.0); Mean Platelet Volume 9.4; Monocytes # (A) 0.7 k/uL (0-1.0); Monocytes % (A) 8 %; Neutrophils # (A) 6.1 k/uL (1.3-7.7); Neutrophils % (A) 69 %; RDW 14.6 % (11.5-15.5); WBC 8.9 k/uL (3.8-10.6)
[2019-01-05 06:53] LABS: Calcium 8.5 mg/dL (8.4-10.2)
[2019-01-05 06:58] LABS: Platelet Count 87 k/uL (150-450)
--- NOTE | 2019-01-05 07:03 | PN ---
PROGRESS NOTE DATE OF SERVICE: 01/04/2019. PRESENTING COMPLAINT: Chest pain. INTERVAL HISTORY: This patient presented with chest pain and passed out and had a positive stress test. The patient did go for a cardiac cath today and a stent to the LAD was done. Currently, no chest pain. REVIEW OF SYSTEMS: Done for constitutional, cardiovascular, GI, pulmonary; relevant findings as above. CURRENT MEDICATIONS: Current medications are reviewed. PHYSICAL EXAMINATION: On examination, temperature 97.7, pulse 61, respiration 20, blood pressure 128/55, pulse ox 94% on room air. GENERAL APPEARANCE: Lying in bed, awake. EYES: Pupils equal. Conjunctivae normal. NECK: JVD not raised. Mass not palpable. RESPIRATORY: Effort normal. LUNGS: Fair entry. CARDIOVASCULAR: First and second sounds normal. No edema. ABDOMEN: Soft, nontender. Liver and spleen not palpable. PSYCHIATRY: Alert and oriented x3. Mood and affect normal. INVESTIGATIONS: INR 1.9. Potassium 4.9. BUN 20, creatinine 1.29. ASSESSMENT: 1. Unstable angina in a patient cardiac cath now with stent to the LAD with underlying positive stress test today. 2. Coronary artery disease, prior history of stent. 3. Paroxysmal atrial fibrillation, currently in sinus rhythm. 4. Right bundle branch block. 5. Essential hypertension. 6. Hyperlipidemia. 7. Coumadin monitoring. 8. Chronic kidney disease stage 3 from nephrosclerosis. 9. Aortic stenosis, [id number], nonrheumatic. PLAN: Continue current medication and treatment plan. Check electrolytes in the morning in view of the cardiac catheterization. Care was discussed with the patient. Will follow. MMODL / IJN: [id number] /
[2019-01-05] MEDS: ASCORBIC ACID 500 MG TAB PO SCH (08:57)
[2019-01-05] MEDS: CHOLECALCIFEROL 1,000 UNIT TAB PO SCH (08:57)
[2019-01-05] MEDS: LOSARTAN 25 MG TAB PO SCH (08:57)
[2019-01-05] MEDS: AMIODARONE 100 MG TAB PO SCH (08:58)
[2019-01-05] MEDS: GABAPENTIN 300 MG CAP PO SCH (08:58)
[2019-01-05] MEDS: FERROUS SULFATE 325 MG TAB PO SCH (08:58)
[2019-01-05] MEDS: CALCIUM CARB-VIT D 500MG-200UN 1 EACH TAB PO SCH (08:58)
[2019-01-05] MEDS ORDERED: CLOPIDOGREL 75 MG TAB PO SCH (09:00)
[2019-01-05] MEDS ORDERED: ASPIRIN 325 MG TAB PO SCH (09:00)
[2019-01-05] MEDS ORDERED: ASPIRIN 81 MG PO SCH (09:00)
[2019-01-05 11:10] VITALS: BP 135/92; PULSE 80; TEMP 98
--- NOTE | 2019-01-05 13:02 | P.PN ---
Subjective Progress Note Date: 01/05/19 This is a 78-year-old gentleman who sees Dr. Dr. Alegre in the office as an outpatient with history of CAD and prior stenting of the RCA in 2014, paroxysmal atrial fibrillation on oral anticoagulation, hypertension, and dyslipidemia, and history of syncope, presented to the hospital complaining of chest discomfort. He was in his usual state of health where he was in the car with his and suddenly started experiencing discomfort in the mid of the chest, as a pressure on the chest, without any radiation to the arm or neck or shoulders, and without any associated symptoms of shortness of breath, sweating, dizziness, heart racing, but he did develop syncope. He stated that he lost his consciousness for a few seconds. That was witnessed with his was driving the car. After he was brought to the hospital, he did have another episode of chest discomfort. Currently he is chest pain-free. The EKG showed sinus rhythm with bifascicular block with first-degree AV block and right bundle branch block. Cardiac enzymes were checked and came in to be unremarkable. The chest x-ray did not show any acute abnormalities. The patient underwent stenting of the RCA back in 2014. The last echocardiogram from March 2018 revealed normal LV function with evidence of [id number] aortic stenosis. Currently on exam, he does have fairly significant systolic murmur consistent with aortic stenosis. Before we pursue any testing to assess for coronary artery disease, I am going to obtain an echocardiogram to assess the severity of the aortic stenosis. Further recommendation to follow that. 01/05/2019 Patient was taken to the cardiac catheterization lab where he underwent a cardi ac cath with subsequent stenting of the mid LAD. He was seen and examined this morning, denied any chest pain or difficulty in breathing. Hemodynamically stable. Blood pressure 134/90 with a heart rate in the 80s, 94% on room air. White blood cell count 8.9, hemoglobin 12.8, platelet count 87. Sodium 139, potassium 5.0, BUN 21 and creatinine 1.3 Objective - Vital Signs Vital signs: Vital Signs Temp 98.0 F 01/05/19 08:00 Pulse 80 01/05/19 08:00 Resp 18 01/05/19 08:00 BP 135/92 01/05/19 08:00 Pulse Ox 94 L 01/05/19 08:00 Intake & Output 01/04/19 01/05/19 01/05/19 18:59 06:59 18:59 Intake Total 1286 360 Balance 1286 360 Weight 106.594 kg 101.3 kg Intake: IV 800 Sodium Chloride 0.9% 1, 600 000 ml @ 75 mls/hr IV . [id number] PRINCESS Rx#:[id number] Oral 486 360 Other: Voiding Method Toilet Toilet Toilet # Voids 2 3 - Exam PHYSICAL EXAMINATION: GENERAL: 78-year-old gentleman in no acute distress at the time of my examination HEENT: Head is atraumatic, normocephalic. Pupils equal, round. Sclera anicteric. Conjunctiva are clear. Mucous membranes of the mouth are moist. Neck is supple. There is no elevated jugular venous pressure.] bruit is heard. HEART EXAMINATION: Heart S1 S2 1 systolic murmur is heard CHEST EXAMINATION: Lungs are clear to auscultation and precussion. No chest wall tenderness is noted on palpation or with deep breathing. ABDOMEN: Soft, nontender. Bowel sounds are heard. No organomegaly noted. EXTREMITIES: 2+ peripheral pulses with no evidence of peripheral edema and no calf tenderness noted. Radial site is clean and dry, good distal pulse. NEUROLOGIC patient is awake, alert and oriented ?-3. . - Labs CBC & Chem 7: 01/05/19 06:17 01/05/19 06:17 Labs: Abnormal Lab Results - Last 24 Hours (Table) 01/04/19 01/05/19 01/05/19 Range/Units 17:03 01:55 06:17 Hgb 12.8 L (13.0-17.5) gm/dL Plt Count 87 L (150-450) k/uL Chloride (98-107) mmol/L BUN (9-20) mg/dL Creatinine (0.66-1.25) mg/dL Glucose (74-99) mg/dL POC Glucose (mg/dL) 148 H 104 H (75-99) mg/dL 01/05/19 Range/Units 06:17 Hgb (13.0-17.5) gm/dL Plt Count (150-450) k/uL Chloride 110 H (98-107) mmol/L BUN 21 H (9-20) mg/dL Creatinine 1.33 H (0.66-1.25) mg/dL Glucose 102 H (74-99) mg/dL POC Glucose (mg/dL) (75-99) mg/dL Assessment and Plan Plan: Assessment and plan #1 status post angioplasty and stenting of the LAD #2 syncope #3 known coronary artery disease with prior RCA stenting #4 aortic stenosis #5 hyperlipidemia Plan From cardiology's perspective, patient may be able to be discharged home today. We'll make a follow-up appointment for him to see Dr. Alegre in the office post discharge. DNP note has been reviewed, I agree with a documented findings and plan of care. Patient was seen and examined.
--- NOTE | 2019-01-06 08:42 | DS ---
DISCHARGE SUMMARY DATE OF ADMISSION: 01/01/2019 DATE OF DISCHARGE: 01/05/2019 FINAL DIAGNOSES: 1. Unstable angina. 2. Coronary artery disease with stent to the LAD. 3. Paroxysmal atrial fibrillation currently in sinus rhythm. 4. Right bundle branch block. 5. Essential hypertension. 6. Hyperlipidemia. 7. Coumadin monitoring. 8. Chronic kidney disease stage 3 from nephrosclerosis. 9. Aortic stenosis, [id number] nonrheumatic. HOSPITAL COURSE: This is a patient presented with an episode of chest pain and passing out. The patient did have a nuclear stress test that was positive. Cardiac catheterization, patient did get a stent to the LAD. More details in Dr. Keen's note. Overall, patient is doing much better. The patient did have a 2-D echocardiogram that did show EF of 55-60 percent and mild aortic stenosis was reported. On the day of discharge, patient doing much better up and about. PHYSICAL EXAMINATION: Temperature 98, pulse 80, respirations 18, blood pressure 135/92, pulse ox 94 percent on room air. Lungs fair entry. Cardiovascular: First and second sounds normal. INVESTIGATIONS: BUN 21, creatinine 1.33. DISCHARGE MEDICATIONS: 1. Aspirin 81 mg q.h.s. 2. Cordarone 100 mg p.o. daily. 3. Ventolin HFA 1 puff b.i.d. p.r.n. 4. Vitamin C 1000 mg p.o. daily. 5. Lipitor 80 mg q.h.s. 6. Calcium vitamin D 600/400 1 tab p.o. daily. 7. Vitamin D3 5000 units p.o. daily. 8. Losartan 25 mg p.o. daily. 9. Coumadin 2 mg p.o. daily. 10.Iron 325 p.o. q.48 hours. 11.Neurontin 300 mg t.i.d. 12.Coumadin 3 mg on Wednesday and Wednesday. 13.Plavix 75 mg daily. 14.Nitrostat 0.4 sublingual q.5 p.r.n. CONSULTATIONS: Dr. Keen from Cardiology. FOLLOWUP: Follow up with Dr. Navas on January 10, 2019, follow up with Dr. Alegre 01/19/2019. Copy to Dr. Navas. MMODL / IJN: [id number] /
--- NOTE | 2019-02-20 12:16 | P.CARDCATH ---
Date of Procedure: 02/20/19 Preoperative Diagnosis: Unstable angina Postoperative Diagnosis: Critical lesion involving mid LAD Procedure(s) Performed: Left heart catheterization without left ventriculography Description of Procedure: HISTORY: This is a 78-year-old gentleman with history of previous stent placement and known coronary artery disease was admitted to the hospital with chest pain. Patient had a stress test which was suggestive of ischemia. Patient is advised to have a cardiac catheterization. Patient and family were explained the risks and benefits of the procedure. CONSENT:I have discussed the risks, benefits and alternative therapies for the above-mentioned procedure and for both sedation/analgesia as well as necessary blood product administration, if indicated, as they pertain to this patient. The patient has indicated understanding and acceptance of the risks and procedures discussed. PROCEDURE: Patient was brought to the lab in a fasting state. Patient was given some IV sedation. The right wrist is infiltrated with lidocaine and right radial artery was entered using Seldinger technique. A 6-Djiboutian catheter was left in place and selective coronary arteriography and left ventriculography was performed. Patient tolerated the procedure well. Patient went on to have stent placement of the mid LAD. No immediate complications were noted and patient was transferred to [facility] in a stable condition Conscious Sedation: Versed 1mg Fentanyl 50 g Duration 21minutes HEMODYNAMICS: Aortic pressure is about 130/80. Left ventricular end-diastolic pressure 15-20. No gradient across the aortic valve SELECTIVE CORONARY ARTERIOGRAPHY: LEFT MAIN: Normal length and free of any occlusive disease THE LEFT ANTERIOR DESCENDING CORONARY ARTERY:. This is a good caliber vessel with a patent stent in the proximal portion. With a critical lesion in the mid left anterior descending coronary artery. There is mild diffuse disease distally THE LEFT CIRCUMFLEX AND IS CORONARY ARTERY: This is a moderate caliber vessel with mild disease proximally and patent stent in the midportion THE RIGHT CORONARY ARTERY:. This is a moderate caliber vessel with diffuse disease with patent stents throughout its length LEFT VENTRICULOGRAPHY: Not performed FINAL IMPRESSION:. Critical lesion in the mid LAD with patent stents in the proximal LAD, circumflex and the right coronary artery PLAN: Stent placement of the mid LAD to be done by Dr. Mazariegos PROGNOSIS:. Fair
== END 2019-01-05 13:09 | disposition home or self-care (01) | DRG 247 ==
LOC: EC 13:35 → 1SOBS 16:06 → OBSVTOIN 01-04 09:03 → 3SCARD 01-04 11:07
PROVIDERS: ADMIT Hospitalist; ATTEND Hospitalist
PROC: B2111ZZ Fluoroscopy of Multiple Coronary Arteries using Low Osmolar Contrast (ICD-10-PCS; 2019-01-04)
PROC: 027035Z Dilation of Coronary Artery, One Artery with Two Drug-eluting Intraluminal Devices, Percutaneous Approach (ICD-10-PCS; principal; 2019-01-04 09:00)
PROC: 4A023N7 Measurement of Cardiac Sampling and Pressure, Left Heart, Percutaneous Approach (ICD-10-PCS; 2019-01-04 09:00)
DX: I25.110 Atherosclerotic heart disease of native coronary artery with unstable angina pectoris (principal); I45.2 Bifascicular block; I35.0 Nonrheumatic aortic (valve) stenosis; I45.10 Unspecified right bundle-branch block; I48.0 Paroxysmal atrial fibrillation; N18.3 Chronic kidney disease, stage 3 (moderate); E78.5 Hyperlipidemia, unspecified; I12.9 Hypertensive chronic kidney disease with stage 1 through stage 4 chronic kidney disease, or unspecified chronic kidney disease; I25.2 Old myocardial infarction; I44.0 Atrioventricular block, first degree; M19.90 Unspecified osteoarthritis, unspecified site; R55 Syncope and collapse; Z79.01 Long term (current) use of anticoagulants; Z79.82 Long term (current) use of aspirin; Z79.899 Other long term (current) drug therapy; Z95.5 Presence of coronary angioplasty implant and graft; Z87.891 Personal history of nicotine dependence; Z87.01 Personal history of pneumonia (recurrent); Z98.42 Cataract extraction status, left eye; Z98.41 Cataract extraction status, right eye; Z96.1 Presence of intraocular lens; Z80.1 Family history of malignant neoplasm of trachea, bronchus and lung
CPT/HCPCS: 36415; 71046; 78452; 80048; 80053; 80061; 83735; 83880; 84484; 85025; 85610; 85730; 93005; 93017; 93306; 93458; 94640; 99285; C1874

== ENCOUNTER → 2019-06-26 | Outpatient (CLI) | payer MEDICARE ==
[2019-06-26 18:44] LABS: Albumin/Globulin Ratio 2.22 (1.60-3.17); Bilirubin, Conjugated 0.3 mg/dL (0.20-0.40); Bilirubin,Unconjugated 0.5 mg/dL; Globulin 1.8 g/dL (1.6-3.3); Total Bilirubin 0.8 mg/dL (0.2-1.2); Total Protein 5.8 g/dL (6.2-8.2)
[2019-06-26 18:52] LABS: T4, Free (Free Thyroxine) 1.2 ng/dL (0.80-1.80)
== END | disposition home or self-care (01) ==
LOC: LABWHC1 13:35
PROVIDERS: ATTEND Internal Medicine Cardiovascular Disease
DX: I48.91 Unspecified atrial fibrillation (principal); E03.2 Hypothyroidism due to medicaments and other exogenous substances
CPT/HCPCS: 36415; 80076; 84439; 84443

== ENCOUNTER 2019-07-09 12:12 | Emergency (ER) | payer MEDICARE ==
[2019-07-09 12:22] VITALS: PULSE 68; RESP 18; TEMP 97.4
[2019-07-09] MEDS ORDERED: LIDOCAINE (PF) 10 MG/ML 2 ML VIAL SQ STA (12:35)
[2019-07-09] MEDS ORDERED: SODIUM CHLORIDE 0.9% 1,000 ML IV STA (12:37)
[2019-07-09 13:28] LABS: Basophils % (A) 0 %; Eosinophils # (A) 0.2 k/uL (0-0.7); Eosinophils % (A) 2 %; HCT 37.9 % (39.0-53.0); HGB 12.5 gm/dL (13.0-17.5); Lymphocytes # (A) 1.4 k/uL (1.0-4.8); Lymphocytes % (A) 13 %; MCH 31.1 pg (25.0-35.0); Mean Platelet Volume 10.2; Monocytes # (A) 0.6 k/uL (0-1.0); Monocytes % (A) 6 %; Neutrophils # (A) 8.6 k/uL (1.3-7.7); Neutrophils % (A) 79 %; Platelet Count 140 k/uL (150-450); RBC 4.03 m/uL (4.30-5.90); RDW 13.6 % (11.5-15.5); WBC 10.9 k/uL (3.8-10.6)
--- NOTE | 2019-07-09 13:28 | ED ---
Dizziness HPI - General Chief Complaint: Dizziness Stated Complaint: Fall, Head Injury Time Seen by Provider: 07/09/19 12:17 Source: patient Mode of arrival: EMS Limitations: no limitations - History of Present Illness Initial Comments: Patient presents after syncopal episode. He sustained injuries to the right ear and left side of the forehead. He denies any chest pain or shortness of breath. He has no belly or back pain. He has no nausea or vomiting. He has no diaphoresis. He has no focal weakness. He has no vision or hearing changes. - Related Data Home Medications Medication Instructions Recorded Confirmed Aspirin EC [Ecotrin Low Dose] 81 mg PO HS 02/05/16 01/01/19 Albuterol Inhaler [Ventolin Hfa 1 puff INHALATION BID PRN 07/14/18 01/01/19 Inhaler] Ascorbic Acid [Vitamin C] 1,000 mg PO DAILY 07/14/18 01/01/19 Atorvastatin [Lipitor] 80 mg PO HS 07/14/18 01/01/19 Calcium Carbonate/Vitamin D3 1 tab PO DAILY 07/14/18 01/01/19 [Calcium 600-Vit D3 400 Tablet] Cholecalciferol [Vitamin D3 (25 5,000 unit PO DAILY 07/14/18 01/01/19 Mcg = 1000 Iu)] Losartan Potassium 25 mg PO DAILY 07/14/18 01/01/19 Warfarin [Coumadin] 2 mg PO DAILY 07/14/18 01/01/19 Ferrous Sulfate [Iron (65 MG 325 mg PO Q48H 01/01/19 01/01/19 Elemental)] Gabapentin [Neurontin] 300 mg PO TID 01/01/19 01/01/19 Warfarin [Coumadin] 3 mg PO MOFR 01/01/19 01/01/19 Previous Rx's Medication Instructions Recorded Amiodarone [Cordarone] 100 mg PO DAILY #90 tab 03/08/18 Clopidogrel [Plavix] 75 mg PO DAILY #30 tab 01/05/19 Nitroglycerin Sl Tabs [Nitrostat] 0.4 mg SUBLINGUAL Q5M PRN #25 tab 01/05/19 Allergies Allergy/AdvReac Type Severity Reaction Status Date / Time No Known Allergies Allergy Verified 01/01/19 14:05 Review of Systems ROS Statement: Those systems with pertinent positive or pertinent negative responses have been documented in the HPI. ROS Other: All systems not noted in ROS Statement are negative. Past Medical History Past Medical History: GI Bleed, Osteoarthritis (OA), Pneumonia Additional Past Medical History / Comment(s): GI Bleed 2001, having dizzy spells Last Myocardial Infarction Date:: 2007 & 2013 History of Any Multi-Drug Resistant Organisms: None Reported Past Surgical History: Back Surgery, Heart Catheterization With Stent, Hernia Repair Additional Past Surgical History / Comment(s): sinus surgery, heart stents x2, karina cataracts Past Anesthesia/Blood Transfusion Reactions: No Reported Reaction Date of Last Stent Placement:: 09-21-14 Past Psychological History: No Psychological Hx Reported Smoking Status: Former smoker Past Alcohol Use History: None Reported Past Drug Use History: None Reported - Past Family History Son(s) Family Medical History: Cancer Additional Family Medical History / Comment(s): FROM LUNG CANCER General Exam Limitations: no limitations General appearance: alert, in no apparent distress Head exam: Present: atraumatic, normocephalic, normal inspection Eye exam: Present: normal appearance, PERRL, EOMI. Absent: scleral icterus, conjunctival injection, periorbital swelling ENT exam: Present: normal exam, mucous membranes moist Neck exam: Present: normal inspection. Absent: tenderness, meningismus, lymphadenopathy Respiratory exam: Present: normal lung sounds bilaterally. Absent: respiratory distress, wheezes, rales, rhonchi, stridor Cardiovascular Exam: Present: regular rate, normal rhythm, normal heart sounds. Absent: systolic murmur, diastolic murmur, rubs, gallop, clicks GI/Abdominal exam: Present: soft, normal bowel sounds. Absent: distended, tenderness, guarding, rebound, rigid Extremities exam: Present: normal inspection, full ROM, normal capillary refill. Absent: tenderness, pedal edema, joint swelling, calf tenderness Back exam: Present: normal inspection Neurological exam: Present: alert, oriented X3, CN II-XII intact Psychiatric exam: Present: normal affect, normal mood Skin exam: Present: warm, dry, normal color, other (Patient has lacerations l). Absent: rash Course Vital Signs 07/09/19 12:18 Temperature 97.4 F L Pulse Rate 68 Respiratory 18 Rate Blood Pressure 88/48 O2 Sat by Pulse 93 L Oximetry EKG Findings - EKG Comments: EKG Findings:: Twelve-lead EKG shows ventricular rate 65 bpm, normal IN interval, there is a right bundle branch block, interpreted by me as normal sinus rhythm. Medical Decision Making - Medical Decision Making Patient sustained a head injury from a fall after syncopal episode. He has left side for her laceration approaching the eyelid, and multiple through and through lacerations to the right ear with extensive cartilage exposure. I do not have plastics or ENT, therefore patient be transferred to a higher level care trauma center for further evaluation. Disposition Clinical Impression: Syncope Disposition: OTHER INSTITUTION NOT DEFINED Condition: Fair Referrals: Kelvin Navas MD [Primary Care Provider] - 1-2 days - Out of Hospital Transfer - Req. Specs Out of Hospital Transfer - Requested Specifics: Other Emergency Center (Accepted by Dr. Banrey)
--- NOTE | 2019-07-09 13:30 | CT ---
EXAMINATION TYPE: CT brain kathya chavez DATE OF EXAM: 07/09/2019 COMPARISON: Previous CT scan of the brain dated 03/04/2018. HISTORY: syncopeal fall CT DLP: 1382.2 mGycm Automated exposure control for dose reduction was used. TECHNIQUE: CT scan of the head and cervical spine are performed without contrast. FINDINGS: BRAIN:There are mild, generalized changes of sulcal prominence and ventriculomegaly, compatible with atrophic change. There is diffuse periventricular white matter lucency, compatible with chronic white matter ischemic change. There is evidence of an old lacunar infarct in the external capsule on the l eft. There is no acute focal lesion, mass effect or midline shift identified. I do not see evidence o f intracranial blood. Visualized portions of the paranasal sinuses and mastoids are clear. The bony calvarium is intact. IMPRESSION: 1. NO ACUTE INTRACRANIAL ABNORMALITY. 2. MILD DEGENERATIVE CHANGE. CERVICAL SPINE: There are emphysematous changes throughout the visualized portions of the lungs. There is moderate atheromatous calcification of the carotid bulbs bilaterally. Prevertebral soft tiss ues are otherwise unremarkable. Vertebral body height and alignment are maintained. Atlantoaxial relationships are normal. There is m ild degenerative disc disease at C4-5 and C5-6. Uncovertebral joint disease at these levels as well. There is facet arthropathy bilaterally at C2-3 and C3-4 as well as on the left C5-6 and to a lesser e xtent on the right. No definite protrusion is seen. No fracture is seen. IMPRESSION: 1. NO ACUTE OSSEOUS LESION. 2. [id number] DEGENERATIVE CHANGE.
--- NOTE | 2019-07-09 13:32 | XR ---
EXAMINATION TYPE: XR chest 2V DATE OF EXAM: 07/09/2019 HISTORY: syncope. REFERENCE: Previous study dated 01/01/2019. FINDINGS: Heart size upper limits of normal. There is some scarring or atelectasis at the lung bases bilaterally. There is blunting of the left CP angle and I could not exclude a small effusion. IMPRESSION: 1. BORDERLINE CARDIOMEGALY. 2. SCARRING VERSUS ATELECTASIS, BOTH LUNG BASES. 3. I COULD NOT EXCLUDE A SMALL LEFT EFFUSION
[2019-07-09 13:37] LABS: INR 1.9 (<1.2); Prothrombin Time 18.4 sec (9.0-12.0)
[2019-07-09 13:38] LABS: Albumin 3.7 g/dL (3.5-5.0); Calcium 8.3 mg/dL (8.4-10.2); Total Bilirubin 1.2 mg/dL (0.2-1.3); Total Protein 6.4 g/dL (6.3-8.2)
[2019-07-09 13:52] LABS: Potassium 4.8 mmol/L (3.5-5.1)
[2019-07-09 13:56] VITALS: BP 96/48
== END 2019-07-09 13:56 | disposition other institution (70) ==
LOC: EC 12:12
DX: R55 Syncope and collapse (principal); R42 Dizziness and giddiness; S01.112A Laceration without foreign body of left eyelid and periocular area, initial encounter; S01.311A Laceration without foreign body of right ear, initial encounter; I25.2 Old myocardial infarction; Z79.82 Long term (current) use of aspirin; Z79.899 Other long term (current) drug therapy; Z79.01 Long term (current) use of anticoagulants; Z87.891 Personal history of nicotine dependence; Z95.5 Presence of coronary angioplasty implant and graft; W18.09XA Striking against other object with subsequent fall, initial encounter
CPT/HCPCS: 36415; 70450; 71046; 72125; 80053; 84484; 85025; 85610; 93005; 99285

== ENCOUNTER → 2019-08-21 | Outpatient (CLI) | payer MEDICARE ==
[2019-08-21 10:41] LABS: African American GFR (CKD) 60 (>60 ml/min/1.73 sqM); Anion Gap 5 mmol/L; Blood Urea Nitrogen 14 mg/dL (9-20); Calcium 7.9 mg/dL (8.4-10.2); Carbon Dioxide 37 mmol/L (22-30); Chloride 98 mmol/L (98-107); Glucose 124 mg/dL (74-99); Non-African American GFR(CKD) 52 (>60 ml/min/1.73 sqM); Potassium 3.4 mmol/L (3.5-5.1); Sodium 140 mmol/L (137-145)
== END | disposition home or self-care (01) ==
LOC: LABWHC1 10:10
PROVIDERS: ATTEND Internal Medicine Cardiovascular Disease
DX: I35.0 Nonrheumatic aortic (valve) stenosis (principal)
CPT/HCPCS: 36415; 80048

== ENCOUNTER 2020-02-27 14:30 | Emergency (ER) | payer MEDICARE ==
[~2020-02-27 14:30] MED LIST changes: +HUMAN PROTHROMBIN COMPLX 500 UNIT/16 ML VIAL IV ONE; -SODIUM CHLORIDE 0.9% 1,000 ML IV SCH
[2020-02-27 15:13] LABS: Basophils % (A) 0 %; Eosinophils # (A) 0.3 k/uL (0-0.7); Eosinophils % (A) 3 %; HCT 40.7 % (39.0-53.0); HGB 13.4 gm/dL (13.0-17.5); Hypochromasia Slight; Lymphocytes # (A) 2.1 k/uL (1.0-4.8); Lymphocytes % (A) 21 %; MCH 30.7 pg (25.0-35.0); MCV 93.1 fL (80.0-100.0); Mean Platelet Volume 10.1; Monocytes # (A) 0.6 k/uL (0-1.0); Monocytes % (A) 6 %; Neutrophils # (A) 6.9 k/uL (1.3-7.7); Neutrophils % (A) 68 %; Platelet Count 120 k/uL (150-450); RBC 4.37 m/uL (4.30-5.90); RDW 14.5 % (11.5-15.5); WBC 10.1 k/uL (3.8-10.6)
[2020-02-27 15:28] LABS: Albumin 3.7 g/dL (3.5-5.0); Calcium 8.6 mg/dL (8.4-10.2); Magnesium 2.1 mg/dL (1.6-2.3); Potassium 3.8 mmol/L (3.5-5.1); Total Bilirubin 0.8 mg/dL (0.2-1.3); Total Protein 6.2 g/dL (6.3-8.2)
[2020-02-27 15:35] LABS: Partial Thromboplastin Time 23.3 sec (22.0-30.0); Prothrombin Time 10.3 sec (9.0-12.0)
--- NOTE | 2020-02-27 15:43 | ED ---
General Adult HPI <Dhruv He - Last Filed: 02/27/20 16:34> - General Source: patient, family Mode of arrival: wheelchair Limitations: physical limitation <Ketty Roy - Last Filed: 02/27/20 16:41> - General Chief complaint: Syncope Stated complaint: Syncope, Head Lac Time Seen by Provider: 02/27/20 14:41 - History of Present Illness Initial comments: Patient is an 79-year-old male presenting to the emergency department after having a syncopal episode. She does is here with him now and is providing some of the history. The states that patient was opening the refrigerator to get a drink when he passed out and fell backwards. Patient's states that he was out for approximately 1-2 minutes. Patient is on xarelto secondary to A. fib. Patient states that he has had dizziness and syncopal episodes in the past. Patient states he currently "feels fine." He denies any dizziness, chest pain, shortness of breath. He denies any nausea or vomiting. He denies any new medications in the past couple weeks. He denies any abdominal pain, he denies any urinary complaints. He has no further complaints at this time. Upon arrival to the ER, his vital signs are stable. (Ketty Roy) - Related Data Home Medications Medication Instructions Recorded Confirmed Aspirin EC [Ecotrin Low Dose] 81 mg PO HS 02/05/16 01/01/19 Albuterol Inhaler (Mhu) [Ventolin 1 puff INHALATION BID PRN 07/14/18 01/01/19 Hfa Inhaler (Mhu)] Ascorbic Acid [Vitamin C] 1,000 mg PO DAILY 07/14/18 01/01/19 Atorvastatin [Lipitor] 80 mg PO HS 07/14/18 01/01/19 Calcium Carbonate/Vitamin D3 1 tab PO DAILY 07/14/18 01/01/19 [Calcium 600-Vit D3 400 Tablet] Cholecalciferol [Vitamin D3 (25 5,000 unit PO DAILY 07/14/18 01/01/19 Mcg = 1000 Iu)] Losartan Potassium 25 mg PO DAILY 07/14/18 01/01/19 Warfarin [Coumadin] 2 mg PO DAILY 07/14/18 01/01/19 Ferrous Sulfate [Iron (65 MG 325 mg PO Q48H 01/01/19 01/01/19 Elemental)] Gabapentin [Neurontin] 300 mg PO TID 01/01/19 01/01/19 Warfarin [Coumadin] 3 mg PO MOFR 01/01/19 01/01/19 Previous Rx's Medication Instructions Recorded Amiodarone [Cordarone] 100 mg PO DAILY #90 tab 03/08/18 Clopidogrel [Plavix] 75 mg PO DAILY #30 tab 01/05/19 Nitroglycerin Sl Tabs [Nitrostat] 0.4 mg SUBLINGUAL Q5M PRN #25 tab 01/05/19 Allergies Allergy/AdvReac Type Severity Reaction Status Date / Time No Known Allergies Allergy Verified 02/27/20 14:38 Review of Systems ROS Other: All systems not noted in ROS Statement are negative. <Dhruv He - Last Filed: 02/27/20 16:34> ROS Other: All systems not noted in ROS Statement are negative. <Ketty Roy - Last Filed: 02/27/20 16:41> ROS Statement: Those systems with pertinent positive or pertinent negative responses have been documented in the HPI. Past Medical History Past Medical History: Atrial Fibrillation, GI Bleed, Osteoarthritis (OA), Pneumonia Additional Past Medical History / Comment(s): GI Bleed 2001, having dizzy spells Last Myocardial Infarction Date:: 2007 & 2013 History of Any Multi-Drug Resistant Organisms: None Reported Past Surgical History: Back Surgery, Heart Catheterization With Stent, Hernia Repair Additional Past Surgical History / Comment(s): sinus surgery, heart stents x2, karina cataracts Past Anesthesia/Blood Transfusion Reactions: No Reported Reaction Date of Last Stent Placement:: 09-21-14 Past Psychological History: No Psychological Hx Reported Smoking Status: Never smoker Past Alcohol Use History: None Reported Past Drug Use History: None Reported - Past Family History Son(s) Family Medical History: Cancer Additional Family Medical History / Comment(s): FROM LUNG CANCER <Ketty Roy - Last Filed: 02/27/20 16:41> General Exam Limitations: physical limitation <Ketty Roy - Last Filed: 02/27/20 16:41> - General Exam Comments Initial Comments: GENERAL: Patient is well-developed and well-nourished. Patient is nontoxic and in no acute distress. HEAD: Patient has small hematoma to the posterior right head. EYES: Pupils equal round and reactive to light, extraocular movements intact, sclera anicteric, conjunctiva are normal. Eyelids were unremarkable. ENT: TMs normal, nares patent, oropharynx clear without exudates. Moist mucous membranes. NECK: Normal range of motion, supple without lymphadenopathy or JVD. LUNGS: Unlabored respirations. Breath sounds clear to auscultation bilaterally and equal. No wheezes rales or rhonchi. HEART: Regular rate and rhythm without murmurs, rubs or gallops. ABDOMEN: Soft, nontender, normoactive bowel sounds. No guarding, no rebound. No masses appreciated. : Deferred MUSCULOSKELETAL: Normal extremities with adequate strength and normal range of motion, no pitting or edema. No clubbing or cyanosis. NEUROLOGICAL: Patient is alert and oriented x 3. Motor and sensory are also intact. Cranial nerves II through XII grossly intact. Normal speech, normal gait. Symmetrical smile. PSYCH: Normal mood, normal affect. SKIN: Warm, Dry, normal turgor, no rashes. Patient has a 2 cm laceration to the posterior right head. There is no active bleeding. (Ketty Roy) Course <Dhruv He - Last Filed: 02/27/20 16:34> Vital Signs 02/27/20 02/27/20 02/27/20 14:35 15:26 16:03 Temperature 97.6 F Pulse Rate 66 61 Pulse Rate [ 59 L Pulse Oximetery ] Respiratory 20 18 Rate Blood Pressure 158/64 146/70 O2 Sat by Pulse 98 97 Oximetry - Reevaluation(s) Reevaluation #1: 02/27/20 16:35 Patient reevaluated and reexamined by myself, Dr. He. I do agree with Pa Findings. This includes diagnostic interpretation and treatment plan. Patient is alert and appropriate. Patient is oriented. No focal deficits on exam. Pa tient and family updated. CT reviewed. Patient will be transferred. (Dhruv He) EKG Findings - EKG Comments: EKG Findings:: EKG read sinus rhythm with first-degree AV block, RBBB, left anterior fascicular block. Similarity to previous EKG on 07/09/2019. No signs of acute ischemia. Ventricular rate 64, AR interval 2:30, QT 488. <Ketty Roy - Last Filed: 02/27/20 16:41> Procedures - Laceration Laceration #1 Consent Obtained: verbal consent Indication: laceration Site: scalp Size (cm): 2 Description: linear Depth: simple, single layer Patient Tolerated Procedure: well <Ketty Roy - Last Filed: 02/27/20 16:41> - Laceration Laceration #1 Additional Comments: Patient's wound was closed with 4 mya. No lidocaine was used. Patient tolerated procedure well. (Ketty Roy) Medical Decision Making - Lab Data Result diagrams: 02/27/20 15:04 02/27/20 15:04 <Dhruv He - Last Filed: 02/27/20 16:34> - Lab Data Result diagrams: 02/27/20 15:04 02/27/20 15:04 <Ketty Roy - Last Filed: 02/27/20 16:41> - Medical Decision Making Patient is an 79-year-old male, with history of A. fib, presenting after having a syncopal episode at his house. Patient's witnessed this event states he was out for 1-2 minutes. Patient is on xarelto for A. fib. Patient's exam reveals a 2 cm laceration to the posterior scalp, very mild bleeding at this point. As was closed with 4 mya. The rest of exam is unremarkable, no n euro deficits. EKG reveals no acute findings. CT of the brain reveals a subdural hematoma proximally 5-6 mm in the left frontal location. There is no significant mass effect. Rest the patient's lab work is unremarkable, troponin is normal. Patient will be transferred to the [facility] for neurosurgery specialty, Dr. De La Cruz is accepting. Patient is agreement with this plan of care. Case was discussed with Dr. He. (Ketty Roy) - Lab Data Lab Results 02/27/20 02/27/20 02/27/20 Range/Units 15:04 15:04 15:04 WBC 10.1 (3.8-10.6) k/uL RBC 4.37 (4.30-5.90) m/uL Hgb 13.4 (13.0-17.5) gm/dL Hct 40.7 (39.0-53.0) % MCV 93.1 (80.0-100.0) fL MCH 30.7 (25.0-35.0) pg MCHC 33.0 (31.0-37.0) g/dL RDW 14.5 (11.5-15.5) % Plt Count 120 L (150-450) k/uL Neutrophils % 68 % Lymphocytes % 21 % Monocytes % 6 % Eosinophils % 3 % Basophils % 0 % Neutrophils # 6.9 (1.3-7.7) k/uL Lymphocytes # 2.1 (1.0-4.8) k/uL Monocytes # 0.6 (0-1.0) k/uL Eosinophils # 0.3 (0-0.7) k/uL Basophils # 0.0 (0-0.2) k/uL Hypochromasia Slight PT 10.3 (9.0-12.0) sec INR 1.0 (<1.2) APTT 23.3 (22.0-30.0) sec Sodium 138 (137-145) mmol/L Potassium 3.8 (3.5-5.1) mmol/L Chloride 105 (98-107) mmol/L Carbon Dioxide 26 (22-30) mmol/L Anion Gap 7 mmol/L BUN 20 (9-20) mg/dL Creatinine 1.32 H (0.66-1.25) mg/dL Est GFR (CKD-EPI)AfAm 59 (>60 ml/min/1.73 sqM) Est GFR (CKD-EPI)NonAf 51 (>60 ml/min/1.73 sqM) Glucose 111 H (74-99) mg/dL Calcium 8.6 (8.4-10.2) mg/dL Magnesium 2.1 (1.6-2.3) mg/dL Total Bilirubin 0.8 (0.2-1.3) mg/dL AST 25 (17-59) U/L ALT 13 (4-49) U/L Alkaline Phosphatase 112 (38-126) U/L Troponin I (0.000-0.034) ng/mL Total Protein 6.2 L (6.3-8.2) g/dL Albumin 3.7 (3.5-5.0) g/dL Urine Color Urine Appearance (Clear) Urine pH (5.0-8.0) Ur Specific [place] (1.001-1.035) Urine Protein (Negative) Urine Glucose (UA) (Negative) Urine Ketones (Negative) Urine Blood (Negative) Urine Nitrite (Negative) Urine Bilirubin (Negative) Urine Urobilinogen (<2.0) mg/dL Ur Leukocyte Esterase (Negative) Urine RBC (0-5) /hpf Urine WBC (0-5) /hpf Ur Squamous Epith Cells (0-4) /hpf Hyaline Casts (0-2) /lpf Urine Mucus (None) /hpf 02/27/20 02/27/20 Range/Units 15:04 16:17 WBC (3.8-10.6) k/uL RBC (4.30-5.90) m/uL Hgb (13.0-17.5) gm/dL Hct (39.0-53.0) % MCV (80.0-100.0) fL MCH (25.0-35.0) pg MCHC (31.0-37.0) g/dL RDW (11.5-15.5) % Plt Count (150-450) k/uL Neutrophils % % Lymphocytes % % Monocytes % % Eosinophils % % Basophils % % Neutrophils # (1.3-7.7) k/uL Lymphocytes # (1.0-4.8) k/uL Monocytes # (0-1.0) k/uL Eosinophils # (0-0.7) k/uL Basophils # (0-0.2) k/uL Hypochromasia PT (9.0-12.0) sec INR (<1.2) APTT (22.0-30.0) sec Sodium (137-145) mmol/L Potassium (3.5-5.1) mmol/L Chloride (98-107) mmol/L Carbon Dioxide (22-30) mmol/L Anion Gap mmol/L BUN (9-20) mg/dL Creatinine (0.66-1.25) mg/dL Est GFR (CKD-EPI)AfAm (>60 ml/min/1.73 sqM) Est GFR (CKD-EPI)NonAf (>60 ml/min/1.73 sqM) Glucose (74-99) mg/dL Calcium (8.4-10.2) mg/dL Magnesium (1.6-2.3) mg/dL Total Bilirubin (0.2-1.3) mg/dL AST (17-59) U/L ALT (4-49) U/L Alkaline Phosphatase (38-126) U/L Troponin I <0.012 (0.000-0.034) ng/mL Total Protein (6.3-8.2) g/dL Albumin (3.5-5.0) g/dL Urine Color Light Yellow Urine Appearance Clear (Clear) Urine pH 5.0 (5.0-8.0) Ur Specific [place] 1.009 (1.001-1.035) Urine Protein Negative (Negative) Urine Glucose (UA) Negative (Negative) Urine Ketones Negative (Negative) Urine Blood Negative (Negative) Urine Nitrite Negative (Negative) Urine Bilirubin Negative (Negative) Urine Urobilinogen <2.0 (<2.0) mg/dL Ur Leukocyte Esterase Large H (Negative) Urine RBC 1 (0-5) /hpf Urine WBC 10 H (0-5) /hpf Ur Squamous Epith Cells <1 (0-4) /hpf Hyaline Casts 10 H (0-2) /lpf Urine Mucus Rare H (None) /hpf Critical Care Time Critical Care Time: Yes Total Critical Care Time: 35 (Syncopal episode today, on Xarelto for A. fib, CT reveals a subdural hematoma. Patient was transferred to [facility].) <Ketty Roy - Last Filed: 02/27/20 16:41> Disposition <Dhruv He - Last Filed: 02/27/20 16:34> Is patient prescribed a controlled substance at d/c from ED?: No - Out of Hospital Transfer - Req. Specs Out of Hospital Transfer - Requested Specifics: Other Emergency Center ([facility]) <Ketty Roy - Last Filed: 02/27/20 16:41> Clinical Impression: Subdural hematoma, Fall, Laceration of scalp, Syncope Disposition: OTHER INSTITUTION NOT DEFINED Condition: Stable Additional Instructions: Transfer to [facility]. Accepted by Dr. De La Cruz. Referrals: Kelvin Navas MD [Primary Care Provider] - 1-2 days
[2020-02-27 16:07] VITALS: PULSE 61
--- NOTE | 2020-02-27 16:14 | CT ---
EXAMINATION TYPE: CT brain wo con DATE OF EXAM: 02/27/2020 COMPARISON: Prior CT brain 07/09/2019 HISTORY: syncope, posterior scalp laceration CT DLP: 1059.4 mGycm Automated exposure control for dose reduction was used. Helical imaging through the brain. FINDINGS: There is a cephalohematoma over the posterior convexity. Abnormal increased attenuation is present along the left frontal location without significant mass effect on the underlying brain, maxi mal thickness is approximately 5 to 6 mm, the hematoma measures approximately 3.4 cm in greatest oliver sverse dimension by 0.6 mm by 7 to 8 mm, this is increased in size as compared to prior exam. No evid ent fracture, calvarium is intact There is no hydrocephalus. Cerebral vascular calcifications are present. There is cortical atrophy pr esent. Periventricular white matter shows patchy low attenuation. IMPRESSION: FINDINGS LIKELY REPRESENT SUBDURAL HEMATOMA. Results relayed to Ketty telephonically at the time o f interpretation.
--- NOTE | 2020-02-27 16:26 | XR ---
EXAMINATION TYPE: XR chest 2V DATE OF EXAM: 02/27/2020 CLINICAL HISTORY: Syncope and fall TECHNIQUE: Frontal and lateral views of the chest are obtained. COMPARISON: Chest radiograph 07/09/2019 FINDINGS: Cardiac stent is seen, possibly post TAVR. The cardiomediastinal silhouette is within mayra l limits for size. Likely pleural-based calcifications and granulomas redemonstrated. Pulmonary vascu lature is normal. There is no focal air space opacity, pleural effusion, or pneumothorax seen. The os seous structures are demineralized. No evidence of displaced rib fracture. IMPRESSION: No acute cardiopulmonary process. Chronic changes as above.
[2020-02-27 16:27] LABS: Appearance,Urine Clear (Clear); Bilirubin,Urine Negative (Negative); Blood,Urine Negative (Negative); Color,Urine Light Yellow; Glucose,Urine (UA) Negative (Negative); Hyaline Casts,Urine 10 /lpf (0-2); Ketones,Urine Negative (Negative); Leukocyte Esterase,Urine Large (Negative); Mucus,Urine Rare /hpf; Nitrite,Urine Negative (Negative); Protein,Urine Negative (Negative); RBC,Urine 1 /hpf (0-5); Specific Gravity,Urine 1.009 (1.001-1.035); Squamous Epithelial Cell,Urine <1 /hpf (0-4); Urobilinogen,Urine <2.0 mg/dL (<2.0); WBC,Urine 10 /hpf (0-5)
[2020-02-27] MEDS ORDERED: Kcentra PER PHARMACY 1 EACH MISC MISCELLANE PRN (16:36)
[2020-02-27] MEDS ORDERED: HUMAN PROTHROMBIN COMPLX IV ONE (17:00)
[2020-02-27 17:05] VITALS: BP 164/75; RESP 17; TEMP 98.5
== END 2020-02-27 17:13 | disposition other institution (70) ==
LOC: EC 14:30
DX: S06.5X9A Traumatic subdural hemorrhage with loss of consciousness of unspecified duration, initial encounter (principal); S01.01XA Laceration without foreign body of scalp, initial encounter; R55 Syncope and collapse; I48.91 Unspecified atrial fibrillation; I25.2 Old myocardial infarction; Z79.01 Long term (current) use of anticoagulants; Z79.82 Long term (current) use of aspirin; Z79.899 Other long term (current) drug therapy; Z95.5 Presence of coronary angioplasty implant and graft; W19.XXXA Unspecified fall, initial encounter; Y92.009 Unspecified place in unspecified non-institutional (private) residence as the place of occurrence of the external cause
CPT/HCPCS: 36415; 93005; 80053; 83735; 84484; 85025; 85610; 85730; 81001; 71046; 70450; 99291; 12001; 96374; C9132

== ENCOUNTER → 2020-05-03 | Outpatient (CLI) | payer MEDICARE ==
--- NOTE | 2020-05-03 07:55 | CT ---
EXAMINATION TYPE: CT brain wo con DATE OF EXAM: 05/03/2020 HISTORY: Subdural hemorrhage couple weeks ago. CT DLP: 1110.1 mGycm. Automated Exposure Control for Dose Reduction was Utilized. TECHNIQUE: CT scan of the head is performed without contrast. COMPARISON: CT brain February 27, 2020. FINDINGS: There is no acute intracranial hemorrhage or midline shift identified currently. Interval resolution of the left frontal extra-axial acute hemorrhage. There is diffuse ventricular and sulcal prominence consistent with diffuse age-related cerebral atrophy. There is low-attenuation in the pe riventricular white matter consistent with chronic small vessel ischemic change in patient this age. Old lacunar infarct or prominent Virchow bry space left basal ganglia axial image 25 is stable. Old fracture deformity medial wall right orbit redemonstrated. Visualized sinuses are clear. IMPRESSION: No acute intracranial hemorrhage or midline shift currently. There is mild to moderate diffuse age-related cerebral atrophy and moderate to advanced chronic small vessel ischemic change re demonstrated.
== END | disposition home or self-care (01) ==
LOC: RADCTMAIN 07:27
PROVIDERS: ATTEND Family Medicine
DX: I67.82 Cerebral ischemia (principal); G31.1 Senile degeneration of brain, not elsewhere classified
CPT/HCPCS: 70450

== ENCOUNTER 2020-12-03 11:02 | Observation (INO) | payer MEDICARE ==
--- NOTE | 2020-12-03 11:26 | ED ---
General Adult HPI - General Chief complaint: Syncope Stated complaint: Syncope/low BP Time Seen by Provider: 12/03/20 11:04 Source: EMS Mode of arrival: EMS Limitations: no limitations - History of Present Illness Initial comments: Dictation was produced using [email or web address] dictation software. please excuse any grammatical, word or spelling errors. This patient was cared for during a federal and state declared state of emergency secondary to Covid 19 Chief Complaint: 80-year-old male presents after syncope History of Present Illness: She is 80-year-old male he has previous history of syncope. Patient has a syncopal episode in several months. He has been worked up for syncope in the past. He was told that there is no obvious cause of his syncope. Over the last 4 days patient has had a few syncopal episodes. He started a new diuretic medication just prior to his episode of syncope. Patient states he fell at home on Wednesday and then fell again today in the shower. States he hit his head on Wednesday but not today. Does not take any anticoagulation medications. Patient states that the bedside he feels fine. He states he's been tested for syncope multiple occasions with no obvious cause. He has no complaints currently. Denies any pain. The ROS documented in this emergency department record has been reviewed and confirmed by me. Those systems with pertinent positive or negative responses have been documented in the HPI. All other systems are other negative and/or noncontributory. PHYSICAL EXAM: General Impression: Alert and oriented x3, not in acute distress HEENT: Normocephalic atraumatic, extra-ocular movements intact, pupils equal and reactive to light bilaterally, mucous membranes moist. Cardiovascular: Heart regular rate and rhythm Chest: Able to complete full sentences, no retractions, no tachypnea Abdomen: abdomen soft, non-tender, non-distended, no organomegaly Musculoskeletal: Pulses present and equal in all extremities, no peripheral edema Motor: no focal deficits noted Neurological: CN II-XII grossly intact, no focal motor or sensory deficits noted Skin: Intact with no visualized rashes Psych: Normal affect and mood ED course: 80-year-old male with history of syncope, negative syncope workup several months ago presents after multiple syncopal episodes over the weekend. All signs upon arrival are within acceptable limits. Patient states that he believes that his symptoms are secondary to starting a new diuretic medication. EKG shows prolonged QTc which appears to be comparable to recent EKG. Likely secondary to cardiac medications. Laboratory evaluation obtained. CBC, coag panel is unremarkable. Metabolic panel shows creatinine of 2.0 with a BUN of 42. This appears to be higher than patient's baseline likely secondary to diuretic use. Patient really value to bedside for basilar medical condition. Patient's symptoms likely related to recent Lasix use. Does have prolonged QT may be related to cardiac event although he has history of slightly prolonged QTC. Patient be admitted for syncope observation. discussed with Dr. Johnson of [facility]. EKG interpretation: Ventricular rate 57, sinus bradycardia,. Interval to 32, right bundle branch block, QRS 162, QTc 527. No DE prolongation, no ST or T- wave changes noted. EKG compared to 02/19/2020 showing no changes. Overall, this EKG is unremarkable - Related Data Home Medications Medication Instructions Recorded Confirmed Gabapentin [Neurontin] 300 mg PO TID 01/01/19 12/03/20 Atorvastatin [Lipitor] 40 mg PO HS 12/03/20 12/03/20 Bumetanide [BUMEX] 2 mg PO DAILY 12/03/20 12/03/20 Celecoxib [CeleBREX] 200 mg PO BID 12/03/20 12/03/20 Clobetasol Propionate [Temovate 1 applic TOPICAL BID 12/03/20 12/03/20 0.05% Cream] DULoxetine HCL [Cymbalta] 60 mg PO DAILY 12/03/20 12/03/20 Fluticasone Nasal [place] [Flonase 2 spr EA NOSTRIL DAILY PRN 12/03/20 12/03/20 Nasal [place]] Furosemide [Lasix] 40 mg PO DAILY 12/03/20 12/03/20 Linagliptin [Tradjenta] 5 mg PO DAILY 12/03/20 12/03/20 Midodrine HCl [ProAmatine] 10 mg PO TID 12/03/20 12/03/20 Tobramycin/Dexamethasone [Tobradex 1 drop BOTH EYES BID 12/03/20 12/03/20 Ophth Susp] Previous Rx's Medication Instructions Recorded Amiodarone [Cordarone] 100 mg PO DAILY #90 tab 03/08/18 Allergies Allergy/AdvReac Type Severity Reaction Status Date / Time No Known Allergies Allergy Verified 12/03/20 12:11 Review of Systems ROS Statement: Those systems with pertinent positive or pertinent negative responses have been documented in the HPI. ROS Other: All systems not noted in ROS Statement are negative. Past Medical History Past Medical History: Atrial Fibrillation, GI Bleed, Osteoarthritis (OA), Pneumonia Additional Past Medical History / Comment(s): GI Bleed 2001, having dizzy spells Last Myocardial Infarction Date:: 2007 & 2013 History of Any Multi-Drug Resistant Organisms: None Reported Past Surgical History: Back Surgery, Heart Catheterization With Stent, Hernia Repair Additional Past Surgical History / Comment(s): sinus surgery, heart stents x2, karina cataracts Past Anesthesia/Blood Transfusion Reactions: No Reported Reaction Date of Last Stent Placement:: 09-21-14 Past Psychological History: No Psychological Hx Reported Smoking Status: Never smoker Past Alcohol Use History: None Reported Past Drug Use History: None Reported - Past Family History Son(s) Family Medical History: Cancer Additional Family Medical History / Comment(s): FROM LUNG CANCER General Exam Limitations: no limitations Course Vital Signs 12/03/20 11:06 Temperature 97.7 F Pulse Rate 60 Respiratory 18 Rate Blood Pressure 149/78 O2 Sat by Pulse 96 Oximetry Medical Decision Making - Lab Data Result diagrams: 12/03/20 11:25 12/03/20 11:25 Lab Results 12/03/20 12/03/20 12/03/20 Range/Units 11:25 11:25 11:25 WBC 8.6 (3.8-10.6) k/uL RBC 4.37 (4.30-5.90) m/uL Hgb 13.4 (13.0-17.5) gm/dL Hct 41.1 (39.0-53.0) % MCV 94.1 (80.0-100.0) fL MCH 30.6 (25.0-35.0) pg MCHC 32.5 (31.0-37.0) g/dL RDW 14.2 (11.5-15.5) % Plt Count 100 L (150-450) k/uL MPV 10.9 Neutrophils % 65 % Lymphocytes % 22 % Monocytes % 8 % Eosinophils % 3 % Basophils % 0 % Neutrophils # 5.6 (1.3-7.7) k/uL Lymphocytes # 1.9 (1.0-4.8) k/uL Monocytes # 0.7 (0-1.0) k/uL Eosinophils # 0.3 (0-0.7) k/uL Basophils # 0.0 (0-0.2) k/uL PT 10.3 (9.0-12.0) sec INR 1.0 (<1.2) APTT 20.5 L (22.0-30.0) sec Sodium 134 L (137-145) mmol/L Potassium 4.4 (3.5-5.1) mmol/L Chloride 100 (98-107) mmol/L Carbon Dioxide 27 (22-30) mmol/L Anion Gap 7 mmol/L BUN 42 H (9-20) mg/dL Creatinine 2.00 H (0.66-1.25) mg/dL Est GFR (CKD-EPI)AfAm 35 (>60 ml/min/1.73 sqM) Est GFR (CKD-EPI)NonAf 30 (>60 ml/min/1.73 sqM) Glucose 113 H (74-99) mg/dL Calcium 8.9 (8.4-10.2) mg/dL Ionized Calcium Pat 4.6 (4.5-5.3) mg/dL Magnesium 2.2 (1.6-2.3) mg/dL Total Bilirubin 1.0 (0.2-1.3) mg/dL AST 31 (17-59) U/L ALT 26 (4-49) U/L Alkaline Phosphatase 93 (38-126) U/L Troponin I (0.000-0.034) ng/mL Total Protein 6.0 L (6.3-8.2) g/dL Albumin 3.6 (3.5-5.0) g/dL Influenza Type A (PCR) (Not Detectd) Influenza Type B (PCR) (Not Detectd) RSV (PCR) (Not Detectd) SARS-CoV-2 (PCR) (Not Detectd) 12/03/20 12/03/20 Range/Units 11:25 11:25 WBC (3.8-10.6) k/uL RBC (4.30-5.90) m/uL Hgb (13.0-17.5) gm/dL Hct (39.0-53.0) % MCV (80.0-100.0) fL MCH (25.0-35.0) pg MCHC (31.0-37.0) g/dL RDW (11.5-15.5) % Plt Count (150-450) k/uL MPV Neutrophils % % Lymphocytes % % Monocytes % % Eosinophils % % Basophils % % Neutrophils # (1.3-7.7) k/uL Lymphocytes # (1.0-4.8) k/uL Monocytes # (0-1.0) k/uL Eosinophils # (0-0.7) k/uL Basophils # (0-0.2) k/uL PT (9.0-12.0) sec INR (<1.2) APTT (22.0-30.0) sec Sodium (137-145) mmol/L Potassium (3.5-5.1) mmol/L Chloride (98-107) mmol/L Carbon Dioxide (22-30) mmol/L Anion Gap mmol/L BUN (9-20) mg/dL Creatinine (0.66-1.25) mg/dL Est GFR (CKD-EPI)AfAm (>60 ml/min/1.73 sqM) Est GFR (CKD-EPI)NonAf (>60 ml/min/1.73 sqM) Glucose (74-99) mg/dL Calcium (8.4-10.2) mg/dL Ionized Calcium Pat (4.5-5.3) mg/dL Magnesium (1.6-2.3) mg/dL Total Bilirubin (0.2-1.3) mg/dL AST (17-59) U/L ALT (4-49) U/L Alkaline Phosphatase (38-126) U/L Troponin I <0.012 (0.000-0.034) ng/mL Total Protein (6.3-8.2) g/dL Albumin (3.5-5.0) g/dL Influenza Type A (PCR) Not Detected (Not Detectd) Influenza Type B (PCR) Not Detected (Not Detectd) RSV (PCR) Not Detected (Not Detectd) SARS-CoV-2 (PCR) Not Detected (Not Detectd) Disposition Clinical Impression: Syncope, DELMAR (acute kidney injury) Disposition: ADMITTED IP TO THIS HOSP Condition: Fair Referrals: Kelvin Navas MD [Primary Care Provider] - 1-2 days Decision Time: 13:04
--- NOTE | 2020-12-03 12:00 | CT ---
EXAMINATION TYPE: CT brain cspine wo con DATE OF EXAM: 12/03/2020 COMPARISON: CT brain May 03, 2020. CT cervical spine May 09, 2019 HISTORY: Syncopal episode with possible injury CT DLP: 1673.3 mGycm. Automated Exposure Control for Dose Reduction was Utilized. TECHNIQUE: CT scan of the head and cervical spine are performed without contrast. FINDINGS: There is no acute intracranial hemorrhage or midline shift identified. Mild to moderate v entricular and sulcal prominence. Moderate to advanced low attenuation in the deep and periventricula r white matter. Calcifications distal internal carotid arteries. Calvarium intact. The globes are in tact and the visualized sinuses are clear. Cervical spine is visualized in its entirety from C1 through upper thoracic levels and demonstrates s table and satisfactory alignment without evidence of acute fracture or dislocation. Prevertebral sof t tissue appears within normal limits. The C1-C2 articulation is within normal limits on the coronal images. Vertebral body heights are maintained. [id number] disc space narrowing C5-C6 level wi th posterior calcified disc herniation effacing anterior thecal sac is redemonstrated, similar pediatrician managing partner ior calcified disc herniation C3-C4 level effacing anterior thecal sac is redemonstrated. Moderate to severe calcified plaque bilateral carotid bulb level. IMPRESSION: 1. There is no acute fracture or dislocation evident in the cervical spine. 2. No acute intracranial hemorrhage or midline shift is seen. No significant change from prior studies.
[2020-12-03 12:14] LABS: Basophils % (A) 0 %; Eosinophils # (A) 0.3 k/uL (0-0.7); Eosinophils % (A) 3 %; HCT 41.1 % (39.0-53.0); HGB 13.4 gm/dL (13.0-17.5); Lymphocytes # (A) 1.9 k/uL (1.0-4.8); Lymphocytes % (A) 22 %; MCH 30.6 pg (25.0-35.0); MCHC 32.5 g/dL (31.0-37.0); MCV 94.1 fL (80.0-100.0); Mean Platelet Volume 10.9; Monocytes # (A) 0.7 k/uL (0-1.0); Monocytes % (A) 8 %; Neutrophils # (A) 5.6 k/uL (1.3-7.7); Neutrophils % (A) 65 %; Platelet Count 100 k/uL (150-450); RBC 4.37 m/uL (4.30-5.90); RDW 14.2 % (11.5-15.5); WBC 8.6 k/uL (3.8-10.6)
[2020-12-03 12:28] LABS: Prothrombin Time 10.3 sec (9.0-12.0)
[2020-12-03 12:30] LABS: Ionized Calcium 4.6 mg/dL (4.5-5.3)
--- NOTE | 2020-12-03 12:30 | XR ---
EXAMINATION TYPE: XR chest 1V portable DATE OF EXAM: 12/03/2020 CLINICAL HISTORY: syncope. TECHNIQUE: Portable frontal view of the chest. COMPARISON: 02/19/2020 FINDINGS: Left-sided cardiac loop recorder. Valvular stent is difficult to visualize. Cardiomegaly. Pulmonary vasculature is normal. Pleural calcifications redemonstrated. There is no focal air space o pacity. Small right pleural effusion. No pneumothorax seen. No acute displaced osseous fracture. IMPRESSION: 1. Small right pleural effusion. 2. Likely calcified pleural plaques. 3. Cardiomegaly.
[2020-12-03 12:39] LABS: Albumin 3.6 g/dL (3.5-5.0); Calcium 8.9 mg/dL (8.4-10.2); Magnesium 2.2 mg/dL (1.6-2.3); Potassium 4.4 mmol/L (3.5-5.1)
[2020-12-03 12:41] LABS: Partial Thromboplastin Time 20.5 sec (22.0-30.0)
[2020-12-03] MEDS ORDERED: ACETAMINOPHEN TAB 325 MG TAB PO PRN (13:00)
[2020-12-03] MEDS ORDERED: NALOXONE 0.4 MG/ML 1 ML VIAL IV PRN (13:00)
[2020-12-03] MEDS ORDERED: SODIUM CHLORIDE 0.9% 1,000 ML IV SCH (13:00)
--- NOTE | 2020-12-03 13:26 | P.HPIM ---
History of Present Illness H&P Date: 12/03/20 Chief Complaint: Dizziness This is an 80-year-old white male who reported to the hospital because of dizziness. Symptoms started a few days ago. He was treated as an outpatient for congestive heart failure with Lasix but Bumexwas also added to his regimen. Since Bumex was started patient has been feeling dizzy and had at least 2 episodes of falling. One time he had. He denies loss of consciousness. He has lost about 10 pounds in the past few days. Chest pain subjective fever or diarrhea. At the time of examination patient does not appear to be in distress. His is at bedside. Review of Systems 10 systems reviewed, pertinent positive and negative findings as in HPI. No chest pain, positive for dizziness Past Medical History Past Medical History: Atrial Fibrillation, GI Bleed, Osteoarthritis (OA), Pneumonia Additional Past Medical History / Comment(s): GI Bleed 2001, having dizzy spells Last Myocardial Infarction Date:: 2007 & 2013 History of Any Multi-Drug Resistant Organisms: None Reported Past Surgical History: Back Surgery, Heart Catheterization With Stent, Hernia Repair Additional Past Surgical History / Comment(s): sinus surgery, heart stents x2, karina cataracts Past Anesthesia/Blood Transfusion Reactions: No Reported Reaction Date of Last Stent Placement:: 09-21-14 Past Psychological History: No Psychological Hx Reported Smoking Status: Never smoker Past Alcohol Use History: None Reported Past Drug Use History: None Reported - Past Family History Son(s) Family Medical History: Cancer Additional Family Medical History / Comment(s): FROM LUNG CANCER Medications and Allergies Home Medications Medication Instructions Recorded Confirmed Type Amiodarone [Cordarone] 100 mg PO DAILY #90 tab 03/08/18 12/03/20 Rx Gabapentin [Neurontin] 300 mg PO TID 01/01/19 12/03/20 History Atorvastatin [Lipitor] 40 mg PO HS 12/03/20 12/03/20 History Bumetanide [BUMEX] 2 mg PO DAILY 12/03/20 12/03/20 History Celecoxib [CeleBREX] 200 mg PO BID 12/03/20 12/03/20 History Clobetasol Propionate [Temovate 1 applic TOPICAL BID 12/03/20 12/03/20 History 0.05% Cream] DULoxetine HCL [Cymbalta] 60 mg PO DAILY 12/03/20 12/03/20 History Fluticasone Nasal [place] [Flonase 2 spr EA NOSTRIL DAILY PRN 12/03/20 12/03/20 History Nasal [place]] Furosemide [Lasix] 40 mg PO DAILY 12/03/20 12/03/20 History Linagliptin [Tradjenta] 5 mg PO DAILY 12/03/20 12/03/20 History Midodrine HCl [ProAmatine] 10 mg PO TID 12/03/20 12/03/20 History Tobramycin/Dexamethasone [Tobradex 1 drop BOTH EYES BID 12/03/20 12/03/20 History Ophth Susp] Allergies Allergy/AdvReac Type Severity Reaction Status Date / Time No Known Allergies Allergy Verified 12/03/20 12:11 Physical Exam Vitals: Vital Signs Temp Pulse Resp BP Pulse Ox 12/03/20 13:16 52 L 18 179/76 97 12/03/20 11:06 97.7 F 60 18 149/78 96 Intake and Output 12/02/20 12/03/20 12/03/20 22:59 06:59 14:59 Other: Weight 106.594 kg Constitutional: No acute distress, conversant, pleasant Eyes: Anicteric sclerae, moist conjunctiva, no lid-lag, PERRLA ENMT: NC/AT Neck:Supple, FROM, no masses, or JVD, No carotid bruits; No thyromegaly Lungs: Clear to auscultation, Clear to percussion, Normal respiratory effort, no accessory muscle use Cardiovascular: Heart regular in rate and rhythm, No murmurs, gallops, or rubs , trace bilateral peripheral edema Abdominal: Soft Nontender, non distended, no guarding, Skin: Normal temperature, tone, texture, turgor Extremities:No digital cyanosis No clubbing Psychiatric: Alert and oriented to person, place and time, Appropriate affect Intact judgement Neuro: Muscles Strength 5/5 in all 4 extremities, Sensation to light touch grossly present throughout, Cranial nerves II-XII grossly intact. No focal sensory deficits Results CBC & Chem 7: 12/03/20 11:25 12/03/20 11:25 Labs: Abnormal Lab Results - Last 24 Hours (Table) 12/03/20 12/03/20 12/03/20 Range/Units 11:25 11:25 11:25 Plt Count 100 L (150-450) k/uL APTT 20.5 L (22.0-30.0) sec Sodium 134 L (137-145) mmol/L BUN 42 H (9-20) mg/dL Creatinine 2.00 H (0.66-1.25) mg/dL Glucose 113 H (74-99) mg/dL Total Protein 6.0 L (6.3-8.2) g/dL Assessment and Plan Plan: 1. Acute kidney injury secondary to hypovolemia, serum creatinine 2 from baseline of 1.3, start normal saline at 75 mL/h. Avoid nephrotoxins, maintain euvolemia 2. Dizziness likely associated with hypotension and hypovolemia: Brain CT negative for acute findings, continue to check cardiac enzymes 3. Chronic congestive heart failure chronic diastolic, ejection fraction 55-60% hold diuretics. 4. Chronic kidney disease stage III a secondary to hypertension: Monitor serum creatinine, baseline 1.3. 5. Obesity: BMI 33.7 6. Paroxysmal atrial fibrillation: Continue amiodarone 7. History of aortic stenosis mild to moderate: Monitor 8. Coronary artery disease without evidence of acute bone syndrome: Continue to check cardiac enzymes 9. Depression: Continue Cymbalta 10. Hyperlipidemia: Continue statin DVT prophylaxis: SCDs Disposition: Home in 1-2 days
[2020-12-03] MEDS ORDERED: SODIUM CHLORIDE 0.9% 1,000 ML IV STA ×2 (13:27→14:23)
[2020-12-03 14:13] LABS: Basophils % (A) 0 %; Eosinophils # (A) 0.2 k/uL (0-0.7); Eosinophils % (A) 2 %; HCT 42.3 % (39.0-53.0); HGB 13.5 gm/dL (13.0-17.5); Lymphocytes # (A) 1.6 k/uL (1.0-4.8); Lymphocytes % (A) 16 %; MCH 30.2 pg (25.0-35.0); MCHC 31.9 g/dL (31.0-37.0); MCV 94.5 fL (80.0-100.0); Mean Platelet Volume 10.7; Monocytes # (A) 0.6 k/uL (0-1.0); Monocytes % (A) 6 %; Neutrophils # (A) 7.4 k/uL (1.3-7.7); Neutrophils % (A) 74 %; RBC 4.48 m/uL (4.30-5.90); RDW 14.1 % (11.5-15.5)
[2020-12-03 14:36] LABS: Platelet Count 86 k/uL (150-450)
[2020-12-03 14:38] LABS: Albumin 3.7 g/dL (3.5-5.0); Potassium 4.5 mmol/L (3.5-5.1); Total Bilirubin 1.1 mg/dL (0.2-1.3); Total Protein 6.1 g/dL (6.3-8.2)
[2020-12-03] MEDS: GABAPENTIN 300 MG CAP PO SCH ×2 (16:10→20:55)
[2020-12-03] MEDS: MIDODRINE 5 MG TAB PO SCH ×2 (16:10→20:53)
[2020-12-03] MEDS ORDERED: ATORVASTATIN 40 MG TAB PO SCH (21:00)
--- NOTE | 2020-12-03 21:24 | NM ---
EXAMINATION TYPE: NM pul vent and perfuse DATE OF EXAM: 12/03/2020 COMPARISON: Same-day radiograph. HISTORY: Dizziness and elevated d-dimer. TECHNIQUE: Utilizing inhalation of 38.3 mCi Tc 99m DTPA aerosol and intravenous injection of 5.2 mCi of Tc 99m MAA, ventilation and perfusion images are acquired post injection in multiple projections. FINDINGS: There is homogeneous radiotracer uptake on the perfusion images without significant defect. There is heterogeneous radiotracer uptake on the ventilation images. IMPRESSION: Low probability for acute PE. Heterogeneous ventilation radiotracer uptake may relate to air trapping. No significant infiltrates r adiographs.
[2020-12-04 04:14] VITALS: RESP 16
[2020-12-04 07:52] LABS: Basophils % (A) 1 %; Eosinophils # (A) 0.3 k/uL (0-0.7); Eosinophils % (A) 4 %; HCT 38.8 % (39.0-53.0); HGB 12.7 gm/dL (13.0-17.5); Lymphocytes # (A) 2.5 k/uL (1.0-4.8); Lymphocytes % (A) 28 %; MCH 31.4 pg (25.0-35.0); MCHC 32.8 g/dL (31.0-37.0); MCV 95.6 fL (80.0-100.0); Mean Platelet Volume 10.5; Monocytes # (A) 0.6 k/uL (0-1.0); Monocytes % (A) 6 %; Neutrophils # (A) 5.3 k/uL (1.3-7.7); Neutrophils % (A) 60 %; RBC 4.06 m/uL (4.30-5.90); RDW 13.9 % (11.5-15.5); WBC 8.8 k/uL (3.8-10.6)
[2020-12-04 07:56] LABS: Platelet Count 80 k/uL (150-450)
[2020-12-04 08:03] LABS: Albumin 3.2 g/dL (3.5-5.0); Calcium 8.7 mg/dL (8.4-10.2); Potassium 4.3 mmol/L (3.5-5.1); Total Bilirubin 0.9 mg/dL (0.2-1.3); Total Protein 5.5 g/dL (6.3-8.2)
--- NOTE | 2020-12-04 08:24 | P.DS ---
Providers Date of admission: 12/03/20 13:00 Expected date of discharge: 12/04/20 Attending physician: Pili Pierce DO Primary care physician: Kel[facility] Course: HPI: This is an 80-year-old white male who reported to the hospital because of dizziness. Symptoms started a few days ago. He was treated as an outpatient for congestive heart failure with Lasix but Bumex was also added to his regimen. Since Bumex was started patient has been feeling dizzy and had at least 2 episodes of falling. One time he had. He denies loss of consciousness. He has lost about 10 pounds in the past few days. Chest pain subjective fever or diarrhea. At the time of examination patient does not appear to be in distress. His is at bedside. Hospital course and treatment: Patient was admitted to the hospital with dizziness and acute kidney injury likely associated with being on Bumex and Lasix for congestive heart failure. Creatinine was 2 at the time of admission, he was treated with IV fluid resuscitation, serum creatinine has improved down to 1.6. Cardiac enzymes were negative d-dimer was elevated but VQ scan was consistent with low probability for pulmonary embolism. He remained hemodynamically stable, blood pressure is much better. He will be discharged home holding both diuretics for now, he will follow up with PCP. We also requesting a repeat BMP in a couple days to reevaluate his renal function. Patient Condition at Discharge: Stable Plan - Discharge Summary Discharge Rx Participant: No New Discharge Prescriptions: Continue Amiodarone [Cordarone] 100 mg PO DAILY #90 tab Gabapentin [Neurontin] 300 mg PO TID Clobetasol Propionate [Temovate 0.05% Cream] 1 applic TOPICAL BID DULoxetine HCL [Cymbalta] 60 mg PO DAILY Fluticasone Nasal [place] [Flonase Nasal [place]] 2 spr EA NOSTRIL DAILY PRN PRN Reason: Congestion Midodrine HCl [ProAmatine] 10 mg PO TID Tobramycin/Dexamethasone [Tobradex Ophth Susp] 1 drop BOTH EYES BID Atorvastatin [Lipitor] 40 mg PO HS Linagliptin [Tradjenta] 5 mg PO DAILY Discontinued Bumetanide [BUMEX] 2 mg PO DAILY Celecoxib [CeleBREX] 200 mg PO BID Furosemide [Lasix] 40 mg PO DAILY Discharge Medication List Amiodarone [Cordarone] 100 mg PO DAILY #90 tab 03/08/18 [Rx] Gabapentin [Neurontin] 300 mg PO TID 01/01/19 [History] Atorvastatin [Lipitor] 40 mg PO HS 12/03/20 [History] Clobetasol Propionate [Temovate 0.05% Cream] 1 applic TOPICAL BID 12/03/20 [History] DULoxetine HCL [Cymbalta] 60 mg PO DAILY 12/03/20 [History] Fluticasone Nasal [place] [Flonase Nasal [place]] 2 spr EA NOSTRIL DAILY PRN 12/03/20 [History] Linagliptin [Tradjenta] 5 mg PO DAILY 12/03/20 [History] Midodrine HCl [ProAmatine] 10 mg PO TID 12/03/20 [History] Tobramycin/Dexamethasone [Tobradex Ophth Susp] 1 drop BOTH EYES BID 12/03/20 [History] Follow up Appointment(s)/Referral(s): Kelvin Navas MD [Primary Care Provider] - 1-2 days Ambulatory/Diagnostic Orders: Basic Metabolic Panel [LAB.AMB] Time Frame: 2 Days, Facility: [facility], Location: Laboratory Department Discharge Disposition: HOME SELF-CARE
[2020-12-04] MEDS: MIDODRINE 5 MG TAB PO SCH (08:29)
[2020-12-04] MEDS: GABAPENTIN 300 MG CAP PO SCH (08:29)
[2020-12-04] MEDS ORDERED: AMIODARONE 200 MG TAB PO SCH (09:00)
[2020-12-04] MEDS ORDERED: DULoxetine HCL 60 MG CAPSULE.DR PO SCH (09:00)
[2020-12-04 09:35] VITALS: BP 138/66; PULSE 72; TEMP 98.1
[2020-12-04] MEDS ORDERED: TOBRA-DEXAMET 0.3-0.1% OPHTH DROPS 2.5 ML BTL BOTH EYES SCH (09:45)
[2020-12-04 11:35] LABS: Glucose,Whole Blood 91 mg/dL (75-99)
== END 2020-12-04 13:06 | disposition home or self-care (01) ==
LOC: EC 11:02 → 6NMEDSUR 13:00 → 3SCARD 17:04
PROVIDERS: ADMIT Internal Medicine; ATTEND Internal Medicine
DX: N17.9 Acute kidney failure, unspecified (principal); I13.0 Hypertensive heart and chronic kidney disease with heart failure and stage 1 through stage 4 chronic kidney disease, or unspecified chronic kidney disease; I50.32 Chronic diastolic (congestive) heart failure; E86.1 Hypovolemia; N18.30 Chronic kidney disease, stage 3 unspecified; E66.9 Obesity, unspecified; I48.0 Paroxysmal atrial fibrillation; I25.10 Atherosclerotic heart disease of native coronary artery without angina pectoris; E78.5 Hyperlipidemia, unspecified; F32.9 Major depressive disorder, single episode, unspecified; E11.22 Type 2 diabetes mellitus with diabetic chronic kidney disease; E11.42 Type 2 diabetes mellitus with diabetic polyneuropathy; I45.10 Unspecified right bundle-branch block; I35.0 Nonrheumatic aortic (valve) stenosis; I25.2 Old myocardial infarction; R29.6 Repeated falls; W19.XXXA Unspecified fall, initial encounter; Y93.E1 Activity, personal bathing and showering; Y92.009 Unspecified place in unspecified non-institutional (private) residence as the place of occurrence of the external cause; M19.90 Unspecified osteoarthritis, unspecified site; Z20.822 Contact with and (suspected) exposure to COVID-19; Z68.33 Body mass index [BMI] 33.0-33.9, adult; Z79.899 Other long term (current) drug therapy; Z79.1 Long term (current) use of non-steroidal anti-inflammatories (NSAID); Z79.84 Long term (current) use of oral hypoglycemic drugs; Z95.5 Presence of coronary angioplasty implant and graft; Z87.01 Personal history of pneumonia (recurrent); Z80.1 Family history of malignant neoplasm of trachea, bronchus and lung
CPT/HCPCS: 96361 ×3; 96360; 99285; 36415; 93005; 85379; 80053 ×2; 82330; 83735; 84484; 85025 ×2; 85610; 85730; 87636; 71045; 72125; 70450; 78582; G0378 ×2; A9540; A9567

== ENCOUNTER 2021-01-24 10:18 | Emergency (ER) | payer MEDICARE ==
[2021-01-24 10:23] VITALS: BP 166/87; PULSE 72; RESP 18; TEMP 97.8
[2021-01-24] MEDS ORDERED: FLUORESCEIN STRIPS 1 MG STRIP RIGHT EYE ONE (10:25)
[2021-01-24] MEDS ORDERED: PROPARACAINE 0.5% OPHTH DROPS 15 ML BTL RIGHT EYE STA (10:25)
[2021-01-24] MEDS ORDERED: TOBRAMYCIN 0.3% OPHTH OINT 3.5 GM TUBE RIGHT EYE STA (10:46)
--- NOTE | 2021-01-24 10:47 | ED ---
Eye Problem HPI - General Chief complaint: Eye Problems Stated complaint: Rt Eye Problem Time Seen by Provider: 01/24/21 10:25 Source: patient, family, RN notes reviewed Mode of arrival: ambulatory Limitations: no limitations - History of Present Illness Initial comments: 80-year-old male presents emergency Department with chief complaint of right eye irritation. Patient states feels like there something in his right after last 1 week. No visual disturbance oh height dizziness no redness. Patient states he does not remember doing anything out of the usual. Patient had prior cataract surgery no other eye surgeries in the past. - Related Data Home Medications Medication Instructions Recorded Confirmed Gabapentin [Neurontin] 300 mg PO TID 01/01/19 12/03/20 Atorvastatin [Lipitor] 40 mg PO HS 12/03/20 12/03/20 Clobetasol Propionate [Temovate 1 applic TOPICAL BID 12/03/20 12/03/20 0.05% Cream] DULoxetine HCL [Cymbalta] 60 mg PO DAILY 12/03/20 12/03/20 Fluticasone Nasal [place] [Flonase 2 spr EA NOSTRIL DAILY PRN 12/03/20 12/03/20 Nasal [place]] Linagliptin [Tradjenta] 5 mg PO DAILY 12/03/20 12/03/20 Midodrine HCl [ProAmatine] 10 mg PO TID 12/03/20 12/03/20 Tobramycin/Dexamethasone [Tobradex 1 drop BOTH EYES BID 12/03/20 12/03/20 Ophth Susp] Previous Rx's Medication Instructions Recorded Amiodarone [Cordarone] 100 mg PO DAILY #90 tab 03/08/18 Allergies Allergy/AdvReac Type Severity Reaction Status Date / Time No Known Allergies Allergy Verified 01/24/21 10:23 Review of Systems ROS Statement: Those systems with pertinent positive or pertinent negative responses have been documented in the HPI. ROS Other: All systems not noted in ROS Statement are negative. Past Medical History Past Medical History: Atrial Fibrillation, Coronary Artery Disease (CAD), Heart Failure, CVA/TIA, Diabetes Mellitus, GERD/Reflux, GI Bleed, Hyperlipidemia, Hypertension, Myocardial Infarction ([place]), Osteoarthritis (OA), Pneumonia, Renal Disease, Syncope Additional Past Medical History / Comment(s): Past syncopal episodes with past work ups, TIA, recent diagnosis of diabetes, neuropathy bilateral legs, pt has had "low blood counts" and is to see a surgical scrub technologist, CKD stage III, chronic low back pain/pt was to have permanent spinal stimulator placed today, bilateral lower leg edema, past small intestinal bleed, benign colon polyp, hemorrhoids, aortic stenosis and has had valve replaced. Last Myocardial Infarction Date:: 2007 History of Any Multi-Drug Resistant Organisms: None Reported Past Surgical History: Back Surgery, Heart Catheterization, Heart Catheterization With Stent, Hernia Repair, Orthopedic Surgery Additional Past Surgical History / Comment(s): TAVR, CHRISTIAN/cardioversions, PCI with stents, nasal benign polypectomy, bilateral cataract removal/lens implants, EGD, colonoscopies/benign polypectomy, R inguinal hernia repair, low back surgery with edie/screws, temporary spinal stimulator, bilateral ACL arthroscopic surgery, vasectomy. Past Anesthesia/Blood Transfusion Reactions: No Reported Reaction Additional Past Anesthesia/Blood Transfusion Reaction / Comment(s): Pt had blood transfusion with back surgery without reaction. Date of Last Stent Placement:: 2018 Past Psychological History: No Psychological Hx Reported Smoking Status: Former smoker Past Alcohol Use History: None Reported Past Drug Use History: None Reported - Past Family History Son(s) Family Medical History: Cancer Additional Family Medical History / Comment(s): FROM LUNG CANCER Father Family Medical History: Myocardial Infarction ([place]) Additional Family Medical History / Comment(s): Father in a MVA. Mother Family Medical History: CVA/TIA, Myocardial Infarction ([place]) General Exam Limitations: no limitations General appearance: alert, in no apparent distress Head exam: Present: atraumatic, normocephalic, normal inspection Eye exam: Present: PERRL, EOMI, other (No foreign body noted patient states proparacaine did help some, Wood's lamp and fluorescein dye were used no uptake, intraocular pressure 18 right intraocular pressure left 17). Absent: normal appearance (Very small stye noted on the upper eyelid), scleral icterus, conjunctival injection, periorbital swelling Neck exam: Present: full ROM Respiratory exam: Present: normal lung sounds bilaterally. Absent: respiratory distress, wheezes, rales, rhonchi, stridor Cardiovascular Exam: Present: regular rate, normal rhythm, normal heart sounds. Absent: systolic murmur, diastolic murmur, rubs, gallop, clicks GI/Abdominal exam: Present: soft, normal bowel sounds. Absent: distended, tenderness, guarding, rebound, rigid Back exam: Absent: CVA tenderness (R), CVA tenderness (L) Neurological exam: Present: alert Skin exam: Present: warm, dry, intact, normal color. Absent: rash Course Vital Signs 01/24/21 10:20 Temperature 97.8 F Pulse Rate 72 Respiratory 18 Rate Blood Pressure 166/87 O2 Sat by Pulse 96 Oximetry Medical Decision Making - Medical Decision Making 80-year-old presented for right eyer irritation patient has a small stye there is no other foreign body noted intraocular pressures are within normal limits. Patient will follow-up with his liquor grinding mill operator Josefina. Patient provided Tobrex eye limits, warm compresses and return parameters were discussed. Disposition Clinical Impression: Hordeolum of right eye Disposition: HOME SELF-CARE Condition: Stable Instructions (If sedation given, give patient instructions): Andreea (ED) Additional Instructions: Please return to the Emergency Department if symptoms worsen or any other concerns. Is patient prescribed a controlled substance at d/c from ED?: No Referrals: Kelvin Navas MD [Primary Care Provider] - 1-2 days Time of Disposition: 10:46
== END 2021-01-24 11:12 | disposition home or self-care (01) ==
LOC: EC 10:18
DX: H00.013 Hordeolum externum right eye, unspecified eyelid (principal); I48.91 Unspecified atrial fibrillation; I25.10 Atherosclerotic heart disease of native coronary artery without angina pectoris; I11.0 Hypertensive heart disease with heart failure; I50.9 Heart failure, unspecified; E11.9 Type 2 diabetes mellitus without complications; K21.9 Gastro-esophageal reflux disease without esophagitis; E78.5 Hyperlipidemia, unspecified; I10 Essential (primary) hypertension; I25.2 Old myocardial infarction; M19.90 Unspecified osteoarthritis, unspecified site; Z95.5 Presence of coronary angioplasty implant and graft; Z87.891 Personal history of nicotine dependence; Z86.73 Personal history of transient ischemic attack (TIA), and cerebral infarction without residual deficits
CPT/HCPCS: 99283

== ENCOUNTER → 2021-02-19 | Outpatient (CLI) | payer MEDICARE ==
--- NOTE | 2021-02-19 12:44 | US ---
EXAMINATION TYPE: US venous doppler duplex LE DATE OF EXAM: 02/19/2021 12:31 PM COMPARISON: NONE CLINICAL HISTORY: I87.2 Venous insufficiency (chronic) (peripheral). Pt states leg pain SIDE PERFORMED: Bilateral TECHNIQUE: The lower extremity deep venous system is examined utilizing real time linear array sonog rainer with graded compression, doppler sonography and color-flow sonography. VESSELS IMAGED: Common Femoral Vein Deep Femoral Vein Greater Saphenous Vein * Femoral Vein Popliteal Vein Small Saphenous Vein * Proximal Calf Veins (* superficial vessels) Right Leg: Negative for DVT Left Leg: Negative for DVT IMPRESSION: No sonographic evidence for DVT in the bilateral lower extremities.
== END | disposition home or self-care (01) ==
LOC: RADUSWWP 12:09
PROVIDERS: ATTEND Internal Medicine Cardiovascular Disease
DX: I87.2 Venous insufficiency (chronic) (peripheral) (principal)
CPT/HCPCS: 93970

== ENCOUNTER 2021-10-18 08:28 | Inpatient (IN) | payer MEDICARE ==
--- NOTE | 2021-10-18 09:03 | ED ---
General Adult HPI - General Chief complaint: Fall Stated complaint: fall Time Seen by Provider: 10/18/21 08:41 Source: patient, EMS, RN notes reviewed, old records reviewed Mode of arrival: EMS Limitations: no limitations - History of Present Illness Initial comments: 81-year-old male presenting status post fall. Patient states he fell falling onto his right shoulder and right hip and knee. He is uncertain exactly why fell. He is mildly confused on my initial evaluation. He has history of atrial fibrillation but denies current anticoagulation. Uncertain if there was head trauma. He was noted to be hypoxic in the mid 80s. He denies central chest pain. Denies fever. Denies abdominal pain. - Related Data Home Medications Medication Instructions Recorded Confirmed Gabapentin [Neurontin] 300 mg PO TID 01/01/19 12/03/20 Atorvastatin [Lipitor] 40 mg PO HS 12/03/20 12/03/20 Clobetasol Propionate [Temovate 1 applic TOPICAL BID 12/03/20 12/03/20 0.05% Cream] DULoxetine HCL [Cymbalta] 60 mg PO DAILY 12/03/20 12/03/20 Fluticasone Nasal [place] [Flonase 2 spr EA NOSTRIL DAILY PRN 12/03/20 12/03/20 Nasal [place]] Linagliptin [Tradjenta] 5 mg PO DAILY 12/03/20 12/03/20 Midodrine HCl [ProAmatine] 10 mg PO TID 12/03/20 12/03/20 Tobramycin/Dexamethasone [Tobradex 1 drop BOTH EYES BID 12/03/20 12/03/20 Ophth Susp] Previous Rx's Medication Instructions Recorded Amiodarone [Cordarone] 100 mg PO DAILY #90 tab 03/08/18 Allergies Allergy/AdvReac Type Severity Reaction Status Date / Time No Known Allergies Allergy Verified 10/18/21 08:47 Review of Systems ROS Statement: Those systems with pertinent positive or pertinent negative responses have been documented in the HPI. ROS Other: All systems not noted in ROS Statement are negative. Past Medical History Past Medical History: Atrial Fibrillation, Coronary Artery Disease (CAD), Heart Failure, CVA/TIA, Diabetes Mellitus, GERD/Reflux, GI Bleed, Hyperlipidemia, Hypertension, Myocardial Infarction ([place]), Osteoarthritis (OA), Pneumonia, Renal Disease, Syncope Additional Past Medical History / Comment(s): Past syncopal episodes with past work ups, TIA, recent diagnosis of diabetes, neuropathy bilateral legs, pt has had "low blood counts" and is to see a commissary agent, CKD stage III, chronic low back pain/pt was to have permanent spinal stimulator placed today, bilateral lower leg edema, past small intestinal bleed, benign colon polyp, hemorrhoids, aortic stenosis and has had valve replaced. Last Myocardial Infarction Date:: 2007 History of Any Multi-Drug Resistant Organisms: None Reported Past Surgical History: Back Surgery, Heart Catheterization, Heart Catheterization With Stent, Hernia Repair, Orthopedic Surgery Additional Past Surgical History / Comment(s): TAVR, CHRISTIAN/cardioversions, PCI with stents, nasal benign polypectomy, bilateral cataract removal/lens implants, EGD, colonoscopies/benign polypectomy, R inguinal hernia repair, low back surgery with edie/screws, temporary spinal stimulator, bilateral ACL arthroscopic surgery, vasectomy. Past Anesthesia/Blood Transfusion Reactions: No Reported Reaction Additional Past Anesthesia/Blood Transfusion Reaction / Comment(s): Pt had blood transfusion with back surgery without reaction. Date of Last Stent Placement:: 2018 Past Psychological History: No Psychological Hx Reported Smoking Status: Former smoker Past Alcohol Use History: None Reported Past Drug Use History: None Reported - Past Family History Son(s) Family Medical History: Cancer Additional Family Medical History / Comment(s): FROM LUNG CANCER Father Family Medical History: Myocardial Infarction ([place]) Additional Family Medical History / Comment(s): Father in a MVA. Mother Family Medical History: CVA/TIA, Myocardial Infarction ([place]) General Exam Limitations: no limitations General appearance: alert, in distress (Mild tachypnea) Head exam: Present: atraumatic, normocephalic Eye exam: Present: PERRL ENT exam: Present: mucous membranes dry Respiratory exam: Present: respiratory distress, rhonchi, decreased breath sounds Cardiovascular Exam: Present: tachycardia, irregular rhythm GI/Abdominal exam: Present: soft, distended. Absent: tenderness, guarding, rebound Extremities exam: Present: pedal edema Neurological exam: Present: alert. Absent: oriented X3 (2 moderately confused), motor sensory deficit Skin exam: Present: warm, dry Course Vital Signs 10/18/21 10/18/21 10/18/21 08:35 09:01 09:03 Temperature 99.5 F Pulse Rate 112 H 122 H Respiratory 24 21 Rate Blood Pressure 119/55 124/67 O2 Sat by Pulse 86 L 96 94 L Oximetry 10/18/21 10/18/21 10:00 11:04 Temperature Pulse Rate 111 H 112 H Respiratory 20 Rate Blood Pressure 124/67 114/67 O2 Sat by Pulse 94 L 95 Oximetry EKG Findings - EKG Comments: EKG Findings:: EKG: Atrial fibrillation with RVR very poor quality EKG, right bundle branch block, rate of 120, QRS duration 158, QTC 438, no ST segment elevation appreciated. Medical Decision Making - Medical Decision Making 82 81-year-old male with fall, confusion. Patient was hypoxic on initial assessment. He does sleep with oxygen normally but does not wear oxygen continuously. His indicates that he's had some increased cough. No reported fevers. Chest x-ray showing infiltrate in the right lung concerning for pneumonia. As far as his fall x-rays were obtained of the knee pelvis shoulder and CT brain. There is no acute traumatic injury. He has chronic kidney disease which is stable from baseline. He has elevated white blood cell count of 15.4. Blood cultures are obtained he started on IV antibiotics. Case discussed with Dr. Alvaernga who will admit. - Lab Data Result diagrams: 10/18/21 08:59 10/18/21 08:59 Lab Results 10/18/21 10/18/21 10/18/21 Range/Units 08:59 08:59 08:59 WBC 15.4 H (3.8-10.6) k/uL RBC 4.15 L (4.30-5.90) m/uL Hgb 12.4 L (13.0-17.5) gm/dL Hct 40.3 (39.0-53.0) % MCV 97.0 (80.0-100.0) fL MCH 29.9 (25.0-35.0) pg MCHC 30.8 L (31.0-37.0) g/dL RDW 14.4 (11.5-15.5) % Plt Count 106 L (150-450) k/uL MPV 10.9 Neutrophils % 92 % Lymphocytes % 3 % Monocytes % 4 % Eosinophils % 1 % Basophils % 0 % Neutrophils # 14.2 H (1.3-7.7) k/uL Lymphocytes # 0.4 L (1.0-4.8) k/uL Monocytes # 0.6 (0-1.0) k/uL Eosinophils # 0.1 (0-0.7) k/uL Basophils # 0.0 (0-0.2) k/uL Hypochromasia Moderate Sodium 137 (137-145) mmol/L Potassium 4.4 (3.5-5.1) mmol/L Chloride 107 (98-107) mmol/L Carbon Dioxide 25 (22-30) mmol/L Anion Gap 5 mmol/L BUN 28 H (9-20) mg/dL Creatinine 1.54 H (0.66-1.25) mg/dL Est GFR (CKD-EPI)AfAm 48 (>60 ml/min/1.73 sqM) Est GFR (CKD-EPI)NonAf 41 (>60 ml/min/1.73 sqM) Glucose 137 H (74-99) mg/dL Plasma Lactic Acid Jaxon 1.4 (0.7-2.0) mmol/L Calcium 7.9 L (8.4-10.2) mg/dL Magnesium 1.9 (1.6-2.3) mg/dL Total Bilirubin 1.1 (0.2-1.3) mg/dL AST 23 (17-59) U/L ALT 11 (4-49) U/L Alkaline Phosphatase 84 (38-126) U/L Troponin I (0.000-0.034) ng/mL NT-Pro-B Natriuret Pep pg/mL Total Protein 5.8 L (6.3-8.2) g/dL Albumin 3.1 L (3.5-5.0) g/dL 10/18/21 10/18/21 Range/Units 08:59 08:59 WBC (3.8-10.6) k/uL RBC (4.30-5.90) m/uL Hgb (13.0-17.5) gm/dL Hct (39.0-53.0) % MCV (80.0-100.0) fL MCH (25.0-35.0) pg MCHC (31.0-37.0) g/dL RDW (11.5-15.5) % Plt Count (150-450) k/uL MPV Neutrophils % % Lymphocytes % % Monocytes % % Eosinophils % % Basophils % % Neutrophils # (1.3-7.7) k/uL Lymphocytes # (1.0-4.8) k/uL Monocytes # (0-1.0) k/uL Eosinophils # (0-0.7) k/uL Basophils # (0-0.2) k/uL Hypochromasia Sodium (137-145) mmol/L Potassium (3.5-5.1) mmol/L Chloride (98-107) mmol/L Carbon Dioxide (22-30) mmol/L Anion Gap mmol/L BUN (9-20) mg/dL Creatinine (0.66-1.25) mg/dL Est GFR (CKD-EPI)AfAm (>60 ml/min/1.73 sqM) Est GFR (CKD-EPI)NonAf (>60 ml/min/1.73 sqM) Glucose (74-99) mg/dL Plasma Lactic Acid Jaxon (0.7-2.0) mmol/L Calcium (8.4-10.2) mg/dL Magnesium (1.6-2.3) mg/dL Total Bilirubin (0.2-1.3) mg/dL AST (17-59) U/L ALT (4-49) U/L Alkaline Phosphatase (38-126) U/L Troponin I 0.013 (0.000-0.034) ng/mL NT-Pro-B Natriuret Pep 4040 pg/mL Total Protein (6.3-8.2) g/dL Albumin (3.5-5.0) g/dL Disposition Clinical Impression: Fall, Pneumonia Disposition: ADMITTED IP TO THIS [facility] Condition: Stable Is patient prescribed a controlled substance at d/c from ED?: No Referrals: Kelvin Navas MD [Primary Care Provider] - 1-2 days Decision to Admit Reason: Admit from EC Decision Date: 10/18/21 Decision Time: 11:21
[2021-10-18 09:19] LABS: Basophils % (A) 0 %; Eosinophils # (A) 0.1 k/uL (0-0.7); Eosinophils % (A) 1 %; HCT 40.3 % (39.0-53.0); HGB 12.4 gm/dL (13.0-17.5); Hypochromasia Moderate; Lymphocytes # (A) 0.4 k/uL (1.0-4.8); Lymphocytes % (A) 3 %; MCH 29.9 pg (25.0-35.0); MCHC 30.8 g/dL (31.0-37.0); Mean Platelet Volume 10.9; Monocytes # (A) 0.6 k/uL (0-1.0); Monocytes % (A) 4 %; Neutrophils # (A) 14.2 k/uL (1.3-7.7); Neutrophils % (A) 92 %; Platelet Count 106 k/uL (150-450); RBC 4.15 m/uL (4.30-5.90); RDW 14.4 % (11.5-15.5); WBC 15.4 k/uL (3.8-10.6)
[2021-10-18 09:30] LABS: Albumin 3.1 g/dL (3.5-5.0); Calcium 7.9 mg/dL (8.4-10.2); Magnesium 1.9 mg/dL (1.6-2.3); Potassium 4.4 mmol/L (3.5-5.1); Total Bilirubin 1.1 mg/dL (0.2-1.3); Total Protein 5.8 g/dL (6.3-8.2)
--- NOTE | 2021-10-18 09:57 | CT ---
EXAMINATION TYPE: CT brain cspine wo con DATE OF EXAM: 10/18/2021 COMPARISON: CT brain and cervical spine December 03, 2020 HISTORY: Fall injury with headache and neck pain. CT DLP: 1642.1 mGycm. Automated Exposure Control for Dose Reduction was Utilized. TECHNIQUE: CT scan of the head and cervical spine are performed without contrast. FINDINGS: There is no acute intracranial hemorrhage or midline shift identified. Mild to moderate v entricular and sulcal prominence is redemonstrated. Moderate to advanced low attenuation in the deep and periventricular white matter is again seen. Calcifications distal internal carotid arteries. Quan varium remains intact. Small amount of new dependent fluid right maxillary sinus. Old fracture deform ity medial wall right orbit redemonstrated. Cervical spine is visualized in its entirety from C1 through upper thoracic levels and demonstrates s table and satisfactory alignment without evidence of acute fracture or dislocation. Prevertebral sof t tissue remains within normal limits. The C1-C2 articulation is within normal limits on the coronal images. Vertebral body heights are maintained. [id number]-[id number]-[id number] disc space narrowing with vacuum di sc phenomenon C5-C6 level with posterior calcified disc herniation effacing anterior thecal sac is re demonstrated. Similar posterior calcified disc herniation C3-C4 level effacing anterior thecal sac is redemonstrated. Axial images show multilevel uncovertebral facet degenerative changes causing bilateral multilevel ne ural foraminal narrowing Moderate to severe calcified plaque bilateral carotid bulb level is redemons trated. New groundglass opacities and organizing consolidation in the visualized portion of right upp er lobe noted. IMPRESSION: 1. There is no acute fracture or dislocation evident in the cervical spine. 2. No acute intracranial hemorrhage or midline shift is seen. No significant change from prior study. New groundglass opacities and organizing consolidations in the visualized right upper lung. Correlate clinically.
--- NOTE | 2021-10-18 09:58 | XR ---
EXAMINATION TYPE: XR knee complete RT DATE OF EXAM: 10/18/2021 CLINICAL HISTORY: Pain after fall injury. TECHNIQUE: Three views of the right knee are obtained. COMPARISON: None. FINDINGS: There is no acute fracture/dislocation evident in right knee. Mild to moderate narrowing a nd spurring patellofemoral compartment. Moderate narrowing and mild spurring medial tibiofemoral comp artment. Meniscal calcification is present. Mild to moderate posterior arteriovascular calcification. IMPRESSION: There is no acute fracture or dislocation in the right knee.
--- NOTE | 2021-10-18 10:01 | XR ---
EXAMINATION TYPE: XR pelvis AP view DATE OF EXAM: 10/18/2021 CLINICAL HISTORY: Pain after fall injury. TECHNIQUE: A single AP view of the pelvis is obtained. COMPARISON: Right hip x-ray March 03, 2018 FINDINGS: There is no acute fracture/dislocation evident in the pelvis. Sacroiliac joints show right greater than left moderate to severe narrowing. Moderate axial joint space loss in both hips right g reater than left is present. Pubic symphysis is intact. Partial visualization of surgical change in t he lower lumbar spine. IMPRESSION: There is no acute displaced fracture in the pelvis.
--- NOTE | 2021-10-18 10:02 | XR ---
EXAMINATION TYPE: XR shoulder complete RT DATE OF EXAM: 10/18/2021 CLINICAL HISTORY: Pain after fall injury. TECHNIQUE: Three views of the right shoulder are obtained. COMPARISON: None. FINDINGS: Osseous structures are demineralized. There is no acute fracture/dislocation evident in th e right shoulder. [id number] narrowing at acromioclavicular joint. Mild to moderate narrowing g lenohumeral joint. High riding humeral head suggests possible chronic rotator cuff tear, correlate cl inically. The visualized ribs are intact. Visualized right upper lung shows increased opacity. IMPRESSION: There is no acute fracture or dislocation in the right shoulder.
--- NOTE | 2021-10-18 10:03 | XR ---
EXAMINATION TYPE: XR chest 1V portable DATE OF EXAM: 10/18/2021 COMPARISON: Chest x-ray December 03, 2020 HISTORY: Dyspnea after fall injury. TECHNIQUE: Single frontal view of the chest is obtained. FINDINGS: There is chronic parenchymal change with increased opacity throughout the right lung. The cardiac silhouette size is enlarged. Surgical change left shoulder is partially imaged new from prio r. Spinal stimulator device mid to lower thoracic spinal canal now present. IMPRESSION: Chronic changes and cardiomegaly with new diffuse right lung infiltrates and/or edema. C sera clinically.
[2021-10-18] MEDS ORDERED: AZITHROMYCIN 500 MG in SODIUM CHLORIDE 0.9% 250 ML IVPB STA (11:07)
[2021-10-18] MEDS ORDERED: cefTRIAXone IN SWFI 1,000 MG/10 ML SYRINGE IVP STA (11:07)
[2021-10-18] MEDS ORDERED: NALOXONE 0.4 MG/ML 1 ML VIAL IV PRN (11:18)
[2021-10-18] MEDS: ACETAMINOPHEN TAB 325 MG TAB PO PRN (11:59)
[2021-10-18 12:08] LABS: INR 1.1 (<1.2); Prothrombin Time 11.6 sec (9.0-12.0)
[2021-10-18] MEDS ORDERED: PNEUMONIA PROTOCOL UTILIZED 1 EACH MISC PO PRN (12:19)
[2021-10-18] MEDS ORDERED: HEPARIN SODIUM 1,000 UN/ML (10ML VL) IV PRN (14:20)
[2021-10-18] MEDS ORDERED: HEPARIN SODIUM 1,000 UN/ML (10ML VL) IV ONE (14:20)
--- NOTE | 2021-10-18 14:21 | P.HPIM ---
History of Present Illness H&P Date: 10/18/21 Chief Complaint: Fall, hypoxia 81-year-old man with a history of paroxysmal atrial fibrillation, CAD, diabetes, hypertension, hyperlipidemia presented after he had a fall, and was found to be hypoxic on admission. Patient is confused, history is taken from ER provider signout, chart review, who is at bedside. From my understanding, patient had been feeling okay until yesterday, where he had episodes of dizziness, shortness of breath, which prompted a visit to his primary care physician. He was sent home, however, he continued to decline. Today, he had an episode where he fell to his right side and hurt his shoulder and his right hip. He reports chills, cough, right hip and shoulder pain. He denies fevers, nausea, vomiting, chest pain, palpitations, abdominal pain, constipation, diarrhea, dysuria, dyschezia, numbness/weakness of extremities. In the ER, patient was afebrile, 103/67, heart rate 115, 93% on 4 L nasal cannula. CBC demonstrates leukocytosis of 15.4, mild anemia to 12.4, thrombus cytopenia to 106. Chemistries show BUN/creatinine of 28/1.54, which is baseline or at LFTs are unremarkable. BNP is 4040. Troponin was negative. Covid was negative. Influenza A/B were negative. EKG demonstrates paroxysmal atrial fibrillation with left bundle-branch block. Chest x-ray demonstrates right lung infiltrate, cardia megaly. knee/pelvis/shoulder x-rays are all negative for fracture. Head/cervical spine CT were negative for fracture or hemorrhage. All Systems reviewed and pertinent positives and negatives noted in HPI, all other symptoms are negative Gen: awake, alert HEENT: normocephalic, atraumatic, good hearing acuity, moist mucous membranes Resp: good air exchange, breathing comfortably with no accessory muscle use, right-sided crackles posteriorly CVS: good distal perfusion x 4, tachycardic, regular GI: soft, NTTP, ND : no SPT, no CVAT, cruz catheter not present MSK: Positive pitting edema, no clubbing Neuro: non-focal, moving all extremities Psych: cooperative, euthymic mood Labs and imaging reviewed Assessment/plan: Sepsis with Acute hypoxemic respiratory failure Community acquired pneumonia -Admit to inpatient, with telemetry. -Follow blood cultures -Ceftriaxone/azithromycin -Follow up pro-calcitonin -Follow up sputum culture Acute on chronic diastolic heart failure exacerbation Proximal atrial fibrillation with RVR -Echocardiogram -Patient is not on anticoagulation due to history of GI bleed -Lasix 40 mg IV daily -Heparin drip -continue amiodarone, CAD Hypertension Hyperlipidemia Diabetes type 2 with peripheral neuropathy -Home medications reviewed and reconciled, changes in the above Patient is a full code DVT prophylaxis will be covered with heparin Past Medical History Past Medical History: Atrial Fibrillation, Coronary Artery Disease (CAD), Heart Failure, CVA/TIA, Diabetes Mellitus, GERD/Reflux, GI Bleed, Hyperlipidemia, Hypertension, Myocardial Infarction ([place]), Osteoarthritis (OA), Pneumonia, Renal Disease, Syncope Additional Past Medical History / Comment(s): Past syncopal episodes with past work ups, TIA, recent diagnosis of diabetes, neuropathy bilateral legs, pt has had "low blood counts" and is to see a printing assistant, CKD stage III, chronic low back pain/pt was to have permanent spinal stimulator placed today, bilateral lower leg edema, past small intestinal bleed, benign colon polyp, hemorrhoids, aortic stenosis and has had valve replaced. Last Myocardial Infarction Date:: 2007 History of Any Multi-Drug Resistant Organisms: None Reported Past Surgical History: Back Surgery, Heart Catheterization, Heart Catheterization With Stent, Hernia Repair, Orthopedic Surgery Additional Past Surgical History / Comment(s): TAVR, CHRISTIAN/cardioversions, PCI with stents, nasal benign polypectomy, bilateral cataract removal/lens implants, EGD, colonoscopies/benign polypectomy, R inguinal hernia repair, low back surgery with edie/screws, temporary spinal stimulator, bilateral ACL arthroscopic surgery, vasectomy. Past Anesthesia/Blood Transfusion Reactions: No Reported Reaction Additional Past Anesthesia/Blood Transfusion Reaction / Comment(s): Pt had blood transfusion with back surgery without reaction. Date of Last Stent Placement:: 2018 Past Psychological History: No Psychological Hx Reported Smoking Status: Former smoker Past Alcohol Use History: None Reported Past Drug Use History: None Reported - Past Family History Son(s) Family Medical History: Cancer Additional Family Medical History / Comment(s): FROM LUNG CANCER Father Family Medical History: Myocardial Infarction ([place]) Additional Family Medical History / Comment(s): Father in a MVA. Mother Family Medical History: CVA/TIA, Myocardial Infarction ([place]) Medications and Allergies Home Medications Medication Instructions Recorded Confirmed Type Atorvastatin [Lipitor] 40 mg PO HS 12/03/20 10/18/21 History DULoxetine HCL [Cymbalta] 60 mg PO DAILY 12/03/20 10/18/21 History Midodrine HCl [ProAmatine] 10 mg PO TID 12/03/20 10/18/21 History Amiodarone [Cordarone] 100 mg PO BID 10/18/21 10/18/21 History Aspirin EC [Ecotrin Low Dose] 81 mg PO HS 10/18/21 10/18/21 History Celecoxib [CeleBREX] 200 mg PO BID 10/18/21 10/18/21 History Clobetasol Propionate [Temovate 1 applic TOPICAL DAILY PRN 10/18/21 10/18/21 History 0.05% Cream] Dapagliflozin Propanediol [Farxiga] 10 mg PO DAILY 10/18/21 10/18/21 History Doxazosin [Cardura] 2 mg PO DAILY 10/18/21 10/18/21 History Furosemide [Lasix] 40 mg PO DAILY PRN 10/18/21 10/18/21 History Gabapentin 600 mg PO TID 10/18/21 10/18/21 History Ondansetron Odt [Zofran Odt] 8 mg PO Q12H PRN 10/18/21 10/18/21 History Potassium Chloride ER [K-Dur 20] 20 meq PO DAILY PRN 10/18/21 10/18/21 History Pregabalin [Lyrica] 150 mg PO DAILY@1200 10/18/21 10/18/21 History oxyCODONE-APAP 10-325MG [Percocet 1 tab PO Q4H PRN 10/18/21 10/18/21 History 10-325 mg] Allergies Allergy/AdvReac Type Severity Reaction Status Date / Time No Known Allergies Allergy Verified 10/18/21 13:10 Physical Exam Osteopathic Statement: *. No significant issues noted on an osteopathic structural exam other than those noted in the History and Physical/Consult. Vitals: Vital Signs Temp Pulse Resp BP Pulse Ox 10/18/21 11:53 115 H 20 103/67 93 L 10/18/21 11:04 112 H 114/67 95 10/18/21 10:00 111 H 20 124/67 94 L 10/18/21 09:03 122 H 21 124/67 94 L 10/18/21 09:01 96 10/18/21 08:35 99.5 F 112 H 24 119/55 86 L Intake and Output 10/17/21 10/18/21 10/18/21 22:59 06:59 14:59 Other: Weight 106.594 kg Results CBC & Chem 7: 10/18/21 08:59 10/18/21 08:59 Labs: Abnormal Lab Results - Last 24 Hours (Table) 10/18/21 10/18/21 Range/Units 08:59 08:59 WBC 15.4 H (3.8-10.6) k/uL RBC 4.15 L (4.30-5.90) m/uL Hgb 12.4 L (13.0-17.5) gm/dL MCHC 30.8 L (31.0-37.0) g/dL Plt Count 106 L (150-450) k/uL Neutrophils # 14.2 H (1.3-7.7) k/uL Lymphocytes # 0.4 L (1.0-4.8) k/uL BUN 28 H (9-20) mg/dL Creatinine 1.54 H (0.66-1.25) mg/dL Glucose 137 H (74-99) mg/dL Calcium 7.9 L (8.4-10.2) mg/dL Total Protein 5.8 L (6.3-8.2) g/dL Albumin 3.1 L (3.5-5.0) g/dL
[2021-10-18 14:25] LABS: Glucose,Whole Blood 197 mg/dL (75-99)
[2021-10-18] MEDS: FUROSEMIDE 10 MG/ML 4 ML VIAL IV SCH (15:09)
[2021-10-18] MEDS: oxyCODONE-APAP 10-325MG 1 EACH TAB PO PRN (15:10)
[2021-10-18 15:11] LABS: Basophils % (A) 0 %; Eosinophils % (A) 0 %; HCT 36.9 % (39.0-53.0); HGB 11.2 gm/dL (13.0-17.5); Hypochromasia Marked; Lymphocytes # (A) 0.6 k/uL (1.0-4.8); Lymphocytes % (A) 3 %; MCH 30.2 pg (25.0-35.0); MCHC 30.4 g/dL (31.0-37.0); MCV 99.5 fL (80.0-100.0); Macrocytosis Slight; Mean Platelet Volume 11.4; Monocytes # (A) 0.7 k/uL (0-1.0); Monocytes % (A) 4 %; Neutrophils # (A) 15.9 k/uL (1.3-7.7); Neutrophils % (A) 92 %; Platelet Count 106 k/uL (150-450); RBC 3.71 m/uL (4.30-5.90); RDW 14.6 % (11.5-15.5); WBC 17.4 k/uL (3.8-10.6)
[2021-10-18] MEDS: HEPARIN SOD,PORK IN 0.45% NACL 25,000 UNIT in 0.45% NACL 1 250ML.BAG IV SCH (15:13)
[2021-10-18 15:21] LABS: INR 1.1 (<1.2); Partial Thromboplastin Time 24.7 sec (22.0-30.0); Prothrombin Time 11.5 sec (9.0-12.0)
[2021-10-18] MEDS: GABAPENTIN 300 MG CAP PO SCH (16:41)
[2021-10-18 17:06] LABS: Appearance,Urine Clear (Clear); Bilirubin,Urine Negative (Negative); Blood,Urine Negative (Negative); Color,Urine Light Yellow; Glucose,Urine (UA) 4+ (Negative); Ketones,Urine Negative (Negative); Leukocyte Esterase,Urine Negative (Negative); Nitrite,Urine Negative (Negative); Protein,Urine Negative (Negative); Urobilinogen,Urine <2.0 mg/dL (<2.0)
[2021-10-18] MEDS: INSULIN ASPART (NovoLOG) 100 UNIT/ML VIAL SQ SCH (19:16)
[2021-10-18] MEDS: ATORVASTATIN 40 MG TAB PO SCH (21:36)
[2021-10-18] MEDS: MIDODRINE 5 MG TAB PO SCH (21:36)
[2021-10-18] MEDS: ASPIRIN 81 MG PO SCH (21:36)
[2021-10-18] MEDS: AMIODARONE 100 MG TAB PO SCH (21:36)
[2021-10-19] MEDS: GABAPENTIN 300 MG CAP PO SCH ×4 (00:50→20:43)
[2021-10-19 06:10] LABS: Glucose,Whole Blood 171 mg/dL (75-99)
--- NOTE | 2021-10-19 06:50 | XR ---
EXAMINATION TYPE: XR chest 2V DATE OF EXAM: 10/19/2021 COMPARISON: Chest x-ray from yesterday and older studies. HISTORY: Pneumonia. TECHNIQUE: Frontal and lateral views of the chest are obtained. FINDINGS: There is chronic parenchymal change with increased opacity throughout the right lung redem onstrated. Left lung remains clear. Cardiomegaly redemonstrated. Surgical change left shoulder is par tially imaged . Spinal stimulator device mid to lower thoracic spinal canal redemonstrated. Partial v isualization of surgical change in the lumbar spine. IMPRESSION: Chronic changes and cardiomegaly with new diffuse right lung infiltrates and/or edema. N o significant change from one day earlier.
[2021-10-19] MEDS: INSULIN ASPART (NovoLOG) 100 UNIT/ML VIAL SQ SCH ×3 (06:54→17:32)
[2021-10-19] MEDS: oxyCODONE-APAP 10-325MG 1 EACH TAB PO PRN ×3 (06:59→20:43)
[2021-10-19] MEDS: MIDODRINE 5 MG TAB PO SCH ×3 (06:59→17:31)
[2021-10-19] MEDS: DULoxetine HCL 60 MG CAPSULE.DR PO SCH (08:24)
[2021-10-19] MEDS: DOXAZOSIN 2 MG TAB PO SCH (08:24)
[2021-10-19] MEDS: FUROSEMIDE 10 MG/ML 4 ML VIAL IV SCH (08:24)
[2021-10-19] MEDS: AMIODARONE 100 MG TAB PO SCH ×2 (08:25→20:44)
--- NOTE | 2021-10-19 10:25 | P.PN ---
Subjective Progress Note Date: 10/19/21 Pt doing better today, no complaints of dyspnea, dizziness. Pending ambulation with supervision. 96% on 4L NC Gen: awake, alert HEENT: normocephalic, atraumatic, good hearing acuity, moist mucous membranes Resp: good air exchange, breathing comfortably with no accessory muscle use, right-sided crackles posteriorly CVS: good distal perfusion x 4, tachycardic, regular GI: soft, NTTP, ND : no SPT, no CVAT, cruz catheter not present MSK: Positive pitting edema, no clubbing Neuro: non-focal, moving all extremities Psych: cooperative, euthymic mood Assessment/plan: Sepsis with Acute hypoxemic respiratory failure Community acquired pneumonia -Admit to inpatient, with telemetry. -Follow blood cultures, pending -Ceftriaxone/azithromycin -Follow up pro-calcitonin, pending -Follow up sputum culture Acute on chronic diastolic heart failure exacerbation Proximal atrial fibrillation with RVR -Echocardiogram, pending -Patient is not on anticoagulation due to history of GI bleed -Lasix 40 mg IV daily -Heparin drip -continue amiodarone, CAD Hypertension Hyperlipidemia Diabetes type 2 with peripheral neuropathy -Home medications reviewed and reconciled, changes in the above Patient is a full code DVT prophylaxis will be covered with heparin Objective - Vital Signs Vital signs: Vital Signs Temp 98.1 F 10/19/21 08:17 Pulse 101 H 10/19/21 08:17 Resp 18 10/19/21 08:17 BP 137/55 10/19/21 08:17 Pulse Ox 96 10/19/21 08:17 Intake & Output 10/18/21 10/19/21 10/19/21 18:59 06:59 18:59 Intake Total 120.186 480 Output Total 400 Balance -279.814 480 Weight 106.594 kg Intake: Intake, IV Titration 120.186 Amount Heparin Sod,Pork in 0.45% 120.186 NaCl 25,000 unit In 0.45 % NaCl 1 250ml.bag @ 9.38 UNITS/KG/HR 9.999 mls/hr IV .Q24H [facility] Rx#: [id number] Oral 480 Output: Urine 400 - Labs CBC & Chem 7: 10/18/21 14:58 10/18/21 08:59 Labs: Abnormal Lab Results - Last 24 Hours (Table) 0310/18/21 10/18/21 Range/Units 08:58 14:22 14:58 WBC 17.4 H (3.8-10.6) k/uL RBC 3.71 L (4.30-5.90) m/uL Hgb 11.2 L (13.0-17.5) gm/dL Hct 36.9 L (39.0-53.0) % MCHC 30.4 L (31.0-37.0) g/dL Plt Count 106 L (150-450) k/uL Neutrophils # 15.9 H (1.3-7.7) k/uL Lymphocytes # 0.6 L (1.0-4.8) k/uL APTT (22.0-30.0) sec POC Glucose (mg/dL) 197 H (75-99) mg/dL Urine Glucose (UA) 4+ H (Negative) 10/18/21 10/19/21 10/19/21 Range/Units 20:53 05:40 06:03 WBC (3.8-10.6) k/uL RBC (4.30-5.90) m/uL Hgb (13.0-17.5) gm/dL Hct (39.0-53.0) % MCHC (31.0-37.0) g/dL Plt Count (150-450) k/uL Neutrophils # (1.3-7.7) k/uL Lymphocytes # (1.0-4.8) k/uL APTT 191.9 H* 32.0 H (22.0-30.0) sec POC Glucose (mg/dL) 171 H (75-99) mg/dL Urine Glucose (UA) (Negative)
[2021-10-19] MEDS: AZITHROMYCIN 500 MG in SODIUM CHLORIDE 0.9% 250 ML IVPB SCH (11:19)
[2021-10-19 11:53] LABS: Glucose,Whole Blood 168 mg/dL (75-99)
[2021-10-19] MEDS: PREGABALIN 75 MG CAP PO SCH (12:22)
[2021-10-19 12:57] LABS: Basophils # (A) 0.02 X 10*3/uL (0.00-0.10); Basophils % (A) 0.2 %; Eosinophils # (A) 0.15 X 10*3/uL (0.04-0.35); Eosinophils % (A) 1.3 %; HCT 33.3 % (39.6-50.0); HGB 9.9 g/dL (13.0-17.0); Immature Grans, Automated 0.5 %; Lymphocytes # (A) 1.21 X 10*3/uL (0.90-5.00); Lymphocytes % (A) 10.3 %; MCH 29.2 pg (27.0-32.0); MCHC 29.7 g/dL (32.0-37.0); MCV 98.2 fL (80.0-97.0); Mean Platelet Volume 14.3 fL (9.5-12.2); Monocytes # (A) 0.86 X 10*3/uL (0.20-1.00); Monocytes % (A) 7.3 %; NRBC Per 100 WBC 0 /100 WBCS (0.0-0.0); Neutrophils # (A) 9.43 X 10*3/uL (1.80-7.70); Neutrophils % (A) 80.4 %; Platelet Count 90 X 10*3/uL (140-440); RBC 3.39 X 10*6/uL (4.40-5.60); RDW 14.9 % (11.5-14.5); WBC 11.73 X 10*3/uL (4.50-10.00)
[2021-10-19 14:08] LABS: INR 1.14 (0.90-1.11); Prothrombin Time 12.5 sec (9.9-11.9)
[2021-10-19 17:00] LABS: Glucose,Whole Blood 144 mg/dL (75-99)
[2021-10-19] MEDS: HEPARIN SOD,PORK IN 0.45% NACL 25,000 UNIT in 0.45% NACL 1 250ML.BAG IV SCH (17:51)
[2021-10-19 19:48] LABS: Glucose,Whole Blood 123 mg/dL (75-99)
[2021-10-19] MEDS: ASPIRIN 81 MG PO SCH (20:44)
[2021-10-19] MEDS: ATORVASTATIN 40 MG TAB PO SCH (20:44)
[2021-10-20] MEDS: oxyCODONE-APAP 10-325MG 1 EACH TAB PO PRN ×4 (05:21→21:34)
[2021-10-20 06:09] LABS: Glucose,Whole Blood 107 mg/dL (75-99)
[2021-10-20] MEDS: INSULIN ASPART (NovoLOG) 100 UNIT/ML VIAL SQ SCH ×3 (06:44→17:59)
[2021-10-20] MEDS: MIDODRINE 5 MG TAB PO SCH ×3 (06:46→17:59)
[2021-10-20] MEDS: AMIODARONE 100 MG TAB PO SCH ×2 (09:14→21:33)
[2021-10-20] MEDS: DULoxetine HCL 60 MG CAPSULE.DR PO SCH (09:14)
[2021-10-20] MEDS: DOXAZOSIN 2 MG TAB PO SCH (09:15)
[2021-10-20] MEDS: AZITHROMYCIN 500 MG in SODIUM CHLORIDE 0.9% 250 ML IVPB SCH (09:15)
[2021-10-20] MEDS: FUROSEMIDE 10 MG/ML 4 ML VIAL IV SCH (09:15)
[2021-10-20] MEDS: GABAPENTIN 300 MG CAP PO SCH ×3 (09:15→20:52)
[2021-10-20 11:43] LABS: Glucose,Whole Blood 198 mg/dL (75-99)
[2021-10-20] MEDS: PREGABALIN 75 MG CAP PO SCH (12:14)
[2021-10-20] MEDS: HEPARIN SOD,PORK IN 0.45% NACL 25,000 UNIT in 0.45% NACL 1 250ML.BAG IV SCH (12:18)
--- NOTE | 2021-10-20 12:57 | P.CRDCN ---
History of Present Illness Consult date: 10/20/21 History of present illness: HISTORY OF PRESENT ILLNESS: This is a 81-year-old male with a past medical history significant for coronary artery disease with previous stenting, aortic valve replacement, paroxysmal atrial fibrillation not on long-term anticoagulation, and hyperlipidemia. Patient follows with Dr. Alvarado at [facility]. We have been asked to see the patient in consultation for syncope. Patient examined at the bedside. Patient pr esented to the hospital after having a syncopal episode at home. Patients spouse is at the bedside and reports that patient has had multiple episodes of syncope in the past and it was related to orthostatic hypotension. The patient does report losing consciousness for a short period of time at home. He currently denies chest pain or pressure. He denies shortness of breath. Telemetry reveals atrial fibrillation with controlled ventricular rate. Vital signs are stable. * EKG reveals atrial fibrillation with right bundle branch block * Chest xray chronic changes and cardiomegaly with new diffuse right lung infiltrates and/or edema. Correlate clinically. * Laboratory data: WBC 11.7. 3. Hemoglobin 9.9. Platelet count 90. Sodium 137. Potassium 4.4. BUN 28. Creatinine 1.54. Troponin 0.013. ProBNP 4040. * Current home cardiac medications include amiodarone 100 mg twice a day, aspirin 81 mg at night, atorvastatin 40 mg at night, Cardura 2 mg daily * Most recent echocardiogram obtained in 2019 revealing ejection fraction 55- 60%, mild aortic stenosis, mild MR, mild TR * Cardiac catheterization history: 2019 revealing patent stents in the proximal LAD, circumflex, and RCA. Patient underwent PCI to the mid LAD. REVIEW OF SYSTEMS: At the time of my exam: CONSTITUTIONAL: Denies fever or chills. HEENT: Denies blurred vision, vision changes, or eye pain. Denies hemoptysis CARDIOVASCULAR: Denies chest pain. Denies orthopnea. Denies PND. Denies palpi tations RESPIRATORY: Denies shortness of breath. GASTROINTESTINAL: Denies abdominal pain. Denies nausea or vomiting. HEMATOLOGIC: Denies bleeding disorders. GENITOURINARY: Denies any blood in urine. SKIN: Denies pruitis. Denies rash. PHYSICAL EXAM: VITAL SIGNS: Reviewed. GENERAL: Well-developed in no acute distress. HEENT: Head is normocephalic. Pupils are equal, round. Sclerae anicteric. Mucous membranes of the mouth are moist. Neck supple. No JVD or thyromegaly LUNGS: Respirations even and unlabored. Lungs diminished to auscultation bilaterally. HEART: Irregular rate and rhythm. S1 and S2 heard. Systolic murmur noted. ABDOMEN: Soft. Nondistended. Nontender. EXTREMITIES: Normal range of motion. No clubbing or cyanosis. Peripheral pulses intact. Trace lower extremity edema NEUROLOGIC: Awake and alert. Oriented x 3. ASSESSMENT: Syncope Pneumonia Acute hypoxic respiratory failure Acute on chronic congestive heart failure with preserved ejection fraction History of recurrent syncope, secondary to orthostatic hypotension per family History of aortic valve replacement, exact details unknown Coronary artery disease with previous PCI Paroxysmal atrial fibrillation, not on long-term anticoagulation Hyperlipidemia History of loop recorder insertion PLAN: Obtain 2D echo to assess cardiac structure and function Interrogate loop recorder Check TSH Discontinue IV Lasix. Begin oral lasix. Continue IV heparin at this time. Await records from Dr. Vasquez office in regards to anticoagulation Obtain records from Dr. Vasquez office Further recommendations pending patient course Nurse practitioner note has been reviewed by physician. Signing provider agrees with the documented findings, assessment, and plan of care. Past Medical History Past Medical History: Atrial Fibrillation, Coronary Artery Disease (CAD), Heart Failure, CVA/TIA, Diabetes Mellitus, GERD/Reflux, GI Bleed, Hyperlipidemia, Hypertension, Myocardial Infarction ([place]), Osteoarthritis (OA), Pneumonia, Renal Disease, Syncope Additional Past Medical History / Comment(s): Past syncopal episodes with past work ups, TIA, recent diagnosis of diabetes, neuropathy bilateral legs, pt has had "low blood counts" and is to see a design eng, CKD stage III, chronic low back pain/pt was to have permanent spinal stimulator placed today, bilateral lower leg edema, past small intestinal bleed, benign colon polyp, hemorrhoids, aortic stenosis and has had valve replaced. Last Myocardial Infarction Date:: 2007 History of Any Multi-Drug Resistant Organisms: None Reported Past Surgical History: Back Surgery, Heart Catheterization, Heart Catheterization With Stent, Hernia Repair, Orthopedic Surgery Additional Past Surgical History / Comment(s): TAVR, CHRISTIAN/cardioversions, PCI with stents, nasal benign polypectomy, bilateral cataract removal/lens implants, EGD, colonoscopies/benign polypectomy, R inguinal hernia repair, low back surgery with edie/screws, temporary spinal stimulator, bilateral ACL arthroscopic surgery, vasectomy. Past Anesthesia/Blood Transfusion Reactions: No Reported Reaction Additional Past Anesthesia/Blood Transfusion Reaction / Comment(s): Pt had blood transfusion with back surgery without reaction. Date of Last Stent Placement:: 2018 Type of Cardiac Device: Loop Device Placement Date:: 2019 Past Psychological History: No Psychological Hx Reported Smoking Status: Former smoker Past Alcohol Use History: None Reported Past Drug Use History: None Reported - Past Family History Son(s) Family Medical History: Cancer Additional Family Medical History / Comment(s): FROM LUNG CANCER Father Family Medical History: Myocardial Infarction ([place]) Additional Family Medical History / Comment(s): Father in a MVA. Mother Family Medical History: CVA/TIA, Myocardial Infarction ([place]) Medications and Allergies Home Medications Medication Instructions Recorded Confirmed Type Atorvastatin [Lipitor] 40 mg PO HS 12/03/20 10/18/21 History DULoxetine HCL [Cymbalta] 60 mg PO DAILY 12/03/20 10/18/21 History Midodrine HCl [ProAmatine] 10 mg PO TID 12/03/20 10/18/21 History Amiodarone [Cordarone] 100 mg PO BID 10/18/21 10/18/21 History Aspirin EC [Ecotrin Low Dose] 81 mg PO HS 10/18/21 10/18/21 History Celecoxib [CeleBREX] 200 mg PO BID 10/18/21 10/18/21 History Clobetasol Propionate [Temovate 1 applic TOPICAL DAILY PRN 10/18/21 10/18/21 History 0.05% Cream] Dapagliflozin Propanediol [Farxiga] 10 mg PO DAILY 10/18/21 10/18/21 History Doxazosin [Cardura] 2 mg PO DAILY 10/18/21 10/18/21 History Furosemide [Lasix] 40 mg PO DAILY PRN 10/18/21 10/18/21 History Gabapentin 600 mg PO TID 10/18/21 10/18/21 History Ondansetron Odt [Zofran Odt] 8 mg PO Q12H PRN 10/18/21 10/18/21 History Potassium Chloride ER [K-Dur 20] 20 meq PO DAILY PRN 10/18/21 10/18/21 History Pregabalin [Lyrica] 150 mg PO DAILY@1200 10/18/21 10/18/21 History oxyCODONE-APAP 10-325MG [Percocet 1 tab PO Q4H PRN 10/18/21 10/18/21 History 10-325 mg] Allergies Allergy/AdvReac Type Severity Reaction Status Date / Time No Known Allergies Allergy Verified 10/18/21 13:10 Physical Exam Vitals: Vital Signs Temp Pulse Resp BP Pulse Ox 10/20/21 08:00 97.7 F 82 18 108/65 95 10/20/21 04:00 98.3 F 80 16 123/59 95 10/20/21 00:00 98.0 F 98 18 112/57 96 10/19/21 20:00 97.7 F 79 18 128/66 94 L 10/19/21 16:00 97.6 F 92 18 117/65 94 L Intake and Output 10/19/21 10/20/21 10/20/21 22:59 06:59 14:59 Intake Total 518.708 367.862 Output Total 450 Balance 518.708 -450 367.862 Intake: Intake, IV Titration 38.708 249.862 Amount Heparin Sod,Pork in 0.45% 38.708 249.862 NaCl 25,000 unit In 0.45 % NaCl 1 250ml.bag @ 9.38 UNITS/KG/HR 9.999 mls/hr IV .Q24H [facility] Rx#: [id number] Oral 480 118 Output: Urine 450 Other: # Voids 2 1 925 Weight 107.6 kg Results 10/19/21 05:40 10/18/21 08:59 Coagulation 10/19/21 10/19/21 10/19/21 Range/Units 05:40 12:44 21:12 PT 12.5 H (9.9-11.9) sec APTT 32.6 H 43.6 H (22.0-30.0) sec 10/20/21 Range/Units 06:48 PT (9.9-11.9) sec APTT 43.4 H (22.0-30.0) sec CBC 10/19/21 Range/Units 05:40 WBC 11.73 H (4.50-10.00) X 10*3/uL RBC 3.39 L (4.40-5.60) X 10*6/uL Hgb 9.9 L (13.0-17.0) g/dL Hct 33.3 L (39.6-50.0) % Plt Count 90 L (140-440) X 10*3/uL Current Medications Generic Name Dose Route Start Last Admin Trade Name Freq PRN Reason Stop Dose Admin Acetaminophen 650 mg 10/18/21 11:18 10/18/21 11:59 Acetaminophen Tab 325 Mg Tab PO 650 mg Q6HR PRN Administration Mild Pain or Fever > 100.5 Amiodarone HCl 100 mg 10/18/21 21:00 10/20/21 09:14 Amiodarone 100 Mg Tab PO 100 mg BID [facility] Administration Aspirin 81 mg 10/18/21 21:00 10/19/21 20:44 Aspirin 81 Mg PO 81 mg HS [facility] Administration Atorvastatin Calcium 40 mg 10/18/21 21:00 10/19/21 20:44 Atorvastatin 40 Mg Tab PO 40 mg HS [facility] Administration Doxazosin Mesylate 2 mg 10/19/21 09:00 10/20/21 09:15 Doxazosin 2 Mg Tab PO 2 mg DAILY [facility] Administration Duloxetine HCl 60 mg 10/19/21 09:00 10/20/21 09:14 Duloxetine Hcl 60 Mg Capsule.Dr PO 60 mg DAILY [facility] Administration Gabapentin 600 mg 10/18/21 16:00 10/20/21 09:15 Gabapentin 300 Mg Cap PO 600 mg TID [facility] Administration Heparin Sodium (Porcine) 0 unit 10/18/21 14:20 Heparin Sodium 1,000 Un/Ml (10ml Vl) IV PER PROTOCOL PRN Low PTT Protocol Ceftriaxone Sodium 1 gm/ 50 mls @ 100 mls/hr 10/19/21 09:00 10/20/21 09:15 Sodium Chloride IVPB 100 mls/hr Q24HR [facility] Administration Azithromycin 500 mg/ Sodium 250 mls @ 250 mls/hr 10/19/21 09:00 10/20/21 09:15 Chloride IVPB 10/22/21 09:01 250 mls/hr DAILY [facility] Administration Protocol Heparin Sodium/Sodium Chloride 250 mls @ 9.999 mls/hr 10/18/21 14:30 10/20/21 12:18 25,000 unit/ Sodium Chloride IV 14.38 units/kg/hr .Q24H [facility] 15.328 mls/hr Administration Protocol 9.38 UNITS/KG/HR Insulin Aspart 0 unit 10/18/21 17:30 10/20/21 11:56 Insulin Aspart (Novolog) 100 Unit/Ml Vial SQ Not Given AC-TID [facility] Protocol Midodrine 10 mg 10/18/21 17:30 10/20/21 12:16 Midodrine 5 Mg Tab PO 10 mg AC-TID [facility] Administration Miscellaneous Information 1 each 10/18/21 12:19 Pneumonia Protocol Utilized 1 Each Misc PO ONCE PRN Per Protocol Naloxone HCl 0.2 mg 10/18/21 11:18 Naloxone 0.4 Mg/Ml 1 Ml Vial IV Q2M PRN Opioid Reversal Oxycodone/Acetaminophen 1 each 10/18/21 13:23 10/20/21 12:14 Oxycodone-Apap 10-325mg 1 Each Tab PO 1 each Q4H PRN Administration Pain Pregabalin 150 mg 10/19/21 12:00 10/20/21 12:14 Pregabalin 75 Mg Cap PO 150 mg DAILY@1200 [facility] Administration Intake and Output 10/19/21 10/20/21 10/20/21 22:59 06:59 14:59 Intake Total 518.708 367.862 Output Total 450 Balance 518.708 -450 367.862 Intake: Intake, IV Titration 38.708 249.862 Amount Heparin Sod,Pork in 0.45% 38.708 249.862 NaCl 25,000 unit In 0.45 % NaCl 1 250ml.bag @ 9.38 UNITS/KG/HR 9.999 mls/hr IV .Q24H [facility] Rx#: [id number] Oral 480 118 Output: Urine 450 Other: # Voids 2 1 925 Weight 107.6 kg 10/19/21 05:40 10/18/21 08:59
--- NOTE | 2021-10-20 15:15 | P.PN ---
Subjective Patient was examined at bedside not complaining of any new symptomatology. Patient said that he has had syncopal episodes in the past with rapid return to consciousness without any confusion or urinary/bowel incontinence. He does follow cardiology outpatient and had a loop recorder placed for more than 2 years as per patient. He denies any chest pain, palpitations, nausea or vomiting. Collateral information obtained with present Objective - Vital Signs Vital signs: Vital Signs Temp 97.7 F 10/20/21 08:00 Pulse 76 10/20/21 12:00 Resp 18 10/20/21 12:00 BP 117/69 10/20/21 12:00 Pulse Ox 97 10/20/21 12:00 Intake & Output 10/19/21 10/20/21 10/20/21 18:59 06:59 18:59 Intake Total 1879.200 367.862 Output Total 575 450 Balance 1304.200 -450 367.862 Weight 107.6 kg Intake: Intake, IV Titration 119.200 249.862 Amount Heparin Sod,Pork in 0.45% 119.200 249.862 NaCl 25,000 unit In 0.45 % NaCl 1 250ml.bag @ 9.38 UNITS/KG/HR 9.999 mls/hr IV .Q24H [facility] Rx#: [id number] Oral 1760 118 Output: Urine 575 450 Other: # Voids 2 1 925 # Bowel Movements 1 - Exam Gen: awake, alert HEENT: normocephalic, atraumatic, good hearing acuity, moist mucous membranes Resp: good air exchange, breathing comfortably with no accessory muscle use, right-sided crackles posteriorly CVS: good distal perfusion x 4, regular GI: soft, NTTP, ND : no SPT, no CVAT, cruz catheter not present MSK: +2 pitting edema, no clubbing Neuro: non-focal, moving all extremities Psych: cooperative, euthymic mood - Labs CBC & Chem 7: 10/19/21 05:40 10/18/21 08:59 Labs: Abnormal Lab Results - Last 24 Hours (Table) 10/19/21 10/19/21 10/19/21 Range/Units 16:47 19:46 21:12 APTT 43.6 H (22.0-30.0) sec POC Glucose (mg/dL) 144 H 123 H (75-99) mg/dL 10/20/21 10/20/21 10/20/21 Range/Units 06:08 06:48 11:43 APTT 43.4 H (22.0-30.0) sec POC Glucose (mg/dL) 107 H 198 H (75-99) mg/dL Microbiology - Last 24 Hours (Table) 10/18/21 11:40 Blood Culture - Preliminary Blood No Growth after 48 hours 10/18/21 11:25 Blood Culture - Preliminary Blood No Growth after 48 hours Assessment and Plan Plan: Sepsis - Community acquired pneumonia -Admit to inpatient, with telemetry. -Follow blood cultures - no growth right now. -Ceftriaxone/azithromycin -Follow up sputum culture Acute on chronic diastolic heart failure exacerbation Proximal atrial fibrillation with RVR -Echocardiogram -Patient is not on anticoagulation due to history of GI bleed - patient denies this we will wait older records. -Lasix 40 mg IV daily -Heparin drip -continue amiodarone, -cardio consulted, patient has loop recorder that needs to be interrogated. CAD Hypertension Hyperlipidemia Diabetes type 2 with peripheral neuropathy -Home medications reviewed and reconciled, changes in the above Patient is a full code DVT prophylaxis will be covered with heparin
[2021-10-20 16:45] LABS: Glucose,Whole Blood 150 mg/dL (75-99)
[2021-10-20 20:08] LABS: Glucose,Whole Blood 213 mg/dL (75-99)
[2021-10-20] MEDS: ASPIRIN 81 MG PO SCH (20:52)
[2021-10-20] MEDS: ATORVASTATIN 40 MG TAB PO SCH (20:52)
[2021-10-21] MEDS: oxyCODONE-APAP 10-325MG 1 EACH TAB PO PRN ×4 (04:07→23:09)
[2021-10-21 06:05] LABS: Glucose,Whole Blood 125 mg/dL (75-99)
[2021-10-21] MEDS: INSULIN ASPART (NovoLOG) 100 UNIT/ML VIAL SQ SCH ×3 (06:14→17:02)
[2021-10-21] MEDS: MIDODRINE 5 MG TAB PO SCH ×3 (06:50→18:50)
[2021-10-21] MEDS: HEPARIN SOD,PORK IN 0.45% NACL 25,000 UNIT in 0.45% NACL 1 250ML.BAG IV SCH (06:50)
[2021-10-21 08:00] LABS: Basophils % (A) 0 %; Eosinophils # (A) 0.2 k/uL (0-0.7); Eosinophils % (A) 2 %; HCT 33.3 % (39.0-53.0); HGB 10.3 gm/dL (13.0-17.5); Hypochromasia Marked; Lymphocytes # (A) 1.5 k/uL (1.0-4.8); Lymphocytes % (A) 20 %; MCH 30.6 pg (25.0-35.0); MCHC 30.9 g/dL (31.0-37.0); MCV 99.2 fL (80.0-100.0); Mean Platelet Volume 12.8; Monocytes # (A) 0.4 k/uL (0-1.0); Monocytes % (A) 6 %; Neutrophils # (A) 5.4 k/uL (1.3-7.7); Neutrophils % (A) 70 %; RBC 3.36 m/uL (4.30-5.90); RDW 14.4 % (11.5-15.5); WBC 7.7 k/uL (3.8-10.6)
[2021-10-21 08:15] LABS: Potassium 4.4 mmol/L (3.5-5.1)
[2021-10-21] MEDS: AZITHROMYCIN 500 MG in SODIUM CHLORIDE 0.9% 250 ML IVPB SCH (08:42)
[2021-10-21] MEDS: AMIODARONE 100 MG TAB PO SCH ×2 (08:42→20:50)
[2021-10-21] MEDS: DOXAZOSIN 2 MG TAB PO SCH (08:42)
[2021-10-21] MEDS: GABAPENTIN 300 MG CAP PO SCH ×3 (08:42→20:50)
[2021-10-21] MEDS: FUROSEMIDE 40 MG TAB PO SCH (08:42)
[2021-10-21] MEDS: DULoxetine HCL 60 MG CAPSULE.DR PO SCH (08:42)
--- NOTE | 2021-10-21 11:03 | P.PN ---
Subjective Progress Note Date: 10/21/21 HISTORY OF PRESENT ILLNESS: This is a 81-year-old male with a past medical history significant for coronary artery disease with previous stenting, aortic valve replacement, paroxysmal atrial fibrillation not on long-term anticoagulation, and hyperlipidemia. Patient follows with Dr. Alvarado at [facility]. We have been asked to see the patient in consultation for syncope. Patient examined at the bedside. Patient presented to the hospital after having a syncopal episode at home. Patients spouse is at the bedside and reports that patient has had multiple episodes of syncope in the past and it was related to orthostatic hypotension. The patient does report losing consciousness for a short period of time at home. He currently denies chest pain or pressure. He denies shortness of breath. Telemetry reveals atrial fibrillation with controlled ventricular rate. Vital signs are stable. * EKG reveals atrial fibrillation with right bundle branch block * Chest xray chronic changes and cardiomegaly with new diffuse right lung infiltrates and/or edema. Correlate clinically. * Laboratory data: WBC 11.7. 3. Hemoglobin 9.9. Platelet count 90. Sodium 137. Potassium 4.4. BUN 28. Creatinine 1.54. Troponin 0.013. ProBNP 4040. * Current home cardiac medications include amiodarone 100 mg twice a day, aspirin 81 mg at night, atorvastatin 40 mg at night, Cardura 2 mg daily * Most recent echocardiogram obtained in 2019 revealing ejection fraction 55- 60%, mild aortic stenosis, mild MR, mild TR * Cardiac catheterization history: 2019 revealing patent stents in the proximal LAD, circumflex, and RCA. Patient underwent PCI to the mid LAD. 10/21/2021 Patient examined this morning at the bedside. Patient denies chest pain or pressure. Denies SOB. Loop recorder interrogated yesterday with no events noted to account for patients syncope. Records from [facility] including 2D echo and Xochitl scan reviewed. Echo revealed normal EF and Xochitl was negative for ischemia. Echocardiogram obtained yesterday reveals ejection fraction 50-55%, normally functioning bioprosthetic aortic valve, mild mitral regurgitation, mild tricuspid regurgitation, and mild pulmonary hypertension. PHYSICAL EXAM: VITAL SIGNS: Reviewed. GENERAL: Well-developed in no acute distress. HEENT: Head is normocephalic. Pupils are equal, round. Sclerae anicteric. Mucous membranes of the mouth are moist. Neck supple. No JVD or thyromegaly LUNGS: Respirations even and unlabored. Lungs diminished to auscultation bilaterally. HEART: Irregular rate and rhythm. S1 and S2 heard. Systolic murmur noted. ABDOMEN: Soft. Nondistended. Nontender. EXTREMITIES: Normal range of motion. No clubbing or cyanosis. Peripheral pulses intact. Trace lower extremity edema NEUROLOGIC: Awake and alert. Oriented x 3. ASSESSMENT: Syncope Pneumonia Acute hypoxic respiratory failure Acute on chronic congestive heart failure with preserved ejection fraction History of recurrent syncope, secondary to orthostatic hypotension per family History of TAVR Coronary artery disease with previous PCI Paroxysmal atrial fibrillation, not on long-term anticoagulation Hyperlipidemia History of loop recorder insertion PLAN: Discontinue IV heparin From a cardiology standpoint, recommend anticoagulation (CHADVASC score 3 for age and CAD. However, will defer this to patients primary chemical dependency therapist, Dr. Alvarado. Continue additional cardiac medications Patient is currently stable from a cardiac standpoint Nurse practitioner note has been reviewed by physician. Signing provider agrees with the documented findings, assessment, and plan of care. Objective - Vital Signs Vital signs: Vital Signs Temp 97.9 F 10/21/21 08:00 Pulse 88 10/21/21 08:00 Resp 18 10/21/21 08:00 BP 170/67 10/21/21 08:00 Pulse Ox 95 10/21/21 08:00 Intake & Output 10/20/21 10/21/21 10/21/21 18:59 06:59 18:59 Intake Total 485.862 250 240 Output Total 750 Balance 485.862 -500 240 Weight 101.5 kg Intake: Intake, IV Titration 249.862 250 Amount Heparin Sod,Pork in 0.45% 249.862 250 NaCl 25,000 unit In 0.45 % NaCl 1 250ml.bag @ 9.38 UNITS/KG/HR 9.999 mls/hr IV .Q24H [facility] Rx#: [id number] Oral 236 240 Output: Urine 750 Other: # Voids 925 - Labs CBC & Chem 7: 10/21/21 06:19 10/21/21 06:19 Labs: Abnormal Lab Results - Last 24 Hours (Table) 10/20/21 10/20/21 10/20/21 Range/Units 11:43 14:21 16:44 RBC (4.30-5.90) m/uL Hgb (13.0-17.5) gm/dL Hct (39.0-53.0) % MCHC (31.0-37.0) g/dL APTT 63.8 H (22.0-30.0) sec Carbon Dioxide (22-30) mmol/L BUN (9-20) mg/dL Creatinine (0.66-1.25) mg/dL Glucose (74-99) mg/dL POC Glucose (mg/dL) 198 H 150 H (75-99) mg/dL Calcium (8.4-10.2) mg/dL 10/20/21 10/21/21 10/21/21 Range/Units 20:06 06:04 06:19 RBC (4.30-5.90) m/uL Hgb (13.0-17.5) gm/dL Hct (39.0-53.0) % MCHC (31.0-37.0) g/dL APTT (22.0-30.0) sec Carbon Dioxide 33 H (22-30) mmol/L BUN 28 H (9-20) mg/dL Creatinine 1.50 H (0.66-1.25) mg/dL Glucose 106 H (74-99) mg/dL POC Glucose (mg/dL) 213 H 125 H (75-99) mg/dL Calcium 8.0 L (8.4-10.2) mg/dL 10/21/21 10/21/21 Range/Units 06:19 06:19 RBC 3.36 L (4.30-5.90) m/uL Hgb 10.3 L (13.0-17.5) gm/dL Hct 33.3 L (39.0-53.0) % MCHC 30.9 L (31.0-37.0) g/dL APTT 47.8 H (22.0-30.0) sec Carbon Dioxide (22-30) mmol/L BUN (9-20) mg/dL Creatinine (0.66-1.25) mg/dL Glucose (74-99) mg/dL POC Glucose (mg/dL) (75-99) mg/dL Calcium (8.4-10.2) mg/dL Microbiology - Last 24 Hours (Table) 10/18/21 11:40 Blood Culture - Preliminary Blood No Growth after 48 hours 10/18/21 11:25 Blood Culture - Preliminary Blood No Growth after 48 hours
[2021-10-21 11:44] LABS: Glucose,Whole Blood 150 mg/dL (75-99)
--- NOTE | 2021-10-21 13:00 | ECHOF ---
Referral Reason:teto MEASUREMENTS -------- HEIGHT: 177.8 cm WEIGHT: 107.5 kg BP: 123/59 RVIDd: 3.7 cm (< 3.3) IVSd: 1.2 cm (0.6 - 1.1) LVIDd: 4.9 cm (3.9 - 5.3) LVPWd: 1.1 cm (0.6 - 1.1) IVSs: 1.9 cm LVIDs: 4.2 cm LVPWs: 1.5 cm LA Diam: 3.9 cm (2.7 - 3.8) LAESV Index (A-L): 27.44 ml/m Ao Diam: 3.5 cm (2.0 - 3.7) MV EXCURSION: 14.577 mm (> 18.000) MV EF SLOPE: 99 mm/s (70 - 150) EPSS: 0.3 cm AV maxP.30 mmHg AV meanP.16 mmHg RAP: 5.00 mmHg RVSP: 44.53 mmHg FINDINGS -------- Atrial fibrillation. This was a technically difficult study with suboptimal apical views. The left ventricular size is normal. There is borderline concentric left ventricular hypertrophy. Overall left ventricular systolic function is low-normal with, an EF between 50 - 55 %. The right ventricle is mild to moderately enlarged. Normal LA size by volume 22+/-6 ml/m2. The right atrium is normal in size. Interatrial and interventricular septum intact. Peak/mean gradient across the Aortic Valve is 23.30mmHg / 13.16mmHg. Normally functioning bioprosth etic valve. The mitral valve leaflets are mildly thickened. Mild mitral annular calcification present. Mild m itral regurgitation is present. Mild tricuspid regurgitation present. There is mild pulmonary hypertension. The right ventricular systolic pressure, as measured by Doppler, is 44.53mmHg. The pulmonic valve is normal. The aortic root size is normal. Normal inferior vena cava with normal inspiratory collapse consistent with estimated right atrial pre ssure of 5 mmHg. There is no pericardial effusion. CONCLUSIONS -------- 1. The left ventricular size is normal. 2. There is borderline concentric left ventricular hypertrophy. 3. Overall left ventricular systolic function is low-normal with, an EF between 50 - 55 %. 4. The right ventricle is mild to moderately enlarged. 5. Peak/mean gradient across the Aortic Valve is 23.30mmHg / 13.16mmHg. 6. Normally functioning bioprosthetic valve. 7. The mitral valve leaflets are mildly thickened. 8. Mild mitral annular calcification present. 9. Mild mitral regurgitation is present. 10. Mild tricuspid regurgitation present. 11. There is mild pulmonary hypertension. 12. The right ventricular systolic pressure, as measured by Doppler, is 44.53mmHg. 13. There is no pericardial effusion. CERTIFIED FINANCIAL PLANNER: Daksha Cole RDCS
[2021-10-21 13:03] LABS: Platelet Count 89 k/uL (150-450)
[2021-10-21 13:05] LABS: Large Platelets Present
[2021-10-21] MEDS: PREGABALIN 75 MG CAP PO SCH (13:44)
--- NOTE | 2021-10-21 16:04 | P.PN ---
Subjective Patient was examined at bedside today not complaining of any new symptomatology. He does continue to endorse a headache that has been persistent since he came in. This is getting slightly worse is also having some forms of hallucination which comes and goes that is new for him. present at bedside states that he is slightly confused as well. Denies any chest pain, shortness of breath or palpitations. He is currently on 2-3 L nasal cannula saturating above 90% and no productive cough noted. Objective - Vital Signs Vital signs: Vital Signs Temp 97.9 F 10/21/21 08:00 Pulse 85 10/21/21 12:00 Resp 18 10/21/21 12:00 BP 124/64 10/21/21 12:00 Pulse Ox 96 10/21/21 12:00 Intake & Output 10/20/21 10/21/21 10/21/21 18:59 06:59 18:59 Intake Total 485.862 250 358 Output Total 750 Balance 485.862 -500 358 Weight 101.5 kg Intake: Intake, IV Titration 249.862 250 Amount Heparin Sod,Pork in 0.45% 249.862 250 NaCl 25,000 unit In 0.45 % NaCl 1 250ml.bag @ 9.38 UNITS/KG/HR 9.999 mls/hr IV .Q24H PRINCESS Rx#: [id number] Oral 236 358 Output: Urine 750 Other: # Voids 925 - Exam Gen: awake, alert oriented 3 HEENT: normocephalic, atraumatic, good hearing acuity, moist mucous membranes Resp: good air exchange, breathing comfortably with no accessory muscle use, right-sided crackles posteriorly CVS: good distal perfusion x 4, regular GI: soft, NTTP, ND : no SPT, no CVAT, cruz catheter not present MSK: +2 pitting edema, no clubbing Neuro: non-focal deficits noted, moving all extremities Psych: cooperative, euthymic mood - Labs CBC & Chem 7: 10/21/21 06:19 10/21/21 06:19 Labs: Abnormal Lab Results - Last 24 Hours (Table) 10/20/21 10/20/21 10/21/21 Range/Units 16:44 20:06 06:04 RBC (4.30-5.90) m/uL Hgb (13.0-17.5) gm/dL Hct (39.0-53.0) % MCHC (31.0-37.0) g/dL Plt Count (150-450) k/uL APTT (22.0-30.0) sec Carbon Dioxide (22-30) mmol/L BUN (9-20) mg/dL Creatinine (0.66-1.25) mg/dL Glucose (74-99) mg/dL POC Glucose (mg/dL) 150 H 213 H 125 H (75-99) mg/dL Calcium (8.4-10.2) mg/dL 10/21/21 10/21/21 10/21/21 Range/Units 06:19 06:19 06:19 RBC 3.36 L (4.30-5.90) m/uL Hgb 10.3 L (13.0-17.5) gm/dL Hct 33.3 L (39.0-53.0) % MCHC 30.9 L (31.0-37.0) g/dL Plt Count 89 L (150-450) k/uL APTT 47.8 H (22.0-30.0) sec Carbon Dioxide 33 H (22-30) mmol/L BUN 28 H (9-20) mg/dL Creatinine 1.50 H (0.66-1.25) mg/dL Glucose 106 H (74-99) mg/dL POC Glucose (mg/dL) (75-99) mg/dL Calcium 8.0 L (8.4-10.2) mg/dL 10/21/21 Range/Units 11:42 RBC (4.30-5.90) m/uL Hgb (13.0-17.5) gm/dL Hct (39.0-53.0) % MCHC (31.0-37.0) g/dL Plt Count (150-450) k/uL APTT (22.0-30.0) sec Carbon Dioxide (22-30) mmol/L BUN (9-20) mg/dL Creatinine (0.66-1.25) mg/dL Glucose (74-99) mg/dL POC Glucose (mg/dL) 150 H (75-99) mg/dL Calcium (8.4-10.2) mg/dL Microbiology - Last 24 Hours (Table) 10/18/21 11:40 Blood Culture - Preliminary Blood No Growth after 72 hours 10/18/21 11:25 Blood Culture - Preliminary Blood No Growth after 72 hours Assessment and Plan Plan: Sepsis - Community acquired pneumonia -Admit to inpatient, with telemetry. -Follow blood cultures - no growth right now. -Ceftriaxone/azithromycin can be transitioned to Augmentin on discharge to complete 5 days -Follow up sputum culture Acute on chronic diastolic heart failure exacerbation Proximal atrial fibrillation with RVR -Echocardiogram reviewed -Anticoagulation has been discontinued as the patient is not agreeable. He states that his primary municipal clerk has stopped it he does not want to take it without his permission. He does of his need anti-coagulation based on his CHADSVASC. I did discuss with cardiology that is communicated these results as well to me. Patient encouraged to follow-up with Dr. Alvarado primary municipal clerk within 24-48 hours after discharge. CAD Hypertension Hyperlipidemia Diabetes type 2 with peripheral neuropathy -Home medications reviewed and reconciled, changes in the above Intractable headache rule out subdural hematoma less likely versus tension headache -We'll obtain repeat computed tomography scan given the patient was on heparin drip and complaining more pain compared to before also having hallucinations w hich is new for the patient. Patient is a full code DVT prophylaxis Disposition patient is to follow up with primary municipal clerk Dr. Alvarado.
[2021-10-21 16:28] LABS: Glucose,Whole Blood 134 mg/dL (75-99)
--- NOTE | 2021-10-21 18:36 | CT ---
EXAMINATION TYPE: CT brain wo con CT DLP: 1150.4 mGycm, Automated exposure control for dose reduction was used. DATE OF EXAM: 10/21/2021 6:08 PM COMPARISON: Prior CT Brain from 10/18/2021. CLINICAL INDICATION:Male, 81 years old with history of reoccurring headache slightly worse - hx of fa ll, headache TECHNIQUE: Brain: Multiple axial CT images of the brain were obtained without IV contrast. FINDINGS: Brain: Extra-axial spaces: No abnormal extra-axial fluid collections. Ventricular system: Within normal limits Cerebral parenchyma: No acute intraparenchymal hemorrhage or mass effect. The woodward-white junction is well differentiated. Scattered hypoattenuating areas are seen within the white matter. Left probabl e choroidal fissure cyst. Cerebellum: Unremarkable. Mass effect: No evidence of midline shift. Intracranial vasculature: Atherosclerotic calcifications of the intracranial vessels. Soft tissues: Normal. Calvarium/osseous structures: No depressed skull fracture. Paranasal sinuses and mastoid air cells: Mild scattered paranasal sinus disease. Visualized orbits: Orbital contents are intact. IMPRESSION: 1. No acute intracranial process. 2. Nonspecific white matter changes, likely secondary to chronic small vessel ischemic disease.
[2021-10-21 20:08] LABS: Glucose,Whole Blood 156 mg/dL (75-99)
[2021-10-21] MEDS: ASPIRIN 81 MG PO SCH (20:50)
[2021-10-21] MEDS: ATORVASTATIN 40 MG TAB PO SCH (20:50)
[2021-10-22] MEDS: oxyCODONE-APAP 10-325MG 1 EACH TAB PO PRN ×2 (05:47→12:43)
[2021-10-22] MEDS: MIDODRINE 5 MG TAB PO SCH ×2 (05:48→12:44)
[2021-10-22 06:05] LABS: Glucose,Whole Blood 166 mg/dL (75-99)
[2021-10-22] MEDS: INSULIN ASPART (NovoLOG) 100 UNIT/ML VIAL SQ SCH ×2 (06:51→12:45)
[2021-10-22] MEDS: GABAPENTIN 300 MG CAP PO SCH (08:47)
[2021-10-22] MEDS: ACETAMINOPHEN TAB 325 MG TAB PO PRN (08:47)
[2021-10-22] MEDS: DULoxetine HCL 60 MG CAPSULE.DR PO SCH (08:48)
[2021-10-22] MEDS: FUROSEMIDE 40 MG TAB PO SCH (08:48)
[2021-10-22] MEDS: DOXAZOSIN 2 MG TAB PO SCH (08:49)
[2021-10-22] MEDS: AMIODARONE 100 MG TAB PO SCH (08:49)
[2021-10-22] MEDS ORDERED: AZITHROMYCIN 500 MG TAB PO SCH (09:00)
--- NOTE | 2021-10-22 09:09 | XR ---
EXAMINATION TYPE: XR chest 1V portable DATE OF EXAM: 10/22/2021 COMPARISON: 10/19/2021 HISTORY: Shortness of breath TECHNIQUE: Single frontal view of the chest is obtained. FINDINGS: Bilateral coarsened interstitium with patchy infiltrate asymmetrically in the right simila r to the prior exam. No sizable pleural effusion or pneumothorax. Postsurgical change left shoulder. Metallic lead overlying the thoracic spine with hypertrophic degenerative changes IMPRESSION: Early for COPD and chronic interstitial lung disease with patchy right-sided infiltrate stable from prior.
--- NOTE | 2021-10-22 09:33 | P.PN ---
Subjective Progress Note Date: 10/22/21 HISTORY OF PRESENT ILLNESS: This is a 81-year-old male with a past medical history significant for coronary artery disease with previous stenting, aortic valve replacement, paroxysmal atrial fibrillation not on long-term anticoagulation, and hyperlipidemia. Patient follows with Dr. Alvarado at [facility]. We have been asked to see the patient in consultation for syncope. Patient examined at the bedside. Patient presented to the hospital after having a syncopal episode at home. Patients spouse is at the bedside and reports that patient has had multiple episodes of syncope in the past and it was related to orthostatic hypotension. The patient does report losing consciousness for a short period of time at home. He currently denies chest pain or pressure. He denies shortness of breath. Telemetry reveals atrial fibrillation with controlled ventricular rate. Vital signs are stable. * EKG reveals atrial fibrillation with right bundle branch block * Chest xray chronic changes and cardiomegaly with new diffuse right lung infiltrates and/or edema. Correlate clinically. * Laboratory data: WBC 11.7. 3. Hemoglobin 9.9. Platelet count 90. Sodium 137. Potassium 4.4. BUN 28. Creatinine 1.54. Troponin 0.013. ProBNP 4040. * Current home cardiac medications include amiodarone 100 mg twice a day, aspirin 81 mg at night, atorvastatin 40 mg at night, Cardura 2 mg daily * Most recent echocardiogram obtained in 2019 revealing ejection fraction 55- 60%, mild aortic stenosis, mild MR, mild TR * Cardiac catheterization history: 2019 revealing patent stents in the proximal LAD, circumflex, and RCA. Patient underwent PCI to the mid LAD. 10/21/2021 Patient examined this morning at the bedside. Patient denies chest pain or pressure. Denies SOB. Loop recorder interrogated yesterday with no events noted to account for patients syncope. Records from [facility] including 2D echo and Xochitl scan reviewed. Echo revealed normal EF and Xochitl was negative for ischemia. Echocardiogram obtained yesterday reveals ejection fraction 50-55%, normally functioning bioprosthetic aortic valve, mild mitral regurgitation, mild tricuspid regurgitation, and mild pulmonary hypertension. 10/22/2021 Patient examined this morning at the bedside. Patient denies chest pain or pressure. He denies SOB. He remains in atrial fibrillation with controlled ventricular response. Records from Dr. Vasquez office reviewed. It is noted that patient has a history of a subdural hematoma secondary to a syncopal episode in [address] Vasquez records. PHYSICAL EXAM: VITAL SIGNS: Reviewed. GENERAL: Well-developed in no acute distress. HEENT: Head is normocephalic. Pupils are equal, round. Sclerae anicteric. Mucous membranes of the mouth are moist. Neck supple. No JVD or thyromegaly LUNGS: Respirations even and unlabored. Lungs diminished to auscultation bilaterally. HEART: Irregular rate and rhythm. S1 and S2 heard. Systolic murmur noted. ABDOMEN: Soft. Nondistended. Nontender. EXTREMITIES: Normal range of motion. No clubbing or cyanosis. Peripheral pulses intact. Trace lower extremity edema NEUROLOGIC: Awake and alert. Oriented x 3. ASSESSMENT: Syncope Pneumonia Acute hypoxic respiratory failure Acute on chronic congestive heart failure with preserved ejection fraction History of recurrent syncope, secondary to orthostatic hypotension per family History of TAVR Coronary artery disease with previous PCI Paroxysmal atrial fibrillation, not on long-term anticoagulation secondary to history of subdural hematoma Hyperlipidemia History of loop recorder insertion PLAN: Continue current cardiac medications Records reviewed from Dr. Vasquez office revealing patient has a history of subdural hematoma after a syncopal episode in 2019 which explains why the patient is not on anticoagulation on an outpatient basis. Patient is currently stable from a cardiac standpoint Patient to follow-up with his primary oak tanner post discharge. Nurse practitioner note has been reviewed by physician. Signing provider agrees with the documented findings, assessment, and plan of care. Objective - Vital Signs Vital signs: Vital Signs Temp 97.9 F 10/22/21 08:00 Pulse 106 H 10/22/21 08:00 Resp 20 10/22/21 08:15 BP 113/54 10/22/21 08:00 Pulse Ox 94 L 10/22/21 08:15 Intake & Output 10/21/21 10/22/21 10/22/21 18:59 06:59 18:59 Intake Total 598 240 Output Total 375 550 Balance 223 -550 240 Intake: Oral 598 240 Output: Urine 375 550 Other: Voiding Method Urinal - Labs CBC & Chem 7: 10/21/21 06:19 10/21/21 06:19 Labs: Abnormal Lab Results - Last 24 Hours (Table) 10/21/21 10/21/21 10/21/21 Range/Units 06:19 11:42 16:26 Plt Count 89 L (150-450) k/uL POC Glucose (mg/dL) 150 H 134 H (75-99) mg/dL 10/21/21 10/22/21 Range/Units 20:07 06:04 Plt Count (150-450) k/uL POC Glucose (mg/dL) 156 H 166 H (75-99) mg/dL Microbiology - Last 24 Hours (Table) 10/18/21 11:40 Blood Culture - Preliminary Blood No Growth after 72 hours 10/18/21 11:25 Blood Culture - Preliminary Blood No Growth after 72 hours
[2021-10-22 11:29] LABS: Glucose,Whole Blood 173 mg/dL (75-99)
--- NOTE | 2021-10-22 12:19 | P.DS ---
Providers Date of admission: 10/18/21 11:18 Attending physician: Carmela Alvarenga MD Consults: 10/20/21 11:37 Consult Physician Routine Consulting Provider: Charlene Martinez Consult Reason/Comments: syncope Do you want consulting provider notified?: Yes Primary care physician: Kelvin Padilla [facility] Hospital Course: 81-year-old man with a history of paroxysmal atrial fibrillation, CAD, diabetes, hypertension, hyperlipidemia presented after he had a fall, and was found to be hypoxic on admission. Patient is confused, history is taken from ER provider signout, chart review, who is at bedside. From my understanding, patient had been feeling okay until yesterday, where he had episodes of dizziness, shortness of breath, which prompted a visit to his primary care physician. He was sent home, however, he continued to decline. Today, he had an episode where he fell to his right side and hurt his shoulder and his right hip. He reports chills, cough, right hip and shoulder pain. He denies fevers, nausea, vomiting, chest pain, palpitations, abdominal pain, constipation, diarrhea, dysuria, dyschezia, numbness/weakness of extremities. In the ER, patient was afebrile, 103/67, heart rate 115, 93% on 4 L nasal cannula. CBC demonstrates leukocytosis of 15.4, mild anemia to 12.4, thrombus cytopenia to 106. Chemistries show BUN/creatinine of 28/1.54, which is baseline or at LFTs are unremarkable. BNP is 4040. Troponin was negative. Covid was negative. Influenza A/B were negative. EKG demonstrates paroxysmal atrial fibrillation with left bundle-branch block. Chest x-ray demonstrates right lung infiltrate, cardia megaly. knee/pelvis/shoulder x-rays are all negative for fracture. Head/cervical spine CT were negative for fracture or hemorrhage. Patient has been evaluated by cardiology. Based_for residual fibrillation requiring regulation however cardiology did obtain records from his primary radiologic technologist and her holding any anticoagulation at this time due to a history of a possible subdural hematoma. Patient is currently stable computed tomography scan was completed before as he was complaining of any headache which is unremarkable this was completed during his ER admission walking in as well as a repeat after causes headache continue to persist. Today he denies any new symptomatology or including worsening headache, chest pain or palpitations. Patient does use auction at home currently is around 2-3 L saturating above 90%. We have placed a order to evaluate for home oxygen continuous he also needs to follow with cardiology, PCP and pulmonary for COPD evaluation and treatment plan. On discharge I'll send him home on Augmentin to complete 5 more days. Patient will also be sent home on albuterol when necessary medication for shortness of breath he has been educated and is agreeable to be discharged today. He is agreeable to follow with all his consult is within 1 week of discharge. Case discussed with case management and RN and consultants and it agreeable for discharge today. Patient Condition at Discharge: Stable Plan - Discharge Summary Discharge Rx Participant: No New Discharge Prescriptions: New Amoxic-Pot Clav 500-125 mg [Augmentin 500-125 mg] 1 tab PO Q12HR 5 Days #10 tab Albuterol Inhaler [Ventolin Hfa Inhaler] 1 puff INHALATION RT-TID PRN #8 gm PRN Reason: Shortness Of Breath Or Wheezing Continue DULoxetine HCL [Cymbalta] 60 mg PO DAILY Midodrine HCl [ProAmatine] 10 mg PO TID oxyCODONE-APAP 10-325MG [Percocet 10-325 mg] 1 tab PO Q4H PRN PRN Reason: Pain Pregabalin [Lyrica] 150 mg PO DAILY@1200 Aspirin EC [Ecotrin Low Dose] 81 mg PO HS Gabapentin 600 mg PO TID Potassium Chloride ER [K-Dur 20] 20 meq PO DAILY PRN PRN Reason: Edema Amiodarone [Cordarone] 100 mg PO BID Ondansetron Odt [Zofran ODT] 8 mg PO Q12H PRN PRN Reason: Nausea Clobetasol Propionate [Temovate 0.05% Cream] 1 applic TOPICAL DAILY PRN PRN Reason: Rash Atorvastatin [Lipitor] 40 mg PO HS Dapagliflozin Propanediol [Farxiga] 10 mg PO DAILY Furosemide [Lasix] 40 mg PO DAILY PRN PRN Reason: Edema Doxazosin [Cardura] 2 mg PO DAILY Celecoxib [CeleBREX] 200 mg PO BID Discharge Medication List Atorvastatin [Lipitor] 40 mg PO HS 12/03/20 [History] DULoxetine HCL [Cymbalta] 60 mg PO DAILY 12/03/20 [History] Midodrine HCl [ProAmatine] 10 mg PO TID 12/03/20 [History] Amiodarone [Cordarone] 100 mg PO BID 10/18/21 [History] Aspirin EC [Ecotrin Low Dose] 81 mg PO HS 10/18/21 [History] Celecoxib [CeleBREX] 200 mg PO BID 10/18/21 [History] Clobetasol Propionate [Temovate 0.05% Cream] 1 applic TOPICAL DAILY PRN 10/18/21 [History] Dapagliflozin Propanediol [Farxiga] 10 mg PO DAILY 10/18/21 [History] Doxazosin [Cardura] 2 mg PO DAILY 10/18/21 [History] Furosemide [Lasix] 40 mg PO DAILY PRN 10/18/21 [History] Gabapentin 600 mg PO TID 10/18/21 [History] Ondansetron Odt [Zofran ODT] 8 mg PO Q12H PRN 10/18/21 [History] Potassium Chloride ER [K-Dur 20] 20 meq PO DAILY PRN 10/18/21 [History] Pregabalin [Lyrica] 150 mg PO DAILY@1200 10/18/21 [History] oxyCODONE-APAP 10-325MG [Percocet 10-325 mg] 1 tab PO Q4H PRN 10/18/21 [History] Albuterol Inhaler [Ventolin Hfa Inhaler] 1 puff INHALATION RT-TID PRN #8 gm 10/22/21 [Rx] Amoxic-Pot Clav 500-125 mg [Augmentin 500-125 mg] 1 tab PO Q12HR 5 Days #10 tab 10/22/21 [Rx] Follow up Appointment(s)/Referral(s): Kelvin Navas MD [Primary Care Provider] - 1-2 days [facility], [NON-STAFF] - Sarah Connell MD [STAFF PHYSICIAN] - 1 Week Ortiz Alvarado DO [REFERRING] - 1 Week Charlene Martinez MD [STAFF PHYSICIAN] - 1 Week Discharge Disposition: HOME SELF-CARE
[2021-10-22] MEDS: PREGABALIN 75 MG CAP PO SCH (12:44)
[2021-10-22 16:56] VITALS: BP 131/66; PULSE 96; RESP 18; TEMP 98.2
== END 2021-10-22 16:59 | disposition home or self-care (01) | DRG 871 ==
LOC: EC 08:28 → 4SSUR 11:18 → 3SCARD 21:22
PROVIDERS: ADMIT Internal Medicine; ATTEND Internal Medicine
DX: A41.9 Sepsis, unspecified organism (principal); J18.9 Pneumonia, unspecified organism; I50.33 Acute on chronic diastolic (congestive) heart failure; J96.01 Acute respiratory failure with hypoxia; I13.0 Hypertensive heart and chronic kidney disease with heart failure and stage 1 through stage 4 chronic kidney disease, or unspecified chronic kidney disease; W19.XXXA Unspecified fall, initial encounter; D64.9 Anemia, unspecified; N18.30 Chronic kidney disease, stage 3 unspecified; E11.22 Type 2 diabetes mellitus with diabetic chronic kidney disease; E11.42 Type 2 diabetes mellitus with diabetic polyneuropathy; E78.5 Hyperlipidemia, unspecified; I25.10 Atherosclerotic heart disease of native coronary artery without angina pectoris; I95.1 Orthostatic hypotension; I25.2 Old myocardial infarction; I44.7 Left bundle-branch block, unspecified; I48.0 Paroxysmal atrial fibrillation; Z20.822 Contact with and (suspected) exposure to COVID-19; Z79.1 Long term (current) use of non-steroidal anti-inflammatories (NSAID); Z79.84 Long term (current) use of oral hypoglycemic drugs; Z79.899 Other long term (current) drug therapy; Z80.1 Family history of malignant neoplasm of trachea, bronchus and lung; Z82.3 Family history of stroke; Z82.49 Family history of ischemic heart disease and other diseases of the circulatory system; Z86.73 Personal history of transient ischemic attack (TIA), and cerebral infarction without residual deficits; Z86.010 Personal history of colon polyps; Z87.891 Personal history of nicotine dependence; Z95.2 Presence of prosthetic heart valve; Z95.5 Presence of coronary angioplasty implant and graft; Z96.1 Presence of intraocular lens
CPT/HCPCS: 36415; 70450; 71045; 71046; 72125; 72170; 80048; 80053; 81003; 83036; 83605; 83735; 83880; 84145; 84443; 84484; 85025; 85610; 85730; 87040; 87502; 87635; 93005; 93306; 96365; 96366; 96367; 96375; 99285

== ENCOUNTER 2022-11-08 14:10 | Emergency (ER) | payer MEDICARE ==
[2022-11-08 14:17] VITALS: RESP 18; TEMP 97.9
--- NOTE | 2022-11-08 14:39 | ED ---
Fall HPI - General Chief Complaint: Fall Stated Complaint: Fall Time Seen by Provider: 11/08/22 14:21 Source: patient, RN notes reviewed Mode of arrival: wheelchair Limitations: no limitations - History of Present Illness Initial Comments: This 82-year-old male presents emergency Department chief complaint of head injury. Patient states she tripped over a cement curb states he fell striking the back side of his head. Patient has a hematoma, abrasion. His tetanus is up-to-date. He has minimal headache denies any blurred vision, dizziness, focal weakness denies any neck or back pain. Patient was hematuria after the incident. Patient is on Plavix and present emergency from it for evaluation. - Related Data Home Medications Medication Instructions Recorded Confirmed Atorvastatin [Lipitor] 40 mg PO HS 12/03/20 11/08/22 DULoxetine HCL [Cymbalta] 60 mg PO DAILY 12/03/20 11/08/22 Amiodarone [Cordarone] 100 mg PO DAILY 10/18/21 11/08/22 Clobetasol Propionate [Temovate 1 applic TOPICAL DAILY PRN 10/18/21 11/08/22 0.05% Cream] Dapagliflozin Propanediol [Farxiga] 10 mg PO DAILY 10/18/21 11/08/22 Doxazosin [Cardura] 2 mg PO DAILY 10/18/21 11/08/22 Furosemide [Lasix] 40 mg PO DAILY PRN 10/18/21 11/08/22 Clopidogrel [Plavix] 75 mg PO DAILY 11/08/22 11/08/22 Gabapentin [Neurontin] 800 mg PO TID 11/08/22 11/08/22 HYDROcodone/APAP 10-325MG [Arverne 1 tab PO QID 11/08/22 11/08/22 10-325] Midodrine [ProAmatine] 5 mg PO TID 11/08/22 11/08/22 Allergies Allergy/AdvReac Type Severity Reaction Status Date / Time No Known Allergies Allergy Verified 11/08/22 14:56 Review of Systems ROS Statement: Those systems with pertinent positive or pertinent negative responses have been documented in the HPI. ROS Other: All systems not noted in ROS Statement are negative. 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 Last Myocardial Infarction Date:: 2007 History of Any Multi-Drug Resistant Organisms: None Reported Past Surgical History: Back Surgery, Heart Catheterization, Heart Catheterization With Stent, Hernia Repair, Orthopedic Surgery Additional Past Surgical History / Comment(s): TAVR, CHRISTIAN/cardioversions, PCI with stents, nasal benign polypectomy, bilateral cataract removal/lens implants, EGD, colonoscopies/benign polypectomy, R inguinal hernia repair, low back surgery with edie/screws, temporary spinal stimulator, bilateral ACL arthroscopic surgery, vasectomy. Past Anesthesia/Blood Transfusion Reactions: No Reported Reaction Additional Past Anesthesia/Blood Transfusion Reaction / Comment(s): Pt had blood transfusion with back surgery without reaction. Date of Last Stent Placement:: 2018 Type of Cardiac Device: Loop Device Placement Date:: 2019 Past Psychological History: No Psychological Hx Reported Smoking Status: Former smoker Past Alcohol Use History: None Reported Past Drug Use History: None Reported - Past Family History Son(s) Family Medical History: Cancer Additional Family Medical History / Comment(s): FROM LUNG CANCER Father Family Medical History: Myocardial Infarction ([place]) Additional Family Medical History / Comment(s): Father in a MVA. Mother Family Medical History: CVA/TIA, Myocardial Infarction ([place]) General Exam Limitations: no limitations General appearance: alert, in no apparent distress Head exam: Present: normocephalic. Absent: atraumatic, normal inspection (Large posterior hematoma noted) Eye exam: Present: normal appearance, PERRL, EOMI. Absent: scleral icterus, conjunctival injection, periorbital swelling ENT exam: Present: normal exam, normal oropharynx, mucous membranes moist Neck exam: Present: normal inspection, full ROM. Absent: tenderness, meningismus, lymphadenopathy Respiratory exam: Present: normal lung sounds bilaterally. Absent: respiratory distress, wheezes, rales, rhonchi, stridor Cardiovascular Exam: Present: regular rate, normal rhythm, normal heart sounds. Absent: systolic murmur, diastolic murmur, rubs, gallop, clicks Neurological exam: Present: alert, oriented X3, CN II-XII intact, reflexes normal. Absent: motor sensory deficit Skin exam: Present: warm, dry, intact, normal color. Absent: rash Course Vital Signs 11/08/22 14:14 Temperature 97.9 F Pulse Rate 91 Respiratory 18 Rate Blood Pressure 153/70 O2 Sat by Pulse 95 Oximetry Medical Decision Making - Medical Decision Making Was pt. sent in by a medical professional or institution (, PA, OCCUPATIONAL THERAPY SPECIALIST, urgent care, hospital, or senior living...) When possible be specific @ -No Did you speak to anyone other than the patient for history (EMS, parent, family, police, friend...)? What history was obtained from this source @ -No Did you review nursing and triage notes (agree or disagree)? Why? @ -I reviewed and agree with nursing and triage notes Were old charts reviewed (outside hosp., previous admission, EMS record, old EKG, old radiological studies, urgent care reports/EKG's, senior living records)? Report findings @ -No old charts were reviewed Differential Diagnosis (chest pain, altered mental status, abdominal pain women, abdominal pain men, vaginal bleeding, weakness, fever, dyspnea, syncope, headache, dizziness, GI bleed, back pain, seizure, CVA, palpatations, mental health, musculoskeletal)? @ -Intracranial hemorrhage, skull fracture, scalp contusion, scalp hematoma cervical fracture EKG interpreted by me (3pts min.). @ -None] X-rays interpreted by me (1pt min.). @ -None done CT interpreted by me (1pt min.). @ -See to the brain, C-spine shows no intracranial hemorrhage or mass effect there are degenerative changes of the cervical spine without evidence of acute fracture recommend MRI U/S interpreted by me (1pt. min.). @ -None done What testing was considered but not performed or refused? (CT, X-rays, U/S, labs)? Why? @ -Consider MRI though this will Be completed outpatient What meds were considered but not given or refused? Why? @ -None Did you discuss the management of the patient with other professionals (professionals i.e. , PA, OCCUPATIONAL THERAPY SPECIALIST, lab, RT, psych nurse, social service director, senior marketing manager, teacher, credit or loans officer, case liner)? Give summary @ -No Was smoking cessation discussed for >3mins.? @ -No Was critical care preformed (if so, how long)? @ -No Were there social determinants of health that impacted care today? How? (Homelessness, low income, unemployed, alcoholism, drug addiction, transportation, low edu. Level, literacy, decrease access to med. care, snf, rehab)? @ -No Was there de-escalation of care discussed even if they declined (Discuss DNR or withdrawal of care, Hospice)? DNR status @ -No What co-morbidities impacted this encounter? (DM, HTN, Smoking, COPD, CAD, Cancer, CVA, ARF, Chemo, Hep., AIDS, mental health diagnosis, sleep apnea, morbid obesity)? @ -None Was patient admitted / discharged? Hospital course, mention meds given and route, prescriptions, significant lab abnormalities, going to OR and other pertinent info. @ -Discharge patient presented for fall with negative CT head neck. Patient has scalp hematoma will be discharged in stable condition with return parameters Undiagnosed new problem with uncertain prognosis? @ -No Drug Therapy requiring intensive monitoring for toxicity (Heparin, Nitro, Insulin, Cardizem)? @ -No Were any procedures done? @ -No Diagnosis/symptom? @ -Scalp hematoma Acute, or Chronic, or Acute on Chronic? @ -Acute Uncomplicated (without systemic symptoms) or Complicated (systemic symptoms)? @ -uncomplicated Side effects of treatment? @ -No Exacerbation, Progression, or Severe Exacerbation? @ -No Poses a threat to life or bodily function? How? (Chest pain, [place], [place], pneumonia, PE, COPD, DKA, ARF, appy, cholecystitis, CVA, Diverticulitis, Homicidal, Suicidal, threat to staff... and all critical care pts) @ -No Disposition Clinical Impression: Scalp hematoma Disposition: HOME SELF-CARE Condition: Stable Instructions (If sedation given, give patient instructions): Head Injury (ED) Additional Instructions: Please return to the Emergency Department if symptoms worsen or any other concerns. Is patient prescribed a controlled substance at d/c from ED?: No Referrals: Kelvin Navas MD [Primary Care Provider] - 1-2 days Time of Disposition: 15:07
--- NOTE | 2022-11-08 15:04 | CT ---
EXAMINATION TYPE: CT brain cspine wo con DATE OF EXAM: 11/08/2022 COMPARISON: 10/21/2021 HISTORY: fall CT DLP: 1540.2 mGycm Automated exposure control for dose reduction was used. TECHNIQUE: CT scan of the head and cervical spine are performed without contrast. FINDINGS: There is no acute intracranial hemorrhage, mass effect, or midline shift identified. Mild to moderate generalized degenerative change. Nonspecific diffuse low-attenuation the white matter si milar to recent exam most typical remote white matter microvascular ischemia. Suspect a small soft ti ssue hematoma along the posterior superior parietal bone axial image 60. Calvarium intact. Intracrani al atherosclerotic changes.. The globes are intact and the visualized sinuses are clear. Assessment spinal canal nondiagnostic due to resolution artifact. There is multilevel degenerative di sc disease most marked at C5-C6 with posterior spondylosis. Multilevel facet arthropathy contribute t o multilevel foraminal encroachment. Suspect canal stenosis at C5-C6. Recommend follow-up MRI. Nonspecific groundglass changes involving the lung apices with emphysematous changes. Less than 5 mm calcified nodule bilateral lung apex suggestive of granuloma. Atherosclerotic change aorta. Dense car otid artery calcification consider follow-up ultrasound to determine degree of stenosis. IMPRESSION: 1. There is no acute fracture or dislocation evident in the cervical spine. Multilevel degenerative d isc disease with severe changes C5-C6. Multilevel foraminal encroachment suspected. Suspect canal melanie nosis C5-C6. Recommend MRI. 2. No acute intracranial hemorrhage, mass effect, or midline shift is seen. Degenerative and nonspeci fic white matter changes most typical remote ischemia. 3. Lung apices demonstrate emphysematous changes. A calcified tiny granuloma within both lung apex.
[2022-11-08 15:28] VITALS: BP 124/78; PULSE 72
== END 2022-11-08 15:27 | disposition home or self-care (01) ==
LOC: EC 14:10
DX: S00.03XA Contusion of scalp, initial encounter (principal); E11.40 Type 2 diabetes mellitus with diabetic neuropathy, unspecified; E11.22 Type 2 diabetes mellitus with diabetic chronic kidney disease; I13.0 Hypertensive heart and chronic kidney disease with heart failure and stage 1 through stage 4 chronic kidney disease, or unspecified chronic kidney disease; N18.30 Chronic kidney disease, stage 3 unspecified; I50.9 Heart failure, unspecified; I25.2 Old myocardial infarction; I25.10 Atherosclerotic heart disease of native coronary artery without angina pectoris; E78.5 Hyperlipidemia, unspecified; K21.9 Gastro-esophageal reflux disease without esophagitis; M19.90 Unspecified osteoarthritis, unspecified site; I48.91 Unspecified atrial fibrillation; Z79.02 Long term (current) use of antithrombotics/antiplatelets; Z79.84 Long term (current) use of oral hypoglycemic drugs; Z79.899 Other long term (current) drug therapy; Z86.73 Personal history of transient ischemic attack (TIA), and cerebral infarction without residual deficits; Z87.891 Personal history of nicotine dependence; Z95.5 Presence of coronary angioplasty implant and graft; W01.0XXA Fall on same level from slipping, tripping and stumbling without subsequent striking against object, initial encounter
CPT/HCPCS: 70450; 72125; 99284

== ENCOUNTER 2023-03-13 15:59 | Emergency (ER) | payer MEDICARE ==
[2023-03-13 16:03] VITALS: TEMP 98.5
[2023-03-13] MEDS ORDERED: ONDANSETRON 4 MG/2 ML VIAL IVP STA (16:07)
[2023-03-13] MEDS ORDERED: KETOROLAC 15 MG/ML 1 ML VIAL IVP STA (16:13)
--- NOTE | 2023-03-13 16:19 | ED ---
General Adult HPI - General Chief complaint: Nausea/Vomiting/Diarrhea Stated complaint: Pain in Left Side Time Seen by Provider: 03/13/23 16:07 Source: patient Mode of arrival: ambulatory Limitations: no limitations - History of Present Illness Initial comments: Patient is an 82-year-old male presenting to the emergency room with complaints of left flank pain worse with movement and after his bowel movement earlier today which was normal in consistency and color without any blood or mucus this morning. He also complains of 3 episodes of nausea and vomiting but denies any nausea at this time. He denies any pain lying in the bed without mov ement. He denies any chest pain, shortness of breath, abdominal pain not related to radiation from flank pain, diarrhea, dysuria, hematuria, urinary frequency, fevers or chills. Patient has a past medical history significant for atrial fibrillation with a watchman not currently on anticoagulation, CAD, CHF, diabetes not monitoring his blood sugars regularly on oral medications only, CkD stage III, GERD, hypertension and hyperlipidemia along with osteoarthritis. - Related Data Home Medications Medication Instructions Recorded Confirmed Atorvastatin [Lipitor] 40 mg PO HS 12/03/20 11/08/22 DULoxetine HCL [Cymbalta] 60 mg PO DAILY 12/03/20 11/08/22 Amiodarone [Cordarone] 100 mg PO DAILY 10/18/21 11/08/22 Clobetasol Propionate [Temovate 1 applic TOPICAL DAILY PRN 10/18/21 11/08/22 0.05% Cream] Dapagliflozin Propanediol [Farxiga] 10 mg PO DAILY 10/18/21 11/08/22 Doxazosin [Cardura] 2 mg PO DAILY 10/18/21 11/08/22 Furosemide [Lasix] 40 mg PO DAILY PRN 10/18/21 11/08/22 Clopidogrel [Plavix] 75 mg PO DAILY 11/08/22 11/08/22 Gabapentin [Neurontin] 800 mg PO TID 11/08/22 11/08/22 HYDROcodone/APAP 10-325MG [Superior 1 tab PO QID 11/08/22 11/08/22 10-325] Midodrine [ProAmatine] 5 mg PO TID 11/08/22 11/08/22 Allergies Allergy/AdvReac Type Severity Reaction Status Date / Time No Known Allergies Allergy Verified 03/13/23 16:03 Review of Systems ROS Statement: Those systems with pertinent positive or pertinent negative responses have been documented in the HPI. ROS Other: All systems not noted in ROS Statement are negative. Past Medical History Past Medical History: Atrial Fibrillation, Coronary Artery Disease (CAD), Heart Failure, CVA/TIA, Diabetes Mellitus, GERD/Reflux, GI Bleed, Hyperlipidemia, Hypertension, Myocardial Infarction (MO), Osteoarthritis (OA), Pneumonia, Renal Disease, Syncope Additional Past Medical History / Comment(s): Past syncopal episodes with past work ups, TIA, recent diagnosis of diabetes, neuropathy bilateral legs, pt has had "low blood counts" and is to see a sewing supervisor, CKD stage III, chronic low back pain/pt was to have permanent spinal stimulator placed today, bilateral lower leg edema, past small intestinal bleed, benign colon polyp, hemorrhoids, aortic stenosis and has had valve replaced. Last Myocardial Infarction Date:: 2007 History of Any Multi-Drug Resistant Organisms: None Reported Past Surgical History: Back Surgery, Heart Catheterization, Heart Catheterization With Stent, Hernia Repair, Orthopedic Surgery Additional Past Surgical History / Comment(s): TAVR, CHRISTIAN/cardioversions, PCI with stents, nasal benign polypectomy, bilateral cataract removal/lens implants, EGD, colonoscopies/benign polypectomy, R inguinal hernia repair, low back surgery with edie/screws, temporary spinal stimulator, bilateral ACL arthroscopic surgery, vasectomy. Past Anesthesia/Blood Transfusion Reactions: No Reported Reaction Additional Past Anesthesia/Blood Transfusion Reaction / Comment(s): Pt had blood transfusion with back surgery without reaction. Date of Last Stent Placement:: 2018 Type of Cardiac Device: Loop Device Placement Date:: 2019 Past Psychological History: No Psychological Hx Reported Smoking Status: Former smoker Past Alcohol Use History: None Reported Past Drug Use History: None Reported - Past Family History Son(s) Family Medical History: Cancer Additional Family Medical History / Comment(s): FROM LUNG CANCER Father Family Medical History: Myocardial Infarction ([place]) Additional Family Medical History / Comment(s): Father in a MVA. Mother Family Medical History: CVA/TIA, Myocardial Infarction ([place]) General Exam Limitations: no limitations General appearance: alert, in no apparent distress Head exam: Present: atraumatic, normocephalic, normal inspection Eye exam: Present: normal appearance, PERRL, EOMI. Absent: scleral icterus, conjunctival injection, periorbital swelling ENT exam: Present: normal exam, mucous membranes moist Neck exam: Present: normal inspection, full ROM Respiratory exam: Present: normal lung sounds bilaterally. Absent: respiratory distress, wheezes, rales, rhonchi, stridor Cardiovascular Exam: Present: regular rate, normal rhythm, normal heart sounds. Absent: systolic murmur, diastolic murmur, rubs, gallop, clicks GI/Abdominal exam: Present: soft, normal bowel sounds. Absent: distended, tenderness, guarding, rebound, rigid, mass (The) Rectal exam: Present: deferred Extremities exam: Present: normal inspection Back exam: Present: normal inspection, full ROM. Absent: CVA tenderness (R), CVA tenderness (L), muscle spasm Neurological exam: Present: alert, oriented X3, CN II-XII intact Psychiatric exam: Present: normal affect, normal mood Skin exam: Present: warm, dry, intact, normal color. Absent: rash Course Vital Signs 03/13/23 03/13/23 16:01 18:41 Temperature 98.5 F Pulse Rate 75 64 Respiratory 22 16 Rate Blood Pressure 146/83 148/81 O2 Sat by Pulse 96 95 Oximetry Medical Decision Making - Medical Decision Making Was pt. sent in by a medical professional or institution (, PA, HEATING AND REFRIGERATION INSPECTOR, urgent care, hospital, or fdc...) When possible be specific @ -No Did you speak to anyone other than the patient for history (EMS, parent, family, police, friend...)? What history was obtained from this source @ -Yes comments spoke with at the bedside for details of presenting illness as documented in HPI. Did you review nursing and triage notes (agree or disagree)? Why? @ -I reviewed and agree with nursing and triage notes except pain is in the left flank region rather than abdomen. Were old charts reviewed (outside hosp., previous admission, EMS record, old EKG, old radiological studies, urgent care reports/EKG's, fdc records)? Report findings @ -No old charts were reviewed Differential Diagnosis (chest pain, altered mental status, abdominal pain women, abdominal pain men, vaginal bleeding, weakness, fever, dyspnea, syncope, headache, dizziness, GI bleed, back pain, seizure, CVA, palpatations, mental health, musculoskeletal)? @ -Differential Abdominal Pain Men: Appendicitis, cholecystitis, diverticulosis, ischemic bowel, pancreatitis, hepatitis, UTI, gastroenteritis, AAA, incarcerated hernia, bowel obstruction, constipation, inflammatory bowel, hepatitis, peptic ulcer disease, splenic infarction, perforated viscus, testicular torsion, this is not meant to be an all-inclusive list EKG interpreted by me (3pts min.). @ -None done X-rays interpreted by me (1pt min.). @ -KUB: CT interpreted by me (1pt min.). @ -None done U/S interpreted by me (1pt. min.). @ -None done What testing was considered but not performed or refused? (CT, X-rays, U/S, labs)? Why? @ -None What meds were considered but not given or refused? Why? @ -Antiemetics offered and declined. Did you discuss the management of the patient with other professionals (professionals i.e. , PA, HEATING AND REFRIGERATION INSPECTOR, lab, RT, psych nurse, social studies department chair, sleeve setter safety stitch, teacher, operations officer trust department, immigration case worker)? Give summary @ -No Was smoking cessation discussed for >3mins.? @ -No Was critical care preformed (if so, how long)? @ -No Were there social determinants of health that impacted care today? How? (Homelessness, low income, unemployed, alcoholism, drug addiction, transportation, low edu. Level, literacy, decrease access to med. care, shelter, rehab)? @ -No Was there de-escalation of care discussed even if they declined (Discuss DNR or withdrawal of care, Hospice)? DNR status @ -No What co-morbidities impacted this encounter? (DM, HTN, Smoking, COPD, CAD, Cancer, CVA, ARF, Chemo, Hep., AIDS, mental health diagnosis, sleep apnea, morbid obesity)? @ -None Was patient admitted / discharged? Hospital course, mention meds given and route, prescriptions, significant lab abnormalities, going to OR and other pertinent info. @ -82-year-old male presenting to the emergency room with complaints of left flank pain hurts more with movement along with nausea and vomiting 3 times today. No diarrhea fevers or chills. Will start workup with CBC, CMP, amylase, lipase and urinalysis along with KUB. Antiemetics offered and declined as no nausea at this time. Will give Toradol for pain and monitor response. CBC demonstrates chronic thrombocytopenia with platelet count of 97 and slight hypochromia some otherwise no abnormality other abnormalities on CBC. CMP demonstrates known renal impairment with creatinine of 1.39 and normal BUN elevated glucose at 114. Electrolytes are normal. Liver enzymes including alkaline phosphatase and bilirubin all normal. Amylase and lipase normal. Urinalysis demonstrates post for glucose otherwise no abnormalities. KUB with moderate stool burden without evidence of obstruction or fecal impaction. No indication for further diagnostic imaging or laboratory studies at this time. Findings discussed with patient and spouse at bedside. Pain persists but is improved after Toradol. Encouraged good hydration and use of stool softener that has previously been prescribed of MiraLAX daily. Avoidance of laxatives advised. Questions and concerns answered. Return parameters the emergency room discussed. Will discharge home in stable condition advising use of stool softener for constipation and [id number] analgesic of Tylenol or Motrin for left flank pain encouraging follow-up with primary care provider. Undiagnosed new problem with uncertain prognosis? @ -No Drug Therapy requiring intensive monitoring for toxicity (Heparin, Nitro, Insulin, Cardizem)? @ -No Were any procedures done? @ -No Diagnosis/symptom? @ -Constipation Acute, or Chronic, or Acute on Chronic? @ -Acute on chronic Uncomplicated (without systemic symptoms) or Complicated (systemic symptoms)? @ -Uncomplicated Side effects of treatment? @ -No Exacerbation, Progression, or Severe Exacerbation? @ -No Poses a threat to life or bodily function? How? (Chest pain, [place], [place], pneumonia, PE, COPD, DKA, ARF, appy, cholecystitis, CVA, Diverticulitis, Homicidal, Suicidal, threat to staff... and all critical care pts) @ -No Diagnosis/symptom? @ -Left flank pain Acute, or Chronic, or Acute on Chronic? @ -Acute Uncomplicated (without systemic symptoms) or Complicated (systemic symptoms)? @ -Uncomplicated Side effects of treatment? @ -none Exacerbation, Progression, or Severe Exacerbation] @ -no Poses a threat to life or bodily function? @ -no Case discussed with Dr. Duran. - Lab Data Result diagrams: 03/13/23 16:14 03/13/23 16:14 Lab Results 03/13/23 03/13/23 03/13/23 Range/Units 16:14 16:14 16:14 WBC 7.1 (3.8-10.6) k/uL RBC 4.38 (4.30-5.90) m/uL Hgb 13.8 (13.0-17.5) gm/dL Hct 42.5 (39.0-53.0) % MCV 97.1 (80.0-100.0) fL MCH 31.5 (25.0-35.0) pg MCHC 32.5 (31.0-37.0) g/dL RDW 14.2 (11.5-15.5) % Plt Count 97 L (150-450) k/uL MPV 10.7 Neutrophils % 75 % Lymphocytes % 14 % Monocytes % 6 % Eosinophils % 3 % Basophils % 0 % Neutrophils # 5.3 (1.3-7.7) k/uL Lymphocytes # 1.0 (1.0-4.8) k/uL Monocytes # 0.5 (0-1.0) k/uL Eosinophils # 0.2 (0-0.7) k/uL Basophils # 0.0 (0-0.2) k/uL Hypochromasia Slight Sodium 137 (137-145) mmol/L Potassium 4.8 (3.5-5.1) mmol/L Chloride 105 (98-107) mmol/L Carbon Dioxide 24 (22-30) mmol/L Anion Gap 8 mmol/L BUN 20 (9-20) mg/dL Creatinine 1.39 H (0.66-1.25) mg/dL Est GFR (CKD-EPI)AfAm 54 (>60 ml/min/1.73 sqM) Est GFR (CKD-EPI)NonAf 47 (>60 ml/min/1.73 sqM) Glucose 114 H (74-99) mg/dL Calcium 8.6 (8.4-10.2) mg/dL Total Bilirubin 0.8 (0.2-1.3) mg/dL AST 23 (17-59) U/L ALT 16 (4-49) U/L Alkaline Phosphatase 85 (38-126) U/L Total Protein 6.1 L (6.3-8.2) g/dL Albumin 3.4 L (3.5-5.0) g/dL Amylase 48 (30-110) U/L Lipase 37 (23-300) U/L Urine Color Yellow Urine Appearance Clear (Clear) Urine pH 5.5 (5.0-8.0) Ur Specific Chancellor 1.022 (1.001-1.035) Urine Protein Negative (Negative) Urine Glucose (UA) 4+ H (Negative) Urine Ketones Negative (Negative) Urine Blood Negative (Negative) Urine Nitrite Negative (Negative) Urine Bilirubin Negative (Negative) Urine Urobilinogen <2.0 (<2.0) mg/dL Ur Leukocyte Esterase Negative (Negative) Disposition Clinical Impression: Constipation, Left flank pain Disposition: HOME SELF-CARE Condition: Stable Instructions (If sedation given, give patient instructions): Constipation (ED) Additional Instructions: Stay well hydrated. Utilize MiraLAX daily. May utilize Tylenol or Motrin [id number] as needed for pain. Please return to the Emergency Department if symptoms worsen or any other concerns. Is patient prescribed a controlled substance at d/c from ED?: No Referrals: Kelvin Navas MD [Primary Care Provider] - 1-2 days Time of Disposition: 18:00
[2023-03-13 16:31] LABS: Basophils % (A) 0 %; Eosinophils # (A) 0.2 k/uL (0-0.7); Eosinophils % (A) 3 %; HCT 42.5 % (39.0-53.0); HGB 13.8 gm/dL (13.0-17.5); Hypochromasia Slight; Lymphocytes % (A) 14 %; MCH 31.5 pg (25.0-35.0); MCHC 32.5 g/dL (31.0-37.0); MCV 97.1 fL (80.0-100.0); Mean Platelet Volume 10.7; Monocytes # (A) 0.5 k/uL (0-1.0); Monocytes % (A) 6 %; Neutrophils # (A) 5.3 k/uL (1.3-7.7); Neutrophils % (A) 75 %; RBC 4.38 m/uL (4.30-5.90); RDW 14.2 % (11.5-15.5); WBC 7.1 k/uL (3.8-10.6)
[2023-03-13 16:36] LABS: Platelet Count 97 k/uL (150-450)
[2023-03-13 16:54] LABS: ALT 16 U/L (4-49); AST 23 U/L (17-59); African American GFR (CKD) 54 (>60 ml/min/1.73 sqM); Albumin 3.4 g/dL (3.5-5.0); Alkaline Phosphatase 85 U/L (38-126); Amylase 48 U/L (30-110); Anion Gap 8 mmol/L; Blood Urea Nitrogen 20 mg/dL (9-20); Calcium 8.6 mg/dL (8.4-10.2); Carbon Dioxide 24 mmol/L (22-30); Chloride 105 mmol/L (98-107); Glucose 114 mg/dL (74-99); Lipase 37 U/L (23-300); Non-African American GFR(CKD) 47 (>60 ml/min/1.73 sqM); Potassium 4.8 mmol/L (3.5-5.1); Sodium 137 mmol/L (137-145); Total Bilirubin 0.8 mg/dL (0.2-1.3); Total Protein 6.1 g/dL (6.3-8.2)
--- NOTE | 2023-03-13 17:33 | XR ---
EXAMINATION TYPE: XR KUB DATE OF EXAM: 03/13/2023 4:46 PM INDICATION: Patient age:Male; 82 years old; Reason for study: LEFT FLANK PAIN; PHH. COMPARISON: None. TECHNIQUE: One radiographic view of the abdomen was obtained. FINDINGS: The bowel gas pattern is nonspecific without dilated loops of small or large bowel. There i s no evidence for organomegaly or pneumoperitoneum. Posterior lumbar fusion hardware which appears i ntact. Degenerative changes of the visualized thoracic spine and bilateral hip joints. Spinal cord st imulator with battery pack projecting over the left lower abdomen. No abnormal calcifications are pr esent. Moderate colonic stool burden with stool seen in the distal rectum. No evidence to suggest obs truction. Loop recorder projects over the lower chest wall. IMPRESSION: Moderate colonic stool burden. Nonspecific bowel gas pattern without evidence to suggest obstruction.
[2023-03-13 17:42] LABS: Appearance,Urine Clear (Clear); Bilirubin,Urine Negative (Negative); Blood,Urine Negative (Negative); Color,Urine Yellow; Glucose,Urine (UA) 4+ (Negative); Ketones,Urine Negative (Negative); Leukocyte Esterase,Urine Negative (Negative); Nitrite,Urine Negative (Negative); PH, Urine 5.5 (5.0-8.0); Protein,Urine Negative (Negative); Specific Gravity,Urine 1.022 (1.001-1.035); Urobilinogen,Urine <2.0 mg/dL (<2.0)
[2023-03-13 18:47] VITALS: BP 148/81; PULSE 64; RESP 16
== END 2023-03-13 18:49 | disposition home or self-care (01) ==
LOC: EC 15:59
DX: K59.00 Constipation, unspecified (principal); E11.22 Type 2 diabetes mellitus with diabetic chronic kidney disease; I13.0 Hypertensive heart and chronic kidney disease with heart failure and stage 1 through stage 4 chronic kidney disease, or unspecified chronic kidney disease; N18.30 Chronic kidney disease, stage 3 unspecified; I48.91 Unspecified atrial fibrillation; I25.10 Atherosclerotic heart disease of native coronary artery without angina pectoris; I50.9 Heart failure, unspecified; I25.2 Old myocardial infarction; M19.90 Unspecified osteoarthritis, unspecified site; E78.5 Hyperlipidemia, unspecified; Z86.73 Personal history of transient ischemic attack (TIA), and cerebral infarction without residual deficits; Z79.02 Long term (current) use of antithrombotics/antiplatelets; Z79.1 Long term (current) use of non-steroidal anti-inflammatories (NSAID); Z79.84 Long term (current) use of oral hypoglycemic drugs; Z79.899 Other long term (current) drug therapy; Z87.891 Personal history of nicotine dependence
CPT/HCPCS: 36415; 80053; 82150; 83690; 85025; 81003; 74018; 99284; 96374; J1885

== ENCOUNTER 2023-03-31 15:52 | Emergency (ER) | payer MEDICARE ==
[2023-03-31 16:23] VITALS: TEMP 97.9
[2023-03-31] MEDS ORDERED: KETOROLAC 15 MG/ML 1 ML VIAL IM STA (16:27)
[2023-03-31] MEDS ORDERED: SODIUM CHLORIDE 0.9% 1,000 ML IV STA (16:58)
[2023-03-31] MEDS ORDERED: MORPHINE SULFATE 4 MG/ML SYRINGE IVP STA (16:59)
--- NOTE | 2023-03-31 17:02 | ED ---
Abdominal Pain HPI - General Chief Complaint: Abdominal Pain Stated Complaint: DEHYDRATED SENT BY PCP Time Seen by Provider: 03/31/23 16:16 Source: patient Mode of arrival: ambulatory Limitations: no limitations - History of Present Illness Initial Comments: 82-year-old male with a past medical history significant for A. fib with watchman device, COPD, hyperlipidemia presents to ED with a chief complaint of abdominal pain. Patient previously seen here on 03/13/23 with complaints of left and lower abdominal pain especially worse with bowel movements with intermittent nausea and vomiting. Workup at that time including KUB largely unremarkable. Patient states since discharge has had these continuous symptoms of left flank pain and suprapubic pain especially with bowel movements. However, states pain can sometimes affect him randomly. States pain is dull/achy in nature and typically lasts about 20 minutes. Associated intermittent nausea and vomiting. States that since 03/13/23 has had 5 episodes of vomiting. Last bowel movement was today. Denies urinary symptoms. Denies fever. No chest pain or shortness of breath. No other complaints. - Related Data Home Medications Medication Instructions Recorded Confirmed Atorvastatin [Lipitor] 40 mg PO HS 12/03/20 11/08/22 DULoxetine HCL [Cymbalta] 60 mg PO DAILY 12/03/20 11/08/22 Amiodarone [Cordarone] 100 mg PO DAILY 10/18/21 11/08/22 Clobetasol Propionate [Temovate 1 applic TOPICAL DAILY PRN 10/18/21 11/08/22 0.05% Cream] Dapagliflozin Propanediol [Farxiga] 10 mg PO DAILY 10/18/21 11/08/22 Doxazosin [Cardura] 2 mg PO DAILY 10/18/21 11/08/22 Furosemide [Lasix] 40 mg PO DAILY PRN 10/18/21 11/08/22 Clopidogrel [Plavix] 75 mg PO DAILY 11/08/22 11/08/22 Gabapentin [Neurontin] 800 mg PO TID 11/08/22 11/08/22 HYDROcodone/APAP 10-325MG [[place] 1 tab PO QID 11/08/22 11/08/22 10-325] Midodrine [ProAmatine] 5 mg PO TID 11/08/22 11/08/22 Allergies Allergy/AdvReac Type Severity Reaction Status Date / Time No Known Allergies Allergy Verified 03/31/23 16:09 Review of Systems ROS Statement: Those systems with pertinent positive or pertinent negative responses have been documented in the HPI. ROS Other: All systems not noted in ROS Statement are negative. Past Medical History Past Medical History: Atrial Fibrillation, Coronary Artery Disease (CAD), Heart Failure, CVA/TIA, Diabetes Mellitus, GERD/Reflux, GI Bleed, Hyperlipidemia, Hypertension, Myocardial Infarction ([place]), Osteoarthritis (OA), Pneumonia, Renal Disease, Syncope Additional Past Medical History / Comment(s): Past syncopal episodes with past work ups, TIA, recent diagnosis of diabetes, neuropathy bilateral legs, pt has had "low blood counts" and is to see a welt wheeler, CKD stage III, chronic low back pain/pt was to have permanent spinal stimulator placed today, bilateral lower leg edema, past small intestinal bleed, benign colon polyp, hemorrhoids, aortic stenosis and has had valve replaced. Last Myocardial Infarction Date:: 2007 History of Any Multi-Drug Resistant Organisms: None Reported Past Surgical History: Back Surgery, Heart Catheterization, Heart Catheterization With Stent, Hernia Repair, Orthopedic Surgery Additional Past Surgical History / Comment(s): TAVR, CHRISTIAN/cardioversions, PCI with stents, nasal benign polypectomy, bilateral cataract removal/lens implants, EGD, colonoscopies/benign polypectomy, R inguinal hernia repair, low back surgery with edie/screws, temporary spinal stimulator, bilateral ACL arthroscopic surgery, vasectomy. Past Anesthesia/Blood Transfusion Reactions: No Reported Reaction Additional Past Anesthesia/Blood Transfusion Reaction / Comment(s): Pt had blood transfusion with back surgery without reaction. Date of Last Stent Placement:: 2018 Type of Cardiac Device: Loop Device Placement Date:: 2019 Past Psychological History: No Psychological Hx Reported Smoking Status: Former smoker Past Alcohol Use History: None Reported Past Drug Use History: None Reported - Past Family History Son(s) Family Medical History: Cancer Additional Family Medical History / Comment(s): FROM LUNG CANCER Father Family Medical History: Myocardial Infarction ([place]) Additional Family Medical History / Comment(s): Father in a MVA. Mother Family Medical History: CVA/TIA, Myocardial Infarction ([place]) General Exam Limitations: no limitations General appearance: alert, in no apparent distress ENT exam: Present: mucous membranes moist Neck exam: Present: normal inspection Respiratory exam: Present: normal lung sounds bilaterally Cardiovascular Exam: Present: regular rate, normal rhythm GI/Abdominal exam: Present: soft (Suprapubic and left CVA tenderness to pal pation. No rebound guarding or rigidity.), normal bowel sounds Neurological exam: Present: alert, oriented X3 Skin exam: Present: warm, dry Course Vital Signs 03/31/23 03/31/23 03/31/23 16:07 16:09 18:45 Temperature 98.3 F 97.9 F Pulse Rate 91 97 73 Respiratory 20 18 18 Rate Blood Pressure 161/87 180/103 142/100 O2 Sat by Pulse 95 94 L 94 L Oximetry 03/31/23 19:00 Temperature Pulse Rate 90 Respiratory 19 Rate Blood Pressure 154/86 O2 Sat by Pulse 97 Oximetry Medical Decision Making - Medical Decision Making Was pt. sent in by a medical professional or institution ([facility], TILTING SAW OPERATOR, urgent care, hospital, or group home...) When possible be specific @ -No Did you speak to anyone other than the patient for history (EMS, parent, family, police, friend...)? What history was obtained from this source @ -No Did you review nursing and triage notes (agree or disagree)? Why? @ -I reviewed and agree with nursing and triage notes Were old charts reviewed (outside hosp., previous admission, EMS record, old EKG, old radiological studies, urgent care reports/EKG's, group home records)? Report findings @ -Prior visit reviewed on 03/13/23. For further details please see HPI. Differential Diagnosis (chest pain, altered mental status, abdominal pain women, abdominal pain men, vaginal bleeding, weakness, fever, dyspnea, syncope, headache, dizziness, GI bleed, back pain, seizure, CVA, palpatations, mental health, musculoskeletal)? @ -Differential Abdominal Pain Men: Appendicitis, cholecystitis, diverticulosis, ischemic bowel, pancreatitis, hepatitis, UTI, gastroenteritis, AAA, incarcerated hernia, bowel obstruction, constipation, inflammatory bowel, hepatitis, peptic ulcer disease, splenic infarction, perforated viscus, testicular torsion, this is not meant to be an all-inclusive list EKG interpreted by me (3pts min.). @ -As above X-rays interpreted by me (1pt min.). @ -None done CT interpreted by me (1pt min.). @ -CT abdomen and pelvis shows no acute findings. U/S interpreted by me (1pt. min.). @ -None done What testing was considered but not performed or refused? (CT, X-rays, U/S, labs)? Why? @ -None What meds were considered but not given or refused? Why? @ -None Did you discuss the management of the patient with other professionals (professionals i.e. , PA, TILTING SAW OPERATOR, lab, RT, psych nurse, social service liaison, trucking contractor, teacher, gift officer, case management coordinator)? Give summary @ -No Was smoking cessation discussed for >3mins.? @ -No Was critical care preformed (if so, how long)? @ -No Were there social determinants of health that impacted care today? How? (Homelessness, low income, unemployed, alcoholism, drug addiction, transportation, low edu. Level, literacy, decrease access to med. care, senior care, rehab)? @ -No Was there de-escalation of care discussed even if they declined (Discuss DNR or withdrawal of care, Hospice)? DNR status @ -No What co-morbidities impacted this encounter? (DM, HTN, Smoking, COPD, CAD, Cancer, CVA, ARF, Chemo, Hep., AIDS, mental health diagnosis, sleep apnea, morbid obesity)? @ -None Was patient admitted / discharged? Hospital course, mention meds given and route, prescriptions, significant lab abnormalities, going to OR and other pertinent info. @ -Discharge. Laboratory studies here unremarkable. CT abdomen and pelvis shows no acute findings. At this time, patient has good pain control. Patient discharged home in stable condition with instructions to follow up with PCP/GI. Provided referral to Dr. Jurado. Rest return precautions with patient and who verbalizes agreement. Undiagnosed new problem with uncertain prognosis? @ -No Drug Therapy requiring intensive monitoring for toxicity (Heparin, Nitro, In sulin, Cardizem)? @ -No Were any procedures done? @ -No Diagnosis/symptom? @ -Abdominal pain Acute, or Chronic, or Acute on Chronic? @ -Acute on chronic Uncomplicated (without systemic symptoms) or Complicated (systemic symptoms)? @ -Uncomplicated Side effects of treatment? @ -No Exacerbation, Progression, or Severe Exacerbation? @ -No Poses a threat to life or bodily function? How? (Chest pain, [place], [place], pneumonia, PE, COPD, DKA, ARF, appy, cholecystitis, CVA, Diverticulitis, Homicidal, Suicidal, threat to staff... and all critical care pts) @ -No - Lab Data Result diagrams: 03/31/23 17:10 03/31/23 17:10 Lab Results 03/31/23 03/31/23 03/31/23 Range/Units 17:10 17:10 17:10 WBC 8.5 (3.8-10.6) k/uL RBC 4.51 (4.30-5.90) m/uL Hgb 13.8 (13.0-17.5) gm/dL Hct 43.5 (39.0-53.0) % MCV 96.5 (80.0-100.0) fL MCH 30.7 (25.0-35.0) pg MCHC 31.8 (31.0-37.0) g/dL RDW 14.3 (11.5-15.5) % Plt Count 107 L (150-450) k/uL MPV 10.6 Neutrophils % 74 % Lymphocytes % 13 % Monocytes % 7 % Eosinophils % 5 % Basophils % 0 % Neutrophils # 6.3 (1.3-7.7) k/uL Lymphocytes # 1.1 (1.0-4.8) k/uL Monocytes # 0.6 (0-1.0) k/uL Eosinophils # 0.4 (0-0.7) k/uL Basophils # 0.0 (0-0.2) k/uL Hypochromasia Moderate Sodium 140 (137-145) mmol/L Potassium 3.9 (3.5-5.1) mmol/L Chloride 107 (98-107) mmol/L Carbon Dioxide 27 (22-30) mmol/L Anion Gap 6 mmol/L BUN 17 (9-20) mg/dL Creatinine 1.10 (0.66-1.25) mg/dL Est GFR (CKD-EPI)AfAm 72 (>60 ml/min/1.73 sqM) Est GFR (CKD-EPI)NonAf 62 (>60 ml/min/1.73 sqM) Glucose 139 H (74-99) mg/dL Calcium 8.9 (8.4-10.2) mg/dL Total Bilirubin 0.9 (0.2-1.3) mg/dL AST 22 (17-59) U/L ALT 14 (4-49) U/L Alkaline Phosphatase 91 (38-126) U/L Troponin I <0.012 (0.000-0.034) ng/mL Total Protein 6.3 (6.3-8.2) g/dL Albumin 3.5 (3.5-5.0) g/dL Amylase 46 (30-110) U/L Lipase 40 (23-300) U/L Urine Color Urine Appearance (Clear) Urine pH (5.0-8.0) Ur Specific [place] (1.001-1.035) Urine Protein (Negative) Urine Glucose (UA) (Negative) Urine Ketones (Negative) Urine Blood (Negative) Urine Nitrite (Negative) Urine Bilirubin (Negative) Urine Urobilinogen (<2.0) mg/dL Ur Leukocyte Esterase (Negative) 03/31/23 Range/Units 17:10 WBC (3.8-10.6) k/uL RBC (4.30-5.90) m/uL Hgb (13.0-17.5) gm/dL Hct (39.0-53.0) % MCV (80.0-100.0) fL MCH (25.0-35.0) pg MCHC (31.0-37.0) g/dL RDW (11.5-15.5) % Plt Count (150-450) k/uL MPV Neutrophils % % Lymphocytes % % Monocytes % % Eosinophils % % Basophils % % Neutrophils # (1.3-7.7) k/uL Lymphocytes # (1.0-4.8) k/uL Monocytes # (0-1.0) k/uL Eosinophils # (0-0.7) k/uL Basophils # (0-0.2) k/uL Hypochromasia Sodium (137-145) mmol/L Potassium (3.5-5.1) mmol/L Chloride (98-107) mmol/L Carbon Dioxide (22-30) mmol/L Anion Gap mmol/L BUN (9-20) mg/dL Creatinine (0.66-1.25) mg/dL Est GFR (CKD-EPI)AfAm (>60 ml/min/1.73 sqM) Est GFR (CKD-EPI)NonAf (>60 ml/min/1.73 sqM) Glucose (74-99) mg/dL Calcium (8.4-10.2) mg/dL Total Bilirubin (0.2-1.3) mg/dL AST (17-59) U/L ALT (4-49) U/L Alkaline Phosphatase (38-126) U/L Troponin I (0.000-0.034) ng/mL Total Protein (6.3-8.2) g/dL Albumin (3.5-5.0) g/dL Amylase (30-110) U/L Lipase (23-300) U/L Urine Color Light Yellow Urine Appearance Clear (Clear) Urine pH 5.0 (5.0-8.0) Ur Specific [place] 1.018 (1.001-1.035) Urine Protein Negative (Negative) Urine Glucose (UA) 4+ H (Negative) Urine Ketones Negative (Negative) Urine Blood Negative (Negative) Urine Nitrite Negative (Negative) Urine Bilirubin Negative (Negative) Urine Urobilinogen <2.0 (<2.0) mg/dL Ur Leukocyte Esterase Negative (Negative) - EKG Data EKG Comments: EKG shows A. fib at 95 beats for minute. QRS 162, QT/QTc 406/459. Largely unchanged from prior. Disposition Clinical Impression: Abdominal pain Disposition: HOME SELF-CARE Condition: Good Instructions (If sedation given, give patient instructions): Abdominal Pain (ED) Additional Instructions: Please return to the Emergency Department if symptoms worsen or any other kelsey rns. Is patient prescribed a controlled substance at d/c from ED?: No Referrals: Nancy Alvarado MD [Primary Care Provider] - 1-2 days Time of Disposition: 19:19
[2023-03-31 17:33] LABS: Basophils % (A) 0 %; Eosinophils # (A) 0.4 k/uL (0-0.7); Eosinophils % (A) 5 %; HCT 43.5 % (39.0-53.0); HGB 13.8 gm/dL (13.0-17.5); Hypochromasia Moderate; Lymphocytes # (A) 1.1 k/uL (1.0-4.8); Lymphocytes % (A) 13 %; MCH 30.7 pg (25.0-35.0); MCHC 31.8 g/dL (31.0-37.0); MCV 96.5 fL (80.0-100.0); Mean Platelet Volume 10.6; Monocytes # (A) 0.6 k/uL (0-1.0); Monocytes % (A) 7 %; Neutrophils # (A) 6.3 k/uL (1.3-7.7); Neutrophils % (A) 74 %; Platelet Count 107 k/uL (150-450); RBC 4.51 m/uL (4.30-5.90); RDW 14.3 % (11.5-15.5); WBC 8.5 k/uL (3.8-10.6)
[2023-03-31 17:41] LABS: Appearance,Urine Clear (Clear); Bilirubin,Urine Negative (Negative); Blood,Urine Negative (Negative); Color,Urine Light Yellow; Glucose,Urine (UA) 4+ (Negative); Ketones,Urine Negative (Negative); Leukocyte Esterase,Urine Negative (Negative); Nitrite,Urine Negative (Negative); Protein,Urine Negative (Negative); Specific Gravity,Urine 1.018 (1.001-1.035); Urobilinogen,Urine <2.0 mg/dL (<2.0)
[2023-03-31 17:43] LABS: ALT 14 U/L (4-49); AST 22 U/L (17-59); African American GFR (CKD) 72 (>60 ml/min/1.73 sqM); Albumin 3.5 g/dL (3.5-5.0); Alkaline Phosphatase 91 U/L (38-126); Amylase 46 U/L (30-110); Anion Gap 6 mmol/L; Blood Urea Nitrogen 17 mg/dL (9-20); Calcium 8.9 mg/dL (8.4-10.2); Carbon Dioxide 27 mmol/L (22-30); Chloride 107 mmol/L (98-107); Glucose 139 mg/dL (74-99); Lipase 40 U/L (23-300); Non-African American GFR(CKD) 62 (>60 ml/min/1.73 sqM); Potassium 3.9 mmol/L (3.5-5.1); Sodium 140 mmol/L (137-145); Total Bilirubin 0.9 mg/dL (0.2-1.3); Total Protein 6.3 g/dL (6.3-8.2)
[2023-03-31] MEDS ORDERED: HYDROmorphone 1 MG/ML 1 ML SYRINGE IVP STA (18:10)
[2023-03-31] MEDS ORDERED: KETOROLAC 15 MG/ML 1 ML VIAL IVP STA (18:10)
--- NOTE | 2023-03-31 18:58 | CT ---
EXAMINATION TYPE: CT abdomen pelvis wo con DATE OF EXAM: 03/31/2023 COMPARISON: None HISTORY: 82-year-old male suprapubic/Left flank pain CT DLP: 1261.4 mGycm. Automated exposure control for dose reduction was used. TECHNIQUE: Contiguous axial scanning of the abdomen and pelvis without IV contrast. Coronal and sagit saqib reconstructions performed. FINDINGS: Heart mildly enlarged. Coronary artery calcifications. No pericardial effusion. Patchy groundglass ch anges in the lower lungs. No pleural effusion. Tiny hiatal hernia. Gallbladder, adrenal glands, left kidney within normal limits. There is a 4.4 cm cyst at the lower pole right kidney. No nephrolithiasis or hydronephrosis on either side. Spleen is mildly enlarged at 14.2 cm. Pancreas is mildly atrophic but with nodularity at the tail of the pancreas measuring 1.3 cm. Moderate atherosclerotic calcifications abdominal aorta and iliac arteries. Separate origins of the s plenic artery and common hepatic artery from the aorta. Moderate episodic narrowing at the origin of the SMA. No dilated small bowel, free fluid, or free air. Moderate stool burden. No pericolic inflammatory change. Bladder is urine distended. No abnormal fluid collection in the pelvis or pelvic lymphadenopathy. Bones: Mild to moderate degenerative change of the hips and SI joints. Postsurgical change L2-S1 post erior lumbar fusion with corresponding laminectomies. Spinal stimulator is present left posteriorly w ith leads entering across the T12-L1 interlaminar space. IMPRESSION: 1. Patchy groundglass changes in the lower lungs are nonspecific and of uncertain chronicity. Correla te to exclude interstitial pneumonitis or atypical pneumonias. 2. No nephrolithiasis or hydronephrosis. 3. Mild splenomegaly at 14.2 cm.
[2023-03-31 19:04] VITALS: RESP 19
[2023-03-31 19:51] VITALS: BP 144/106; PULSE 91
== END 2023-03-31 19:51 | disposition home or self-care (01) ==
LOC: EC 15:52
DX: R10.32 Left lower quadrant pain (principal); I13.0 Hypertensive heart and chronic kidney disease with heart failure and stage 1 through stage 4 chronic kidney disease, or unspecified chronic kidney disease; E11.22 Type 2 diabetes mellitus with diabetic chronic kidney disease; I50.9 Heart failure, unspecified; N18.30 Chronic kidney disease, stage 3 unspecified; M19.90 Unspecified osteoarthritis, unspecified site; K21.9 Gastro-esophageal reflux disease without esophagitis; J44.9 Chronic obstructive pulmonary disease, unspecified; I48.91 Unspecified atrial fibrillation; I25.2 Old myocardial infarction; I25.10 Atherosclerotic heart disease of native coronary artery without angina pectoris; E78.5 Hyperlipidemia, unspecified; Z86.73 Personal history of transient ischemic attack (TIA), and cerebral infarction without residual deficits; Z87.891 Personal history of nicotine dependence; Z79.899 Other long term (current) drug therapy; Z79.84 Long term (current) use of oral hypoglycemic drugs; Z79.02 Long term (current) use of antithrombotics/antiplatelets
CPT/HCPCS: 36415; 93005; 80053; 82150; 83690; 84484; 85025; 81003; 74176; 99285; 96374; 96375 ×2; 96361; J2270; J1170; J1885

== ENCOUNTER 2023-05-19 18:17 | Observation (INO) | payer MEDICARE ==
--- NOTE | 2023-05-19 19:05 | ED ---
Chest Pain HPI - General Source: patient Mode of arrival: wheelchair Limitations: no limitations <Mally Lveine - Last Filed: 05/19/23 19:04> <Kiran Salazar - Last Filed: 05/19/23 22:13> - General Chief Complaint: Chest Pain Stated Complaint: chest pain since last night Time Seen by Provider: 05/19/23 19:04 - History of Present Illness Initial Comments: Patient 82-year-old male who presents to emergency department for chest pain. (Mally Levine) Dictation was produced using [employer] dictation software. please excuse any grammatical, word or spelling errors. Chief Complaint: 82-year-old male multiple cardiac disease presents to the ER for chest pain History of Present Illness: Patient is an 82-year-old male has past medical history myocardial infarction, coronary artery disease, valve replacement and pacemaker. Yesterday at about of chest pressure. States it was mild. He took a nitroglycerin with improvement of his symptoms. Patient states that he is asymptomatic currently. Denies any radiation of symptoms. No associated nausea or diaphoresis. The ROS documented in this emergency department record has been reviewed and confirmed by me. Those systems with pertinent positive or negative responses have been documented in the HPI. All other systems are other negative and/or noncontributory. (Kiran Salazar) - Related Data Home Medications Medication Instructions Recorded Confirmed Atorvastatin [Lipitor] 40 mg PO HS 12/03/20 04/30/23 DULoxetine HCL [Cymbalta] 60 mg PO DAILY 12/03/20 04/30/23 Amiodarone [Cordarone] 100 mg PO DAILY 10/18/21 04/30/23 Furosemide [Lasix] 40 mg PO DAILY PRN 10/18/21 04/30/23 Gabapentin [Neurontin] 800 mg PO DIRECTED 11/08/22 04/30/23 HYDROcodone/APAP 10-325MG [Brackney 1 tab PO QID 11/08/22 04/30/23 10-325] Midodrine [ProAmatine] 5 mg PO TID 11/08/22 04/30/23 Celecoxib [CeleBREX] 200 mg PO BID PRN 04/30/23 04/30/23 Cholecalciferol [Vitamin D3 (25 25 mcg PO DAILY 04/30/23 04/30/23 Mcg = 1000 Iu)] Triamcinolone 0.1% Cream [Kenalog 1 applicatio TOPICAL BID PRN 04/30/23 04/30/23 0.1% Cream] Vitamin B Complex 1 cap PO DAILY 04/30/23 04/30/23 Vitamin E (Dl,Tocopheryl Acet) 400 unit PO DAILY 04/30/23 04/30/23 [Vitamin E (400 Iu = 180 mg)] Allergies Allergy/AdvReac Type Severity Reaction Status Date / Time No Known Allergies Allergy Verified 05/19/23 18:24 Review of Systems ROS Other: All systems not noted in ROS Statement are negative. <Mally Levine - Last Filed: 05/19/23 19:04> ROS Other: All systems not noted in ROS Statement are negative. <Kiran Salazar - Last Filed: 05/19/23 22:13> ROS Statement: Those systems with pertinent positive or pertinent negative responses have been documented in the HPI. Past Medical History Past Medical History: Atrial Fibrillation, Coronary Artery Disease (CAD), Heart Failure, CVA/TIA, Diabetes Mellitus, GERD/Reflux, GI Bleed, Hyperlipidemia, Hypertension, Myocardial Infarction (PR), Osteoarthritis (OA), Pneumonia, Renal Disease, Syncope Additional Past Medical History / Comment(s): Past syncopal episodes with past work ups, TIA, recent diagnosis of diabetes, neuropathy bilateral legs, pt has had "low blood counts" and is to see a commercial banker, CKD stage III, chronic low back pain/pt was to have permanent spinal stimulator placed today, bilateral lower leg edema, past small intestinal bleed, benign colon polyp, hemorrhoids, aortic stenosis and has had valve replaced. Last Myocardial Infarction Date:: 2007 History of Any Multi-Drug Resistant Organisms: None Reported Past Surgical History: Back Surgery, Heart Catheterization, Heart Catheterization With Stent, Hernia Repair, Orthopedic Surgery Additional Past Surgical History / Comment(s): TAVR, CHRISTIAN/cardioversions, PCI with stents, nasal benign polypectomy, bilateral cataract removal/lens implants, EGD, colonoscopies/benign polypectomy, R inguinal hernia repair, low back surgery with edie/screws, temporary spinal stimulator, bilateral ACL arthroscopic surgery, vasectomy. Past Anesthesia/Blood Transfusion Reactions: No Reported Reaction Additional Past Anesthesia/Blood Transfusion Reaction / Comment(s): Pt had blood transfusion with back surgery without reaction. Date of Last Stent Placement:: 2018 Type of Cardiac Device: Loop Device Placement Date:: 2019 Past Psychological History: No Psychological Hx Reported Smoking Status: Former smoker Past Alcohol Use History: None Reported Past Drug Use History: None Reported - Past Family History Son(s) Family Medical History: Cancer Additional Family Medical History / Comment(s): FROM LUNG CANCER Father Family Medical History: Myocardial Infarction (PR) Additional Family Medical History / Comment(s): Father in a MVA. Mother Family Medical History: CVA/TIA, Myocardial Infarction (PR) <Mally Levine - Last Filed: 05/19/23 19:04> General Exam Limitations: no limitations <Mally Levine - Last Filed: 05/19/23 19:04> <Kiran Salazar - Last Filed: 05/19/23 22:13> - General Exam Comments Initial Comments: Visual Physical Exam Vital signs reviewed General: Well-appearing, nontoxic, no acute distress. Head: Normocephalic, atraumatic Eyes: PERRLA, EOMI ENT: Airway patent Chest: Nonlabored breathing Skin: No visual rash, normal skin tone Neuro: Alert and oriented 3 Musculoskeletal: No gross abnormalities (Mally Levine) PHYSICAL EXAM: General Impression: Alert and oriented x3, not in acute distress HEENT: Normocephalic atraumatic, extra-ocular movements intact, pupils equal and reactive to light bilaterally, mucous membranes moist. Cardiovascular: Heart regular rate and rhythm Chest: Able to complete full sentences, no retractions, no tachypnea Abdomen: abdomen soft, non-tender, non-distended, no organomegaly Musculoskeletal: Pulses present and equal in all extremities, no peripheral edema Motor: no focal deficits noted Neurological: CN II-XII grossly intact, no focal motor or sensory deficits noted Skin: Intact with no visualized rashes Psych: Normal affect and mood (Kiran Salazar) Course <Kiran Salazar - Last Filed: 05/19/23 22:13> Vital Signs 05/19/23 18:20 Temperature 98.0 F Pulse Rate 86 Respiratory 18 Rate Blood Pressure 151/80 O2 Sat by Pulse 92 L Oximetry - Reevaluation(s) Reevaluation #1: 05/19/23 22:09 My EKG interpretation: Ventricular rate 91, QRS 139, QTc 436 right bundle branch block artifacts limit P wave identification. Possible atrial paced rhythm No IL prolongation, no QTC prolongation, no ST or T-wave changes noted. Overall, this EKG is nonspecific (Kiran Salazar) Chest Pain MDM <Mally Leivne - Last Filed: 05/19/23 19:04> <Kiran Salazar - Last Filed: 05/19/23 22:13> - MDM I performed the QuickNote portion of this chart - Mally Levine PA-C (Mally Levine) Was pt. sent in by a medical professional or institution ([facility], [facility] [facility], urgent care, hospital, or [place] health care facility...) When possible be specific @ -No Did you speak to anyone other than the patient for history (EMS, parent, family, police, friend...)? What history was obtained from this source @ -No Did you review nursing and triage notes (agree or disagree)? Why? @ -I reviewed and agree with nursing and triage notes Were old charts reviewed (outside hosp., previous admission, EMS record, old EKG, old radiological studies, urgent care reports/EKG's, [place] health care facility records)? Report findings @ -No old charts were reviewed Differential Diagnosis (chest pain, altered mental status, abdominal pain women, abdominal pain men, vaginal bleeding, musculoskeletal, weakness, fever, dyspnea, syncope, headache, dizziness, GI bleed, back pain, seizure, CVA, palpatations, mental health)? @ -Differential Chest Pain: Stable Angina, Unstable Angina, STEMI, NSTEMI Aortic Dissection, Pneumothorax, Musculoskeletal, Esophageal Spasm GERD, Cholecystitis, Pancreatitis, Zoster, this is not meant to be an all-inclusive list. EKG interpreted by me (3pts min.). @ -See above X-rays interpreted by me (1pt min.). @ -Pulmonary vascular congestion on chest x-ray CT interpreted by me (1pt min.). @ -None done U/S interpreted by me (1pt. min.). @ -None done What testing was considered but not performed or refused? (CT, X-rays, U/S, labs)? Why? @ -None What meds were considered but not given or refused? Why? @ -None Did you discuss the management of the patient with other professionals (professionals i.e. , PA, [employer], lab, RT, psych nurse, sexual assault social worker, fly raiser lockstitch, teacher, structural engineering drafting officer, case worker)? Give summary @ -Case discussed with hospitalist for admission Was smoking cessation discussed for >3mins.? @ -No Was critical care preformed (if so, how long)? @ -No Were there social determinants of health that impacted care today? How? (Homelessness, low income, unemployed, alcoholism, drug addiction, transportation, low edu. Level, literacy, decrease access to med. care, intermediate, rehab)? @ -No Was there de-escalation of care discussed even if they declined (Discuss DNR or withdrawal of care, Hospice)? DNR status @ -No What co-morbidities impacted this encounter? (DM, HTN, Smoking, COPD, CAD, Cancer, CVA, ARF, Chemo, Hep., AIDS, mental health diagnosis, sleep apnea, morbid obesity)? @ -None Was patient admitted / discharged? Hospital course, mention meds given and route, prescriptions, significant lab abnormalities, going to OR and other pertinent info. @ -82 Year-old male with multiple cardiac risk factors presents to the ER for chest pain. Vital signs upon arrival are within acceptable limits. EKG has lots of artifacts however no obvious signs of ST segment elevation PR. No obvious ischemic findings. Patient asymptomatic at the bedside. Laboratory evaluation obtained. Troponin 0.019, BNP of 2960. Respiratory acceptable limits. Patient given aspirin and will be admitted observation with cardiology consultation. Undiagnosed new problem with uncertain prognosis? @ -No Drug Therapy requiring intensive monitoring for toxicity (Heparin, Nitro, Insuli n, Cardizem)? @ -No Were any procedures done? @ -No Diagnosis/symptom? Acute, or Chronic, or Acute on Chronic? Uncomplicated (without systemic symptoms) or Complicated (systemic symptoms)? @ -Chest pain Side effects of treatment? @ -No Exacerbation, Progression, or Severe Exacerbation? @ -No Poses a threat to life or bodily function? How? (Chest pain, [place], PR, pneumonia, PE, COPD, DKA, ARF, appy, cholecystitis, CVA, Diverticulitis, Homicidal, Suicidal, threat to staff... and all critical care pts) @ -yes (Bayudan,Kiran D) Disposition <Mally Levine - Last Filed: 05/19/23 19:04> Decision Time: 22:13 <Kiran Salazar - Last Filed: 05/19/23 22:13> Clinical Impression: Chest pain Disposition: ADMITTED IP TO THIS HOSP Condition: Fair Referrals: Nancy Alvarado MD [Primary Care Provider] - 1-2 days
--- NOTE | 2023-05-19 19:25 | XR ---
EXAMINATION TYPE: XR chest 2V DATE OF EXAM: 05/19/2023 7:19 PM CLINICAL INDICATION:Male, 82 years old with history of Chest Pain; [facility] COMPARISON: Chest radiographs from 10/22/2021. TECHNIQUE: XR chest 2V Frontal and lateral views of the chest. FINDINGS: Lungs/Pleura: Prominent interstitial lung markings are seen scattered throughout the lungs with delgado ening of the diaphragm and increased lucency of the lung apices. No evidence of focal consolidation, pneumothorax or pleural effusion. Pulmonary vascularity: Unremarkable. Heart/mediastinum: Cardiomediastinal silhouette is unremarkable. Musculoskeletal: No acute osseous pathology. IMPRESSION: Subtle scattered opacities which may represent an atypical pneumonia. This is superimposed on COPD ch anges.
[2023-05-19 21:07] LABS: Basophils % (A) 0 %; Eosinophils # (A) 0.2 k/uL (0-0.7); Eosinophils % (A) 3 %; HCT 44.9 % (39.0-53.0); HGB 14.4 gm/dL (13.0-17.5); Hypochromasia Moderate; Lymphocytes # (A) 1.2 k/uL (1.0-4.8); Lymphocytes % (A) 18 %; MCH 31.7 pg (25.0-35.0); MCHC 32.1 g/dL (31.0-37.0); MCV 98.6 fL (80.0-100.0); Mean Platelet Volume 10.4; Monocytes # (A) 0.6 k/uL (0-1.0); Monocytes % (A) 8 %; Neutrophils # (A) 4.5 k/uL (1.3-7.7); Neutrophils % (A) 68 %; RBC 4.56 m/uL (4.30-5.90); RDW 14.9 % (11.5-15.5); WBC 6.6 k/uL (3.8-10.6)
[2023-05-19 21:18] LABS: Partial Thromboplastin Time 26.6 sec (22.0-30.0); Prothrombin Time 10.9 sec (10.0-12.5)
[2023-05-19 21:21] LABS: ALT 14 U/L (4-49); AST 24 U/L (17-59); African American GFR (CKD) 56 (>60 ml/min/1.73 sqM); Albumin 3.5 g/dL (3.5-5.0); Alkaline Phosphatase 78 U/L (38-126); Anion Gap 9 mmol/L; Blood Urea Nitrogen 22 mg/dL (9-20); Calcium 8.5 mg/dL (8.4-10.2); Carbon Dioxide 24 mmol/L (22-30); Chloride 108 mmol/L (98-107); Glucose 123 mg/dL (74-99); Magnesium 2.1 mg/dL (1.6-2.3); Non-African American GFR(CKD) 48 (>60 ml/min/1.73 sqM); Potassium 4.7 mmol/L (3.5-5.1); Sodium 141 mmol/L (137-145); Total Bilirubin 0.7 mg/dL (0.2-1.3); Total Protein 6.3 g/dL (6.3-8.2)
[2023-05-19 21:30] LABS: NT-Pro-B-Type Natriuretic Pept 2960 pg/mL
--- NOTE | 2023-05-19 21:41 | XR ---
EXAMINATION TYPE: XR chest 2V DATE OF EXAM: 05/19/2023 9:29 PM CLINICAL INDICATION:Male, 82 years old with history of CHEST PAIN SINCE LAST NIGHT; [facility] COMPARISON: 10/22/2021 TECHNIQUE: XR chest 2V Frontal and lateral views of the chest. FINDINGS: Lungs/Pleura: There is no evidence of pleural effusion, focal consolidation, or pneumothorax. Pulmonary vascularity: Pulmonary vascular congestion. Heart/mediastinum: Cardiomediastinal silhouette is enlarged and stable. Post aortic valve repair costa nges. Musculoskeletal: No acute osseous pathology. Left shoulder arthroplasty. Hardware appears intact. Danial alcantaar visualized lumbar fixation hardware which appears intact. Stimulator leads terminating over the spine. IMPRESSION: Cardiomegaly and mild pulmonary vascular congestion. Correlate with BNP for congestive heart failure.
[2023-05-19 21:45] LABS: Large Platelets Present; Platelet Count 83 k/uL (150-450); Polychromasia Present
[2023-05-19] MEDS ORDERED: ASPIRIN 81 MG PO STA (22:12)
[2023-05-19] MEDS ORDERED: NITROGLYCERIN SL TABS 0.4 MG TAB SUBLINGUAL PRN (22:13)
[2023-05-20] MEDS: HYDROcodone/APAP 10-325MG 1 EACH TAB PO SCH ×3 (05:55→13:45)
[2023-05-20] MEDS: AMOXIC-POT CLAV 500-125 MG 1 EACH TAB PO SCH ×2 (05:55→08:28)
[2023-05-20] MEDS: AMIODARONE 100 MG TAB PO SCH ×2 (05:55→08:28)
[2023-05-20 08:19] VITALS: RESP 16
[2023-05-20] MEDS ORDERED: ASPIRIN 325 MG TAB PO SCH (09:00)
[2023-05-20] MEDS ORDERED: GABAPENTIN 400 MG CAP PO SCH (09:00)
--- NOTE | 2023-05-20 09:26 | P.CRDCN ---
History of Present Illness Consult date: 05/20/23 Consult reason: chest pain History of present illness: History of present illness: This is an 82-year-old male follows with food porter, Dr. Alvarado, with past medical history of atrial fibrillation previously taken off Coumadin by his food porter, coronary artery disease with previous stent, history of myocardial infarction, hypertension, obstructive sleep apnea unable to tolerate CPAP. We have been asked to evaluate patient for chest pain. Patient states he has had a few episodes of chest pains that are sharp over the past 1-2 days with each episode lasting a few seconds. They usually occur while he is sitting and are located in the upper chest across the upper chest. He has never had anything like this before. He does not feel similar to his previous NV or when he had a stent done. EKG no acute ST changes, atrial fibrillation Chest x-ray: Cardiomegaly with mild pulmonary vascular congestion correlate for heart failure. Platelet count 83 otherwise CBC unremarkable. Sodium 141, potassium 4.7, BUN 22 creatinine 1.35. Glucose 123. Troponin negative 3. ProBNP 2960. Liver function tests are within normal limits. Magnesium 2.1 Home cardiac medications: Amiodarone 100 mg daily, Lipitor 40 mg at bedtime, Lasix 40 mg daily as needed. Note that patient is also on midodrine 5 mg 3 times daily Echocardiogram performed 09/2021 revealed EF 50-55% with borderline concentric left hypertrophy, mild mitral regurgitation, mild tricuspid regurgitation, mild pulmonary hypertension. Review Of Systems: At the time of my evaluation: Constitutional: No fever, no chills. No weakness, fatigue or lethargy. EENT: No headache. No dizziness. Lungs: No shortness of breath, cough, no sputum production. No wheezing. Cardiovascular: Intermittent chest pain, no lower extremity edema. No palpitations. No paroxysmal nocturnal dyspnea. No orthopnea. No lightheadedness or dizziness. No syncopal episodes. Abdominal: No abdominal pain. No nausea, vomiting. Musculoskeletal: No myalgias. No muscle weakness, no frequent falls. Integumentary: No wounds. No rash. No unusual bruising. Neurologic: No aphasia. No facial droop. No change in mentation. Physical examination: Gen: This is an 82-year-old male. He is resting in bed appears to be comfortable and in no acute distress. VS: reviewed 174/75, heart rate 82, pulse ox 95% on 2 L nasal cannula, afebrile. HEENT: Head is atraumatic, normocephalic. Pupils equal, round. Sclerae is anicteric. NECK: Supple. No JVD. . LUNGS: Clear to auscultation. No wheezes or rhonchi. No intercostal retractions. HEART: Irregular rate and rhythm. Systolic murmur. ABDOMEN: Soft No tenderness. EXTREMITIES: No pedal edema. No calf tenderness. NEUROLOGICAL: Patient is awake, alert and oriented x3. Assessment: Chest pain, acute coronary syndrome ruled out Chronic atrial fibrillation History of coronary artery disease Hypertension Obstructive sleep apnea Plan: Continue patient's home cardiac medications Obtain 2-D echocardiogram and Doppler study to assess cardiac structure and function If echocardiogram is unremarkable, patient is cleared for discharge with follow- up with Dr. Alvarado in one week. Thank you kindly for this consultation. Nurse practitioner note has been reviewed, I agree with documented findings and plan of care. Patient was seen and examined. Past Medical History Past Medical History: Atrial Fibrillation, Coronary Artery Disease (CAD), Heart Failure, CVA/TIA, Diabetes Mellitus, GERD/Reflux, GI Bleed, Hyperlipidemia, Hypertension, Myocardial Infarction (NV), Osteoarthritis (OA), Pneumonia, Renal Disease, Syncope Additional Past Medical History / Comment(s): Past syncopal episodes with past work ups, TIA, recent diagnosis of diabetes, neuropathy bilateral legs, pt has had "low blood counts" and is to see a marketing assistant manager, CKD stage III, chronic low back pain/pt was to have permanent spinal stimulator placed today, bilateral lower leg edema, past small intestinal bleed, benign colon polyp, hemorrhoids, aortic stenosis and has had valve replaced. Last Myocardial Infarction Date:: 2007 History of Any Multi-Drug Resistant Organisms: None Reported Past Surgical History: Back Surgery, Heart Catheterization, Heart Catheterization With Stent, Hernia Repair, Orthopedic Surgery Additional Past Surgical History / Comment(s): TAVR, CHRISTIAN/cardioversions, PCI with stents, nasal benign polypectomy, bilateral cataract removal/lens implants, EGD, colonoscopies/benign polypectomy, R inguinal hernia repair, low back surgery with edie/screws, temporary spinal stimulator, bilateral ACL arthroscopic surgery, vasectomy. Past Anesthesia/Blood Transfusion Reactions: No Reported Reaction Additional Past Anesthesia/Blood Transfusion Reaction / Comment(s): Pt had blood transfusion with back surgery without reaction. Date of Last Stent Placement:: 2018 Type of Cardiac Device: Loop Device Placement Date:: 2019 Past Psychological History: No Psychological Hx Reported Smoking Status: Former smoker Past Alcohol Use History: None Reported Past Drug Use History: None Reported - Past Family History Son(s) Family Medical History: Cancer Additional Family Medical History / Comment(s): FROM LUNG CANCER Father Family Medical History: Myocardial Infarction (NV) Additional Family Medical History / Comment(s): Father in a MVA. Mother Family Medical History: CVA/TIA, Myocardial Infarction (NV) Medications and Allergies Home Medications Medication Instructions Recorded Confirmed Type Atorvastatin [Lipitor] 40 mg PO HS 12/03/20 05/19/23 History DULoxetine HCL [Cymbalta] 60 mg PO DAILY 12/03/20 05/19/23 History Amiodarone [Cordarone] 100 mg PO DAILY 10/18/21 05/19/23 History Furosemide [Lasix] 40 mg PO DAILY PRN 10/18/21 05/19/23 History Gabapentin [Neurontin] 800 mg PO TID 11/08/22 05/19/23 History HYDROcodone/APAP 10-325MG [Agness 1 tab PO QID 11/08/22 05/19/23 History 10-325] Midodrine [ProAmatine] 5 mg PO TID 11/08/22 05/19/23 History Celecoxib [CeleBREX] 200 mg PO BID PRN 04/30/23 05/19/23 History Cholecalciferol [Vitamin D3 (25 25 mcg PO DAILY 04/30/23 05/19/23 History Mcg = 1000 Iu)] Triamcinolone 0.1% Cream [Kenalog 1 applic TOPICAL BID PRN 04/30/23 05/19/23 History 0.1% Cream] Vitamin B Complex 1 cap PO DAILY 04/30/23 05/19/23 History Vitamin E (Dl,Tocopheryl Acet) 400 unit PO DAILY 04/30/23 05/19/23 History [Vitamin E (400 Iu = 180 mg)] Amoxic-Pot Clav 500-125 mg 1 tab PO BID 05/19/23 05/19/23 History [Augmentin 500-125 mg] Pantoprazole [Protonix] 40 mg PO DAILY 05/19/23 05/19/23 History Allergies Allergy/AdvReac Type Severity Reaction Status Date / Time No Known Allergies Allergy Verified 05/19/23 22:41 Physical Exam Vitals: Vital Signs Temp Pulse Pulse Resp BP BP Pulse Ox 05/20/23 02:18 98.6 F 78 17 175/67 97 05/19/23 18:20 98.0 F 86 18 151/80 92 L Intake and Output 05/19/23 05/20/23 05/20/23 22:59 06:59 14:59 Other: Weight 97.522 kg Results 05/19/23 19:04 05/19/23 19:04 Cardiac Enzymes 05/19/23 05/19/23 05/19/23 Range/Units 19:04 19:04 22:32 AST 24 (17-59) U/L Troponin I 0.019 <0.012 (0.000-0.034) ng/mL 05/20/23 Range/Units 01:15 AST (17-59) U/L Troponin I <0.012 (0.000-0.034) ng/mL Coagulation 05/19/23 Range/Units 19:04 PT 10.9 (10.0-12.5) sec APTT 26.6 (22.0-30.0) sec CBC 05/19/23 Range/Units 19:04 WBC 6.6 (3.8-10.6) k/uL RBC 4.56 (4.30-5.90) m/uL Hgb 14.4 (13.0-17.5) gm/dL Hct 44.9 (39.0-53.0) % Plt Count 83 L (150-450) k/uL Comprehensive Metabolic Panel 05/19/23 Range/Units 19:04 Sodium 141 (137-145) mmol/L Potassium 4.7 (3.5-5.1) mmol/L Chloride 108 H (98-107) mmol/L Carbon Dioxide 24 (22-30) mmol/L BUN 22 H (9-20) mg/dL Creatinine 1.35 H (0.66-1.25) mg/dL Glucose 123 H (74-99) mg/dL Calcium 8.5 (8.4-10.2) mg/dL AST 24 (17-59) U/L ALT 14 (4-49) U/L Alkaline Phosphatase 78 (38-126) U/L Total Protein 6.3 (6.3-8.2) g/dL Albumin 3.5 (3.5-5.0) g/dL Current Medications Generic Name Dose Route Start Last Admin Trade Name Freq PRN Reason Stop Dose Admin Hydrocodone Bitart/Acetaminophen 1 each 05/19/23 23:00 05/20/23 05:55 Hydrocodone/Apap 10-325mg 1 Each Tab PO Not Given QID [facility] Amiodarone HCl 100 mg 05/19/23 23:00 05/20/23 05:55 Amiodarone 100 Mg Tab PO Not Given DAILY [facility] Amoxicillin/Clavulanate Potassium 1 each 05/19/23 23:00 05/20/23 05:55 Amoxic-Pot Clav 500-125 Mg 1 Each Tab PO Not Given BID [facility] Protocol Aspirin 325 mg 05/20/23 09:00 Aspirin 325 Mg Tab PO DAILY [facility] Gabapentin 800 mg 05/20/23 09:00 Gabapentin 400 Mg Cap PO TID [facility] Nitroglycerin 0.4 mg 05/19/23 22:13 Nitroglycerin Sl Tabs 0.4 Mg Tab SUBLINGUAL Q5M PRN Chest Pain Intake and Output 05/19/23 05/20/23 05/20/23 22:59 06:59 14:59 Other: Weight 97.522 kg 05/19/23 19:04 05/19/23 19:04
[2023-05-20 11:13] LABS: Chol/HDL Ratio 2.72 Ratio; LDL Cholesterol,Calculated 48.5 mg/dL (0.0-131.0)
--- NOTE | 2023-05-20 14:01 | CA ---
Transthoracic Echo Report Name: Conrad Campa Age: 82 Gender: M : 1940 Exam Date: 05/20/2023 10:39 Exam Location: [place] [facility] Ht (in): 70 Wt (lb): 215 Ordering Physician: Elvie Whaley Attending/Referring Phys: [id number], Jovana Wallpaper Printer Vivienne Munoz [facility] Procedure CPT: Indications: LVF Cardiac Hx: Technical Quality: Technically difficult study Contrast 1: Lumason Total Dose (mL): 5 Contrast 2: Total Dose (mL): MEASUREMENTS (Male / Female) Normal Values 2D ECHO LV Diastolic Diameter PLAX 4.9 cm 4.2 - 5.9 / 3.9 - 5.3 cm LV Systolic Diameter PLAX 3.6 cm IVS Diastolic Thickness 1.2 cm 0.6 - 1.0 / 0.6 - 0.9 cm LVPW Diastolic Thickness 1.2 cm 0.6 - 1.0 / 0.6 - 0.9 cm LV Relative Wall Thickness 0.5 LVOT Diameter 2.0 cm Ascending Aorta Diameter 3.7 cm M-MODE Aortic Root Diameter MM 2.3 cm LA Systolic Diameter MM 5.9 cm LA Ao Ratio MM 2.6 AV Cusp Separation MM 1.7 cm DOPPLER AV Peak Velocity 196.2 cm/s AV Peak Gradient 15.4 mmHg AV Mean Velocity 147.1 cm/s AV Mean Gradient 9.4 mmHg AV Velocity Time Integral 45.5 cm LVOT Peak Velocity 101.6 cm/s LVOT Peak Gradient 4.1 mmHg LVOT Velocity Time Integral 24.6 cm LVOT Stroke Volume 76.7 cm??? LVOT Stroke Volume Index 35.6 ml/m??? LVOT Cardiac Index 2761.4 cm???/min???m??? AV Area Cont Eq vti 1.7 cm??? AV Area Cont Eq pk 1.6 cm??? Mitral E Point Velocity 112.8 cm/s MV Deceleration Time 162.7 ms LV E' Lateral Velocity 8.3 cm/s Mitral E to LV E' Lateral Ratio 13.6 LV E' Septal Velocity 5.8 cm/s Mitral E to LV E' Septal Ratio 19.5 TR Peak Velocity 257.7 cm/s TR Peak Gradient 26.6 mmHg Right Atrial Pressure 8.0 mmHg Pulmonary Artery Systolic Pressu 34.6 mmHg Right Ventricular Systolic Press 34.6 mmHg FINDINGS Left Ventricle Mildly increased left ventricular wall thickness. Left ventricular cavity size normal. Low normal left ventricular systolic function with no obvious regional wall motion abnormalities. Left ventricular ejection fraction is estimated at 50-55%. Right Ventricle Severe right ventricular dilatation. Mild pulmonary hypertension. Right Atrium Severe right atrial dilatation. Left Atrium Severe left atrial dilatation. Mitral Valve Mild mitral annular calcification. Mild mitral regurgitation. Aortic Valve Normally functioning bioprosthetic aortic valve without stenosis with a peak velocity of 1.96 m/s, peak gradient 15.4 mmHg, mean gradient 9.42 mmHg, and estimated aortic valve area of 1.61cm???. No paravalvular aortic regurgitation. Tricuspid Valve Structurally normal tricuspid valve. Mild tricuspid regurgitation. Pulmonic Valve Structurally normal pulmonic valve. Trace pulmonic regurgitation. Pericardium Minimal pericardial effusion (normal variant). Aorta Normal size aortic root and upper normal proximal ascending aorta. CONCLUSIONS Low normal LV systolic function RV enlargement Biatrial enlargement Bioprosthetic valve with a mean gradient of 10 mmHg Previewed by: Dr. Rob Mcdonough MD (Electronically Signed) Final Date: 20 May 2023 14:00
[2023-05-20 16:41] VITALS: BP 137/79; PULSE 71; TEMP 97.7
--- NOTE | 2023-05-21 10:01 | P.HPIM ---
History of Present Illness H&P Date: 05/20/23 Maged Campa, is an 82-year-old male who presented to [facility] emergency room with a chief complaint of chest pain. Patient describes a sharp pain in the front of his chest lasting several minutes each time. Started 1 day prior to presentation and recurred several times over the next 24 hours. He was evaluated in the emergency room vital examination on presentation revealed a temperature of 98 pulse 86 respiration 18 blood pressure 151/80 pulse ox 92% on room air Laboratory data reveals a white blood count of 6.6 hemoglobin 14.4 platelet count 83 sodium 141 potassium 4.7 chloride 108 CO2 24 BUN 22 creatinine 1.35 troponin level 0.012 BNP 40414 Testing in the emergency room revealed chest x-ray done in the emergency room revealed cardiomegaly and mild pulmonary vascular congestion, EKG revealed electronic atrial pacemaker Patient was admitted to medical floor for further evaluation and treatment Past medical history is significant for history of atrial fibrillation, history of coronary artery disease, previous history of myocardial infarction, history of angioplasty with stent placement followed by dispute coordinator Dr. Alvarado in [facility], history of hypertension, history of hyperlipidemia, history of obstructive sleep apnea. On review of systems patient is alert and oriented 3 in no apparent distress, there is no fever or chills no headache or dizziness no chest pain at this time no shortness of breath no cough no nausea or vomiting no abdominal pain no diarrhea and no urinary symptoms Past Medical History Past Medical History: Atrial Fibrillation, Coronary Artery Disease (CAD), Heart Failure, CVA/TIA, Diabetes Mellitus, GERD/Reflux, GI Bleed, Hyperlipidemia, Hypertension, Myocardial Infarction ([place]), Osteoarthritis (OA), Pneumonia, Renal Disease, Syncope Additional Past Medical History / Comment(s): Past syncopal episodes with past work ups, TIA, recent diagnosis of diabetes, neuropathy bilateral legs, pt has had "low blood counts" and is to see a turning machine operator, CKD stage III, chronic low back pain/pt was to have permanent spinal stimulator placed today, bilateral lower leg edema, past small intestinal bleed, benign colon polyp, hemorrhoids, aortic stenosis and has had valve replaced. Last Myocardial Infarction Date:: 2007 History of Any Multi-Drug Resistant Organisms: None Reported Past Surgical History: Back Surgery, Heart Catheterization, Heart Catheterization With Stent, Hernia Repair, Orthopedic Surgery Additional Past Surgical History / Comment(s): TAVR, CHRISTIAN/cardioversions, PCI with stents, nasal benign polypectomy, bilateral cataract removal/lens implants, EGD, colonoscopies/benign polypectomy, R inguinal hernia repair, low back surgery with edie/screws, temporary spinal stimulator, bilateral ACL arthroscopic surgery, vasectomy. Past Anesthesia/Blood Transfusion Reactions: No Reported Reaction Additional Past Anesthesia/Blood Transfusion Reaction / Comment(s): Pt had blood transfusion with back surgery without reaction. Date of Last Stent Placement:: 2018 Type of Cardiac Device: Loop Device Placement Date:: 2019 Past Psychological History: No Psychological Hx Reported Smoking Status: Former smoker Past Alcohol Use History: None Reported Past Drug Use History: None Reported - Past Family History Son(s) Family Medical History: Cancer Additional Family Medical History / Comment(s): FROM LUNG CANCER Father Family Medical History: Myocardial Infarction ([place]) Additional Family Medical History / Comment(s): Father in a MVA. Mother Family Medical History: CVA/TIA, Myocardial Infarction ([place]) Medications and Allergies Home Medications Medication Instructions Recorded Confirmed Type Atorvastatin [Lipitor] 40 mg PO HS 12/03/20 05/19/23 History DULoxetine HCL [Cymbalta] 60 mg PO DAILY 12/03/20 05/19/23 History Amiodarone [Cordarone] 100 mg PO DAILY 10/18/21 05/19/23 History Furosemide [Lasix] 40 mg PO DAILY PRN 10/18/21 05/19/23 History Gabapentin [Neurontin] 800 mg PO TID 11/08/22 05/19/23 History HYDROcodone/APAP 10-325MG [[place] 1 tab PO QID 11/08/22 05/19/23 History 10-325] Midodrine [ProAmatine] 5 mg PO TID 11/08/22 05/19/23 History Celecoxib [CeleBREX] 200 mg PO BID PRN 04/30/23 05/19/23 History Cholecalciferol [Vitamin D3 (25 25 mcg PO DAILY 04/30/23 05/19/23 History Mcg = 1000 Iu)] Triamcinolone 0.1% Cream [Kenalog 1 applic TOPICAL BID PRN 04/30/23 05/19/23 History 0.1% Cream] Vitamin B Complex 1 cap PO DAILY 04/30/23 05/19/23 History Vitamin E (Dl,Tocopheryl Acet) 400 unit PO DAILY 04/30/23 05/19/23 History [Vitamin E (400 Iu = 180 mg)] Amoxic-Pot Clav 500-125 mg 1 tab PO BID 05/19/23 05/19/23 History [Augmentin 500-125 mg] Pantoprazole [Protonix] 40 mg PO DAILY 05/19/23 05/19/23 History Aspirin [Adult Low Dose Aspirin EC] 81 mg PO DAILY 30 Days #30 tab 05/20/23 Rx Nitroglycerin Sl Tabs [Nitrostat] 0.4 mg SUBLINGUAL Q5M PRN tab 05/20/23 Rx Allergies Allergy/AdvReac Type Severity Reaction Status Date / Time No Known Allergies Allergy Verified 05/19/23 22:41 Physical Exam Vitals: Vital Signs Temp Pulse Pulse Resp BP BP Pulse Ox 05/20/23 09:30 94 L 05/20/23 08:00 82 16 05/20/23 07:00 98.0 F 82 16 174/75 95 05/20/23 02:18 98.6 F 78 17 175/67 97 05/19/23 18:20 98.0 F 86 18 151/80 92 L Intake and Output 05/19/23 05/20/23 05/20/23 22:59 06:59 14:59 Other: Weight 97.522 kg In general patient is alert and oriented x 3 in no distress HEENT head normocephalic and atraumatic Neck is supple no JVD no goiter no lymphadenopathy no carotid bruit Chest examination is clear to auscultation no crackles no wheezing Cardiac exam reveals regular heart sounds S1 and S2 no gallops no murmurs Abdomen is soft nontender no organomegaly with normal bowel sounds Extremity exam reveals no edema no cyanosis or clubbing Neurological examination reveals no gross focal deficits Results CBC & Chem 7: 05/19/23 19:04 05/19/23 19:04 Labs: Abnormal Lab Results - Last 24 Hours (Table) 05/19/23 05/19/23 Range/Units 19:04 19:04 Plt Count 83 L (150-450) k/uL Chloride 108 H (98-107) mmol/L BUN 22 H (9-20) mg/dL Creatinine 1.35 H (0.66-1.25) mg/dL Glucose 123 H (74-99) mg/dL Assessment and Plan Plan: Recurrent episodes of sharp pain in the chest Underlying history of coronary artery disease Underlying history of atrial fibrillation Underlying history of hypertension Underlying history of hyperlipidemia Underlying history of obstructive sleep apnea At this time patient is admitted to telemetry floor Home medications reviewed and reordered Serial EKG and cardiac enzymes ordered Cardiology consultation requested Will follow
--- NOTE | 2023-05-21 10:04 | P.DS ---
Providers Date of admission: 05/19/23 22:13 Expected date of discharge: 05/21/23 Attending physician: Nancy Alvarado Consults: 05/19/23 22:13 Consult Physician Urgent Consulting Provider: Ariel Huggins Consult Reason/Comments: chest pain Do you want consulting provider notified?: Yes Primary care physician: Nancy Alvarado [facility] Course: Diagnosis on discharge: Recurrent episodes of sharp pain in the chest, myocardial infarction ruled out Underlying history of coronary artery disease Underlying history of atrial fibrillation Underlying history of hypertension Underlying history of hyperlipidemia Underlying history of obstructive sleep apnea Hospital course: Maged Campa, is an 82-year-old male who presented to [facility] emergency room with a chief complaint of chest pain. Patient describes a sharp pain in the front of his chest lasting several minutes each time. Started 1 day prior to presentation and recurred several times over the next 24 hours. He was evaluated in the emergency room vital examination on presentation revealed a temperature of 98 pulse 86 respiration 18 blood pressure 151/80 pulse ox 92% on room air Laboratory data reveals a white blood count of 6.6 hemoglobin 14.4 platelet count 83 sodium 141 potassium 4.7 chloride 108 CO2 24 BUN 22 creatinine 1.35 troponin level 0.012 BNP 81017 Testing in the emergency room revealed chest x-ray done in the emergency room revealed cardiomegaly and mild pulmonary vascular congestion, EKG revealed electronic atrial pacemaker Patient was admitted to medical floor for further evaluation and treatment Past medical history is significant for history of atrial fibrillation, history of coronary artery disease, previous history of myocardial infarction, history of angioplasty with stent placement followed by automotive engineering teacher Dr. Alvarado in [facility], history of hypertension, history of hyperlipidemia, history of obstructive sleep apnea. On review of systems patient is alert and oriented 3 in no apparent distress, there is no fever or chills no headache or dizziness no chest pain at this time no shortness of breath no cough no nausea or vomiting no abdominal pain no diarrhea and no urinary symptoms. On 05/20/2023, patient was seen and examined on the telemetry floor, he is alert and oriented 3 in no apparent distress, there was no new episodes of chest pain, no shortness of breath no cough no nausea or vomiting no abdominal pain no diarrhea and no urinary symptoms, echocardiogram was done and reviewed by car diologdavid, patient was evaluated by Dr. Mcdonough and was cleared for discharge. He will follow-up with his automotive engineering teacher Dr. Alvarado at [facility]. Patient Condition at Discharge: Fair Plan - Discharge Summary New Discharge Prescriptions: New Aspirin [Adult Low Dose Aspirin EC] 81 mg PO DAILY 30 Days #30 tab Nitroglycerin Sl Tabs [Nitrostat] 0.4 mg SUBLINGUAL Q5M PRN tab PRN Reason: Chest Pain Continue DULoxetine HCL [Cymbalta] 60 mg PO DAILY Amiodarone [Cordarone] 100 mg PO DAILY Midodrine [ProAmatine] 5 mg PO TID HYDROcodone/APAP 10-325MG [[place] 10-325] 1 tab PO QID Celecoxib [CeleBREX] 200 mg PO BID PRN PRN Reason: Pain Vitamin B Complex 1 cap PO DAILY Pantoprazole [Protonix] 40 mg PO DAILY Atorvastatin [Lipitor] 40 mg PO HS Furosemide [Lasix] 40 mg PO DAILY PRN PRN Reason: Edema Gabapentin [Neurontin] 800 mg PO TID Triamcinolone 0.1% Cream [Kenalog 0.1% Cream] 1 applic TOPICAL BID PRN PRN Reason: Rash Vitamin E (Dl,Tocopheryl Acet) [Vitamin E (400 Iu = 180 mg)] 400 unit PO DAILY Cholecalciferol [Vitamin D3 (25 Mcg = 1000 Iu)] 25 mcg PO DAILY Amoxic-Pot Clav 500-125 mg [Augmentin 500-125 mg] 1 tab PO BID Discharge Medication List Atorvastatin [Lipitor] 40 mg PO HS 12/03/20 [History] DULoxetine HCL [Cymbalta] 60 mg PO DAILY 12/03/20 [History] Amiodarone [Cordarone] 100 mg PO DAILY 10/18/21 [History] Furosemide [Lasix] 40 mg PO DAILY PRN 10/18/21 [History] Gabapentin [Neurontin] 800 mg PO TID 11/08/22 [History] HYDROcodone/APAP 10-325MG [[place] 10-325] 1 tab PO QID 11/08/22 [History] Midodrine [ProAmatine] 5 mg PO TID 11/08/22 [History] Celecoxib [CeleBREX] 200 mg PO BID PRN 04/30/23 [History] Cholecalciferol [Vitamin D3 (25 Mcg = 1000 Iu)] 25 mcg PO DAILY 04/30/23 [History] Triamcinolone 0.1% Cream [Kenalog 0.1% Cream] 1 applic TOPICAL BID PRN 04/30/23 [History] Vitamin B Complex 1 cap PO DAILY 04/30/23 [History] Vitamin E (Dl,Tocopheryl Acet) [Vitamin E (400 Iu = 180 mg)] 400 unit PO DAILY 04/30/23 [History] Amoxic-Pot Clav 500-125 mg [Augmentin 500-125 mg] 1 tab PO BID 05/19/23 [History] Pantoprazole [Protonix] 40 mg PO DAILY 05/19/23 [History] Aspirin [Adult Low Dose Aspirin EC] 81 mg PO DAILY 30 Days #30 tab 05/20/23 [Rx] Nitroglycerin Sl Tabs [Nitrostat] 0.4 mg SUBLINGUAL Q5M PRN tab 05/20/23 [Rx] Follow up Appointment(s)/Referral(s): Nancy Alvarado MD [Primary Care Provider] - 05/28/23 11:30 am Ortiz Alvarado DO [Family Provider] - 1 Week (follow up in one week) Patient Instructions/Handouts: Chest Pain (DC) Discharge Disposition: HOME SELF-CARE
== END 2023-05-20 16:48 | disposition home or self-care (01) ==
LOC: EC 18:17 → 6NMEDSUR 22:13
PROVIDERS: ADMIT Internal Medicine; ATTEND Internal Medicine
DX: R07.89 Other chest pain (principal); I48.20 Chronic atrial fibrillation, unspecified; E11.22 Type 2 diabetes mellitus with diabetic chronic kidney disease; I13.0 Hypertensive heart and chronic kidney disease with heart failure and stage 1 through stage 4 chronic kidney disease, or unspecified chronic kidney disease; I50.9 Heart failure, unspecified; N18.30 Chronic kidney disease, stage 3 unspecified; I25.10 Atherosclerotic heart disease of native coronary artery without angina pectoris; K21.9 Gastro-esophageal reflux disease without esophagitis; E78.5 Hyperlipidemia, unspecified; G89.29 Other chronic pain; M54.50 Low back pain, unspecified; G47.33 Obstructive sleep apnea (adult) (pediatric); E11.40 Type 2 diabetes mellitus with diabetic neuropathy, unspecified; I25.2 Old myocardial infarction; Z86.73 Personal history of transient ischemic attack (TIA), and cerebral infarction without residual deficits; Z87.891 Personal history of nicotine dependence; Z95.0 Presence of cardiac pacemaker; Z95.2 Presence of prosthetic heart valve; Z95.5 Presence of coronary angioplasty implant and graft; Z79.1 Long term (current) use of non-steroidal anti-inflammatories (NSAID); Z79.899 Other long term (current) drug therapy; Z82.49 Family history of ischemic heart disease and other diseases of the circulatory system
CPT/HCPCS: 99285; 36415; 94760; 93005; 93306; 83880; 80061; 80053; 83735; 84484 ×2; 85025; 85610; 85730; 71046; G0378 ×2; Q9950

== ENCOUNTER 2023-06-22 06:48 | Day surgery (SDC) | payer MEDICARE ==
[~2023-06-22 06:48] MED LIST changes: -HUMAN PROTHROMBIN COMPLX 500 UNIT/16 ML VIAL IV ONE; +LACTATED RINGERS 1,000 ML IV SCH
[2023-06-22] MEDS ORDERED: fentaNYL (PF) 50 MCG/ML 2 ML AMP IVP ONE (07:45)
[2023-06-22 07:51] LABS: Glucose,Whole Blood 102 mg/dL (70-110)
[2023-06-22 07:56] VITALS: TEMP 97.3
[2023-06-22] MEDS ORDERED: PROPOFOL 10 MG/ML 20 ML VIAL IV ONE (08:15)
--- NOTE | 2023-06-22 08:18 | P.GSHP ---
History of Present Illness H&P Date: 06/22/23 Chief Complaint: Change in bowel habits 82-year-old male here for colonoscopy. Apparently patient has had worsening constipation. Denies rectal bleeding. No family history of colon cancer. Past Medical History Past Medical History: Atrial Fibrillation, Coronary Artery Disease (CAD), Heart Failure, CVA/TIA, Diabetes Mellitus, GERD/Reflux, GI Bleed, Hyperlipidemia, Hypertension, Myocardial Infarction ([place]), Osteoarthritis ([place]), Pneumonia, Renal Disease, Syncope Additional Past Medical History / Comment(s): Past syncopal episodes with past work ups, TIA, recent diagnosis of diabetes, neuropathy bilateral legs, pt has had "low blood counts" and is to see a class a lineman, CKD stage III, chronic low back pain/pt was to have permanent spinal stimulator placed today, bilateral lower leg edema, past small intestinal bleed, benign colon polyp, hemorrhoids, aortic stenosis and has had valve replaced. Last Myocardial Infarction Date:: 2007 History of Any Multi-Drug Resistant Organisms: None Reported Past Surgical History: Back Surgery, Heart Catheterization, Heart Catheterization With Stent, Hernia Repair, Orthopedic Surgery Additional Past Surgical History / Comment(s): TAVR, CHRISTIAN/cardioversions, PCI with stents, nasal benign polypectomy, bilateral cataract removal/lens implants, EGD, colonoscopies/benign polypectomy, R inguinal hernia repair, low back surgery with edie/screws, temporary spinal stimulator, bilateral ACL arthroscopic surgery, vasectomy. Past Anesthesia/Blood Transfusion Reactions: No Reported Reaction Additional Past Anesthesia/Blood Transfusion Reaction / Comment(s): Pt had blood transfusion with back surgery without reaction. Date of Last Stent Placement:: 2018 Type of Cardiac Device: Loop Device Placement Date:: 2019 Past Psychological History: No Psychological Hx Reported Additional Psychological History / Comment(s): Pt resides with his spouse of 56 yrs. He uses a cane to ambulate. He owns a walker. He drives very little, his spouse is the main coach driver. Smoking Status: Former smoker Past Alcohol Use History: None Reported Additional Past Alcohol Use History / Comment(s): Pt started smoking in 1946 and quit in 1992 Past Drug Use History: None Reported - Past Family History Son(s) Family Medical History: Cancer Additional Family Medical History / Comment(s): FROM LUNG CANCER Father Family Medical History: Myocardial Infarction ([place]) Additional Family Medical History / Comment(s): Father in a MVA. Mother Family Medical History: CVA/TIA, Myocardial Infarction ([place]) Medications and Allergies Home Medications Medication Instructions Recorded Confirmed Type Atorvastatin [Lipitor] 40 mg PO HS 12/03/20 06/17/23 History DULoxetine HCL [Cymbalta] 60 mg PO DAILY 12/03/20 06/17/23 History Amiodarone [Cordarone] 100 mg PO QAM 10/18/21 06/17/23 History Furosemide [Lasix] 40 mg PO DAILY PRN 10/18/21 06/17/23 History Gabapentin [Neurontin] 800 mg PO TID 11/08/22 06/17/23 History HYDROcodone/APAP 10-325MG [[place] 1 tab PO QID 11/08/22 06/17/23 History 10-325] Midodrine [ProAmatine] 5 mg PO TID 11/08/22 06/17/23 History Celecoxib [CeleBREX] 200 mg PO BID PRN 04/30/23 06/17/23 History Cholecalciferol [Vitamin D3 (25 25 mcg PO DAILY 04/30/23 06/17/23 History Mcg = 1000 Iu)] Triamcinolone 0.1% Cream [Kenalog 1 applic TOPICAL BID PRN 04/30/23 06/17/23 History 0.1% Cream] Vitamin B Complex 1 cap PO DAILY 04/30/23 06/17/23 History Vitamin E (Dl,Tocopheryl Acet) 400 unit PO DAILY 04/30/23 06/17/23 History [Vitamin E (400 Iu = 180 mg)] Aspirin [Adult Low Dose Aspirin EC] 81 mg PO DAILY 30 Days #30 tab 05/20/23 06/17/23 Rx Nitroglycerin Sl Tabs [Nitrostat] 0.4 mg SUBLINGUAL Q5M PRN tab 05/20/23 06/17/23 Rx Biotin 5 mg PO DAILY 06/17/23 06/17/23 History Cholecalciferol [Vitamin D3 (25 1 tab PO DAILY 06/17/23 06/17/23 History Mcg = 1000 Iu)] Dapagliflozin Propanediol [Farxiga] 10 mg PO QAM 06/17/23 06/17/23 History Vitamin B Complex 1 cap PO DAILY 06/17/23 06/17/23 History Allergies Allergy/AdvReac Type Severity Reaction Status Date / Time No Known Allergies Allergy Verified 06/22/23 07:24 Surgical - Exam Vital Signs Temp Pulse Resp BP Pulse Ox 97.3 F L 92 16 140/80 94 L 06/22/23 07:29 06/22/23 07:29 06/22/23 07:29 06/22/23 07:29 06/22/23 07:29 Physical exam: General: Well-developed, well-nourished HEENT: Normocephalic, sclerae nonicteric Abdomen: Nontender, nondistended Extremities: No edema Neuro: Alert and oriented Assessment and Plan (1) Colon cancer screening Narrative/Plan: Will proceed with colonoscopy at this time. Current Visit: Yes Status: Acute Code(s): Z12.11 - ENCOUNTER FOR SCREENING FOR MALIGNANT NEOPLASM OF COLON SNOMED Code(s): 310440867
--- NOTE | 2023-06-22 08:39 | P.PCN ---
Date of Procedure: 06/22/23 Procedure(s) Performed: PREOPERATIVE DIAGNOSIS: Change in bowel habits POSTOPERATIVE DIAGNOSIS: Colon polyps, splenic flexure mass PROCEDURE: Colonoscopy with snare polypectomy, biopsy, and spot injection ANESTHESIA: MAC SURGEON: Arturo Hopper M.D. SPECIMENS: Polyps, mass ENDOSCOPIC PROCEDURE: The patient was placed on the endoscopy table in the left decubitus position. The Olympus colonoscope was inserted into the anus and passed under direct visualization to the base of the cecum. The appendiceal orifice was visualized. From that point the scope was slowly withdrawn inspecting all surfaces carefully. There were no neoplastic inflammatory or polypoid lesions throughout the cecum or ascending colon. In the transverse colon there were 3 small polyps removed using the snare with cautery technique. In the distal transverse proximal descending region labeled splenic flexure mass we identified a non-circumferential nonobstructing mass. This was clearly neoplastic. Multiple biopsies took place. Tattooing took place proximal and distal to the lesion. The remainder of the descending sigmoid and rectum appeared normal. Air was mild diverticulosis. Digital rectal examination was normal. The patient was taken to the recovery room in stable condition per anesthesia guidelines. RECOMMENDATIONS: Await biopsy results. Will have patient follow up in the office to discuss pathologic findings.
[2023-06-22 09:52] VITALS: BP 132/81; PULSE 69; RESP 19
== END 2023-06-22 09:38 | disposition home or self-care (01) ==
LOC: ORWHC2ENDO 06:48
PROVIDERS: ATTEND Surgery
DX: D12.3 Benign neoplasm of transverse colon (principal); K59.00 Constipation, unspecified; I48.91 Unspecified atrial fibrillation; I25.10 Atherosclerotic heart disease of native coronary artery without angina pectoris; I11.0 Hypertensive heart disease with heart failure; I50.9 Heart failure, unspecified; E11.9 Type 2 diabetes mellitus without complications; K21.9 Gastro-esophageal reflux disease without esophagitis; I25.2 Old myocardial infarction; Z95.5 Presence of coronary angioplasty implant and graft; Z87.891 Personal history of nicotine dependence; Z80.1 Family history of malignant neoplasm of trachea, bronchus and lung; Z82.49 Family history of ischemic heart disease and other diseases of the circulatory system; Z82.3 Family history of stroke; Z86.73 Personal history of transient ischemic attack (TIA), and cerebral infarction without residual deficits; Z79.899 Other long term (current) drug therapy
CPT/HCPCS: 88305; 88342; 88341; 45380; 45385; 45381; J3010; J2704

== ENCOUNTER 2023-11-11 15:52 | Emergency (ER) | payer MEDICARE ==
[2023-11-11 16:22] VITALS: TEMP 98.1
[2023-11-11 16:58] LABS: HCT 40.3 % (39.0-53.0); HGB 12.4 gm/dL (13.0-17.5); Hypochromasia Marked; MCH 30.8 pg (25.0-35.0); MCHC 30.7 g/dL (31.0-37.0); MCV 100.5 fL (80.0-100.0); Macrocytosis Slight; Mean Platelet Volume 10.7; Platelet Count 106 k/uL (150-450); RBC 4.01 m/uL (4.30-5.90); RDW 14.6 % (11.5-15.5); WBC 11.1 k/uL (3.8-10.6)
[2023-11-11 16:59] LABS: Basophils % (A) 0 %; Eosinophils # (A) 0.2 k/uL (0-0.7); Eosinophils % (A) 2 %; Lymphocytes % (A) 9 %; Monocytes # (A) 0.7 k/uL (0-1.0); Monocytes % (A) 7 %; Neutrophils % (A) 81 %
[2023-11-11 17:14] LABS: ALT 10 U/L (4-49); AST 21 U/L (17-59); African American GFR (CKD) 72 (>60 ml/min/1.73 sqM); Albumin 3.3 g/dL (3.5-5.0); Alkaline Phosphatase 85 U/L (38-126); Anion Gap 6 mmol/L; Blood Urea Nitrogen 30 mg/dL (9-20); Calcium 8.3 mg/dL (8.4-10.2); Carbon Dioxide 27 mmol/L (22-30); Chloride 105 mmol/L (98-107); Glucose 120 mg/dL (74-99); Lipase 34 U/L (23-300); Non-African American GFR(CKD) 62 (>60 ml/min/1.73 sqM); Sodium 138 mmol/L (137-145); Total Bilirubin 0.7 mg/dL (0.2-1.3); Total Protein 5.9 g/dL (6.3-8.2)
[2023-11-11 17:21] LABS: Potassium 4.8 mmol/L (3.5-5.1)
[2023-11-11] MEDS: ONDANSETRON 4 MG/2 ML VIAL IVP STA (17:39)
[2023-11-11] MEDS: HYDROmorphone 1 MG/ML 1 ML SYRINGE IVP STA ×2 (17:40→20:39)
[2023-11-11] MEDS: SODIUM CHLORIDE 0.9% 1,000 ML IV ONE (17:41)
[2023-11-11 18:33] LABS: Appearance,Urine Cloudy (Clear); Bilirubin,Urine Negative (Negative); Blood,Urine Trace (Negative); Color,Urine Colorless; Glucose,Urine (UA) 4+ (Negative); Ketones,Urine Negative (Negative); Leukocyte Esterase,Urine Large (Negative); Mucus,Urine Rare /hpf; Nitrite,Urine Negative (Negative); PH, Urine 5.5 (5.0-8.0); Protein,Urine Negative (Negative); RBC,Urine 2 /hpf (0-5); Specific Gravity,Urine 1.018 (1.001-1.035); Squamous Epithelial Cell,Urine <1 /hpf (0-4); Urobilinogen,Urine <2.0 mg/dL (<2.0); WBC,Urine 102 /hpf (0-5)
--- NOTE | 2023-11-11 19:00 | CT ---
EXAMINATION TYPE: CT abdomen pelvis w con CT DLP: 1714 mGycm, Automated exposure control for dose reduction was used. DATE OF EXAM: 11/11/2023 6:19 PM COMPARISON: CT abdomen and pelvis without contrast 03/31/2023 CLINICAL INDICATION:Male, 83 years old with history of abd pain; TECHNIQUE: Axial CT of the abdomen and pelvis. Sagittal and coronal reformats were created on a [employer] workstation. Contrast used Isovue 300 100 cc IV Oral contrast used: None FINDINGS: LOWER CHEST: Mild cardiomegaly. Radiodensity suggesting coronary arterial and aortic valve calcificat ions. Lung bases show small bilateral pleural effusions, right greater than left. Calcified granuloma right lung base. Mild bibasilar interlobular septal thickening may represent edema. ABDOMEN LIVER: Unremarkable GALLBLADDER AND BILE DUCTS: Unremarkable gallbladder. No biliary ductal dilatation. PANCREAS: Mild fatty infiltration without acute finding. Stable 1.3 cm nodular density at the tail co uld represent residual pancreatic parenchyma. SPLEEN: Similar in appearance, mildly enlarged at 14.6 cm. ADRENAL GLANDS: Unremarkable. KIDNEYS AND URETERS: Kidneys appear somewhat atrophic. 4.1 cm cyst at the right lower renal pole. No visible calculus or hydronephrosis. PELVIS BLADDER: Bladder is incompletely distended. Mild thickening of the right posterior lateral wall canno t be excluded. REPRODUCTIVE: Unremarkable. ABDOMEN & PELVIS STOMACH AND BOWEL: Stomach and small bowel are nondistended, no evidence of obstruction. The append ix is not seen with certainty but there is no inflammatory process seen in the pericecal region. Mod erate stool throughout the colon without acute abnormality seen. There appears to be anastomosis in t he distal transverse colon. PERITONEUM/RETROPERITONEUM: No evidence of pneumoperitoneum or free fluid. VASCULATURE: Moderate to severe atherosclerotic calcifications are present throughout the abdominal a kina and its branches. No evidence of aortic aneurysm. Portal vein, splenic vein, SMV appear enhanci ng. IVC is of normal caliber. LYMPH NODES: No enlarged nodes by CT size criteria. SOFT TISSUE/ABDOMINAL WALL: Small foci of increased attenuation subcutaneously throughout the anterio r abdominal wall likely medication injections. More confluent area of opacity likely represents scarr ing. Tiny fat containing umbilical region hernia, tiny fat-containing subxiphoid hernia. MUSCULOSKELETAL: No acute osseous abnormalities. Multilevel posterior hardware fusion changes L2-S1 w ith corresponding laminectomies. Neurostimulator device with its leads entering the canal at T12-L1 a nd ascending posteriorly with the tips beyond the [id number]. IMPRESSION: 1. No acute abnormality in the abdomen or pelvis. 2. Cardiomegaly. Small bilateral pleural effusions and interlobular septal thickening. Correlate cli nically for CHF. 3. Other chronic and likely incidental findings, as described above.
--- NOTE | 2023-11-11 19:12 | ED ---
Abdominal Pain HPI - General Chief Complaint: Abdominal Pain Stated Complaint: Abd Pain Time Seen by Provider: 11/11/23 16:05 Source: patient Mode of arrival: ambulatory Limitations: no limitations - History of Present Illness Initial Comments: 83-year-old male with previous bowel resection who presents to the emergency department reporting abdominal pain. He states that his pain has been going on for today. He describes it as a colicky abdominal pain. He denies any provocative factors. Admits to nausea without vomiting. Denies any changes in his bowel or bladder habits. Denies black or bloody stools. He denies any flank pain. No fevers. He did not attempt to take anything for the pain at home before coming in. No other alleviating, precipitating or modifying factors - Related Data Home Medications Medication Instructions Recorded Confirmed Atorvastatin [Lipitor] 40 mg PO HS 12/03/20 11/12/23 DULoxetine HCL [Cymbalta] 60 mg PO DAILY 12/03/20 11/12/23 Amiodarone [Cordarone] 100 mg PO DAILY 10/18/21 11/12/23 Gabapentin [Neurontin] 800 mg PO TID 11/08/22 11/12/23 HYDROcodone/APAP 10-325MG [[place] 1 tab PO 5XD 11/08/22 11/12/23 10-325] Midodrine [ProAmatine] 5 mg PO TID 11/08/22 11/12/23 Cholecalciferol [Vitamin D3 (25 25 mcg PO DAILY 04/30/23 11/12/23 Mcg = 1000 Iu)] Triamcinolone 0.1% Cream [Kenalog 1 applic TOPICAL BID PRN 04/30/23 11/12/23 0.1% Cream] Vitamin B Complex 1 cap PO DAILY 04/30/23 11/12/23 Biotin 5 mg PO DAILY 06/17/23 11/12/23 Dapagliflozin Propanediol [Farxiga] 10 mg PO DAILY 06/17/23 11/12/23 Albuterol Sulfate [Albuterol 2 puff INHALATION RT-Q6H PRN 11/11/23 11/12/23 Sulfate Hfa] Ipratropium [place] 0.06%Nasal 1 spr EA NOSTRIL DAILY 11/11/23 11/12/23 [Atrovent Nasal 0.06%] Pantoprazole Sodium [Protonix] 40 mg PO DAILY 11/11/23 11/12/23 methIMAzole [Tapazole] 2.5 mg PO MOTUWETHFR 11/11/23 11/12/23 Previous Rx's Medication Instructions Recorded Aspirin [Adult Low Dose Aspirin EC] 81 mg PO DAILY 30 Days #30 tab 05/20/23 Allergies Allergy/AdvReac Type Severity Reaction Status Date / Time No Known Allergies Allergy Verified 11/12/23 12:22 Review of Systems ROS Statement: Those systems with pertinent positive or pertinent negative responses have been documented in the HPI. ROS Other: All systems not noted in ROS Statement are negative. Past Medical History Past Medical History: Atrial Fibrillation, Coronary Artery Disease (CAD), Heart Failure, CVA/TIA, Diabetes Mellitus, GERD/Reflux, GI Bleed, Hyperlipidemia, Hypertension, Myocardial Infarction (PR), Osteoarthritis (OA), Pneumonia, Renal Disease, Syncope Additional Past Medical History / Comment(s): Past syncopal episodes with past work ups, TIA, recent diagnosis of diabetes, neuropathy bilateral legs, pt has had "low blood counts" and is to see a alodize machine operator, CKD stage III, chronic low back pain/pt was to have permanent spinal stimulator placed today, bilateral lower leg edema, past small intestinal bleed, benign colon polyp, hemorrhoids, aortic stenosis and has had valve replaced. Last Myocardial Infarction Date:: 2007 History of Any Multi-Drug Resistant Organisms: None Reported Past Surgical History: Back Surgery, Heart Catheterization, Heart Catheterization With Stent, Hernia Repair, Orthopedic Surgery Additional Past Surgical History / Comment(s): TAVR, CRHISTIAN/cardioversions, PCI with stents, nasal benign polypectomy, bilateral cataract removal/lens implants, EGD, colonoscopies/benign polypectomy, R inguinal hernia repair, low back surgery with edie/screws, temporary spinal stimulator, bilateral ACL arthroscopic surgery, vasectomy. Past Anesthesia/Blood Transfusion Reactions: No Reported Reaction Additional Past Anesthesia/Blood Transfusion Reaction / Comment(s): Pt had blood transfusion with back surgery without reaction. Date of Last Stent Placement:: 2018 Type of Cardiac Device: Loop Device Placement Date:: 2019 Past Psychological History: No Psychological Hx Reported Smoking Status: Former smoker Past Alcohol Use History: None Reported Past Drug Use History: None Reported - Past Family History Son(s) Family Medical History: Cancer Additional Family Medical History / Comment(s): FROM LUNG CANCER Father Family Medical History: Myocardial Infarction (PR) Additional Family Medical History / Comment(s): Father in a MVA. Mother Family Medical History: CVA/TIA, Myocardial Infarction (PR) General Exam Limitations: no limitations General appearance: alert, in no apparent distress Head exam: Present: atraumatic, normocephalic, normal inspection Eye exam: Present: normal appearance, PERRL, EOMI. Absent: scleral icterus, conjunctival injection, periorbital swelling ENT exam: Present: normal exam, mucous membranes moist Neck exam: Present: normal inspection. Absent: tenderness, meningismus, lymphadenopathy Respiratory exam: Present: normal lung sounds bilaterally. Absent: respiratory distress, wheezes, rales, rhonchi, stridor Cardiovascular Exam: Present: regular rate, normal rhythm, normal heart sounds. Absent: systolic murmur, diastolic murmur, rubs, gallop, clicks GI/Abdominal exam: Present: soft, normal bowel sounds. Absent: distended, tenderness, guarding, rebound, rigid Extremities exam: Present: normal inspection, full ROM, normal capillary refill. Absent: tenderness, pedal edema, joint swelling, calf tenderness Back exam: Present: normal inspection Neurological exam: Present: alert, oriented X3, CN II-XII intact Psychiatric exam: Present: normal affect, normal mood Skin exam: Present: warm, dry, intact, normal color. Absent: rash Course Vital Signs 11/11/23 11/11/23 11/11/23 16:03 16:36 20:37 Temperature 98.1 F Pulse Rate 84 83 88 Respiratory 18 18 16 Rate Blood Pressure 150/73 140/60 134/73 O2 Sat by Pulse 93 L 93 L 96 Oximetry Medical Decision Making - Medical Decision Making Was pt. sent in by a medical professional or institution (, PA, STRIP MILL OPERATOR, urgent care, hospital, or jail...) When possible be specific @ -Patient was sent in by Dr. Alvarado Did you speak to anyone other than the patient for history (EMS, parent, family, police, friend...)? What history was obtained from this source @ -Spoke with the for history Did you review nursing and triage notes (agree or disagree)? Why? @ -I reviewed and agree with nursing and triage notes Were old charts reviewed (outside hosp., previous admission, EMS record, old EKG, old radiological studies, urgent care reports/EKG's, jail records)? Report findings @ -No old charts were reviewed Differential Diagnosis (chest pain, altered mental status, abdominal pain women, abdominal pain men, vaginal bleeding, weakness, fever, dyspnea, syncope, headache, dizziness, GI bleed, back pain, seizure, CVA, palpatations, mental health, musculoskeletal)? @ -Differential Abdominal Pain Men: Appendicitis, cholecystitis, diverticulosis, ischemic bowel, pancreatitis, hepatitis, UTI, gastroenteritis, AAA, incarcerated hernia, bowel obstruction, constipation, inflammatory bowel, hepatitis, peptic ulcer disease, splenic infarction, perforated viscus, testicular torsion, this is not meant to be an all-inclusive list EKG interpreted by me (3pts min.). @ -Not done X-rays interpreted by me (1pt min.). @ -None done CT interpreted by me (1pt min.). @ -Yes and there is no signs of bowel obstruction U/S interpreted by me (1pt. min.). @ -None done What testing was considered but not performed or refused? (CT, X-rays, U/S, labs)? Why? @ -Serial abdominal exams however patient refused admission What meds were considered but not given or refused? Why? @ -None Did you discuss the management of the patient with other professionals (professionals i.e. , PA, STRIP MILL OPERATOR, lab, RT, psych nurse, criminal justice social worker, sleeve maker, teacher, community service officer, correctional casework specialist)? Give summary @ -No Was smoking cessation discussed for >3mins.? @ -No Was critical care preformed (if so, how long)? @ -No Were there social determinants of health that impacted care today? How? (Homelessness, low income, unemployed, alcoholism, drug addiction, transportation, low edu. Level, literacy, decrease access to med. care, fpc, rehab)? @ -No Was there de-escalation of care discussed even if they declined (Discuss DNR or withdrawal of care, Hospice)? DNR status @ -No What co-morbidities impacted this encounter? (DM, HTN, Smoking, COPD, CAD, Ca ncer, CVA, ARF, Chemo, Hep., AIDS, mental health diagnosis, sleep apnea, morbid obesity)? @ -History of bowel obstruction Was patient admitted / discharged? Hospital course, mention meds given and [place], prescriptions, significant lab abnormalities, going to OR and other pertinent info. @ -Upon arrival patient was seen and evaluated in room 17. Thorough history and physical exam was performed. IV access was established. Patient was given medication for pain control. Laboratory studies are conducted. CT was performed. Upon return on the results they are discussed with the patient. Patient does have an abnormal UA and therefore this will be sent for urine culture. He continues to have pain and therefore is given a second dose of pain medications. I did discuss the differential and treatment options. As the patient continues to have pain with no known source I did recommend admission for serial abdominal exams. Patient is refusing and states he wants to go home at this time. He does have a significant amount of stool burden. I did offer that the patient take home a bottle of magnesium citrate. He is to drink half the bottle. If he does not have a bowel movement, he is to drink the second half. Return for any new or worsening symptoms. Patient agreeable to plan was discharged in stable condition Undiagnosed new problem with uncertain prognosis? @ -Yes Drug Therapy requiring intensive monitoring for toxicity (Heparin, Nitro, Insulin, Cardizem)? @ -No Were any procedures done? @ -No Diagnosis/symptom? @ -Acute abdominal pain, possible constipation, abnormal UA Acute, or Chronic, or Acute on Chronic? @ -Acute Uncomplicated (without systemic symptoms) or Complicated (systemic symptoms)? @ -Complicated Side effects of treatment? @ -No Exacerbation, Progression, or Severe Exacerbation? @ -No Poses a threat to life or bodily function? How? (Chest pain, [place], PR, pneumonia, PE, COPD, DKA, ARF, appy, cholecystitis, CVA, Diverticulitis, Homicidal, Suicid al, threat to staff... and all critical care pts) @ -No - Lab Data Result diagrams: 11/11/23 16:35 11/11/23 16:35 Lab Results 11/11/23 11/11/23 11/11/23 Range/Units 16:35 16:35 16:35 WBC 11.1 H (3.8-10.6) k/uL RBC 4.01 L (4.30-5.90) m/uL Hgb 12.4 L (13.0-17.5) gm/dL Hct 40.3 (39.0-53.0) % MCV 100.5 H (80.0-100.0) fL MCH 30.8 (25.0-35.0) pg MCHC 30.7 L (31.0-37.0) g/dL RDW 14.6 (11.5-15.5) % Plt Count 106 L (150-450) k/uL MPV 10.7 Neutrophils % 81 % Lymphocytes % 9 % Monocytes % 7 % Eosinophils % 2 % Basophils % 0 % Neutrophils # 9.0 H (1.3-7.7) k/uL Lymphocytes # 1.0 (1.0-4.8) k/uL Monocytes # 0.7 (0-1.0) k/uL Eosinophils # 0.2 (0-0.7) k/uL Basophils # 0.0 (0-0.2) k/uL Hypochromasia Marked Macrocytosis Slight Sodium 138 (137-145) mmol/L Potassium 4.8 (3.5-5.1) mmol/L Chloride 105 (98-107) mmol/L Carbon Dioxide 27 (22-30) mmol/L Anion Gap 6 mmol/L BUN 30 H (9-20) mg/dL Creatinine 1.09 (0.66-1.25) mg/dL Est GFR (CKD-EPI)AfAm 72 (>60 ml/min/1.73 sqM) Est GFR (CKD-EPI)NonAf 62 (>60 ml/min/1.73 sqM) Glucose 120 H (74-99) mg/dL Plasma Lactic Acid [place] (0.7-2.0) mmol/L Calcium 8.3 L (8.4-10.2) mg/dL Total Bilirubin 0.7 (0.2-1.3) mg/dL AST 21 (17-59) U/L ALT 10 (4-49) U/L Alkaline Phosphatase 85 (38-126) U/L Total Protein 5.9 L (6.3-8.2) g/dL Albumin 3.3 L (3.5-5.0) g/dL Lipase 34 (23-300) U/L Urine Color Colorless Urine Appearance Cloudy (Clear) Urine pH 5.5 (5.0-8.0) Ur Specific [place] 1.018 (1.001-1.035) Urine Protein Negative (Negative) Urine Glucose (UA) 4+ H (Negative) Urine Ketones Negative (Negative) Urine Blood Trace H (Negative) Urine Nitrite Negative (Negative) Urine Bilirubin Negative (Negative) Urine Urobilinogen <2.0 (<2.0) mg/dL Ur Leukocyte Esterase Large H (Negative) Urine RBC 2 (0-5) /hpf Urine WBC 102 H (0-5) /hpf Urine WBC Clumps Few H (None) /hpf Ur Squamous Epith Cells <1 (0-4) /hpf Urine Mucus Rare H (None) /hpf 11/11/23 Range/Units 16:35 WBC (3.8-10.6) k/uL RBC (4.30-5.90) m/uL Hgb (13.0-17.5) gm/dL Hct (39.0-53.0) % MCV (80.0-100.0) fL MCH (25.0-35.0) pg MCHC (31.0-37.0) g/dL RDW (11.5-15.5) % Plt Count (150-450) k/uL MPV Neutrophils % % Lymphocytes % % Monocytes % % Eosinophils % % Basophils % % Neutrophils # (1.3-7.7) k/uL Lymphocytes # (1.0-4.8) k/uL Monocytes # (0-1.0) k/uL Eosinophils # (0-0.7) k/uL Basophils # (0-0.2) k/uL Hypochromasia Macrocytosis Sodium (137-145) mmol/L Potassium (3.5-5.1) mmol/L Chloride (98-107) mmol/L Carbon Dioxide (22-30) mmol/L Anion Gap mmol/L BUN (9-20) mg/dL Creatinine (0.66-1.25) mg/dL Est GFR (CKD-EPI)AfAm (>60 ml/min/1.73 sqM) Est GFR (CKD-EPI)NonAf (>60 ml/min/1.73 sqM) Glucose (74-99) mg/dL Plasma Lactic Acid [place] 1.3 (0.7-2.0) mmol/L Calcium (8.4-10.2) mg/dL Total Bilirubin (0.2-1.3) mg/dL AST (17-59) U/L ALT (4-49) U/L Alkaline Phosphatase (38-126) U/L Total Protein (6.3-8.2) g/dL Albumin (3.5-5.0) g/dL Lipase (23-300) U/L Urine Color Urine Appearance (Clear) Urine pH (5.0-8.0) Ur Specific [place] (1.001-1.035) Urine Protein (Negative) Urine Glucose (UA) (Negative) Urine Ketones (Negative) Urine Blood (Negative) Urine Nitrite (Negative) Urine Bilirubin (Negative) Urine Urobilinogen (<2.0) mg/dL Ur Leukocyte Esterase (Negative) Urine RBC (0-5) /hpf Urine WBC (0-5) /hpf Urine WBC Clumps (None) /hpf Ur Squamous Epith Cells (0-4) /hpf Urine Mucus (None) /hpf Disposition Clinical Impression: Abdominal pain Disposition: HOME SELF-CARE Condition: Stable Instructions (If sedation given, give patient instructions): Abdominal Pain (ED) Additional Instructions: Drink half of the bottle of the magnesium citrate. If you do not have bowel movement within 4 hours, drink the second half. Please return should your symptoms worsen Is patient prescribed a controlled substance at d/c from ED?: No Referrals: Nancy Alvarado MD [Primary Care Provider] - 1-2 days Time of Disposition: 20:35
[2023-11-11] MEDS: MAGNESIUM CITRATE 296 ML BOTTLE PO ONE (20:51)
[2023-11-11 21:14] VITALS: BP 134/73; PULSE 88; RESP 16
== END 2023-11-11 20:53 | disposition home or self-care (01) ==
LOC: EC 15:52
DX: R10.9 Unspecified abdominal pain (principal); R82.90 Unspecified abnormal findings in urine; Z87.891 Personal history of nicotine dependence
CPT/HCPCS: 36415; 80053; 83605; 83690; 85025; 81001; 87086; 87077; 87186; 74177; 99284; 96374; 96375; 96376; 96361; J2405; J1170; Q9967

== ENCOUNTER 2023-11-12 09:05 | Inpatient (IN) | payer MEDICARE ==
[2023-11-12 10:06] LABS: Basophils % (A) 0 %; Eosinophils # (A) 0.1 k/uL (0-0.7); Eosinophils % (A) 1 %; HCT 38.1 % (39.0-53.0); HGB 11.7 gm/dL (13.0-17.5); Hypochromasia Marked; Lymphocytes # (A) 1.1 k/uL (1.0-4.8); Lymphocytes % (A) 10 %; MCHC 30.6 g/dL (31.0-37.0); MCV 101.2 fL (80.0-100.0); Macrocytosis Slight; Mean Platelet Volume 11.4; Monocytes # (A) 0.5 k/uL (0-1.0); Monocytes % (A) 4 %; Neutrophils # (A) 9.7 k/uL (1.3-7.7); Neutrophils % (A) 84 %; RBC 3.76 m/uL (4.30-5.90); RDW 14.3 % (11.5-15.5); WBC 11.5 k/uL (3.8-10.6)
[2023-11-12 10:23] LABS: ALT 11 U/L (4-49); AST 19 U/L (17-59); African American GFR (CKD) 59 (>60 ml/min/1.73 sqM); Albumin 3.3 g/dL (3.5-5.0); Alkaline Phosphatase 100 U/L (38-126); Anion Gap 6 mmol/L; Blood Urea Nitrogen 29 mg/dL (9-20); Calcium 8.6 mg/dL (8.4-10.2); Carbon Dioxide 27 mmol/L (22-30); Chloride 104 mmol/L (98-107); Glucose 162 mg/dL (74-99); Magnesium 2.2 mg/dL (1.6-2.3); Non-African American GFR(CKD) 51 (>60 ml/min/1.73 sqM); Potassium 4.8 mmol/L (3.5-5.1); Sodium 137 mmol/L (137-145); Total Protein 5.7 g/dL (6.3-8.2)
--- NOTE | 2023-11-12 10:27 | ED ---
General Adult HPI - General Chief complaint: Fall Stated complaint: fall,syncope Time Seen by Provider: 11/12/23 09:05 Source: patient, EMS, RN notes reviewed Mode of arrival: EMS Limitations: no limitations - History of Present Illness Initial comments: 83-year-old male presents emergency department with chief complaint of abdominal pain, weakness, near syncope. Patient relates that out of his bed and EMS arrived to get him back into bed when he had a reported syncopal episode he denies any chest pain complains of upper abdominal pain, cramping that extended to his lower abdomen. He did have blood work and CT yesterday. Patient noted to be having increasing weakness, does have a history of A-fib. Patient denies chest pain. - Related Data Home Medications Medication Instructions Recorded Confirmed Atorvastatin [Lipitor] 40 mg PO HS 12/03/20 11/12/23 DULoxetine HCL [Cymbalta] 60 mg PO DAILY 12/03/20 11/12/23 Amiodarone [Cordarone] 100 mg PO DAILY 10/18/21 11/12/23 Gabapentin [Neurontin] 800 mg PO TID 11/08/22 11/12/23 HYDROcodone/APAP 10-325MG [[place] 1 tab PO 5XD 11/08/22 11/12/23 10-325] Midodrine [ProAmatine] 5 mg PO TID 11/08/22 11/12/23 Cholecalciferol [Vitamin D3 (25 25 mcg PO DAILY 04/30/23 11/12/23 Mcg = 1000 Iu)] Triamcinolone 0.1% Cream [Kenalog 1 applic TOPICAL BID PRN 04/30/23 11/12/23 0.1% Cream] Vitamin B Complex 1 cap PO DAILY 04/30/23 11/12/23 Biotin 5 mg PO DAILY 06/17/23 11/12/23 Dapagliflozin Propanediol [Farxiga] 10 mg PO DAILY 06/17/23 11/12/23 Albuterol Sulfate [Albuterol 2 puff INHALATION RT-Q6H PRN 11/11/23 11/12/23 Sulfate Hfa] Ipratropium [place] 0.06%Nasal 1 spr EA NOSTRIL DAILY 11/11/23 11/12/23 [Atrovent Nasal 0.06%] Pantoprazole Sodium [Protonix] 40 mg PO DAILY 11/11/23 11/12/23 methIMAzole [Tapazole] 2.5 mg PO MOTUWETHFR 11/11/23 11/12/23 Previous Rx's Medication Instructions Recorded Aspirin [Adult Low Dose Aspirin EC] 81 mg PO DAILY 30 Days #30 tab 05/20/23 Allergies Allergy/AdvReac Type Severity Reaction Status Date / Time No Known Allergies Allergy Verified 11/12/23 12:22 Review of Systems ROS Statement: Those systems with pertinent positive or pertinent negative responses have been documented in the HPI. ROS Other: All systems not noted in ROS Statement are negative. Past Medical History Past Medical History: Atrial Fibrillation, Coronary Artery Disease (CAD), Heart Failure, CVA/TIA, Diabetes Mellitus, GERD/Reflux, GI Bleed, Hyperlipidemia, Hypertension, Myocardial Infarction ([place]), Osteoarthritis (OA), Pneumonia, Renal Disease, Syncope Additional Past Medical History / Comment(s): Past syncopal episodes with past work ups, TIA, recent diagnosis of diabetes, neuropathy bilateral legs, pt has had "low blood counts" and is to see a fish pitcher, CKD stage III, chronic low back pain/pt was to have permanent spinal stimulator placed today, bilateral lower leg edema, past small intestinal bleed, benign colon polyp, hemorrhoids, aortic stenosis and has had valve replaced. Last Myocardial Infarction Date:: 2007 History of Any Multi-Drug Resistant Organisms: None Reported Past Surgical History: Back Surgery, Heart Catheterization, Heart Catheterization With Stent, Hernia Repair, Orthopedic Surgery Additional Past Surgical History / Comment(s): TAVR, CHRISTIAN/cardioversions, PCI wit h stents, nasal benign polypectomy, bilateral cataract removal/lens implants, EGD, colonoscopies/benign polypectomy, R inguinal hernia repair, low back surgery with edie/screws, temporary spinal stimulator, bilateral ACL arthroscopic surgery, vasectomy. Past Anesthesia/Blood Transfusion Reactions: No Reported Reaction Additional Past Anesthesia/Blood Transfusion Reaction / Comment(s): Pt had blood transfusion with back surgery without reaction. Date of Last Stent Placement:: 2018 Type of Cardiac Device: Loop Device Placement Date:: 2019 Past Psychological History: No Psychological Hx Reported Smoking Status: Former smoker Past Alcohol Use History: None Reported Past Drug Use History: None Reported - Past Family History Son(s) Family Medical History: Cancer Additional Family Medical History / Comment(s): FROM LUNG CANCER Father Family Medical History: Myocardial Infarction ([place]) Additional Family Medical History / Comment(s): Father in a MVA. Mother Family Medical History: CVA/TIA, Myocardial Infarction ([place]) General Exam Limitations: no limitations General appearance: alert, in no apparent distress Head exam: Present: atraumatic, normocephalic, normal inspection Neck exam: Present: normal inspection. Absent: tenderness, meningismus, lymphadenopathy Respiratory exam: Present: normal lung sounds bilaterally. Absent: respiratory distress, wheezes, rales, rhonchi, stridor Cardiovascular Exam: Present: tachycardia, irregular rhythm, normal heart sounds. Absent: regular rate, normal rhythm, systolic murmur, diastolic murmur, rubs, gallop, clicks GI/Abdominal exam: Present: soft, tenderness, normal bowel sounds. Absent: distended, guarding, rebound, rigid Neurological exam: Present: alert, oriented X3 Course Vital Signs 11/12/23 11/12/23 11/12/23 09:10 10:37 10:56 Temperature 99.4 F Pulse Rate 91 113 H 123 H Pulse Rate [ Pulse Oximetery ] Respiratory 18 18 18 Rate Blood Pressure 96/50 91/67 121/58 Blood Pressure [Left Arm] O2 Sat by Pulse 75 L 86 L Oximetry 11/12/23 11/12/23 11/12/23 11:43 13:10 15:37 Temperature Pulse Rate 96 98 88 Pulse Rate [ Pulse Oximetery ] Respiratory 20 18 18 Rate Blood Pressure 106/58 106/84 105/61 Blood Pressure [Left Arm] O2 Sat by Pulse 93 L 93 L 97 Oximetry 11/12/23 11/12/23 11/12/23 18:33 20:01 20:20 Temperature 98.4 F 97.2 F L Pulse Rate 93 92 Pulse Rate [ 89 Pulse Oximetery ] Respiratory 18 18 20 Rate Blood Pressure 138/71 135/82 Blood Pressure 129/69 [Left Arm] O2 Sat by Pulse 98 99 96 Oximetry EKG Findings - EKG Comments: EKG Findings:: EKG performed at 9: 15 A-fib with RVR rate of 110 QRS 162 QT/QTc 332/397 - EKG Results: EKG: interpreted by [facility] Medical Decision Making - Medical Decision Making Was pt. sent in by a medical professional or institution (, PA, OUTSIDE OPERATOR, urgent care, hospital, or [facility]...) When possible be specific @ -No Did you speak to anyone other than the patient for history (EMS, parent, family, police, friend...)? What history was obtained from this source @ -Family providing past medical history Did you review nursing and triage notes (agree or disagree)? Why? @ -I reviewed and agree with nursing and triage notes Were old charts reviewed (outside hosp., previous admission, EMS record, old EKG, old radiological studies, urgent care reports/EKG's, [facility] records)? Report findings @ -Reviewed CT abdomen from yesterday, labs including CBC and comp Differential Diagnosis (chest pain, altered mental status, abdominal pain women, abdominal pain men, vaginal bleeding, weakness, fever, dyspnea, syncope, heada jose, dizziness, GI bleed, back pain, seizure, CVA, palpatations, mental health, musculoskeletal)? @ -Differential Syncope: Valvular disease, hypertrophic cardiomyopathy, pulmonary embolism, tamponade, tachycardia, bradycardia, [place], hypovolemia, hemorrhage, dissection, anemia, intracranial hemorrhage, seizure, hypoglycemia, carbon monoxide poisoning, this is not meant to be an all-inclusive list. EKG interpreted by me (3pts min.). @ -As above X-rays interpreted by me (1pt min.). @ -Chest x-ray shows pulmonary edema CT interpreted by me (1pt min.). @ -None done U/S interpreted by me (1pt. min.). @ -None done What testing was considered but not performed or refused? (CT, X-rays, U/S, labs)? Why? @ -None What meds were considered but not given or refused? Why? @ -None Did you discuss the management of the patient with other professionals (professionals i.e. , PA, OUTSIDE OPERATOR, lab, RT, psych nurse, health care social worker, eating disorder specialist, teacher, patient transport officer, field nurse case manager)? Give summary @ -Dr. Alvarado for admission secondary to UTI weakness syncope pulmonary edema and A-fib Was smoking cessation discussed for >3mins.? @ -No Was critical care preformed (if so, how long)? @ -Yes 35 minutes Were there social determinants of health that impacted care today? How? (Homelessness, low income, unemployed, alcoholism, drug addiction, transportation, low edu. Level, literacy, decrease access to med. care, long-term, r ehab)? @ -No Was there de-escalation of care discussed even if they declined (Discuss DNR or withdrawal of care, Hospice)? DNR status @ -No What co-morbidities impacted this encounter? (DM, HTN, Smoking, COPD, CAD, Cancer, CVA, ARF, Chemo, Hep., AIDS, mental health diagnosis, sleep apnea, morbid obesity)? @ -A-fib heart failure Was patient admitted / discharged? Hospital course, mention meds given and route, prescriptions, significant lab abnormalities, going to OR and other pertinent info. @ -Admitted patient is found to have UTI with lactic acidosis. Patient was given IV fluid bolus secondary to lactic acidosis postcardiopulmonary edema and hypoxia was given Lasix for CHF exacerbation this may be worsened by his current A-fib mild A-fib RVR with notable fever. Fevers. Heart rate improving lactic acid repeat was improved. Patient will be admitted for further diuresis and treatment of UTI Undiagnosed new problem with uncertain prognosis? @ -No Drug Therapy requiring intensive monitoring for toxicity (Heparin, Nitro, Insulin, Cardizem)? @ -No Were any procedures done? @ -No Diagnosis/symptom? @ -UTI, CHF exacerbation, A-fib RVR, weakness, syncope Acute, or Chronic, or Acute on Chronic? @ -Acute Uncomplicated (without systemic symptoms) or Complicated (systemic symptoms)? @ -Complicated Side effects of treatment? @ -No Exacerbation, Progression, or Severe Exacerbation? @ -Exacerbation Poses a threat to life or bodily function? How? (Chest pain, [place], [place], pneumonia, PE, COPD, DKA, ARF, appy, cholecystitis, CVA, Diverticulitis, Homicidal, Suicidal, threat to staff... and all critical care pts) @ -Yes possible heart failure, A-fib causing cardiac arrest - Lab Data Result diagrams: 11/12/23 09:50 11/12/23 09:50 Lab Results 11/12/23 11/12/23 11/12/23 Range/Units 09:50 09:50 09:50 WBC 11.5 H (3.8-10.6) k/uL RBC 3.76 L (4.30-5.90) m/uL Hgb 11.7 L (13.0-17.5) gm/dL Hct 38.1 L (39.0-53.0) % MCV 101.2 H (80.0-100.0) fL MCH 31.0 (25.0-35.0) pg MCHC 30.6 L (31.0-37.0) g/dL RDW 14.3 (11.5-15.5) % Plt Count 59 L (150-450) k/uL MPV 11.4 Neutrophils % 84 % Lymphocytes % 10 % Monocytes % 4 % Eosinophils % 1 % Basophils % 0 % Neutrophils # 9.7 H (1.3-7.7) k/uL Lymphocytes # 1.1 (1.0-4.8) k/uL Monocytes # 0.5 (0-1.0) k/uL Eosinophils # 0.1 (0-0.7) k/uL Basophils # 0.0 (0-0.2) k/uL Manual Slide Review Performed Hypochromasia Marked Macrocytosis Slight Sodium 137 (137-145) mmol/L Potassium 4.8 (3.5-5.1) mmol/L Chloride 104 (98-107) mmol/L Carbon Dioxide 27 (22-30) mmol/L Anion Gap 6 mmol/L BUN 29 H (9-20) mg/dL Creatinine 1.29 H (0.66-1.25) mg/dL Est GFR (CKD-EPI)AfAm 59 (>60 ml/min/1.73 sqM) Est GFR (CKD-EPI)NonAf 51 (>60 ml/min/1.73 sqM) Glucose 162 H (74-99) mg/dL Lactic Ac Sepsis Rflx Plasma Lactic Acid [place] (0.7-2.0) mmol/L Calcium 8.6 (8.4-10.2) mg/dL Magnesium 2.2 (1.6-2.3) mg/dL Total Bilirubin 1.0 (0.2-1.3) mg/dL AST 19 (17-59) U/L ALT 11 (4-49) U/L Alkaline Phosphatase 100 (38-126) U/L Troponin I <0.012 (0.000-0.034) ng/mL NT-Pro-B Natriuret Pep pg/mL Total Protein 5.7 L (6.3-8.2) g/dL Albumin 3.3 L (3.5-5.0) g/dL Urine Color Urine Appearance (Clear) Urine pH (5.0-8.0) Ur Specific [place] (1.001-1.035) Urine Protein (Negative) Urine Glucose (UA) (Negative) Urine Ketones (Negative) Urine Blood (Negative) Urine Nitrite (Negative) Urine Bilirubin (Negative) Urine Urobilinogen (<2.0) mg/dL Ur Leukocyte Esterase (Negative) Urine WBC (0-5) /hpf Ur Squamous Epith Cells (0-4) /hpf Urine Bacteria (None) /hpf Urine Mucus (None) /hpf 11/12/23 11/12/23 11/12/23 Range/Units 09:50 09:50 10:23 WBC (3.8-10.6) k/uL RBC (4.30-5.90) m/uL Hgb (13.0-17.5) gm/dL Hct (39.0-53.0) % MCV (80.0-100.0) fL MCH (25.0-35.0) pg MCHC (31.0-37.0) g/dL RDW (11.5-15.5) % Plt Count (150-450) k/uL MPV Neutrophils % % Lymphocytes % % Monocytes % % Eosinophils % % Basophils % % Neutrophils # (1.3-7.7) k/uL Lymphocytes # (1.0-4.8) k/uL Monocytes # (0-1.0) k/uL Eosinophils # (0-0.7) k/uL Basophils # (0-0.2) k/uL Manual Slide Review Hypochromasia Macrocytosis Sodium (137-145) mmol/L Potassium (3.5-5.1) mmol/L Chloride (98-107) mmol/L Carbon Dioxide (22-30) mmol/L Anion Gap mmol/L BUN (9-20) mg/dL Creatinine (0.66-1.25) mg/dL Est GFR (CKD-EPI)AfAm (>60 ml/min/1.73 sqM) Est GFR (CKD-EPI)NonAf (>60 ml/min/1.73 sqM) Glucose (74-99) mg/dL Lactic Ac Sepsis Rflx Y Plasma Lactic Acid [place] 3.1 H* (0.7-2.0) mmol/L Calcium (8.4-10.2) mg/dL Magnesium (1.6-2.3) mg/dL Total Bilirubin (0.2-1.3) mg/dL AST (17-59) U/L ALT (4-49) U/L Alkaline Phosphatase (38-126) U/L Troponin I (0.000-0.034) ng/mL NT-Pro-B Natriuret Pep 4490 pg/mL Total Protein (6.3-8.2) g/dL Albumin (3.5-5.0) g/dL Urine Color Urine Appearance (Clear) Urine pH (5.0-8.0) Ur Specific [place] (1.001-1.035) Urine Protein (Negative) Urine Glucose (UA) (Negative) Urine Ketones (Negative) Urine Blood (Negative) Urine Nitrite (Negative) Urine Bilirubin (Negative) Urine Urobilinogen (<2.0) mg/dL Ur Leukocyte Esterase (Negative) Urine WBC (0-5) /hpf Ur Squamous Epith Cells (0-4) /hpf Urine Bacteria (None) /hpf Urine Mucus (None) /hpf 11/12/23 Range/Units 10:36 WBC (3.8-10.6) k/uL RBC (4.30-5.90) m/uL Hgb (13.0-17.5) gm/dL Hct (39.0-53.0) % MCV (80.0-100.0) fL MCH (25.0-35.0) pg MCHC (31.0-37.0) g/dL RDW (11.5-15.5) % Plt Count (150-450) k/uL MPV Neutrophils % % Lymphocytes % % Monocytes % % Eosinophils % % Basophils % % Neutrophils # (1.3-7.7) k/uL Lymphocytes # (1.0-4.8) k/uL Monocytes # (0-1.0) k/uL Eosinophils # (0-0.7) k/uL Basophils # (0-0.2) k/uL Manual Slide Review Hypochromasia Macrocytosis Sodium (137-145) mmol/L Potassium (3.5-5.1) mmol/L Chloride (98-107) mmol/L Carbon Dioxide (22-30) mmol/L Anion Gap mmol/L BUN (9-20) mg/dL Creatinine (0.66-1.25) mg/dL Est GFR (CKD-EPI)AfAm (>60 ml/min/1.73 sqM) Est GFR (CKD-EPI)NonAf (>60 ml/min/1.73 sqM) Glucose (74-99) mg/dL Lactic Ac Sepsis Rflx Plasma Lactic Acid [place] (0.7-2.0) mmol/L Calcium (8.4-10.2) mg/dL Magnesium (1.6-2.3) mg/dL Total Bilirubin (0.2-1.3) mg/dL AST (17-59) U/L ALT (4-49) U/L Alkaline Phosphatase (38-126) U/L Troponin I (0.000-0.034) ng/mL NT-Pro-B Natriuret Pep pg/mL Total Protein (6.3-8.2) g/dL Albumin (3.5-5.0) g/dL Urine Color Light Yellow Urine Appearance Cloudy (Clear) Urine pH 5.5 (5.0-8.0) Ur Specific [place] 1.029 (1.001-1.035) Urine Protein Trace H (Negative) Urine Glucose (UA) 4+ H (Negative) Urine Ketones Negative (Negative) Urine Blood Negative (Negative) Urine Nitrite Negative (Negative) Urine Bilirubin Negative (Negative) Urine Urobilinogen <2.0 (<2.0) mg/dL Ur Leukocyte Esterase Large H (Negative) Urine WBC 145 H (0-5) /hpf Ur Squamous Epith Cells <1 (0-4) /hpf Urine Bacteria Rare H (None) /hpf Urine Mucus Rare H (None) /hpf Critical Care Time Critical Care Time: Yes Total Critical Care Time: 35 Disposition Clinical Impression: Syncope, Afib, CHF exacerbation, UTI (urinary tract infection) Disposition: ADMITTED IP TO THIS HOSP Condition: Fair Time of Disposition: 11:05
--- NOTE | 2023-11-12 10:28 | XR ---
EXAMINATION TYPE: XR chest 2V DATE OF EXAM: 11/12/2023 COMPARISON: 05/19/2023 TECHNIQUE: PA and lateral views submitted. HISTORY: Syncope FINDINGS: Diffuse bilateral patchy infiltrates. Tiny right pleural effusion. Diffuse osteopenia and postoperati ve changes left shoulder. Arthropathy of the AC joints. No pneumothorax. Stimulator lead noted and th ere is evidence of previous aortic surgery. Loop recorder suggested. Heart mildly enlarged. IMPRESSION: 1. Correlate for CHF versus interstitial pneumonia\atypical pneumonia.
[2023-11-12] MEDS: SODIUM CHLORIDE 0.9% 500 ML 500 ML IV STA (10:29)
[2023-11-12] MEDS: SODIUM CHLORIDE 0.9% 500 ML 500 ML IV ONE (10:32)
[2023-11-12 10:33] LABS: Platelet Count 59 k/uL (150-450)
[2023-11-12 10:45] LABS: Appearance,Urine Cloudy (Clear); Bacteria,Urine Rare /hpf; Bilirubin,Urine Negative (Negative); Blood,Urine Negative (Negative); Color,Urine Light Yellow; Glucose,Urine (UA) 4+ (Negative); Ketones,Urine Negative (Negative); Leukocyte Esterase,Urine Large (Negative); Mucus,Urine Rare /hpf; Nitrite,Urine Negative (Negative); PH, Urine 5.5 (5.0-8.0); Protein,Urine Trace (Negative); Specific Gravity,Urine 1.029 (1.001-1.035); Squamous Epithelial Cell,Urine <1 /hpf (0-4); Urobilinogen,Urine <2.0 mg/dL (<2.0); WBC,Urine 145 /hpf (0-5)
[2023-11-12] MEDS: FUROSEMIDE 10 MG/ML 4 ML VIAL IV STA (10:50)
[2023-11-12] MEDS: methIMAzole 5 MG TAB PO SCH (13:08)
[2023-11-12] MEDS: AMIODARONE 100 MG TAB PO SCH (13:09)
[2023-11-12] MEDS: ACETAMINOPHEN TAB 325 MG TAB PO PRN (13:09)
[2023-11-12] MEDS: GABAPENTIN 400 MG CAP PO SCH (15:40)
[2023-11-12] MEDS: HYDROcodone/APAP 10-325MG 1 EACH TAB PO SCH (15:40)
[2023-11-12] MEDS: MIDODRINE 5 MG TAB PO SCH (15:41)
[2023-11-12] MEDS: HYDROmorphone 0.5 MG/0.5 ML SYRINGE IVP STA (18:36)
[2023-11-12] MEDS: FUROSEMIDE 10 MG/ML 4 ML VIAL IV SCH (20:25)
[2023-11-12] MEDS: ATORVASTATIN 40 MG TAB PO SCH (20:26)
[2023-11-13] MEDS: HYDROmorphone 0.5 MG/0.5 ML SYRINGE IVP PRN (00:54)
[2023-11-13] MEDS: DULoxetine HCL 60 MG CAPSULE.DR PO SCH (08:51)
[2023-11-13] MEDS: PANTOPRAZOLE 40 MG TABLET PO SCH (08:51)
[2023-11-13] MEDS: ASPIRIN 81 MG PO SCH (08:51)
[2023-11-13] MEDS: ENOXAPARIN 40 MG/0.4 ML SYRINGE SQ SCH (08:52)
[2023-11-13] MEDS: CHOLECALCIFEROL 25 MCG (1000 IU) TABLET PO SCH (08:52)
[2023-11-13] MEDS: DAPAGLIFLOZIN PROPANEDIOL 10 MG TABLET PO SCH (08:52)
[2023-11-13] MEDS: NON FORMULARY DRUG (Biotin [Biotin] 5 MG Capsule) PO SCH (08:52)
[2023-11-13] MEDS: NON FORMULARY DRUG (Vitamin B Complex [Vitamin B Complex] 1 EACH Capsule) PO SCH (08:53)
[2023-11-13] MEDS: ALBUTEROL NEBULIZED 2.5 MG/3 ML INHALATION PRN (11:38)
[2023-11-13] MEDS: IPRATROPIUM BROMIDE 0.06% NASAL SPRAY (15 ML) EA NOSTRIL SCH (12:23)
[2023-11-13] MEDS: DOXYCYCLINE 100 MG in SODIUM CHLORIDE 0.9% 100 ML IVPB SCH (12:24)
--- NOTE | 2023-11-13 12:51 | P.EPPROC ---
- EP Procedure Note Electrophysiology Procedure Note: This is Dr. Mcdonough dictating a consult on this patient The patient was interviewed and examined IMPRESSION / ASSESSMENT: A-fib with RVR Patient presented with abdominal pain and syncope His chest x-ray is abnormal with bilateral infiltrates PLAN: Continue IV Lasix Continue amiodarone 100 mg p.o. daily for now If his heart rates are still elevated then I would add metoprolol 12.5 mg twice daily If his chest x-ray does not improve with IV Lasix I would discontinue amiodarone completely Patient is not on anticoagulation His platelet count is 59,000 transfer to [facility] Patient presented with abdominal pain weakness near syncope He got out of his bed and he had a syncopal spell. At that time he had severe abdominal pain and cramping in the mid to lower abdomen He is also noticed increasing weakness He has atrial fibrillation as well as dysautonomia His chest x-ray showed bilateral infiltrates. Patient is on amiodarone 100 mg p.o. daily. He remains in atrial fibrillation ROS: No fever chills or rigors, no cough, phlegm or expectoration, no nausea, vomiting or diarrhea, no hematuria, dysuria, no musculoskeletal complaints, no strokes or seizures, no skin lesions. EXAMINATION: Blood pressure 119/66 mmHg pulse rate in the 80s Breath sounds are reduced bilaterally with bibasilar crackles Heart sounds are irregular REVIEW OF LABS, ECG & MEDICAL DATA White count 11.5 thousand, hemoglobin 11.7, platelet count of 59,000 Normal electrolytes Creatinine 1.3 BNP elevated at 4500, normal troponin Low normal LV systolic function with RV enlargement and biatrial enlargement Bioprosthetic valve functioning normally
--- NOTE | 2023-11-13 15:54 | P.HPIM ---
History of Present Illness H&P Date: 11/13/23 Chief Complaint: Syncope/fall 83-year-old male, history of hypertension, hyperlipidemia, diabetes mellitus, history of chronic kidney disease, CAD/CHF, atrial fibrillation, presents emergency department with chief complaint of abdominal pain, weakness, near syncope. Patient relates that he was trying to get out of his bed and fell; EMS arrived to get him back into bed when he had a reported syncopal episode he denies any chest pain complains of upper abdominal pain, cramping that extended to his lower abdomen. Patient noted to be having increasing weakness, does have a history of A-fib. Patient denies chest pain. Blood work completed in ED reveals a WBC of 11.5, hemoglobin of 11.7 and platelet count of 59, sodium 137, potassium 4.8, BUNs/creatinine of 29/1.29 and blood glucose of 162 UA is positive for leukocyte esterase, WBCs and bacteria Chest x-ray reveals CHF versus interstitial pneumonia/atypical pneumonia Review of Systems REVIEW OF SYSTEMS: CONSTITUTIONAL: No fever, no malaise, no fatigue. HEENT: No recent visual problems or hearing problems. Denied any sore throat. CARDIOVASCULAR: No chest pain, orthopnea, PND, no palpitations, no syncope. PULMONARY: No shortness of breath, no cough, no hemoptysis. GASTROINTESTINAL: No diarrhea, no nausea, no vomiting, no abdominal pain. NEUROLOGICAL: No headaches, no weakness, no numbness. HEMATOLOGICAL: Denies any bleeding or petechiae. GENITOURINARY: Denies any burning micturition, frequency, or urgency. MUSCULOSKELETAL/RHEUMATOLOGICAL: Denies any joint pain, swelling, or any muscle pain. ENDOCRINE: Denies any polyuria or polydipsia. The rest of the 14-point review of systems is negative. Past Medical History Past Medical History: Atrial Fibrillation, Coronary Artery Disease (CAD), Heart Failure, CVA/TIA, Diabetes Mellitus, GERD/Reflux, GI Bleed, Hyperlipidemia, Hypertension, Myocardial Infarction ([place]), Osteoarthritis (OA), Pneumonia, Renal Disease, Syncope Additional Past Medical History / Comment(s): Past syncopal episodes with past work ups, TIA, recent diagnosis of diabetes, neuropathy bilateral legs, pt has had "low blood counts" and is to see a director electronics, CKD stage III, chronic low back pain/pt was to have permanent spinal stimulator placed today, bilateral lower leg edema, past small intestinal bleed, benign colon polyp, hemorrhoids, aortic stenosis and has had valve replaced. Last Myocardial Infarction Date:: 2007 History of Any Multi-Drug Resistant Organisms: None Reported Past Surgical History: Back Surgery, Heart Catheterization, Heart Catheterization With Stent, Hernia Repair, Orthopedic Surgery Additional Past Surgical History / Comment(s): TAVR, CHRISTIAN/cardioversions, PCI with stents, nasal benign polypectomy, bilateral cataract removal/lens implants, EGD, colonoscopies/benign polypectomy, R inguinal hernia repair, low back surgery with edie/screws, temporary spinal stimulator, bilateral ACL arthroscopic surgery, vasectomy. Past Anesthesia/Blood Transfusion Reactions: No Reported Reaction Additional Past Anesthesia/Blood Transfusion Reaction / Comment(s): Pt had blood transfusion with back surgery without reaction. Date of Last Stent Placement:: 2018 Type of Cardiac Device: Loop Device Placement Date:: 2019 Past Psychological History: No Psychological Hx Reported Additional Psychological History / Comment(s): Pt resides with his spouse of 56 yrs. He uses a cane to ambulate. He owns a walker. He drives very little, his spouse is the main cattle driver. Smoking Status: Former smoker Past Alcohol Use History: None Reported Additional Past Alcohol Use History / Comment(s): Pt started smoking in 1946 and quit in 1994 Past Drug Use History: Marijuana - Past Family History Son(s) Family Medical History: Cancer Additional Family Medical History / Comment(s): FROM LUNG CANCER Father Family Medical History: Myocardial Infarction ([place]) Additional Family Medical History / Comment(s): Father in a MVA. Mother Family Medical History: CVA/TIA, Myocardial Infarction ([place]) Medications and Allergies Home Medications Medication Instructions Recorded Confirmed Type Atorvastatin [Lipitor] 40 mg PO HS 12/03/20 11/12/23 History DULoxetine HCL [Cymbalta] 60 mg PO DAILY 12/03/20 11/12/23 History Amiodarone [Cordarone] 100 mg PO DAILY 10/18/21 11/12/23 History Gabapentin [Neurontin] 800 mg PO TID 11/08/22 11/12/23 History HYDROcodone/APAP 10-325MG [[place] 1 tab PO 5XD 11/08/22 11/12/23 History 10-325] Midodrine [ProAmatine] 5 mg PO TID 11/08/22 11/12/23 History Cholecalciferol [Vitamin D3 (25 25 mcg PO DAILY 04/30/23 11/12/23 History Mcg = 1000 Iu)] Triamcinolone 0.1% Cream [Kenalog 1 applic TOPICAL BID PRN 04/30/23 11/12/23 History 0.1% Cream] Vitamin B Complex 1 cap PO DAILY 04/30/23 11/12/23 History Aspirin [Adult Low Dose Aspirin EC] 81 mg PO DAILY 30 Days #30 tab 05/20/23 11/12/23 Rx Biotin 5 mg PO DAILY 06/17/23 11/12/23 History Dapagliflozin Propanediol [Farxiga] 10 mg PO DAILY 06/17/23 11/12/23 History Albuterol Sulfate [Albuterol 2 puff INHALATION RT-Q6H PRN 11/11/23 11/12/23 History Sulfate Hfa] Ipratropium [place] 0.06%Nasal 1 spr EA NOSTRIL DAILY 11/11/23 11/12/23 History [Atrovent Nasal 0.06%] Pantoprazole Sodium [Protonix] 40 mg PO DAILY 11/11/23 11/12/23 History methIMAzole [Tapazole] 2.5 mg PO MOTUWETHFR 11/11/23 11/12/23 History Allergies Allergy/AdvReac Type Severity Reaction Status Date / Time No Known Allergies Allergy Verified 11/12/23 12:22 Physical Exam Vitals: Vital Signs Temp Pulse Pulse Resp BP BP Pulse Ox 11/13/23 09:17 82 20 11/13/23 09:07 97.8 F 82 20 128/60 96 11/13/23 04:00 103 H 20 129/60 93 L 11/13/23 02:00 95 20 11/13/23 00:00 95 20 111/75 92 L 11/12/23 20:20 97.2 F L 89 20 129/69 96 11/12/23 20:01 92 18 135/82 99 11/12/23 18:33 98.4 F 93 18 138/71 98 11/12/23 15:37 88 18 105/61 97 11/12/23 13:10 98 18 106/84 93 L 11/12/23 11:43 96 20 106/58 93 L 11/12/23 10:56 123 H 18 121/58 11/12/23 10:37 113 H 18 91/67 86 L Intake and Output 11/12/23 11/13/23 11/13/23 22:59 06:59 14:59 Intake Total 500 658 Output Total 1000 Balance -500 658 Intake: Oral 500 658 Output: Urine 1000 Other: Voiding Method Urinal Urinal Urinal # Voids 1 1 Weight 98.43 kg 95.8 kg Limitations: no limitations General appearance: alert, in no apparent distress Head exam: Present: atraumatic, normocephalic, normal inspection Neck exam: Present: normal inspection. Absent: tenderness, meningismus, lymphadenopathy Respiratory exam: Present: normal lung sounds bilaterally. Absent: respiratory distress, wheezes, rales, rhonchi, stridor Cardiovascular Exam: Present: tachycardia, irregular rhythm, normal heart sounds. Absent: regular rate, normal rhythm, systolic murmur, diastolic murmur, rubs, gallop, clicks GI/Abdominal exam: Present: soft, tenderness, normal bowel sounds. Absent: distended, guarding, rebound, rigid Neurological exam: Present: alert, oriented X3 Results CBC & Chem 7: 11/12/23 09:50 11/12/23 09:50 Labs: Abnormal Lab Results - Last 24 Hours (Table) 11/12/23 11/12/23 11/12/23 Range/Units 09:50 09:50 09:50 WBC 11.5 H (3.8-10.6) k/uL RBC 3.76 L (4.30-5.90) m/uL Hgb 11.7 L (13.0-17.5) gm/dL Hct 38.1 L (39.0-53.0) % MCV 101.2 H (80.0-100.0) fL MCHC 30.6 L (31.0-37.0) g/dL Plt Count 59 L (150-450) k/uL Neutrophils # 9.7 H (1.3-7.7) k/uL BUN 29 H (9-20) mg/dL Creatinine 1.29 H (0.66-1.25) mg/dL Glucose 162 H (74-99) mg/dL Plasma Lactic Acid [place] 3.1 H* (0.7-2.0) mmol/L Total Protein 5.7 L (6.3-8.2) g/dL Albumin 3.3 L (3.5-5.0) g/dL Urine Protein (Negative) Urine Glucose (UA) (Negative) Ur Leukocyte Esterase (Negative) Urine WBC (0-5) /hpf Urine Bacteria (None) /hpf Urine Mucus (None) /hpf 11/12/23 Range/Units 10:36 WBC (3.8-10.6) k/uL RBC (4.30-5.90) m/uL Hgb (13.0-17.5) gm/dL Hct (39.0-53.0) % MCV (80.0-100.0) fL MCHC (31.0-37.0) g/dL Plt Count (150-450) k/uL Neutrophils # (1.3-7.7) k/uL BUN (9-20) mg/dL Creatinine (0.66-1.25) mg/dL Glucose (74-99) mg/dL Plasma Lactic Acid [place] (0.7-2.0) mmol/L Total Protein (6.3-8.2) g/dL Albumin (3.5-5.0) g/dL Urine Protein Trace H (Negative) Urine Glucose (UA) 4+ H (Negative) Ur Leukocyte Esterase Large H (Negative) Urine WBC 145 H (0-5) /hpf Urine Bacteria Rare H (None) /hpf Urine Mucus Rare H (None) /hpf Thrombosis Risk Factor Assmnt - Choose All That Apply Each Factor Represents 1 point: Abnormal pulmonary function (COPD), Obesity (BMI >25), Swollen legs (current) Each Risk Factor Represents 3 Points: Age 75 years or older Thrombosis Risk Factor Assessment Total Risk Factor Score: 6 Thrombosis Risk Factor Assessment Level: High Risk Assessment and Plan Assessment: 1. Acute syncope; likely multifactorial related to CHF exacerbation and A-fib with RVR; patient has been placed on amiodarone and IV Lasix -- Remains on telemetry 2. Acute exacerbation CHF; patient has been placed on IV Lasix 40 mg every 12 hours --Patient has been evaluated by cardiology and planning to discontinue amiodarone if respiratory status does not improve with IV Lasix -Patient is placed on Farxiga 10 mg daily 3. Atrial fibrillation with RVR; patient remains on amiodarone 100 mg daily -- Cardiology recommending to add metoprolol 12.5 mg twice daily if heart rate remains elevated despite amiodarone -- Patient is not on anticoagulation, given thrombocytopenia 4. Community-acquired pneumonia; patient has been placed on IV Rocephin and doxycycline -DuoNeb nebulizer treatments and O2 per nasal cannula -- We will monitor CBC, CRP and procalcitonin periodically 5. Diabetes mellitus type 2; Farxiga 10 mg daily; monitor Accu-Cheks with sliding scale 6. Hyperlipidemia; Lipitor 40 mg p.o. nightly 7. Hyperthyroidism; continue with home dose of methimazole 8. Thrombocytopenia; chronic; stable DVT prophylaxis; SCDs only given thrombocytopenia CODE STATUS; full code
[2023-11-14] MEDS: AMIODARONE 100 MG TAB PO SCH (08:33)
[2023-11-14] MEDS ORDERED: AMIODARONE 200 MG TAB PO SCH (09:00)
[2023-11-14 10:22] LABS: Basophils % (A) 0 %; Eosinophils # (A) 0.2 k/uL (0-0.7); Eosinophils % (A) 2 %; HCT 34.9 % (39.0-53.0); HGB 10.5 gm/dL (13.0-17.5); Hypochromasia Marked; Lymphocytes # (A) 0.9 k/uL (1.0-4.8); Lymphocytes % (A) 10 %; MCH 30.9 pg (25.0-35.0); MCHC 30.2 g/dL (31.0-37.0); MCV 102.3 fL (80.0-100.0); Macrocytosis Slight; Mean Platelet Volume 11.5; Monocytes # (A) 0.8 k/uL (0-1.0); Monocytes % (A) 9 %; Neutrophils # (A) 7.1 k/uL (1.3-7.7); Neutrophils % (A) 77 %; RBC 3.41 m/uL (4.30-5.90); RDW 14.3 % (11.5-15.5); WBC 9.1 k/uL (3.8-10.6)
[2023-11-14 10:50] LABS: Platelet Count 99 k/uL (150-450)
[2023-11-14 10:57] LABS: African American GFR (CKD) 50 (>60 ml/min/1.73 sqM); Anion Gap 8 mmol/L; Blood Urea Nitrogen 35 mg/dL (9-20); Calcium 8.1 mg/dL (8.4-10.2); Carbon Dioxide 27 mmol/L (22-30); Chloride 100 mmol/L (98-107); Glucose 146 mg/dL (74-99); Non-African American GFR(CKD) 44 (>60 ml/min/1.73 sqM); Sodium 135 mmol/L (137-145)
[2023-11-14 11:20] LABS: Large Platelets Present
[2023-11-14] MEDS: METOPROLOL TARTRATE 12.5 MG TAB PO SCH (11:23)
--- NOTE | 2023-11-14 11:29 | P.PN ---
Subjective Progress Note Date: 11/14/23 The patient is an 83-year-old male who presented to the hospital with abdominal discomfort and near syncope. He was found to be in A-fib with RVR. Echocardiogram from May 2023 revealed low normal LV function with normally functioning bioprosthetic aortic valve and biatrial enlargement. Chest x-ray h as revealed diffuse bilateral infiltrates. Patient was interviewed and examined resting comfortably in bed. The patient states he has been feeling much better since his admission. He denies any cur rent shortness of breath or chest discomfort. GENERAL: Well-appearing, well-nourished and in no acute distress. NECK: Supple without JVD or thyromegaly. LUNGS: Breath sounds diminished to auscultation bilaterally. Respiration equal and unlabored. No wheezes, rales or rhonchi. HEART: Irregular rate and rhythm. Soft systolic murmur. No rubs or gallops. S1 and S2 heard. EXTREMITIES: Normal range of motion, no edema. No clubbing or cyanosis. Peripheral pulses intact and strong. TELEMETRY: Persistent atrial fibrillation, rate controlled IMPRESSION: A-fib with RVR Right bundle branch block Syncope Possible amiodarone toxicity Congestive heart failure, diastolic History of hyperlipidemia History of hypertension History of type II diabetes History of CKD History of CAD History of aortic valve replacement PLAN: Proceed with chest x-ray tomorrow Discontinue amiodarone Start low-dose beta-chacho Anticipate discharge tomorrow I am dictating on behalf of Dr Rob Mcdonough's history/physical and assessment/plan. Objective - Vital Signs Vital signs: Vital Signs Temp 97.8 F 11/14/23 07:36 Pulse 87 11/14/23 08:00 Resp 18 11/14/23 08:00 BP 114/56 11/14/23 07:36 Pulse Ox 90 L 11/14/23 07:36 FiO2 Intake & Output 11/13/23 11/14/23 11/14/23 18:59 06:59 18:59 Intake Total 898 236 Output Total 950 200 Balance 898 -950 36 Weight 96.8 kg Intake: Oral 898 236 Output: Urine 950 200 Other: Voiding Method Toilet Toilet Toilet # Voids 1 # Bowel Movements 1 - Labs CBC & Chem 7: 11/14/23 09:22 11/14/23 09:22 Labs: Abnormal Lab Results - Last 24 Hours (Table) 11/13/23 Range/Units 10:57 Procalcitonin 0.93 H (0.02-0.09) ng/mL Microbiology - Last 24 Hours (Table) 11/12/23 11:43 Blood Culture - Preliminary Blood 11/12/23 11:43 Blood Culture - Preliminary Blood
--- NOTE | 2023-11-14 12:17 | P.GSCN ---
History of Present Illness Consult date: 11/14/23 History of present illness: Patient was previously seen by loc surgical coverage yesterday. Please see separate note. at bedside. Patient presented to hospital with abdominal pain, and pneumonia. CT abdomen and pelvis reviewed with partial colectomy for splenic flexure colon cancer resection from Sep 2023 at [facility]. History also obtained from . Patient denies abdominal pain today. He had bowel movement yesterday. He is on regular diet. PLAN: Will obtain abdominal xray for follow-up constipation. Recommend bowel regimen. Past Medical History Past Medical History: Atrial Fibrillation, Coronary Artery Disease (CAD), Heart Failure, CVA/TIA, Diabetes Mellitus, GERD/Reflux, GI Bleed, Hyperlipidemia, Hypertension, Myocardial Infarction ([place]), Osteoarthritis (OA), Pneumonia, Renal Disease, Syncope Additional Past Medical History / Comment(s): Past syncopal episodes with past work ups, TIA, recent diagnosis of diabetes, neuropathy bilateral legs, pt has had "low blood counts" and is to see a retail solar advisor, CKD stage III, chronic low back pain/pt was to have permanent spinal stimulator placed today, bilateral lower leg edema, past small intestinal bleed, benign colon polyp, hemorrhoids, aortic stenosis and has had valve replaced. Last Myocardial Infarction Date:: 2007 History of Any Multi-Drug Resistant Organisms: None Reported Past Surgical History: Back Surgery, Heart Catheterization, Heart Catheterization With Stent, Hernia Repair, Orthopedic Surgery Additional Past Surgical History / Comment(s): TAVR, CHRISTIAN/cardioversions, PCI with stents, nasal benign polypectomy, bilateral cataract removal/lens implants, EGD, colonoscopies/benign polypectomy, R inguinal hernia repair, low back surgery with edie/screws, temporary spinal stimulator, bilateral ACL arthroscopic surgery, vasectomy. Past Anesthesia/Blood Transfusion Reactions: No Reported Reaction Additional Past Anesthesia/Blood Transfusion Reaction / Comm: Pt had blood transfusion with back surgery without reaction. Date of Last Stent Placement:: 2018 Type of Cardiac Device: Loop Device Placement Date:: 2019 Past Psychological History: No Psychological Hx Reported Additional Psychological History / Comment(s): Pt resides with his spouse of 56 yrs. He uses a cane to ambulate. He owns a walker. He drives very little, his spouse is the main funeral car driver. Smoking Status: Former smoker Past Alcohol Use History: None Reported Additional Past Alcohol Use History / Comment(s): Pt started smoking in 1946 and quit in 1994 Past Drug Use History: Marijuana - Past Family History Son(s) Family Medical History: Cancer Additional Family Medical History / Comment(s): FROM LUNG CANCER Father Family Medical History: Myocardial Infarction ([place]) Additional Family Medical History / Comment(s): Father in a MVA. Mother Family Medical History: CVA/TIA, Myocardial Infarction ([place]) Medications and Allergies Home Medications Medication Instructions Recorded Confirmed Type Atorvastatin [Lipitor] 40 mg PO HS 12/03/20 11/12/23 History DULoxetine HCL [Cymbalta] 60 mg PO DAILY 12/03/20 11/12/23 History Amiodarone [Cordarone] 100 mg PO DAILY 10/18/21 11/12/23 History Gabapentin [Neurontin] 800 mg PO TID 11/08/22 11/12/23 History HYDROcodone/APAP 10-325MG [[place] 1 tab PO 5XD 11/08/22 11/12/23 History 10-325] Midodrine [ProAmatine] 5 mg PO TID 11/08/22 11/12/23 History Cholecalciferol [Vitamin D3 (25 25 mcg PO DAILY 04/30/23 11/12/23 History Mcg = 1000 Iu)] Triamcinolone 0.1% Cream [Kenalog 1 applic TOPICAL BID PRN 04/30/23 11/12/23 History 0.1% Cream] Vitamin B Complex 1 cap PO DAILY 04/30/23 11/12/23 History Aspirin [Adult Low Dose Aspirin EC] 81 mg PO DAILY 30 Days #30 tab 05/20/23 11/12/23 Rx Biotin 5 mg PO DAILY 06/17/23 11/12/23 History Dapagliflozin Propanediol [Farxiga] 10 mg PO DAILY 06/17/23 11/12/23 History Albuterol Sulfate [Albuterol 2 puff INHALATION RT-Q6H PRN 11/11/23 11/12/23 History Sulfate Hfa] Ipratropium [place] 0.06%Nasal 1 spr EA NOSTRIL DAILY 11/11/23 11/12/23 History [Atrovent Nasal 0.06%] Pantoprazole Sodium [Protonix] 40 mg PO DAILY 11/11/23 11/12/23 History methIMAzole [Tapazole] 2.5 mg PO MOTUWETHFR 11/11/23 11/12/23 History Allergies Allergy/AdvReac Type Severity Reaction Status Date / Time No Known Allergies Allergy Verified 11/12/23 12:22 Surgical - Exam Vital Signs Temp Pulse Resp BP Pulse Ox 99.4 F 91 18 96/50 75 L 11/12/23 09:10 11/12/23 09:10 11/12/23 09:10 11/12/23 09:10 11/12/23 09:10 Results - Labs 11/14/23 09:22 11/14/23 09:22 Abnormal Lab Results - Last 24 Hours (Table) 11/13/23 11/14/23 11/14/23 Range/Units 10:57 09:22 09:22 RBC 3.41 L (4.30-5.90) m/uL Hgb 10.5 L (13.0-17.5) gm/dL Hct 34.9 L (39.0-53.0) % MCV 102.3 H (80.0-100.0) fL MCHC 30.2 L (31.0-37.0) g/dL Plt Count 99 L D (150-450) k/uL Lymphocytes # 0.9 L (1.0-4.8) k/uL Sodium 135 L (137-145) mmol/L BUN 35 H (9-20) mg/dL Creatinine 1.46 H (0.66-1.25) mg/dL Glucose 146 H (74-99) mg/dL Calcium 8.1 L (8.4-10.2) mg/dL Procalcitonin 0.93 H (0.02-0.09) ng/mL Microbiology - Last 24 Hours (Table) 11/12/23 11:43 Blood Culture - Preliminary Blood 11/12/23 11:43 Blood Culture - Preliminary Blood Diabetes panel 11/14/23 Range/Units 09:22 Sodium 135 L (137-145) mmol/L Potassium 4.0 (3.5-5.1) mmol/L Chloride 100 (98-107) mmol/L Carbon Dioxide 27 (22-30) mmol/L BUN 35 H (9-20) mg/dL Creatinine 1.46 H (0.66-1.25) mg/dL Glucose 146 H (74-99) mg/dL Calcium 8.1 L (8.4-10.2) mg/dL Calcium panel 11/14/23 Range/Units 09:22 Calcium 8.1 L (8.4-10.2) mg/dL Pituitary panel 11/14/23 Range/Units 09:22 Sodium 135 L (137-145) mmol/L Potassium 4.0 (3.5-5.1) mmol/L Chloride 100 (98-107) mmol/L Carbon Dioxide 27 (22-30) mmol/L BUN 35 H (9-20) mg/dL Creatinine 1.46 H (0.66-1.25) mg/dL Glucose 146 H (74-99) mg/dL Calcium 8.1 L (8.4-10.2) mg/dL Adrenal panel 11/14/23 Range/Units 09:22 Sodium 135 L (137-145) mmol/L Potassium 4.0 (3.5-5.1) mmol/L Chloride 100 (98-107) mmol/L Carbon Dioxide 27 (22-30) mmol/L BUN 35 H (9-20) mg/dL Creatinine 1.46 H (0.66-1.25) mg/dL Glucose 146 H (74-99) mg/dL Calcium 8.1 L (8.4-10.2) mg/dL
--- NOTE | 2023-11-14 14:11 | XR ---
EXAMINATION TYPE: XR abdomen 2V DATE OF EXAM: 11/14/2023 1:11 PM CLINICAL INDICATION:Male, 83 years old with history of Abdominal pain, constipation; [facility] COMPARISON: None. TECHNIQUE: Two views of the abdomen were obtained. FINDINGS: The bowel gas pattern is nonspecific without dilated loops of small or large bowel. There i s no evidence for organomegaly or pneumoperitoneum. The osseous structures are intact. Fecal materia l and gas are demonstrated throughout the colon and rectum. Orthopedic fusion hardware is identified involving the lower lumbar spine. Spinal stimulator generator with leads are seen entering at the la mbar spine extending superiorly. IMPRESSION: Nonspecific bowel gas pattern without radiographic evidence for acute process.
--- NOTE | 2023-11-14 16:20 | P.PN ---
Subjective Progress Note Date: 11/14/23 83-year-old male, history of hypertension, hyperlipidemia, diabetes mellitus, history of chronic kidney disease, CAD/CHF, atrial fibrillation, presents emergency department with chief complaint of abdominal pain, weakness, near syncope. Patient relates that he was trying to get out of his bed and fell; EMS arrived to get him back into bed when he had a reported syncopal episode he denies any chest pain complains of upper abdominal pain, cramping that extended to his lower abdomen. Patient noted to be having increasing weakness, does have a history of A-fib. Patient denies chest pain. Blood work completed in ED reveals a WBC of 11.5, hemoglobin of 11.7 and platelet count of 59, sodium 137, potassium 4.8, BUNs/creatinine of 29/1.29 and blood glucose of 162 UA is positive for leukocyte esterase, WBCs and bacteria Chest x-ray reveals CHF versus interstitial pneumonia/atypical pneumonia --Patient reports improvement in abdominal pain; patient has been evaluated by surgery and recommending to obtain follow-up abdominal x-ray for constipation; bowel regimen is recommended -Creatinine trended up to 1.46 from 1.29 yesterday; will start patient on slow IV fluid hydration with normal saline at 75 cc an hour; will monitor strict KEESHA's and daily weights, renal function electrolytes and avoid nephrotoxins; recommend nephrology consult if creatinine continues to trend up Objective - Vital Signs Vital signs: Vital Signs Temp 97.8 F 11/14/23 07:36 Pulse 87 11/14/23 08:00 Resp 18 11/14/23 08:00 BP 114/56 11/14/23 07:36 Pulse Ox 90 L 11/14/23 07:36 FiO2 Intake & Output 11/13/23 11/14/23 11/14/23 18:59 06:59 18:59 Intake Total 898 236 Output Total 950 500 Balance 898 -950 -264 Weight 96.8 kg Intake: Oral 898 236 Output: Urine 950 500 Other: Voiding Method Toilet Toilet Toilet # Voids 1 # Bowel Movements 1 - Exam Limitations: no limitations General appearance: alert, in no apparent distress Head exam: Present: atraumatic, normocephalic, normal inspection Neck exam: Present: normal inspection. Absent: tenderness, meningismus, lymphadenopathy Respiratory exam: Present: normal lung sounds bilaterally. Absent: respiratory distress, wheezes, rales, rhonchi, stridor Cardiovascular Exam: Present: tachycardia, irregular rhythm, normal heart sounds. Absent: regular rate, normal rhythm, systolic murmur, diastolic murmur, rubs, gallop, clicks GI/Abdominal exam: Present: soft, tenderness, normal bowel sounds. Absent: distended, guarding, rebound, rigid Neurological exam: Present: alert, oriented X3 - Labs CBC & Chem 7: 11/14/23 09:22 11/14/23 09:22 Labs: Abnormal Lab Results - Last 24 Hours (Table) 11/13/23 Range/Units 10:57 Procalcitonin 0.93 H (0.02-0.09) ng/mL Microbiology - Last 24 Hours (Table) 11/12/23 11:43 Blood Culture - Preliminary Blood 11/12/23 11:43 Blood Culture - Preliminary Blood Assessment and Plan Assessment: 1. Acute syncope; likely multifactorial related to CHF exacerbation and A-fib with RVR; patient has been placed on amiodarone and IV Lasix -- Remains on telemetry 2. Acute exacerbation CHF; patient has been placed on IV Lasix 40 mg every 12 hours --Patient has been evaluated by cardiology and planning to discontinue amiodarone if respiratory status does not improve with IV Lasix -Patient is placed on Farxiga 10 mg daily 3. Atrial fibrillation with RVR; patient remains on amiodarone 100 mg daily -- Cardiology recommending to add metoprolol 12.5 mg twice daily if heart rate remains elevated despite amiodarone -- Patient is not on anticoagulation, given thrombocytopenia 4. UTI; remains on IV Rocephin; recommendations once culture results are available 5. Acute renal injury; creatinine at 1.29; we will avoid nephrotoxins 6. Community-acquired pneumonia; patient has been placed on IV Rocephin and doxycycline -DuoNeb nebulizer treatments and O2 per nasal cannula -- We will monitor CBC, CRP and procalcitonin periodically 7. Abdominal pain; workup has been unremarkable; patient reports improvement in stomach pain 8. Diabetes mellitus type 2; Farxiga 10 mg daily; monitor Accu-Cheks with sliding scale 9. Hyperlipidemia; Lipitor 40 mg p.o. nightly 10. Hyperthyroidism; continue with home dose of methimazole 11. Thrombocytopenia; chronic; stable DVT prophylaxis; SCDs only given thrombocytopenia CODE STATUS; full code
[2023-11-14] MEDS: SODIUM CHLORIDE 0.9% 1,000 ML IV SCH (20:13)
[2023-11-15] MEDS: ONDANSETRON 4 MG/2 ML VIAL IVP PRN (00:42)
[2023-11-15 07:11] LABS: HGB 10.2 gm/dL (13.0-17.5); Hypochromasia Marked; MCH 30.5 pg (25.0-35.0); MCHC 29.9 g/dL (31.0-37.0); Macrocytosis Slight; Mean Platelet Volume 12.1; Platelet Count 97 k/uL (150-450); RBC 3.33 m/uL (4.30-5.90); RDW 14.4 % (11.5-15.5); WBC 8.2 k/uL (3.8-10.6)
[2023-11-15 08:07] LABS: African American GFR (CKD) 46 (>60 ml/min/1.73 sqM); Anion Gap 5 mmol/L; Blood Urea Nitrogen 42 mg/dL (9-20); Calcium 8.3 mg/dL (8.4-10.2); Carbon Dioxide 29 mmol/L (22-30); Chloride 99 mmol/L (98-107); Glucose 118 mg/dL (74-99); Non-African American GFR(CKD) 40 (>60 ml/min/1.73 sqM); Potassium 4.5 mmol/L (3.5-5.1); Sodium 133 mmol/L (137-145)
[2023-11-15 10:22] LABS: Eosinophils # (M) 0.08 k/uL (0-0.7); Lymphocytes # (M) 0.49 k/uL (1.0-4.8); Monocytes # (M) 0.57 k/uL (0-1.0); Neutrophils # (M) 7.05 k/uL (1.3-7.7); Neutrophils % (M) 86 %; Nucleated Red Blood Cells 0 /100 WBC (0-0); Total Cells Counted 100
[2023-11-15 10:23] LABS: Large Platelets Present
--- NOTE | 2023-11-15 11:14 | P.PN ---
Subjective Progress Note Date: 11/15/23 Conrad Campa, is an 83-year-old male who presented to [facility] emergency room with a chief complaint of abdominal pain weakness and near syncope. He was evaluated in the emergency room vital examination on presentation revealed a temperature of 99.4 pulse 91 respiration 18 blood pressure 96/50 pulse ox 86% on room air Laboratory data revealed a white blood count of 11.5 hemoglobin 11.7 platelet count 59 BUN 29 creatinine 1.29 lactic acid 3.1 urine analysis revealed evidence of urinary tract infection Testing in the emergency room revealed chest x-ray revealed evidence of conges tive heart failure versus interstitial pneumonia. patient presented on the day prior to this admission to emergency room with similar complaints at that time he had a computed tomography scan of the abdomen and pelvis that revealed no acute abnormality. Patient was admitted to medical floor for further evaluation and treatment Past medical history is significant for colon mass in the splenic flexure, with recent surgery, history of hyperlipidemia, history of coronary artery disease, history of atrial fibrillation, history of hypertension, history of obstructive sleep apnea Dr. Quintana prescription covering for 11/13/2023 to 11/14/2023 on 11/15/2023 patient is alert and oriented 3 patient apparently had a fall last night that was witnessed by 2 people helping him to the bathroom. Patient not hit his head denies any complaints at this time. Patient remains on IV antibiotics and IV Lasix. Cardiology in surgical service is following. Nephrology services also consulted for acute kidney injury. Current vital signs temp 97.5, heart rate 70, respiratory rate 18, blood pressure 120/85 with pulse ox 92% on 3 L Objective - Vital Signs Vital signs: Vital Signs Temp 97.5 F L 11/15/23 09:11 Pulse 70 11/15/23 09:11 Resp 18 11/15/23 09:11 BP 120/85 11/15/23 09:11 Pulse Ox 92 L 11/15/23 09:11 FiO2 Intake & Output 11/14/23 11/15/23 11/15/23 18:59 06:59 18:59 Intake Total 354 0 118 Output Total 1500 200 Balance -1146 -200 118 Intake: Oral 354 0 118 Output: Urine 1500 200 Other: Voiding Method Toilet Toilet Toilet # Voids 1 # Bowel Movements 1 - Exam In general patient is alert and oriented x 3 in no distress HEENT head normocephalic and atraumatic Neck is supple no JVD no goiter no lymphadenopathy no carotid bruit Chest examination is clear to auscultation no crackles no wheezing Cardiac exam reveals regular heart sounds S1 and S2 no gallops no murmurs Abdomen is soft, with generalized tenderness no organomegaly with normal bowel sounds Extremity exam reveals no edema no cyanosis or clubbing Neurological examination reveals no gross focal deficits - Labs CBC & Chem 7: 11/15/23 05:52 11/15/23 05:52 Labs: Abnormal Lab Results - Last 24 Hours (Table) 11/14/23 11/15/23 11/15/23 Range/Units 09:22 05:52 05:52 RBC 3.33 L (4.30-5.90) m/uL Hgb 10.2 L (13.0-17.5) gm/dL Hct 34.0 L (39.0-53.0) % MCV 102.0 H (80.0-100.0) fL MCHC 29.9 L (31.0-37.0) g/dL Plt Count 97 L (150-450) k/uL Lymphocytes # 0.9 L (1.0-4.8) k/uL Lymphocytes # (Manual) 0.49 L (1.0-4.8) k/uL Sodium 133 L (137-145) mmol/L BUN 42 H (9-20) mg/dL Creatinine 1.57 H (0.66-1.25) mg/dL Glucose 118 H (74-99) mg/dL Calcium 8.3 L (8.4-10.2) mg/dL Microbiology - Last 24 Hours (Table) 11/12/23 11:43 Blood Culture - Preliminary Blood 11/12/23 11:43 Blood Culture - Preliminary Blood Assessment and Plan Plan: sepsis likely related to urinary tract infection Lactic acidosis acute kidney injury with elevated BUN and creatinine Underlying history of congestive heart failure Abdominal pain, cause unclear, patient had a recent colon surgery for splenic flexure colon mass. computed tomography scan of the abdomen and pelvis done yesterday in the emergency room did not reveal acute abnormality Underlying history of hypertension Underlying history of hyperlipidemia history of hyperthyroidism maintained on methimazole Underlying history of coronary artery disease Underlying history of atrial fibrillation Underlying history of obstructive sleep apnea at this time patient will be admitted to medical floor cardiology surgical and nephrology services following Patient remains on IV antibiotics Home medications reviewed and reordered for DVT prophylaxis subcu [place] Will follow closely
--- NOTE | 2023-11-15 11:45 | P.PN ---
Subjective HISTORY OF PRESENT ILLNESS: 11/14/2023 The patient is an 83-year-old male who presented to the hospital with abdominal discomfort and near syncope. He was found to be in A-fib with RVR. Echocardiogram from May 2023 revealed low normal LV function with normally functioning bioprosthetic aortic valve and biatrial enlargement. Chest x-ray saucedo s revealed diffuse bilateral infiltrates. Patient was interviewed and examined resting comfortably in bed. The patient states he has been feeling much better since his admission. He denies any curre nt shortness of breath or chest discomfort. 11/15/2023 Patient examined this morning at the bedside. Patient currently denies chest pain or pressure. He denies shortness of breath. He remains on IV Lasix. Patient remains in atrial fibrillation with controlled ventricular rate. Per nursing, patient did have a fall overnight. PHYSICAL EXAM: VITAL SIGNS: Reviewed. GENERAL: Well-developed in no acute distress. NECK: Supple. No JVD or thyromegaly LUNGS: Respirations even and unlabored. Lungs essentially clear to auscultation bilaterally with crackles at the bases. HEART: Irregular rate and rhythm. S1 and S2 heard. Systolic murmur noted. EXTREMITIES: Normal range of motion. No clubbing or cyanosis. Peripheral pulses intact. Bilateral lower extremity edema noted. 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 Signing provider agrees with the documented findings, assessment, and plan of care documented by CADDY PACKER as a scribe. Objective - Vital Signs Vital signs: Vital Signs Temp 97.5 F L 11/15/23 09:11 Pulse 70 11/15/23 09:11 Resp 18 11/15/23 09:11 BP 120/85 11/15/23 09:11 Pulse Ox 92 L 11/15/23 09:11 FiO2 Intake & Output 11/14/23 11/15/23 11/15/23 18:59 06:59 18:59 Intake Total 354 0 118 Output Total 1500 200 Balance -1146 -200 118 Intake: Oral 354 0 118 Output: Urine 1500 200 Other: Voiding Method Toilet Toilet Toilet # Voids 1 # Bowel Movements 1 - Labs CBC & Chem 7: 11/15/23 05:52 11/15/23 05:52 Labs: Abnormal Lab Results - Last 24 Hours (Table) 11/15/23 11/15/23 Range/Units 05:52 05:52 RBC 3.33 L (4.30-5.90) m/uL Hgb 10.2 L (13.0-17.5) gm/dL Hct 34.0 L (39.0-53.0) % MCV 102.0 H (80.0-100.0) fL MCHC 29.9 L (31.0-37.0) g/dL Plt Count 97 L (150-450) k/uL Lymphocytes # (Manual) 0.49 L (1.0-4.8) k/uL Sodium 133 L (137-145) mmol/L BUN 42 H (9-20) mg/dL Creatinine 1.57 H (0.66-1.25) mg/dL Glucose 118 H (74-99) mg/dL Calcium 8.3 L (8.4-10.2) mg/dL Microbiology - Last 24 Hours (Table) 11/12/23 11:43 Blood Culture - Preliminary Blood 11/12/23 11:43 Blood Culture - Preliminary Blood
--- NOTE | 2023-11-15 12:23 | P.PN ---
Subjective Progress Note Date: 11/15/23 CHIEF COMPLAINT: Constipation HISTORY OF PRESENT ILLNESS: Patient lying in bed comfortably. He did have a bowel movement. Denies any abdominal pain. He did report some mild nausea this morning now improved. He is tolerating regular diet. Abdominal x-ray reported nonspecific bowel gas pattern. PHYSICAL EXAM: VITAL SIGNS: Reviewed GENERAL: Well-developed in no acute distress. HEENT: No sclera icterus. Extraocular movements grossly intact. Moist buccal mucosa. Head is atraumatic, normocephalic. Hears conversational speech. No nasal drainage. NECK: Supple without lymphadenopathy. CHEST: Non-labored respirations and equal bilateral excursions. CARDIOVASCULAR: Palpable 2+ radial pulses. ABDOMEN: Soft. Nondistended. Nontender. MUSCULOSKELETAL: No clubbing or cyanosis. NEUROLOGIC: No focal or lateralizing signs. Cranial nerves II through XII grossly intact. PSYCH: Appropriate affect. Alert and oriented to person, place and time. SKIN: Well perfused. Good skin turgor. ASSESSMENT: 1. Constipation improved PLAN: -Patient having bowel movements. He is tolerating diet. -Surgical service will sign off. Please call with any questions or concerns Physician Special Distribution Clerk note has been reviewed by physician. Signing provider agrees with the documented findings, assessment, and plan of care. Objective - Vital Signs Vital signs: Vital Signs Temp 97.5 F L 11/15/23 09:11 Pulse 65 11/15/23 11:43 Resp 18 11/15/23 11:43 BP 106/57 11/15/23 11:43 Pulse Ox 95 11/15/23 11:43 FiO2 Intake & Output 11/14/23 11/15/23 11/15/23 18:59 06:59 18:59 Intake Total 354 0 118 Output Total 1500 200 Balance -1146 -200 118 Intake: Oral 354 0 118 Output: Urine 1500 200 Other: Voiding Method Toilet Toilet Toilet # Voids 1 # Bowel Movements 1 - Labs CBC & Chem 7: 11/15/23 05:52 11/15/23 05:52 Labs: Abnormal Lab Results - Last 24 Hours (Table) 11/15/23 11/15/23 Range/Units 05:52 05:52 RBC 3.33 L (4.30-5.90) m/uL Hgb 10.2 L (13.0-17.5) gm/dL Hct 34.0 L (39.0-53.0) % MCV 102.0 H (80.0-100.0) fL MCHC 29.9 L (31.0-37.0) g/dL Plt Count 97 L (150-450) k/uL Lymphocytes # (Manual) 0.49 L (1.0-4.8) k/uL Sodium 133 L (137-145) mmol/L BUN 42 H (9-20) mg/dL Creatinine 1.57 H (0.66-1.25) mg/dL Glucose 118 H (74-99) mg/dL Calcium 8.3 L (8.4-10.2) mg/dL Microbiology - Last 24 Hours (Table) 11/12/23 11:43 Blood Culture - Preliminary Blood 11/12/23 11:43 Blood Culture - Preliminary Blood
[2023-11-15 13:24] LABS: Glucose,Whole Blood 137 mg/dL (70-110)
[2023-11-15] MEDS: DOXYCYCLINE 100 MG CAP PO SCH (20:06)
[2023-11-16 08:40] LABS: Glucose,Whole Blood 101 mg/dL (70-110)
--- NOTE | 2023-11-16 09:06 | P.PN ---
Subjective Progress Note Date: 11/16/23 Conrad Campa, is an 83-year-old male who presented to [facility] emergency room with a chief complaint of abdominal pain weakness and near syncope. He was evaluated in the emergency room vital examination on presentation revealed a temperature of 99.4 pulse 91 respiration 18 blood pressure 96/50 pulse ox 86% on room air Laboratory data revealed a white blood count of 11.5 hemoglobin 11.7 platelet count 59 BUN 29 creatinine 1.29 lactic acid 3.1 urine analysis revealed evidence of urinary tract infection Testing in the emergency room revealed chest x-ray revealed evidence of conges tive heart failure versus interstitial pneumonia. patient presented on the day prior to this admission to emergency room with similar complaints at that time he had a computed tomography scan of the abdomen and pelvis that revealed no acute abnormality. Patient was admitted to medical floor for further evaluation and treatment Past medical history is significant for colon mass in the splenic flexure, with recent surgery, history of hyperlipidemia, history of coronary artery disease, history of atrial fibrillation, history of hypertension, history of obstructive sleep apnea Dr. Quintana covering for 11/13/2023 to 11/14/2023 on 11/15/2023 patient is alert and oriented 3 patient apparently had a fall last night that was witnessed by 2 people helping him to the bathroom. Patient not hit his head denies any complaints at this time. Patient remains on IV antibiotics and IV Lasix. Cardiology in surgical service is following. Nephrology services also consulted for acute kidney injury. Current vital signs temp 97.5, heart rate 70, respiratory rate 18, blood pressure 120/85 with pulse ox 92% on 3 L on 11/16/2023 patient is alert and oriented 3. Patient having increased confusion per nursing staff patient received Dilaudid and became increasingly agitated following administration Dilaudid DC'd at this time. Cardiology, surgery and nephrology services consulted. Patient remains on IV Lasix in antibiotics. Lab work currently pending. Current vital signs temp 97.6, heart rate 68, respiratory rate 18, blood pressure 111/60 with pulse ox 96% on 3 L Objective - Vital Signs Vital signs: Vital Signs Temp 97.6 F 11/16/23 04:00 Pulse 68 11/16/23 04:00 Resp 18 11/16/23 04:00 BP 111/60 11/16/23 04:00 Pulse Ox 96 11/16/23 04:00 FiO2 Intake & Output 11/15/23 11/16/23 11/16/23 18:59 06:59 18:59 Intake Total 718 0 0 Output Total 200 1250 Balance 518 -1250 0 Intake: Oral 718 0 0 Output: Urine 200 1250 Straight 500 Other: Voiding Method Toilet Toilet # Bowel Movements 1 - Exam In general patient is alert and oriented x 3 in no distress HEENT head normocephalic and atraumatic Neck is supple no JVD no goiter no lymphadenopathy no carotid bruit Chest examination is clear to auscultation no crackles no wheezing Cardiac exam reveals regular heart sounds S1 and S2 no gallops no murmurs Abdomen is soft, with generalized tenderness no organomegaly with normal bowel sounds Extremity exam reveals no edema no cyanosis or clubbing Neurological examination reveals no gross focal deficits - Labs CBC & Chem 7: 11/15/23 05:52 11/15/23 05:52 Labs: Abnormal Lab Results - Last 24 Hours (Table) 11/15/23 11/15/23 Range/Units 05:52 13:22 Plt Count 97 L (150-450) k/uL Lymphocytes # (Manual) 0.49 L (1.0-4.8) k/uL POC Glucose (mg/dL) 137 H (70-110) mg/dL Microbiology - Last 24 Hours (Table) 11/12/23 11:43 Blood Culture - Preliminary Blood 11/12/23 11:43 Blood Culture - Preliminary Blood Assessment and Plan Assessment: sepsis likely related to urinary tract infection Lactic acidosis acute kidney injury with elevated BUN and creatinine Underlying history of congestive heart failure Abdominal pain, cause unclear, patient had a recent colon surgery for splenic flexure colon mass. computed tomography scan of the abdomen and pelvis done yesterday in the emergency room did not reveal acute abnormality Underlying history of hypertension Underlying history of hyperlipidemia history of hyperthyroidism maintained on methimazole Underlying history of coronary artery disease Underlying history of atrial fibrillation Underlying history of obstructive sleep apnea at this time patient will be admitted to medical floor cardiology surgical and nephrology services following Patient remains on IV antibiotics Home medications reviewed and reordered for DVT prophylaxis subcu [place] Will follow closely
[2023-11-16 10:56] LABS: Basophils % (A) 0 %; Eosinophils # (A) 0.2 k/uL (0-0.7); Eosinophils % (A) 2 %; HCT 34.2 % (39.0-53.0); HGB 10.3 gm/dL (13.0-17.5); Hypochromasia Marked; Lymphocytes # (A) 0.8 k/uL (1.0-4.8); Lymphocytes % (A) 9 %; MCH 30.9 pg (25.0-35.0); MCHC 30.2 g/dL (31.0-37.0); MCV 102.5 fL (80.0-100.0); Macrocytosis Slight; Mean Platelet Volume 11.5; Monocytes # (A) 0.7 k/uL (0-1.0); Monocytes % (A) 8 %; Neutrophils # (A) 6.7 k/uL (1.3-7.7); Neutrophils % (A) 78 %; Platelet Count 100 k/uL (150-450); RBC 3.34 m/uL (4.30-5.90); RDW 14.4 % (11.5-15.5); WBC 8.7 k/uL (3.8-10.6)
[2023-11-16 11:12] LABS: African American GFR (CKD) 45 (>60 ml/min/1.73 sqM); Anion Gap 8 mmol/L; Blood Urea Nitrogen 50 mg/dL (9-20); Calcium 8.2 mg/dL (8.4-10.2); Carbon Dioxide 26 mmol/L (22-30); Chloride 99 mmol/L (98-107); Glucose 105 mg/dL (74-99); Non-African American GFR(CKD) 39 (>60 ml/min/1.73 sqM); Potassium 4.4 mmol/L (3.5-5.1); Sodium 133 mmol/L (137-145)
--- NOTE | 2023-11-16 11:46 | P.NPCON ---
History of Present Illness - Reason for Consult acute renal failure - History of Present Illness patient is an 83-year-old male with history of hypertension, type 2 diabetes, chronic kidney disease NKF stage III B with baseline creatinine around 1.3 mg/dL.patient is admitted to the hospital with complaints of abdominal pain and increased weakness. He was not able to get back in bed after he fell while t rying to get out of bed. No history of fever or chills Patient's reports decreased oral intake for about 5-6 days. No history of nausea vomiting or diarrhea Patient is noted to have significant pyuria and is being treated for UTI. There is also concern for underlying CHF. serum creatinine was 1.3 on admission and increased to 1.6 today. patient has not been able to void today. A straight catheterization was done last night for 500 mL of urine. Blood pressure has been low with systolic in the 90s. no history of use of NSAIDs No MERE inhibitor's or angiotensin receptor blockers noted on home med list. Review of Systems as per HPI Past Medical History Past Medical History: Atrial Fibrillation, Coronary Artery Disease (CAD), Heart Failure, CVA/TIA, Diabetes Mellitus, GERD/Reflux, GI Bleed, Hyperlipidemia, Hypertension, Myocardial Infarction ([place]), Osteoarthritis (OA), Pneumonia, Renal Disease, Syncope Additional Past Medical History / Comment(s): Past syncopal episodes with past work ups, TIA, recent diagnosis of diabetes, neuropathy bilateral legs, pt has had "low blood counts" and is to see a hatch supervisor, CKD stage III, chronic low back pain/pt was to have permanent spinal stimulator placed today, bilateral lower leg edema, past small intestinal bleed, benign colon polyp, hemorrhoids, aortic stenosis and has had valve replaced. Last Myocardial Infarction Date:: 2007 History of Any Multi-Drug Resistant Organisms: None Reported Past Surgical History: Back Surgery, Heart Catheterization, Heart Cathete rization With Stent, Hernia Repair, Orthopedic Surgery Additional Past Surgical History / Comment(s): TAVR, CHRISTIAN/cardioversions, PCI with stents, nasal benign polypectomy, bilateral cataract removal/lens implants, EGD, colonoscopies/benign polypectomy, R inguinal hernia repair, low back surgery with edie/screws, temporary spinal stimulator, bilateral ACL arthroscopic surgery, vasectomy. Past Anesthesia/Blood Transfusion Reactions: No Reported Reaction Additional Past Anesthesia/Blood Transfusion Reaction / Comment(s): Pt had blood transfusion with back surgery without reaction. Date of Last Stent Placement:: 2018 Type of Cardiac Device: Loop Device Placement Date:: 2019 Past Psychological History: No Psychological Hx Reported Additional Psychological History / Comment(s): Pt resides with his spouse of 56 yrs. He uses a cane to ambulate. He owns a walker. He drives very little, his spouse is the main concrete pile driver operator. Smoking Status: Former smoker Past Alcohol Use History: None Reported Additional Past Alcohol Use History / Comment(s): Pt started smoking in 1946 and quit in 1994 Past Drug Use History: Marijuana - Past Family History Son(s) Family Medical History: Cancer Additional Family Medical History / Comment(s): FROM LUNG CANCER Father Family Medical History: Myocardial Infarction ([place]) Additional Family Medical History / Comment(s): Father in a MVA. Mother Family Medical History: CVA/TIA, Myocardial Infarction ([place]) Medications and Allergies Home Medications Medication Instructions Recorded Confirmed Type Atorvastatin [Lipitor] 40 mg PO HS 12/03/20 11/12/23 History DULoxetine HCL [Cymbalta] 60 mg PO DAILY 12/03/20 11/12/23 History Amiodarone [Cordarone] 100 mg PO DAILY 10/18/21 11/12/23 History Gabapentin [Neurontin] 800 mg PO TID 11/08/22 11/12/23 History HYDROcodone/APAP 10-325MG [[place] 1 tab PO 5XD 11/08/22 11/12/23 History 10-325] Midodrine [ProAmatine] 5 mg PO TID 11/08/22 11/12/23 History Cholecalciferol [Vitamin D3 (25 25 mcg PO DAILY 04/30/23 11/12/23 History Mcg = 1000 Iu)] Triamcinolone 0.1% Cream [Kenalog 1 applic TOPICAL BID PRN 04/30/23 11/12/23 History 0.1% Cream] Vitamin B Complex 1 cap PO DAILY 04/30/23 11/12/23 History Aspirin [Adult Low Dose Aspirin EC] 81 mg PO DAILY 30 Days #30 tab 05/20/23 11/12/23 Rx Biotin 5 mg PO DAILY 06/17/23 11/12/23 History Dapagliflozin Propanediol [Farxiga] 10 mg PO DAILY 06/17/23 11/12/23 History Albuterol Sulfate [Albuterol 2 puff INHALATION RT-Q6H PRN 11/11/23 11/12/23 History Sulfate Hfa] Ipratropium [place] 0.06%Nasal 1 spr EA NOSTRIL DAILY 11/11/23 11/12/23 History [Atrovent Nasal 0.06%] Pantoprazole Sodium [Protonix] 40 mg PO DAILY 11/11/23 11/12/23 History methIMAzole [Tapazole] 2.5 mg PO MOTUWETHFR 11/11/23 11/12/23 History Allergies Allergy/AdvReac Type Severity Reaction Status Date / Time No Known Allergies Allergy Verified 11/12/23 12:22 Physical Exam Vitals: Vital Signs Temp Pulse Resp BP Pulse Ox 11/16/23 10:21 81 18 11/16/23 09:45 81 18 128/62 95 11/16/23 04:00 97.6 F 68 18 111/60 96 11/16/23 00:00 97.8 F 73 18 104/59 94 L 11/15/23 20:00 97.6 F 78 18 110/62 95 11/15/23 15:47 97.4 F L 75 18 101/54 94 L 11/15/23 13:22 72 18 93/49 95 11/15/23 11:43 65 18 106/57 95 Intake and Output 11/15/23 11/16/23 11/16/23 22:59 06:59 14:59 Intake Total 360 0 Output Total 250 1000 125 Balance 110 -1000 -125 Intake: Oral 360 0 Output: Urine 250 1000 125 Straight 500 Other: Voiding Method Toilet Toilet Toilet patient is awake, comfortable, in no acute distress Examination of the heart S1 and S2 Examination the lungs decreased breath sounds at the bases with basilar crackles Abdomen is soft nontender Examination of lower extremities shows no significant edema. 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 Acute kidney injury, ATN secondary to hypotension, rule out urine retention.UA shows trace proteinuria and WBCs at 145.check ultrasound of the kid neys 2. Pyuria rule out UTI 3. History of CHF with current chest x-ray suggestive of pulmonary vascular congestion. Status post IV fluids initially currently discontinued. 4. A. fib with RVRon initial admission, currently heart rate improved. 5. Possible pneumonia 6. Hyperthyroidism maintained on Tapazole Plan: repeat chest x-ray DC IV fluids as well as IV Lasix Check bladder scan Check ultrasound of the kidneys Repeat labs in a.m. Check TSH with history of hyperthyroidism and A. fib with RVR Recommend to hold farxiga for 2-3 days due to underlying UTI thank you for the consultation. We will continue to follow the patient with you during his hospitalization.
--- NOTE | 2023-11-16 13:06 | P.PN ---
Subjective HISTORY OF PRESENT ILLNESS: 11/14/2023 The patient is an 83-year-old male who presented to the hospital with abdominal discomfort and near syncope. He was found to be in A-fib with RVR. Echocardiogram from May 2023 revealed low normal LV function with normally functioning bioprosthetic aortic valve and biatrial enlargement. Chest x-ray saucedo s revealed diffuse bilateral infiltrates. Patient was interviewed and examined resting comfortably in bed. The patient states he has been feeling much better since his admission. He denies any curre nt shortness of breath or chest discomfort. 11/15/2023 Patient examined this morning at the bedside. Patient currently denies chest pain or pressure. He denies shortness of breath. He remains on IV Lasix. Patient remains in atrial fibrillation with controlled ventricular rate. Per nursing, patient did have a fall overnight. 11/16/2023 Patient examined this morning at the bedside. Patient denies chest pain or pressure. He denies shortness of breath. Patient's creatinine today 1.61. His Lasix has been discontinued. Telemetry reveals atrial fibrillation with controlled ventricular rate. PHYSICAL EXAM: VITAL SIGNS: Reviewed. GENERAL: Well-developed in no acute distress. NECK: Supple. No JVD or thyromegaly LUNGS: Respirations even and unlabored. Lungs diminished at the bases. HEART: Irregular rate and rhythm. S1 and S2 heard. Systolic murmur noted. EXTREMITIES: Normal range of motion. No clubbing or cyanosis. Peripheral pulses intact. Bilateral lower extremity edema noted. ASSESSMENT: Persistent A-fib with RVR, currently rate controlled Right bundle branch block Syncope Possible amiodarone toxicity Thrombocytopenia Acute kidney injury Acute on chronic heart failure with preserved EF History of hyperlipidemia History of hypertension History of type II diabetes History of CKD History of CAD History of aortic valve replacement S/P mechanical fall PLAN: Continue current cardiac medications IV lasix discontinued. Continue to monitor kidney function. Continue telemetry monitoring Further recommendations pending patient course Nurse practitioner note has been reviewed by physician. Signing provider agrees with the documented findings, assessment, and plan of care documented by RESTRICTIVE PREPARATION OPERATOR as a scribe. Objective - Vital Signs Vital signs: Vital Signs Temp 97.6 F 11/16/23 04:00 Pulse 81 11/16/23 10:21 Resp 18 11/16/23 10:21 BP 128/62 11/16/23 09:45 Pulse Ox 95 11/16/23 09:45 FiO2 Intake & Output 11/15/23 11/16/23 11/16/23 18:59 06:59 18:59 Intake Total 718 0 0 Output Total 200 1250 125 Balance 518 -1250 -125 Intake: Oral 718 0 0 Output: Urine 200 1250 125 Straight 500 Other: Voiding Method Toilet Toilet Toilet # Bowel Movements 1 - Labs CBC & Chem 7: 11/16/23 10:30 11/16/23 10:30 Labs: Abnormal Lab Results - Last 24 Hours (Table) 11/15/23 11/16/23 11/16/23 Range/Units 13:22 10:30 10:30 RBC 3.34 L (4.30-5.90) m/uL Hgb 10.3 L (13.0-17.5) gm/dL Hct 34.2 L (39.0-53.0) % MCV 102.5 H (80.0-100.0) fL MCHC 30.2 L (31.0-37.0) g/dL Sodium 133 L (137-145) mmol/L BUN 50 H (9-20) mg/dL Creatinine 1.61 H (0.66-1.25) mg/dL Glucose 105 H (74-99) mg/dL POC Glucose (mg/dL) 137 H (70-110) mg/dL Calcium 8.2 L (8.4-10.2) mg/dL Microbiology - Last 24 Hours (Table) 11/12/23 11:43 Blood Culture - Preliminary Blood 11/12/23 11:43 Blood Culture - Preliminary Blood
[2023-11-16 14:45] LABS: Large Platelets Present
[2023-11-17] MEDS: FUROSEMIDE 10 MG/ML 2 ML VIAL IV ONE (03:01)
--- NOTE | 2023-11-17 05:19 | XR ---
EXAMINATION TYPE: XR chest 1V portable DATE OF EXAM: 11/17/2023 CLINICAL HISTORY: Difficulty breathing progress study. TECHNIQUE: Single AP portable semiupright view of the chest is obtained. COMPARISON: Chest x-ray from 5 days earlier FINDINGS: Continued worsening of bilateral multifocal increased opacities. Cardiomegaly redemonstrat ed with ectatic thoracic aorta causing right-sided tracheal deviation. Thoracic spinal stimulator red emonstrated. Metallic hardware left shoulder is partially imaged similar to prior. IMPRESSION: Continued worsening bilateral multifocal edema and/or acute infiltrates consistent with w orsening CHF exacerbation versus bilateral pulmonary infection spread. Correlate clinically.
--- NOTE | 2023-11-17 07:07 | P.CNPUL ---
History of Present Illness Consult date: 11/17/23 Requesting physician: Nancy Alvarado Reason for consult: hypoxemia Chief complaint: Abdominal pain History of present illness: Patient is an 83-year-old white male with past medical history significant for atrial fibrillation, coronary artery disease, hyperlipidemia, hypertension, heart failure, aortic stenosis with previous TAVR, syncope, prior CVA/TIA, diabetes mellitus, neuropathy, chronic kidney disease, GERD, prior tobacco dependence, COPD, and recent hospitalization at [facility] for colectomy because of colon cancer. Patient presented to the emergency room back on 11/12/23 chiefly for cramping abdominal pain. Previously having some episodes of nausea and vomiting. Denies hematemesis. Reports normal daily formed bowel movements. No melonie bloody bowel movements or melena. He did have a CT of the abdomen pelvis 1 day prior which did not show any acute intra-abdominal a bnormality. No evidence of obstruction. Prior anastomosis of the distal transverse colon noted. No pneumoperitoneum or free fluid. There was also cardiomegaly with small bilateral pleural effusions and interlobular septal thickening concerning for CHF exacerbation. He was also noted to have a near syncopal event when EMS arrived. In the emergency room, he was noted to be in atrial fibrillation with rapid ventricular response. Chest x-ray demonstrated cardiomegaly, diffuse bilateral patchy infiltrates, trace right pleural effusion concerning for CHF exacerbation. NT proBNP was elevated at 4490. Patient was initially placed on IV Lasix. Renal function has worsened during his admission, and his IV Lasix has been put on hold. His oxygen requirements have increased. He is currently lying in bed, on 6 L/min nasal cannula, no acute distress. A follow-up chest x-ray from this morning shows worsening bilateral multifocal edema and/or acute infiltrates consistent with worsening CHF exacerbation versus infectious etiology. In my opinion more consistent with CHF exacerbation. Patient denies any chest pain, heart palpitations, or worsening lower extremity edema. Denies any fevers or chills. Denies any cough. Denies any hemoptysis. Most recent CBC from yesterday: WBC count 8.7, hemoglobin 10.3, hematocrit 34.2, platelets 100. BMP from yesterday: Sodium 133, potassium 4.4, chloride 99, serum bicarb 26, BUN 50, creatinine 1.61, glucose 105. Troponin was less than 0.012 on arrival. Procalcitonin level is elevated at 0.93. Urinalysis shows large leukocyte esterase and rare bacteria. Patient is currently empirically covered on a combination of Rocephin and doxycycline. He has remained afebrile. Blood cultures have not demonstrated any growth at 72 hours. He remains in atrial fibrillation ventricular rate. Blood pressures is normotensive. Patient has been started on midodrine 3 times daily. Review of Systems REVIEW OF SYSTEMS: CONSTITUTIONAL: Denies any recent significant weight loss or weight gain. EYES: Denies change in vision. EARS, NOSE, MOUTH, THROAT: Denies headaches, denies sore throat. CARDIOVASCULAR: Denies chest pain, palpitations or syncopal episodes. RESPIRATORY: See HPI GASTROINTESTINAL: See HPI GENITOURINARY: Denies dysuria, frequency, hematuria, suprapubic pain or flank pain MUSKULOSKELETAL: Denies pain, denies swelling. INTEGUMENTARY: Denies rash, denies eczema. NEUROLOGICAL: Denies recent memory loss, no recent seizure activity. PSYCHIATRIC: Denies anxiety, denies depression. HEMATOLOGIC/LYMPHATIC: Denies anemia, denies enlarged lymph node Past Medical History Past Medical History: Atrial Fibrillation, Coronary Artery Disease (CAD), Heart Failure, CVA/TIA, Diabetes Mellitus, GERD/Reflux, GI Bleed, Hyperlipidemia, Hypertension, Myocardial Infarction ([place]), Osteoarthritis (OA), Pneumonia, Renal Disease, Syncope Additional Past Medical History / Comment(s): Past syncopal episodes with past work ups, TIA, recent diagnosis of diabetes, neuropathy bilateral legs, pt has had "low blood counts" and is to see a snow maker, CKD stage III, chronic low back pain/pt was to have permanent spinal stimulator placed today, bilateral lower leg edema, past small intestinal bleed, benign colon polyp, hemorrhoids, aortic stenosis and has had valve replaced. Last Myocardial Infarction Date:: 2007 History of Any Multi-Drug Resistant Organisms: None Reported Past Surgical History: Back Surgery, Heart Catheterization, Heart Catheterization With Stent, Hernia Repair, Orthopedic Surgery Additional Past Surgical History / Comment(s): TAVR, CHRISTIAN/cardioversions, PCI with stents, nasal benign polypectomy, bilateral cataract removal/lens implants, EGD, colonoscopies/benign polypectomy, R inguinal hernia repair, low back surgery with edie/screws, temporary spinal stimulator, bilateral ACL arthroscopic surgery, vasectomy. Past Anesthesia/Blood Transfusion Reactions: No Reported Reaction Additional Past Anesthesia/Blood Transfusion Reaction / Comment(s): Pt had blood transfusion with back surgery without reaction. Date of Last Stent Placement:: 2018 Type of Cardiac Device: Loop Device Placement Date:: 2019 Past Psychological History: No Psychological Hx Reported Additional Psychological History / Comment(s): Pt resides with his spouse of 56 yrs. He uses a cane to ambulate. He owns a walker. He drives very little, his spouse is the main telephone directory distributor driver. Smoking Status: Former smoker Past Alcohol Use History: None Reported Additional Past Alcohol Use History / Comment(s): Pt started smoking in 1946 and quit in 1994 Past Drug Use History: Marijuana - Past Family History Son(s) Family Medical History: Cancer Additional Family Medical History / Comment(s): FROM LUNG CANCER Father Family Medical History: Myocardial Infarction ([place]) Additional Family Medical History / Comment(s): Father in a MVA. Mother Family Medical History: CVA/TIA, Myocardial Infarction ([place]) Medications and Allergies Home Medications Medication Instructions Recorded Confirmed Type Atorvastatin [Lipitor] 40 mg PO HS 12/03/20 11/12/23 History DULoxetine HCL [Cymbalta] 60 mg PO DAILY 12/03/20 11/12/23 History Amiodarone [Cordarone] 100 mg PO DAILY 10/18/21 11/12/23 History Gabapentin [Neurontin] 800 mg PO TID 11/08/22 11/12/23 History HYDROcodone/APAP 10-325MG [Chapman 1 tab PO 5XD 11/08/22 11/12/23 History 10-325] Midodrine [ProAmatine] 5 mg PO TID 11/08/22 11/12/23 History Cholecalciferol [Vitamin D3 (25 25 mcg PO DAILY 04/30/23 11/12/23 History Mcg = 1000 Iu)] Triamcinolone 0.1% Cream [Kenalog 1 applic TOPICAL BID PRN 04/30/23 11/12/23 History 0.1% Cream] Vitamin B Complex 1 cap PO DAILY 04/30/23 11/12/23 History Aspirin [Adult Low Dose Aspirin EC] 81 mg PO DAILY 30 Days #30 tab 05/20/23 11/12/23 Rx Biotin 5 mg PO DAILY 06/17/23 11/12/23 History Dapagliflozin Propanediol [Farxiga] 10 mg PO DAILY 06/17/23 11/12/23 History Albuterol Sulfate [Albuterol 2 puff INHALATION RT-Q6H PRN 11/11/23 11/12/23 History Sulfate Hfa] Ipratropium Barnum 0.06%Nasal 1 spr EA NOSTRIL DAILY 11/11/23 11/12/23 History [Atrovent Nasal 0.06%] Pantoprazole Sodium [Protonix] 40 mg PO DAILY 11/11/23 11/12/23 History methIMAzole [Tapazole] 2.5 mg PO MOTUWETHFR 11/11/23 11/12/23 History Allergies Allergy/AdvReac Type Severity Reaction Status Date / Time No Known Allergies Allergy Verified 11/12/23 12:22 Physical Exam Vitals: Vital Signs Temp Pulse Pulse Resp BP Pulse Ox 11/17/23 04:00 97.7 F 78 18 114/65 95 11/16/23 23:44 98.1 F 79 18 106/59 95 11/16/23 22:26 90 11/16/23 22:15 80 11/16/23 20:00 98.3 F 81 18 124/78 94 L 11/16/23 15:27 78 18 112/61 94 L 11/16/23 14:30 74 18 11/16/23 12:24 74 18 111/68 90 L 11/16/23 10:21 81 18 11/16/23 09:45 81 18 128/62 95 Intake and Output 11/16/23 11/16/23 11/17/23 14:59 22:59 06:59 Intake Total 310 236 Output Total 425 500 300 Balance -115 -264 -300 Intake: Oral 310 236 Output: Urine 425 500 300 Other: Voiding Method Toilet Toilet Toilet # Voids 1 2 Weight 98.4 kg GENERAL EXAM: Alert, 83-year-old white male, comfortable in no apparent distress. HEAD: Normocephalic and atraumatic EYES: Normal reaction of pupils, equal size. NOSE: Clear with pink turbinates. THROAT: No erythema or exudates. NECK: No masses, no JVD. CHEST: No chest wall deformity. LUNGS: Equal air entry with bibasilar rales and expiratory wheezes heard throughout. On 6 L/min nasal cannula. Speaks in phrases. No accessory muscle use. CVS: S1 and S2 normal with soft systolic audible murmur, irregular rhythm. No other extra heart sounds ABDOMEN: No hepatosplenomegaly, active bowel sounds, no guarding or rigidity. Multiple approximated laparoscopic incisions along with an approximated transverse incision, which is healing well. No erythema or drainage. SPINE: No scoliosis or deformity SKIN: Chronic venous stasis changes of the bilateral lower extremities CENTRAL NERVOUS SYSTEM: No focal deficits, tone is normal in all 4 extremities. EXTREMITIES: There is mild nonpitting lower extremity edema. No clubbing, or cyanosis. Peripheral pulses are intact. Results - Laboratory Findings CBC and BMP: 11/16/23 10:30 11/16/23 10:30 Abnormal lab findings: Abnormal Labs 11/12/23 11/12/23 11/12/23 09:50 09:50 09:50 WBC 11.5 H RBC 3.76 L Hgb 11.7 L Hct 38.1 L MCV 101.2 H MCHC 30.6 L Plt Count 59 L Neutrophils # 9.7 H Lymphocytes # Lymphocytes # (Manual) Sodium BUN 29 H Creatinine 1.29 H Glucose 162 H POC Glucose (mg/dL) Plasma Lactic Acid Jaxon 3.1 H* Calcium Total Protein 5.7 L Albumin 3.3 L Procalcitonin Urine Protein Urine Glucose (UA) Ur Leukocyte Esterase Urine WBC Urine Bacteria Urine Mucus 11/12/23 11/13/23 11/14/23 10:36 10:57 09:22 WBC RBC 3.41 L Hgb 10.5 L Hct 34.9 L MCV 102.3 H MCHC 30.2 L Plt Count 99 L D Neutrophils # Lymphocytes # 0.9 L Lymphocytes # (Manual) Sodium BUN Creatinine Glucose POC Glucose (mg/dL) Plasma Lactic Acid Jaxon Calcium Total Protein Albumin Procalcitonin 0.93 H Urine Protein Trace H Urine Glucose (UA) 4+ H Ur Leukocyte Esterase Large H Urine WBC 145 H Urine Bacteria Rare H Urine Mucus Rare H 11/14/23 11/15/23 11/15/23 09:22 05:52 05:52 WBC RBC 3.33 L Hgb 10.2 L Hct 34.0 L MCV 102.0 H MCHC 29.9 L Plt Count 97 L Neutrophils # Lymphocytes # Lymphocytes # (Manual) 0.49 L Sodium 135 L 133 L BUN 35 H 42 H Creatinine 1.46 H 1.57 H Glucose 146 H 118 H POC Glucose (mg/dL) Plasma Lactic Acid Jaxon Calcium 8.1 L 8.3 L Total Protein Albumin Procalcitonin Urine Protein Urine Glucose (UA) Ur Leukocyte Esterase Urine WBC Urine Bacteria Urine Mucus 11/15/23 11/16/23 11/16/23 13:22 10:30 10:30 WBC RBC 3.34 L Hgb 10.3 L Hct 34.2 L MCV 102.5 H MCHC 30.2 L Plt Count 100 L Neutrophils # Lymphocytes # 0.8 L Lymphocytes # (Manual) Sodium 133 L BUN 50 H Creatinine 1.61 H Glucose 105 H POC Glucose (mg/dL) 137 H Plasma Lactic Acid Jaxon Calcium 8.2 L Total Protein Albumin Procalcitonin Urine Protein Urine Glucose (UA) Ur Leukocyte Esterase Urine WBC Urine Bacteria Urine Mucus - Diagnostic Findings Chest x-ray: image reviewed Assessment and Plan Assessment: Suspect exacerbation of chronic diastolic congestive heart failure, most recent chest x-ray from this morning shows worsening bilateral multifocal pulmonary edema and/or acute infiltrates, consistent with worsening CHF exacerbation versus infectious etiology. In my opinion more consistent with CHF exacer bation. Acute on chronic hypoxemic respiratory failure, secondary to above Hypotension, currently on midodrine 3 times daily Acute on chronic kidney disease, possibly secondary to hypotension and ATN Rule out urinary tract infection Frequent falls History of syncope Abdominal pain, improved, CT of the abdomen pelvis 1 day prior to admission did not show any acute intra-abdominal abnormality. No evidence of obstruction. Prior anastomosis of the distal transverse colon noted. No pneumoperitoneum or free fluid. Reported recent history of colon cancer and partial colectomy at outside [facility] September, Atrial fibrillation with rapid ventricular rate, rate is better controlled History of hyperlipidemia History of hyperthyroidism History of diabetes mellitus type II History of peripheral neuropathy History of chronic kidney disease stage III Thrombocytopenia History of coronary artery disease, with previous PCI/stent History of aortic valve replacement Chronic hypoxemic respiratory failure, normally maintained on 2 L/min nasal cannula at bedtime at home Former tobacco smoker, quitting over 40 years ago Plan: Patient's medications, labs, chest x-ray reviewed Continue supplemental oxygen to maintain oxygen saturation 92% or greater Would recommend continuing diuretics. Patient did receive a one-time dose of Lasix 20 mg last night. Procalcitonin 0.93 Continue empiric antibiotics. We will continue to follow, and additional recommendations are forthcoming I have personally seen and examined the patient, performed the documentation and the assessment and plan as written. Number of minutes spent on the visit:20 Time with Patient: Greater than 30
--- NOTE | 2023-11-17 11:27 | P.PN ---
Subjective Progress Note Date: 11/17/23 Conrad Campa, is an 83-year-old male who presented to [facility] emergency room with a chief complaint of abdominal pain weakness and near syncope. He was evaluated in the emergency room vital examination on presentation revealed a temperature of 99.4 pulse 91 respiration 18 blood pressure 96/50 pulse ox 86% on room air Laboratory data revealed a white blood count of 11.5 hemoglobin 11.7 platelet count 59 BUN 29 creatinine 1.29 lactic acid 3.1 urine analysis revealed evidence of urinary tract infection Testing in the emergency room revealed chest x-ray revealed evidence of conges tive heart failure versus interstitial pneumonia. patient presented on the day prior to this admission to emergency room with similar complaints at that time he had a computed tomography scan of the abdomen and pelvis that revealed no acute abnormality. Patient was admitted to medical floor for further evaluation and treatment Past medical history is significant for colon mass in the splenic flexure, with recent surgery, history of hyperlipidemia, history of coronary artery disease, history of atrial fibrillation, history of hypertension, history of obstructive sleep apnea Dr. Quintana covering for 11/13/2023 to 11/14/2023 on 11/15/2023 patient is alert and oriented 3 patient apparently had a fall last night that was witnessed by 2 people helping him to the bathroom. Patient not hit his head denies any complaints at this time. Patient remains on IV antibiotics and IV Lasix. Cardiology in surgical service is following. Nephrology services also consulted for acute kidney injury. Current vital signs temp 97.5, heart rate 70, respiratory rate 18, blood pressure 120/85 with pulse ox 92% on 3 L on 11/16/2023 Patient having increased confusion per nursing staff patient received Dilaudid and became increasingly agitated following administration Dilaudid DC'd at this time. Cardiology, surgery and nephrology services consulted. Patient remains on IV Lasix in antibiotics. Lab work currently pending. Current vital signs temp 97.6, heart rate 68, respiratory rate 18, blood pressure 111/60 with pulse ox 96% on 3 L On 11/17/2023 patient continued to having increased confusion and agitation. Will consult neurology services.kidney ultrasound ordered per nephrology. Patient also requiring higher oxygen 6 L. Pulmonary services were consulted. nephrology cardiology pulmonary and neurology service is consulted. Current vital signs temp 97.4, heart rate 93, respiratory rate 20, blood pressure 167/70 with pulse ox of 93% on 6 L. Patient remains on antibiotics Rocephin and d oxycycline along with IV Lasix and Solu-Medrol Objective - Vital Signs Vital signs: Vital Signs Temp 97.4 F L 11/17/23 08:38 Pulse 93 11/17/23 08:38 Resp 20 11/17/23 08:38 BP 167/78 11/17/23 08:38 Pulse Ox 93 L 11/17/23 08:38 FiO2 Intake & Output 11/16/23 11/17/23 11/17/23 18:59 06:59 18:59 Intake Total 546 Output Total 725 700 Balance -179 -700 Weight 98.4 kg Intake: Oral 546 Output: Urine 725 700 Other: Voiding Method Toilet Toilet # Voids 2 - Exam In general patient is alert and oriented x 3 in no distress HEENT head normocephalic and atraumatic Neck is supple no JVD no goiter no lymphadenopathy no carotid bruit Chest examination is clear to auscultation no crackles no wheezing Cardiac exam reveals regular heart sounds S1 and S2 no gallops no murmurs Abdomen is soft, with generalized tenderness no organomegaly with normal bowel sounds Extremity exam reveals no edema no cyanosis or clubbing Neurological examination reveals no gross focal deficits - Labs CBC & Chem 7: 11/16/23 10:30 11/16/23 10:30 Labs: Abnormal Lab Results - Last 24 Hours (Table) 11/16/23 Range/Units 10:30 Plt Count 100 L (150-450) k/uL Lymphocytes # 0.8 L (1.0-4.8) k/uL Assessment and Plan Assessment: sepsis likely related to urinary tract infection Lactic acidosis acute kidney injury with elevated BUN and creatinine Underlying history of congestive heart failure Abdominal pain, cause unclear, patient had a recent colon surgery for splenic flexure colon mass. computed tomography scan of the abdomen and pelvis done yesterday in the emergency room did not reveal acute abnormality Underlying history of hypertension Underlying history of hyperlipidemia history of hyperthyroidism maintained on methimazole Underlying history of coronary artery disease Underlying history of atrial fibrillation Underlying history of obstructive sleep apnea increased confusion. Neurology service is consulted at this time patient will be admitted to medical floor cardiology surgical and nephrology services following pulmonary and neurology services consulted Is maintained on IV Lasix and IV steroids Patient remains on IV antibiotics Will follow closely
--- NOTE | 2023-11-17 11:31 | P.PN ---
Subjective patient is seen for follow-up for acute kidney injury. Currently off of IV fluids due to CHF exacerbation. urine output documented at 1.4 L for 24 hours. serum creatinine 1.6 yesterday. Labs are pending from today. Objective - Vital Signs Vital signs: Vital Signs Temp 97.4 F L 11/17/23 08:38 Pulse 93 11/17/23 08:38 Resp 20 11/17/23 08:38 BP 167/78 11/17/23 08:38 Pulse Ox 93 L 11/17/23 08:38 FiO2 Intake & Output 11/16/23 11/17/23 11/17/23 18:59 06:59 18:59 Intake Total 546 Output Total 725 700 Balance -179 -700 Weight 98.4 kg Intake: Oral 546 Output: Urine 725 700 Other: Voiding Method Toilet Toilet # Voids 2 - Exam patient is awake, comfortable, in no acute distress Examination of the heart S1 and S2 Examination the lungs decreased breath sounds at the bases with basilar crackles Abdomen is soft nontender Examination of lower extremities shows no significant edema. 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 Acute kidney injury, ATN secondary to hypotension, rule out urine retention.UA shows trace proteinuria and WBCs at 145.check ultrasound of the kidneys 2. Pyuria rule out UTI 3. History of CHF with current chest x-ray suggestive of pulmonary vascular congestion. Status post IV fluids initially currently discontinued. 4. A. fib with RVRon initial admission, currently heart rate improved. 5. Possible pneumonia 6. Hyperthyroidism maintained on Tapazole Plan: diuresis patient Follow-up on ultrasound of the kidneys Accurate I's and O's hold midodrine for systolic blood pressure more than 115 mmHg Repeat labs in a.m.
[2023-11-17 11:34] LABS: Basophils % (A) 0 %; Eosinophils # (A) 0.1 k/uL (0-0.7); Eosinophils % (A) 1 %; HCT 34.3 % (39.0-53.0); HGB 10.2 gm/dL (13.0-17.5); Hypochromasia Marked; Lymphocytes # (A) 0.8 k/uL (1.0-4.8); Lymphocytes % (A) 9 %; MCH 30.2 pg (25.0-35.0); MCHC 29.7 g/dL (31.0-37.0); MCV 101.6 fL (80.0-100.0); Macrocytosis Slight; Mean Platelet Volume 11.8; Monocytes # (A) 0.8 k/uL (0-1.0); Monocytes % (A) 9 %; Neutrophils # (A) 7.7 k/uL (1.3-7.7); Neutrophils % (A) 80 %; Platelet Count 114 k/uL (150-450); RBC 3.38 m/uL (4.30-5.90); RDW 14.4 % (11.5-15.5); WBC 9.7 k/uL (3.8-10.6)
--- NOTE | 2023-11-17 11:34 | US ---
EXAMINATION TYPE: US kidneys/renal and bladder DATE OF EXAM: 11/17/2023 COMPARISON: NONE CLINICAL INDICATION: Male, 83 years old with history of DELMAR; DELMAR, known right renal cyst EXAM MEASUREMENTS: Right Kidney: 9.3 x 3.8 x 4.1cm Left Kidney: 9.2 x 5.2 x 5.0cm Right Kidney: 3.9 x 3.4 x 3.7cm simple appearing cyst inferior pole Left Kidney: No hydronephrosis or masses seen Bladder: wnl There is no evidence for hydronephrosis at this point in time. No nephrolithiasis is seen. No carl s are identified. The urinary bladder is anechoic. IMPRESSION: No evidence for obstructive uropathy.
[2023-11-17] MEDS: methylPREDNISolone SOD SUCCI 40 MG/ML 1 ML VIAL IV SCH (11:57)
[2023-11-17] MEDS: FUROSEMIDE 10 MG/ML 4 ML VIAL IV SCH (11:57)
[2023-11-17 12:01] LABS: ALT 13 U/L (4-49); AST 18 U/L (17-59); African American GFR (CKD) 50 (>60 ml/min/1.73 sqM); Albumin 2.9 g/dL (3.5-5.0); Alkaline Phosphatase 105 U/L (38-126); Anion Gap 8 mmol/L; Blood Urea Nitrogen 48 mg/dL (9-20); Calcium 8.1 mg/dL (8.4-10.2); Carbon Dioxide 28 mmol/L (22-30); Chloride 98 mmol/L (98-107); Glucose 111 mg/dL (74-99); Non-African American GFR(CKD) 44 (>60 ml/min/1.73 sqM); Potassium 4.1 mmol/L (3.5-5.1); Sodium 134 mmol/L (137-145); Total Bilirubin 0.6 mg/dL (0.2-1.3); Total Protein 5.3 g/dL (6.3-8.2)
--- NOTE | 2023-11-17 12:20 | P.PN ---
Subjective HISTORY OF PRESENT ILLNESS: 11/14/2023 The patient is an 83-year-old male who presented to the hospital with abdominal discomfort and near syncope. He was found to be in A-fib with RVR. Echocardiogram from May 2023 revealed low normal LV function with normally functioning bioprosthetic aortic valve and biatrial enlargement. Chest x-ray saucedo s revealed diffuse bilateral infiltrates. Patient was interviewed and examined resting comfortably in bed. The patient states he has been feeling much better since his admission. He denies any curre nt shortness of breath or chest discomfort. 11/15/2023 Patient examined this morning at the bedside. Patient currently denies chest pain or pressure. He denies shortness of breath. He remains on IV Lasix. Patient remains in atrial fibrillation with controlled ventricular rate. Per nursing, patient did have a fall overnight. 11/16/2023 Patient examined this morning at the bedside. Patient denies chest pain or pressure. He denies shortness of breath. Patient's creatinine today 1.61. His Lasix has been discontinued. Telemetry reveals atrial fibrillation with controlled ventricular rate. 11/17/2023 Patient examined this morning at bedside. Patient currently denies chest pain or pressure. He does report shortness of breath. Patient is requiring supplemental oxygen to maintain oxygen saturations greater than 92%. He has been resumed on IV diuretics per nephrology today. PHYSICAL EXAM: VITAL SIGNS: Reviewed. GENERAL: Well-developed in no acute distress. NECK: Supple. No JVD or thyromegaly LUNGS: Respirations even and unlabored. Lungs diminished with bibasilar crackles HEART: Irregular rate and rhythm. S1 and S2 heard. Systolic murmur noted. EXTREMITIES: Normal range of motion. No clubbing or cyanosis. Peripheral pulses intact. Bilateral lower extremity edema noted. 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 Continue to monitor kidney function. Continue telemetry monitoring Further recommendations pending patient course Nurse practitioner note has been reviewed by physician. Signing provider agrees with the documented findings, assessment, and plan of care documented by HEAD INSPECTOR AND CENTER MARKER as a scribe. Objective - Vital Signs Vital signs: Vital Signs Temp 97.9 F 11/17/23 11:54 Pulse 81 11/17/23 11:54 Resp 20 11/17/23 11:54 BP 109/56 11/17/23 11:54 Pulse Ox 92 L 11/17/23 11:54 FiO2 Intake & Output 11/16/23 11/17/23 11/17/23 18:59 06:59 18:59 Intake Total 546 Output Total 725 700 Balance -179 -700 Weight 98.4 kg Intake: Oral 546 Output: Urine 725 700 Other: Voiding Method Toilet Toilet # Voids 2 - Labs CBC & Chem 7: 11/17/23 09:50 11/17/23 09:50 Labs: Abnormal Lab Results - Last 24 Hours (Table) 11/16/23 11/17/23 11/17/23 Range/Units 10:30 09:50 09:50 RBC 3.38 L (4.30-5.90) m/uL Hgb 10.2 L (13.0-17.5) gm/dL Hct 34.3 L (39.0-53.0) % MCV 101.6 H (80.0-100.0) fL MCHC 29.7 L (31.0-37.0) g/dL Plt Count 100 L 114 L (150-450) k/uL Lymphocytes # 0.8 L 0.8 L (1.0-4.8) k/uL Sodium 134 L (137-145) mmol/L BUN 48 H (9-20) mg/dL Creatinine 1.46 H (0.66-1.25) mg/dL Glucose 111 H (74-99) mg/dL Calcium 8.1 L (8.4-10.2) mg/dL Total Protein 5.3 L (6.3-8.2) g/dL Albumin 2.9 L (3.5-5.0) g/dL
--- NOTE | 2023-11-17 14:02 | CT ---
EXAMINATION TYPE: High resolution CT chest DATE OF EXAM: 11/17/2023 COMPARISON: Radiograph 11/17/2023 HISTORY: 83-year-old male HYPOXEMIA TECHNIQUE: High resolution CT of the chest utilizing 1 mm slice thickness and 1 cm gap or HRCT protoc ol. Both inspiratory and expiratory phases were performed. No IV contrast or prone imaging. CT DLP: 856mGycm. Automatic exposure control utilized for a dose reduction. FINDINGS: The heart is borderline enlarged without pericardial effusion. Extensive three-vessel coronary artery calcifications are present. Prosthetic endovascular aortic valve replacement. Suspect occluder of th e left atrial appendage. Ectatic ascending aorta 3.9 cm. Mild to moderate atherosclerotic arch calcifications with conventiona l arch vessel branching anatomy. Scattered mediastinal lymph nodes measuring up to 2.0 cm upper right paratracheal and 1.9 cm lower ri ght paratracheal. 1.0 cm upper prevascular space. Large caliber main right and left pulmonary arteries measuring up to 2.7 cm suggesting underlying pul monary hypertension. There are new [id number] bilateral pleural effusions. Diffuse back into formalin groundglass o pacities are present, superimposed on moderate emphysema. There is thickening of the central intersti tium and septal lines in the lower lungs. There is some mainstem bronchial narrowing on expiratory phase, probably 50% on the right and less th an 50% on the left. Possible tiny hiatal hernia. Global assessment limited by HRCT technique. Spinal stimulator array centered at the lower thoracic spinal canal. Partially visualized reverse lef t shoulder plasty. IMPRESSION: 1. Global assessment limited by HRCT technique. 2. Constellation of findings including patchy and confluent bilateral groundglass, septal lines, smal l to moderate bilateral pleural effusions, and borderline cardiomegaly suggests CHF and pulmonary jean ma. 2. Some scattered mediastinal lymph nodes measuring up to 2.0 cm are probably reactive. Reassess at a three-month follow-up CT. 3. Background COPD with moderate emphysema and pulmonary arterial hypertension. There are 4 CAD with extensive three-vessel coronary artery calcifications. Previous endovascular aor tic valve replacement and left atrial appendage occluder device.
[2023-11-17 14:09] VITALS: BMI 31.1
--- NOTE | 2023-11-17 14:17 | CDI ---
Date: 11/17/2023 From: Kira Garza Phone: [phone] Admit Date: 11/12/2023 12:20:00 PM Patient Name: Conrad Campa Visit Number: [id number] Discharge Date: ATTENTION: The Clinical Documentation Specialists (CDI) and [facility] Coding Staff appreciate your assistance in clarifying documentation. Please respond to the clarification below the line at the bottom and electronically sign. The CDI & [facility] Coding staff will review the response and follow-up if needed. Please note: Queries are made part of the Legal Health Record. If you have any questions, please contact the author of this message via ITS. Dr. Nancy Alvarado: Sepsis is documented in the IM progress note 11/14. For each diagnosis, documentation must be clear to determine if the condition was present at the time of the patients inpatient admission or developed during the hospital stay. Additional clarification regarding the sepsis is requested. History/Risk Factors: History of HTN, DM, CKD, AFib, presented with abdominal pain, weakness and near syncope Clinical Indicators: 11/11 Triage VS: 96/50, 99.4, 91, 18, 75% room air 11/14 IM PN, Plan: "sepsis likely related to urinary tract infection." 11/16 Nephrology PN, Assessment: "2. Pyuria rule out UTI, 5. Possible pneumonia" 11/11-11/16 WBC: 11.5, 9.1, 8.2, 8.7, 9.7 11/11 Lactic Acid: 3.1, 1.1 11/11 Urinalysis: Appearance: Cloudy, Protein: Trace, Leukocyte Esterase: Large, WBC: 145, Bacteria: Rare 11/12 Procalcitonin: 0.93 11/11 Chest X Ray, Impression: 1. Correlate for CHF versus interstitial pneumonia/atypical pneumonia.' Treatment: Ceftriaxone 1gram IV Q24 hours start 11/12 Doxycycline 100mg IV [id number] 11/12-11/14 Definition of Present on Admission (POA): A diagnosis present at the time the order for admission to inpatient status was written. Please clarify if the Sepsis was POA: [ xxxxx ] Y = Yes, the condition was present at the time of the order for inpatient admission. [ ] N = No, the condition was not present at the time of the order for inpatient admission. [ ] W = Clinically undetermined if the condition was present at the time of the order for inpatient admission. MTDD
[2023-11-17] MEDS: DOCUSATE 100 MG CAP PO PRN (16:11)
[2023-11-18 02:13] LABS: Glucose,Whole Blood 165 mg/dL (70-110)
--- NOTE | 2023-11-18 10:28 | P.CNNES ---
History of Present Illness Consult date: 11/17/23 Requesting physician: Janet Edwards Reason for Consult: Increased confusion History of Present Illness: Patient is a 83-year-old right-handed male came to the hospital by ambulance on 11/12/2023 at 9:05 AM for "stomach pain", due to "bowels not moving". According to the EMS flowsheet, when they arrived, patient's mentioned that patient was sitting upright on the floor next to the bed. Patient apparently slid out of bed while trying to get up to go to the restroom. Patient's was a witness to this fall. When EMS arrived patient was alert and oriented x 4 and in no obvious distress. Patient denied any pain, hitting his head and no loss of consciousness. Patient mentioned that he was just recently discharged from hospital last night after being in the ER for abdominal pain due to a blockage. Patient is not on any blood thinners. The patient was assisted up and assisted back onto the bed. Patient had a syncopal episode shortly after, lasting about 30 to 60 seconds. When the patient became more conscious, the only complaint was weakness. EKG showed sinus rhythm. Patient's vitals at the scene was blood pressure 107/55, pulse rate 101, respiration 18, saturation 97%. Blood glucose 222. Vital signs on arrival blood pressure 96/50, which came down to 91/67, pulse rate 91 temperature 99.4 rectally. Patient has been afebrile. Initial blood test shows WBC 11.5 hemoglobin 11.7 with elevated MCV 101.2, platelets are 59. Chest x-ray revealed correlate for CHF versus interstitial pneumonia/atypical pneumonia. EKG shows atrial fibrillation with rapid ventricular rate. Apparently in the last 2 days, patient has been confused, agitated particularly yesterday evening for which neurology was consulted. He was ripping things off. Patient states that he has difficulty with breathing for last 3 to 4 years, which has been getting worse. He has developed dyspnea on exertion. He uses oxygen at night. Daytime only as needed. Patient's was also present by the bedside, who states that patient does not have any history of dementia. He usually walks with a walker and sometimes cane. He has been using walker mostly this year. Patient has history of smoking cigarettes 2 pack/day for 40 years, quit 30 years ago. Denies any alcohol use. Denies diabetes. Patient believes that he is doing better today. Patient offers no complaints. Patient had EEG performed twice on 10/08/2014 and 08/10/2014, both of which were normal. Patient had a 2D echo on 05/20/2023 which revealed low normal left ventricular systolic function with EF 50 to 55%. Left ventricular cavity size is normal. No obvious regional wall motion abnormalities. Severe right atrial dilation. Severe left atrial dilation. Bioprosthetic valve. Review of Systems All review of systems negative except the pertinent positives and negatives mentioned in the HPI. Constitutional: Denies chills, Denies fever Eyes: denies blurred vision, denies pain Ears: bilateral: decreased hearing, deny: earache Ears, nose, mouth and throat: Denies headache, Denies sore throat, Denies helena tigo Cardiovascular: Reports shortness of breath, Denies chest pain Respiratory: Reports cough, Denies hemoptysis Gastrointestinal: Reports constipation, Denies abdominal pain, Denies diarrhea, Denies nausea, Denies vomiting Integumentary: Denies pruritus, Denies rash Neurological: Reports as per HPI Psychiatric: Denies anxiety, Denies depression Past Medical History Past Medical History: Atrial Fibrillation, Coronary Artery Disease (CAD), Heart Failure, CVA/TIA, Diabetes Mellitus, GERD/Reflux, GI Bleed, Hyperlipidemia, Hypertension, Myocardial Infarction (MO), Osteoarthritis (OA), Pneumonia, Renal Disease, Syncope Additional Past Medical History / Comment(s): Past syncopal episodes with past work ups, TIA, recent diagnosis of diabetes, neuropathy bilateral legs, pt has had "low blood counts" and is to see a strategic debriefing officer, CKD stage III, chronic low back pain/pt was to have permanent spinal stimulator placed today, bilateral lower leg edema, past small intestinal bleed, benign colon polyp, hemorrhoids, aortic stenosis and has had valve replaced. Last Myocardial Infarction Date:: 2007 History of Any Multi-Drug Resistant Organisms: None Reported Past Surgical History: Back Surgery, Heart Catheterization, Heart Catheterization With Stent, Hernia Repair, Orthopedic Surgery Additional Past Surgical History / Comment(s): TAVR, CHRISTIAN/cardioversions, PCI with stents, nasal benign polypectomy, bilateral cataract removal/lens implants, EGD, colonoscopies/benign polypectomy, R inguinal hernia repair, low back surgery with edie/screws, temporary spinal stimulator, bilateral ACL arthroscopic surgery, vasectomy. Past Anesthesia/Blood Transfusion Reactions: No Reported Reaction Additional Past Anesthesia/Blood Transfusion Reaction / Comment(s): Pt had blood transfusion with back surgery without reaction. Date of Last Stent Placement:: 2018 Type of Cardiac Device: Loop Device Placement Date:: 2019 Past Psychological History: No Psychological Hx Reported Additional Psychological History / Comment(s): Pt resides with his spouse of 56 yrs. He uses a cane to ambulate. He owns a walker. He drives very little, his spouse is the main dumpster driver. Smoking Status: Former smoker Past Alcohol Use History: None Reported Additional Past Alcohol Use History / Comment(s): Pt started smoking in 1946 and quit in 1994 Past Drug Use History: Marijuana - Past Family History Son(s) Family Medical History: Cancer Additional Family Medical History / Comment(s): FROM LUNG CANCER Father Family Medical History: Myocardial Infarction ([place]) Additional Family Medical History / Comment(s): Father in a MVA. Mother Family Medical History: CVA/TIA, Myocardial Infarction (MO) Medications and Allergies Home Medications Medication Instructions Recorded Confirmed Type Atorvastatin [Lipitor] 40 mg PO HS 12/03/20 11/12/23 History DULoxetine HCL [Cymbalta] 60 mg PO DAILY 12/03/20 11/12/23 History Amiodarone [Cordarone] 100 mg PO DAILY 10/18/21 11/12/23 History Gabapentin [Neurontin] 800 mg PO TID 11/08/22 11/12/23 History HYDROcodone/APAP 10-325MG [[place] 1 tab PO 5XD 11/08/22 11/12/23 History 10-325] Midodrine [ProAmatine] 5 mg PO TID 11/08/22 11/12/23 History Cholecalciferol [Vitamin D3 (25 25 mcg PO DAILY 04/30/23 11/12/23 History Mcg = 1000 Iu)] Triamcinolone 0.1% Cream [Kenalog 1 applic TOPICAL BID PRN 04/30/23 11/12/23 History 0.1% Cream] Vitamin B Complex 1 cap PO DAILY 04/30/23 11/12/23 History Aspirin [Adult Low Dose Aspirin EC] 81 mg PO DAILY 30 Days #30 tab 05/20/23 11/12/23 Rx Biotin 5 mg PO DAILY 06/17/23 11/12/23 History Dapagliflozin Propanediol [Farxiga] 10 mg PO DAILY 06/17/23 11/12/23 History Albuterol Sulfate [Albuterol 2 puff INHALATION RT-Q6H PRN 11/11/23 11/12/23 History Sulfate Hfa] Ipratropium [place] 0.06%Nasal 1 spr EA NOSTRIL DAILY 11/11/23 11/12/23 History [Atrovent Nasal 0.06%] Pantoprazole Sodium [Protonix] 40 mg PO DAILY 11/11/23 11/12/23 History methIMAzole [Tapazole] 2.5 mg PO MOTUWETHFR 11/11/23 11/12/23 History Allergies Allergy/AdvReac Type Severity Reaction Status Date / Time No Known Allergies Allergy Verified 11/12/23 12:22 Physical Examination - Vital Signs Vital Signs: Vital Signs Temp Pulse Pulse Resp BP Pulse Ox 11/17/23 11:54 97.9 F 81 20 109/56 92 L 11/17/23 08:38 97.4 F L 93 20 167/78 93 L 11/17/23 08:13 96 11/17/23 04:00 97.7 F 78 18 114/65 95 11/16/23 23:44 98.1 F 79 18 106/59 95 11/16/23 22:26 90 11/16/23 22:15 80 11/16/23 20:00 98.3 F 81 18 124/78 94 L 11/16/23 15:27 78 18 112/61 94 L 11/16/23 14:30 74 18 Intake and Output 11/16/23 11/17/23 11/17/23 22:59 06:59 14:59 Intake Total 236 Output Total 500 500 Balance -264 -500 Intake: Oral 236 Output: Urine 500 500 Other: Voiding Method Toilet Toilet # Voids 1 2 Weight 98.4 kg Patient is an elderly male, very pleasant, slightly short of breath, using oxygen by nasal cannula. Patient is alert awake oriented to time place and person. He knows it is November 2023 and that he is in [facility] in [facility]. Speech and language functions are normal. Patient can name and repeat very well. No aphasia or dysarthria. Attention, concentration and fund of knowledge is adequate. On cranial nerve examination, pupils are equal, round and reacting to light, visual siegel are full on confrontation, with no neglect on double simultaneous stimulation. Extraocular muscles are intact with no nystagmus. Face is symmetric, tongue protrudes to the midline. Palatal elevation and sensation normal, hearing is significantly decreased and shoulder shrug normal, facial sensation normal. On muscle strength testing, there is no pronator drift, although patient has myoclonic jerks of outstretched hands left more than right, and the strength is normal in arms and legs distally and proximally, except right shoulder which is weak probably from arthritis. He had history of left shoulder surgery in the past. Lower extremities are normal. Deep tendon reflexes are symmetric slightly hypoactive and plantars are downgoing. Sensory to touch is equal with no neglect on double simultaneous stimulation. Cerebellar function showed no ataxia for [id number] testing. No dysdiadochokinesia. No ataxia for [id number]-eh-scsd testing on either side. Tone and bulk of muscles normal. Gait deferred.. On general examination, there is no carotid bruit or murmur, S1-S2 audible. Chest is clear on consultation. Abdomen is soft nontender. No organomegaly, bowel sounds present. Peripheral pulses are present. Patient has mild to moderate peripheral edema. Patient has multiple bruises in his arms. Results - Laboratory Findings CBC and BMP: 11/17/23 09:50 11/17/23 09:50 Abnormal Lab Findings: Abnormal Labs 11/12/23 11/12/23 11/12/23 09:50 09:50 09:50 WBC 11.5 H RBC 3.76 L Hgb 11.7 L Hct 38.1 L MCV 101.2 H MCHC 30.6 L Plt Count 59 L Neutrophils # 9.7 H Lymphocytes # Lymphocytes # (Manual) Sodium BUN 29 H Creatinine 1.29 H Glucose 162 H POC Glucose (mg/dL) Plasma Lactic Acid Jaxon 3.1 H* Calcium Total Protein 5.7 L Albumin 3.3 L Procalcitonin Urine Protein Urine Glucose (UA) Ur Leukocyte Esterase Urine WBC Urine Bacteria Urine Mucus 11/12/23 11/13/23 11/14/23 10:36 10:57 09:22 WBC RBC 3.41 L Hgb 10.5 L Hct 34.9 L MCV 102.3 H MCHC 30.2 L Plt Count 99 L D Neutrophils # Lymphocytes # 0.9 L Lymphocytes # (Manual) Sodium BUN Creatinine Glucose POC Glucose (mg/dL) Plasma Lactic Acid Jaxon Calcium Total Protein Albumin Procalcitonin 0.93 H Urine Protein Trace H Urine Glucose (UA) 4+ H Ur Leukocyte Esterase Large H Urine WBC 145 H Urine Bacteria Rare H Urine Mucus Rare H 11/14/23 11/15/23 11/15/23 09:22 05:52 05:52 WBC RBC 3.33 L Hgb 10.2 L Hct 34.0 L MCV 102.0 H MCHC 29.9 L Plt Count 97 L Neutrophils # Lymphocytes # Lymphocytes # (Manual) 0.49 L Sodium 135 L 133 L BUN 35 H 42 H Creatinine 1.46 H 1.57 H Glucose 146 H 118 H POC Glucose (mg/dL) Plasma Lactic Acid Jaxon Calcium 8.1 L 8.3 L Total Protein Albumin Procalcitonin Urine Protein Urine Glucose (UA) Ur Leukocyte Esterase Urine WBC Urine Bacteria Urine Mucus 11/15/23 11/16/23 11/16/23 13:22 10:30 10:30 WBC RBC 3.34 L Hgb 10.3 L Hct 34.2 L MCV 102.5 H MCHC 30.2 L Plt Count 100 L Neutrophils # Lymphocytes # 0.8 L Lymphocytes # (Manual) Sodium 133 L BUN 50 H Creatinine 1.61 H Glucose 105 H POC Glucose (mg/dL) 137 H Plasma Lactic Acid Jaxon Calcium 8.2 L Total Protein Albumin Procalcitonin Urine Protein Urine Glucose (UA) Ur Leukocyte Esterase Urine WBC Urine Bacteria Urine Mucus 11/17/23 11/17/23 09:50 09:50 WBC RBC 3.38 L Hgb 10.2 L Hct 34.3 L MCV 101.6 H MCHC 29.7 L Plt Count 114 L Neutrophils # Lymphocytes # 0.8 L Lymphocytes # (Manual) Sodium 134 L BUN 48 H Creatinine 1.46 H Glucose 111 H POC Glucose (mg/dL) Plasma Lactic Acid Jaxon Calcium 8.1 L Total Protein 5.3 L Albumin 2.9 L Procalcitonin Urine Protein Urine Glucose (UA) Ur Leukocyte Esterase Urine WBC Urine Bacteria Urine Mucus Assessment and Plan Assessment: * Altered mental status with agitation, likely due to metabolic encephalopathy. Reasons multifactorial as mentioned below. * CHF and pulmonary edema * Patient on steroids (methylprednisolone) can also produce delirium. * Possible UTI. * Atrial fibrillation with rapid ventricular rate * History of bioprosthetic aortic valve * Macrocytic anemia * Thrombocytopenia * Lactic acidosis * Mild to moderate renal insufficiency * History of hyperthyroidism, on methimazole * COPD * CAD Plan: * Patient's encephalopathy has much improved. However he still has evidence of encephalopathy based upon presence of myoclonic jerks of outstretched hands. His mentation can still fluctuate, but hopefully will resolve once multiple medical conditions comes under control. * Patient has atrial fibrillation, currently not on anticoagulation because of thrombocytopenia. We will defer to IM and cardiology. * Patient on aspirin 81 mg daily. Also on Lipitor 40 mg. * Patient has macrocytic anemia. We will check B12, folate, MMA. * Patient has history of peripheral neuropathy. We will check hemoglobin A1c, vitamin B6. * Patient has mild to moderate renal insufficiency, but on very high-dose gabapentin. We will decrease dose of gabapentin to 600 mg 3 times daily. If the myoclonic jerks persist, may have to further decrease down the dose. * Patient has probable UTI, currently on ceftriaxone. * Other medical management as per IM and other specialties. * We will follow clinically. Thank you for the consult. Time with Patient: Greater than 30
[2023-11-18 11:37] LABS: Basophils % (A) 0 %; Eosinophils % (A) 0 %; HCT 37.2 % (39.0-53.0); HGB 11.1 gm/dL (13.0-17.5); Hypochromasia Marked; Lymphocytes # (A) 0.4 k/uL (1.0-4.8); Lymphocytes % (A) 4 %; MCH 30.3 pg (25.0-35.0); MCHC 29.7 g/dL (31.0-37.0); MCV 101.7 fL (80.0-100.0); Macrocytosis Slight; Mean Platelet Volume 11.9; Monocytes # (A) 0.4 k/uL (0-1.0); Monocytes % (A) 4 %; Neutrophils # (A) 10.6 k/uL (1.3-7.7); Neutrophils % (A) 92 %; Platelet Count 127 k/uL (150-450); RBC 3.66 m/uL (4.30-5.90); RDW 14.2 % (11.5-15.5); WBC 11.6 k/uL (3.8-10.6)
--- NOTE | 2023-11-18 11:37 | P.PN ---
Subjective patient is seen for follow-up for acute kidney injury. Currently being diuresed. Shortness of breath much improved today. urine output documented at 2.1 L for 24 hours. serum creatinine 1.46 yesterday. Labs are pending from today. Objective - Vital Signs Vital signs: Vital Signs Temp 97.4 F L 11/18/23 08:41 Pulse 91 11/18/23 11:12 Resp 20 11/18/23 11:12 BP 142/76 11/18/23 11:12 Pulse Ox 92 L 11/18/23 11:12 FiO2 Intake & Output 11/17/23 11/18/23 11/18/23 18:59 06:59 18:59 Intake Total 234 118 Output Total 750 1400 450 Balance -516 -1400 -332 Weight 98.4 kg 94.5 kg Intake: Oral 234 118 Output: Urine 750 1400 450 Other: Voiding Method External Catheter External Catheter External Catheter - Exam patient is awake, comfortable, in no acute distress Examination of the heart S1 and S2 Examination the lungs decreased breath sounds at the bases with basilar crackles Abdomen is soft nontender Examination of lower extremities shows no significant edema. 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2) g/dL Albumin 2.9 L (3.5-5.0) g/dL Microbiology - Last 24 Hours (Table) 11/12/23 11:43 Blood Culture - Final Blood 04 11:43 Blood Culture - Final Blood Assessment and Plan Assessment: 1. Acute kidney injury, ATN secondary to hypotension, rule out urine retention.UA shows trace proteinuria and WBCs at 145.check ultrasound of the kidneys 2. Pyuria rule out UTI 3. History of CHF with current chest x-ray suggestive of pulmonary vascular congestion. Status post IV fluids initially currently discontinued. 4. A. fib with RVR on initial admission, currently heart rate improved. 5. Possible pneumonia 6. Hyperthyroidism maintained on Tapazole 7. Volume overload Plan: continue IV Lasix Accurate I's and O's hold midodrine for systolic blood pressure more than 115 mmHg Repeat labs in a.m.
[2023-11-18 12:00] LABS: ALT 15 U/L (4-49); AST 18 U/L (17-59); African American GFR (CKD) 62 (>60 ml/min/1.73 sqM); Alkaline Phosphatase 104 U/L (38-126); Anion Gap 7 mmol/L; Blood Urea Nitrogen 53 mg/dL (9-20); Calcium 8.2 mg/dL (8.4-10.2); Carbon Dioxide 31 mmol/L (22-30); Chloride 97 mmol/L (98-107); Glucose 145 mg/dL (74-99); Non-African American GFR(CKD) 54 (>60 ml/min/1.73 sqM); Potassium 4.3 mmol/L (3.5-5.1); Sodium 135 mmol/L (137-145); Total Bilirubin 0.6 mg/dL (0.2-1.3); Total Protein 5.8 g/dL (6.3-8.2)
--- NOTE | 2023-11-18 13:17 | P.PN ---
Subjective HISTORY OF PRESENT ILLNESS: 11/14/2023 The patient is an 83-year-old male who presented to the hospital with abdominal discomfort and near syncope. He was found to be in A-fib with RVR. Echocardiogram from May 2023 revealed low normal LV function with normally functioning bioprosthetic aortic valve and biatrial enlargement. Chest x-ray saucedo s revealed diffuse bilateral infiltrates. Patient was interviewed and examined resting comfortably in bed. The patient states he has been feeling much better since his admission. He denies any curre nt shortness of breath or chest discomfort. 11/15/2023 Patient examined this morning at the bedside. Patient currently denies chest pain or pressure. He denies shortness of breath. He remains on IV Lasix. Patient remains in atrial fibrillation with controlled ventricular rate. Per nursing, patient did have a fall overnight. 11/16/2023 Patient examined this morning at the bedside. Patient denies chest pain or pressure. He denies shortness of breath. Patient's creatinine today 1.61. His Lasix has been discontinued. Telemetry reveals atrial fibrillation with controlled ventricular rate. 11/17/2023 Patient examined this morning at bedside. Patient currently denies chest pain or pressure. He does report shortness of breath. Patient is requiring supplemental oxygen to maintain oxygen saturations greater than 92%. He has been resumed on IV diuretics per nephrology today. 11/18/2023 Patient examined this morning at the bedside. Patient reports improvement in his shortness of breath today. He remains on IV diuretics with Lasix. Dosage has been increased per pulmonary medicine. He denies chest pain or pressure. Creatinine today is normalized at 1.23. PHYSICAL EXAM: VITAL SIGNS: Reviewed. GENERAL: Well-developed in no acute distress. NECK: Supple. No JVD or thyromegaly LUNGS: Respirations even and unlabored. Lungs diminished with bibasilar crackles HEART: Irregular rate and rhythm. S1 and S2 heard. Systolic murmur noted. EXTREMITIES: Normal range of motion. No clubbing or cyanosis. Peripheral pulses intact. Bilateral lower extremity edema noted. 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 Continue to monitor kidney function. Continue telemetry monitoring Further recommendations pending patient course Nurse practitioner note has been reviewed by physician. Signing provider agrees with the documented findings, assessment, and plan of care documented by ROOFING MACHINE OPERATOR as a scribe. Objective - Vital Signs Vital signs: Vital Signs Temp 97.4 F L 11/18/23 08:41 Pulse 91 11/18/23 11:12 Resp 20 11/18/23 11:12 BP 142/76 11/18/23 11:12 Pulse Ox 92 L 11/18/23 11:12 FiO2 Intake & Output 11/17/23 11/18/23 11/18/23 18:59 06:59 18:59 Intake Total 234 238 Output Total 750 1400 450 Balance -516 -1400 -212 Weight 98.4 kg 94.5 kg Intake: Oral 234 238 Output: Urine 750 1400 450 Other: Voiding Method External Catheter External Catheter External Catheter - Labs CBC & Chem 7: 11/18/23 10:56 11/18/23 10:56 Labs: Abnormal Lab Results - Last 24 Hours (Table) 11/18/23 11/18/23 11/18/23 Range/Units 02:11 10:56 10:56 WBC 11.6 H (3.8-10.6) k/uL RBC 3.66 L (4.30-5.90) m/uL Hgb 11.1 L (13.0-17.5) gm/dL Hct 37.2 L (39.0-53.0) % MCV 101.7 H (80.0-100.0) fL MCHC 29.7 L (31.0-37.0) g/dL Plt Count 127 L (150-450) k/uL Neutrophils # 10.6 H (1.3-7.7) k/uL Lymphocytes # 0.4 L (1.0-4.8) k/uL Sodium 135 L (137-145) mmol/L Chloride 97 L (98-107) mmol/L Carbon Dioxide 31 H (22-30) mmol/L BUN 53 H (9-20) mg/dL Glucose 145 H (74-99) mg/dL POC Glucose (mg/dL) 165 H (70-110) mg/dL Calcium 8.2 L (8.4-10.2) mg/dL Total Protein 5.8 L (6.3-8.2) g/dL Albumin 3.0 L (3.5-5.0) g/dL Microbiology - Last 24 Hours (Table) 11/12/23 11:43 Blood Culture - Final Blood 11/12/23 11:43 Blood Culture - Final Blood
--- NOTE | 2023-11-18 14:45 | P.PN ---
Subjective Progress Note Date: 11/18/23 Patient is an 83-year-old white male with past medical history significant for atrial fibrillation, coronary artery disease, hyperlipidemia, hypertension, heart failure, aortic stenosis with previous TAVR, syncope, prior CVA/TIA, diabetes mellitus, neuropathy, chronic kidney disease, GERD, prior tobacco dependence, COPD, and recent hospitalization at [facility] for colectomy because of colon cancer. Patient presented to the emergency room back on 11/12/23 chiefly for cramping abdominal pain. Previously having some episodes of nausea and vomiting. Denies hematemesis. Reports normal daily formed bowel movements. No melonie bloody bowel movements or melena. He did have a CT of the abdomen pelvis 1 day prior which did not show any acute intra-abdominal abnormality. No evidence of obstruction. Prior anastomosis of the distal transverse colon noted. No pneumoperitoneum or free fluid. There was also cardiomegaly with small bilateral pleural effusions and interlobular septal thickening concerning for CHF exacerbation. He was also noted to have a near syncopal event when EMS arrived. In the emergency room, he was noted to be in atrial fibrillation with rapid ventricular response. Chest x-ray demonstrated cardiomegaly, diffuse bilateral patchy infiltrates, trace right pleural effusion concerning for CHF exacerbation. NT proBNP was elevated at 4490. Patient was initially placed on IV Lasix. Renal function has worsened during his admission, and his IV Lasix has been put on hold. His oxygen requirements have increased. He is currently lying in bed, on 6 L/min nasal cannula, no acute distress. A follow-up chest x-ray from this morning shows worsening bilateral multifocal edema and/or acute infiltrates consistent with worsening CHF exacerbation versus infectious etiology. In my opinion more consistent with CHF exacerbation. Patient denies any chest pain, heart palpitations, or worsening lower extremity edema. Denies any fevers or chills. Denies any cough. Denies any hemoptysis. Most recent CBC from yesterday: WBC count 8.7, hemoglobin 10.3, hematocrit 34.2, platelets 100. BMP from yesterday: Sodium 133, potassium 4.4, chloride 99, serum bicarb 26, BUN 50, creatinine 1.61, glucose 105. Troponin was less than 0.012 on arrival. Procalcitonin level is elevated at 0.93. Urinalysis shows large leukocyte esterase and rare bacteria. Patient is currently empirically covered on a combination of Rocephin and doxycycline. He has remained afebrile. Blood cultures have not demonstrated any growth at 72 hours. He remains in atrial fibrillation ventricular rate. Blood pressures is normotensive. Patient has been started on midodrine 3 times daily. The patient is seen today November 18, 2023 in follow-up on the selective care unit. He is currently sitting up in a chair at the bedside. Awake and alert in no acute distress. More oriented and cooperative today compared to yesterday. Continued O2 saturations in the 90s on 6 L high flow nasal cannula. He is afebrile. Hemodynamically stable. High-resolution CT scan of the chest reveals constellation of findings including patchy and confluent bilateral groundglass, septal lines, small to moderate bilateral pleural effusions and borderline cardiomegaly consistent with congestive heart failure and pulmonary edema. There is some scattered mediastinal lymph nodes measuring up to 2.0 cm probably reactive. Background COPD with moderate emphysema and pulmonary artery hypertension. He remains on IV diuretics. Currently in a -1.9 L balance. He has been off amiodarone. He is continued on bronchodilators, steroids and antibiotics. Objective - Vital Signs Vital signs: Vital Signs Temp 97.4 F L 11/18/23 08:41 Pulse 91 11/18/23 11:12 Resp 20 11/18/23 11:12 BP 142/76 11/18/23 11:12 Pulse Ox 92 L 11/18/23 11:12 FiO2 Intake & Output 11/17/23 11/18/23 11/18/23 18:59 06:59 18:59 Intake Total 234 238 Output Total 750 1400 450 Balance -516 -1400 -212 Weight 98.4 kg 94.5 kg Intake: Oral 234 238 Output: Urine 750 1400 450 Other: Voiding Method External Catheter External Catheter External Catheter - Exam GENERAL EXAM: Alert, 83-year-old male, sitting up in a chair, on 6 L high flow nasal cannula, comfortable in no apparent distress. HEAD: Normocephalic and atraumatic EYES: Normal reaction of pupils, equal size. NOSE: Clear with pink turbinates. THROAT: No erythema or exudates. NECK: No masses, no JVD. CHEST: No chest wall deformity. LUNGS: Equal air entry with bibasilar rales and expiratory wheezes heard throu ghout. No accessory muscle use. CVS: S1 and S2 normal with soft systolic audible murmur, irregular rhythm. No other extra heart sounds ABDOMEN: No hepatosplenomegaly, active bowel sounds, no guarding or rigidity. Multiple approximated laparoscopic incisions along with an approximated transverse incision, which is healing well. No erythema or drainage. SPINE: No scoliosis or deformity SKIN: Chronic venous stasis changes of the bilateral lower extremities CENTRAL NERVOUS SYSTEM: No focal deficits, tone is normal in all 4 extremities. EXTREMITIES: There is mild nonpitting lower extremity edema. No clubbing, or cyanosis. Peripheral pulses are intact. - Labs CBC & Chem 7: 11/18/23 10:56 11/18/23 10:56 Labs: Abnormal Lab Results - Last 24 Hours (Table) 11/18/23 11/18/23 11/18/23 Range/Units 02:11 10:56 10:56 WBC 11.6 H (3.8-10.6) k/uL RBC 3.66 L (4.30-5.90) m/uL Hgb 11.1 L (13.0-17.5) gm/dL Hct 37.2 L (39.0-53.0) % MCV 101.7 H (80.0-100.0) fL MCHC 29.7 L (31.0-37.0) g/dL Plt Count 127 L (150-450) k/uL Neutrophils # 10.6 H (1.3-7.7) k/uL Lymphocytes # 0.4 L (1.0-4.8) k/uL Sodium 135 L (137-145) mmol/L Chloride 97 L (98-107) mmol/L Carbon Dioxide 31 H (22-30) mmol/L BUN 53 H (9-20) mg/dL Glucose 145 H (74-99) mg/dL POC Glucose (mg/dL) 165 H (70-110) mg/dL Calcium 8.2 L (8.4-10.2) mg/dL Total Protein 5.8 L (6.3-8.2) g/dL Albumin 3.0 L (3.5-5.0) g/dL Microbiology - Last 24 Hours (Table) 11/12/23 11:43 Blood Culture - Final Blood 11/12/23 11:43 Blood Culture - Final Blood Assessment and Plan Assessment: Suspect exacerbation of chronic diastolic congestive heart failure, most recent chest x-ray from this morning shows worsening bilateral multifocal pulmonary edema and/or acute infiltrates, consistent with worsening CHF exacerbation versus infectious etiology. High-resolution CT scan of the chest reveals constellation of findings including patchy and confluent bilateral groundglass, septal lines, small to moderate bilateral pleural effusions and borderline cardiomegaly consistent with congestive heart failure and pulmonary edema. There is some scattered mediastinal lymph nodes measuring up to 2.0 cm probably reactive. Background COPD with moderate emphysema and pulmonary artery hypertension. Acute on chronic hypoxemic respiratory failure, secondary to above Atrial fibrillation with rapid ventricular rate, rate is better controlled. Had been on amiodarone in the outpatient setting. Currently on hold Hypotension, currently on midodrine 3 times daily Acute on chronic kidney disease, possibly secondary to hypotension and ATN Rule out urinary tract infection Frequent falls History of syncope Abdominal pain, improved, CT of the abdomen pelvis 1 day prior to admission did not show any acute intra-abdominal abnormality. No evidence of obstruction. Prior anastomosis of the distal transverse colon noted. No pneumoperitoneum or free fluid. Reported recent history of colon cancer and partial colectomy at outside facility September, History of hyperlipidemia History of hyperthyroidism History of diabetes mellitus type II History of peripheral neuropathy History of chronic kidney disease stage III Thrombocytopenia History of coronary artery disease, with previous PCI/stent History of aortic valve replacement Chronic hypoxemic respiratory failure, normally maintained on 2 L/min nasal cannula at bedtime at home Former tobacco smoker, quitting over 40 years ago Plan: The patient was seen and evaluated CT scan of the chest, labs and medications reviewed Continue on bronchodilators, steroids. Continue antibiotics Amiodarone remains discontinued Continued on IV diuretics Titrate down the FiO2 as tolerated We will continue to follow I have personally seen and examined the patient, performed the documentation and the assessment and plan as written. Number of minutes spent on the visit: 10.
[2023-11-18] MEDS: IPRATROPIUM-ALBUTEROL 3 ML NEB INHALATION SCH (15:39)
[2023-11-18] MEDS: FUROSEMIDE 10 MG/ML 4 ML VIAL IV SCH (16:13)
[2023-11-18] MEDS: GABAPENTIN 300 MG CAP PO SCH (16:13)
--- NOTE | 2023-11-18 18:06 | P.PN ---
Subjective Progress Note Date: 11/18/23 Conrad Campa, is an 83-year-old male who presented to [facility] emergency room with a chief complaint of abdominal pain weakness and near syncope. He was evaluated in the emergency room vital examination on presentation revealed a temperature of 99.4 pulse 91 respiration 18 blood pressure 96/50 pulse ox 86% on room air Laboratory data revealed a white blood count of 11.5 hemoglobin 11.7 platelet count 59 BUN 29 creatinine 1.29 lactic acid 3.1 urine analysis revealed evidence of urinary tract infection Testing in the emergency room revealed chest x-ray revealed evidence of conges tive heart failure versus interstitial pneumonia. patient presented on the day prior to this admission to emergency room with similar complaints at that time he had a computed tomography scan of the abdomen and pelvis that revealed no acute abnormality. Patient was admitted to medical floor for further evaluation and treatment Past medical history is significant for colon mass in the splenic flexure, with recent surgery, history of hyperlipidemia, history of coronary artery disease, history of atrial fibrillation, history of hypertension, history of obstructive sleep apnea Dr. Quintana prescription covering for 11/13/2023 to 11/14/2023 on 11/15/2023 patient is alert and oriented 3 patient apparently had a fall last night that was witnessed by 2 people helping him to the bathroom. Patient not hit his head denies any complaints at this time. Patient remains on IV antibiotics and IV Lasix. Cardiology in surgical service is following. Nephrology services also consulted for acute kidney injury. Current vital signs temp 97.5, heart rate 70, respiratory rate 18, blood pressure 120/85 with pulse ox 92% on 3 L on 11/16/2023 Patient having increased confusion per nursing staff patient received Dilaudid and became increasingly agitated following administration Dilaudid DC'd at this time. Cardiology, surgery and nephrology services consulted. Patient remains on IV Lasix in antibiotics. Lab work currently pending. Current vital signs temp 97.6, heart rate 68, respiratory rate 18, blood pressure 111/60 with pulse ox 96% on 3 L On 11/17/2023 patient continued to having increased confusion and agitation. Will consult neurology services.kidney ultrasound ordered per nephrology. Patient also requiring higher oxygen 6 L. Pulmonary services were consulted. nephrology cardiology pulmonary and neurology service is consulted. Current vital signs temp 97.4, heart rate 93, respiratory rate 20, blood pressure 167/70 with pulse ox of 93% on 6 L. Patient remains on antibiotics Rocephin and doxycycline along with IV Lasix and Solu-Medrol on 11/18/2023 patient was seen and examined on the medical floor he is alert and oriented in no apparent distress he reports some improvement in his shortness of breath and abdominal pain he is complaining of dry eyes and generalized weakness otherwise he denies any complaints at this time Objective - Vital Signs Vital signs: Vital Signs Temp 97.4 F L 11/18/23 08:41 Pulse 78 11/18/23 08:46 Resp 20 11/18/23 08:46 BP 131/67 11/18/23 08:41 Pulse Ox 94 L 11/18/23 08:41 FiO2 Intake & Output 11/17/23 11/18/23 11/18/23 18:59 06:59 18:59 Intake Total 234 118 Output Total 750 1400 Balance -516 -1400 118 Weight 98.4 kg 94.5 kg Intake: Oral 234 118 Output: Urine 750 1400 Other: Voiding Method External Catheter External Catheter External Catheter - Exam In general patient is alert and oriented x 3 in no distress HEENT head normocephalic and atraumatic Neck is supple no JVD no goiter no lymphadenopathy no carotid bruit Chest examination is clear to auscultation no crackles no wheezing Cardiac exam reveals regular heart sounds S1 and S2 no gallops no murmurs Abdomen is soft, with generalized tenderness no organomegaly with normal bowel sounds Extremity exam reveals no edema no cyanosis or clubbing Neurological examination reveals no gross focal deficits - Labs CBC & Chem 7: 11/18/23 10:56 11/18/23 10:56 Labs: Abnormal Lab Results - Last 24 Hours (Table) 11/17/23 11/17/23 11/18/23 Range/Units 09:50 09:50 02:11 RBC 3.38 L (4.30-5.90) m/uL Hgb 10.2 L (13.0-17.5) gm/dL Hct 34.3 L (39.0-53.0) % MCV 101.6 H (80.0-100.0) fL MCHC 29.7 L (31.0-37.0) g/dL Plt Count 114 L (150-450) k/uL Lymphocytes # 0.8 L (1.0-4.8) k/uL Sodium 134 L (137-145) mmol/L BUN 48 H (9-20) mg/dL Creatinine 1.46 H (0.66-1.25) mg/dL Glucose 111 H (74-99) mg/dL POC Glucose (mg/dL) 165 H (70-110) mg/dL Calcium 8.1 L (8.4-10.2) mg/dL Total Protein 5.3 L (6.3-8.2) g/dL Albumin 2.9 L (3.5-5.0) g/dL Microbiology - Last 24 Hours (Table) 11/12/23 11:43 Blood Culture - Final Blood 11/12/23 11:43 Blood Culture - Final Blood Assessment and Plan Plan: sepsis likely related to urinary tract infection Lactic acidosis acute kidney injury with elevated BUN and creatinine Underlying history of congestive heart failure Abdominal pain, cause unclear, patient had a recent colon surgery for splenic flexure colon mass. computed tomography scan of the abdomen and pelvis done yesterday in the emergency room did not reveal acute abnormality Underlying history of hypertension Underlying history of hyperlipidemia history of hyperthyroidism maintained on methimazole Underlying history of coronary artery disease Underlying history of atrial fibrillation Underlying history of obstructive sleep apnea at this time patient will be admitted to medical floor cardiology surgical and nephrology services following Patient remains on IV antibiotics Home medications reviewed and reordered for DVT prophylaxis subcu Lovenox Will follow closely
[2023-11-18] MEDS: SYMBICORT 160-4.5 MCG INHALER INHALATION SCH (19:56)
[2023-11-18] MEDS: ARTIFICIAL TEARS-HYPROMELLOSE DROPS 15 ML BTL BOTH EYES PRN (21:55)
--- NOTE | 2023-11-19 09:56 | P.PN ---
Subjective Progress Note Date: 11/19/23 Conrad Campa, is an 83-year-old male who presented to [facility] emergency room with a chief complaint of abdominal pain weakness and near syncope. He was evaluated in the emergency room vital examination on presentation revealed a temperature of 99.4 pulse 91 respiration 18 blood pressure 96/50 pulse ox 86% on room air Laboratory data revealed a white blood count of 11.5 hemoglobin 11.7 platelet count 59 BUN 29 creatinine 1.29 lactic acid 3.1 urine analysis revealed evidence of urinary tract infection Testing in the emergency room revealed chest x-ray revealed evidence of conges tive heart failure versus interstitial pneumonia. patient presented on the day prior to this admission to emergency room with similar complaints at that time he had a computed tomography scan of the abdomen and pelvis that revealed no acute abnormality. Patient was admitted to medical floor for further evaluation and treatment Past medical history is significant for colon mass in the splenic flexure, with recent surgery, history of hyperlipidemia, history of coronary artery disease, history of atrial fibrillation, history of hypertension, history of obstructive sleep apnea Dr. Quintana prescription covering for 11/13/2023 to 11/14/2023 on 11/15/2023 patient is alert and oriented 3 patient apparently had a fall last night that was witnessed by 2 people helping him to the bathroom. Patient not hit his head denies any complaints at this time. Patient remains on IV antibiotics and IV Lasix. Cardiology in surgical service is following. Nephrology services also consulted for acute kidney injury. Current vital signs temp 97.5, heart rate 70, respiratory rate 18, blood pressure 120/85 with pulse ox 92% on 3 L on 11/16/2023 Patient having increased confusion per nursing staff patient received Dilaudid and became increasingly agitated following administration Dilaudid DC'd at this time. Cardiology, surgery and nephrology services consulted. Patient remains on IV Lasix in antibiotics. Lab work currently pending. Current vital signs temp 97.6, heart rate 68, respiratory rate 18, blood pressure 111/60 with pulse ox 96% on 3 L On 11/17/2023 patient continued to having increased confusion and agitation. Will consult neurology services.kidney ultrasound ordered per nephrology. Patient also requiring higher oxygen 6 L. Pulmonary services were consulted. nephrology cardiology pulmonary and neurology service is consulted. Current vital signs temp 97.4, heart rate 93, respiratory rate 20, blood pressure 167/70 with pulse ox of 93% on 6 L. Patient remains on antibiotics Rocephin and doxycycline along with IV Lasix and Solu-Medrol on 11/18/2023 patient was seen and examined on the medical floor he is alert and oriented in no apparent distress he reports some improvement in his shortness of breath and abdominal pain he is complaining of dry eyes and generalized weakness otherwise he denies any complaints at this time On 11/18/2022 for patient's alert And oriented. Patient appears to be less confused. Patient has been started on increased dose of IV Lasix per pulmonary. Pulmonary, cardiology, nephrology and neurology services are following. Current vital signs temp 97.8, heart rate 84, respiratory rate 18, blood pressure 148/62 with a pulse ox of 93% on 6 L Objective - Vital Signs Vital signs: Vital Signs Temp 97.8 F 11/19/23 04:00 Pulse 87 11/19/23 09:46 Resp 18 11/19/23 04:00 BP 148/62 11/19/23 04:00 Pulse Ox 93 L 11/19/23 09:46 FiO2 Intake & Output 11/18/23 11/19/23 11/19/23 18:59 06:59 18:59 Intake Total 358 240 Output Total 1050 1050 Balance -692 -1050 240 Weight 100 kg Intake: Oral 358 240 Output: Urine 1050 1050 Other: Voiding Method External Catheter External Catheter - Exam In general patient is alert and oriented x 3 in no distress HEENT head normocephalic and atraumatic Neck is supple no JVD no goiter no lymphadenopathy no carotid bruit Chest examination is clear to auscultation no crackles no wheezing Cardiac exam reveals regular heart sounds S1 and S2 no gallops no murmurs Abdomen is soft, with generalized tenderness no organomegaly with normal bowel sounds Extremity exam reveals no edema no cyanosis or clubbing Neurological examination reveals no gross focal deficits - Labs CBC & Chem 7: 11/18/23 10:56 11/18/23 10:56 Labs: Abnormal Lab Results - Last 24 Hours (Table) 11/18/23 11/18/23 11/18/23 Range/Units 10:56 10:56 10:56 WBC 11.6 H (3.8-10.6) k/uL RBC 3.66 L (4.30-5.90) m/uL Hgb 11.1 L (13.0-17.5) gm/dL Hct 37.2 L (39.0-53.0) % MCV 101.7 H (80.0-100.0) fL MCHC 29.7 L (31.0-37.0) g/dL Plt Count 127 L (150-450) k/uL Neutrophils # 10.6 H (1.3-7.7) k/uL Lymphocytes # 0.4 L (1.0-4.8) k/uL Sodium 135 L (137-145) mmol/L Chloride 97 L (98-107) mmol/L Carbon Dioxide 31 H (22-30) mmol/L BUN 53 H (9-20) mg/dL Glucose 145 H (74-99) mg/dL Hemoglobin A1c 6.4 H (<=6.0) % Calcium 8.2 L (8.4-10.2) mg/dL Total Protein 5.8 L (6.3-8.2) g/dL Albumin 3.0 L (3.5-5.0) g/dL Assessment and Plan Assessment: sepsis likely related to urinary tract infection Lactic acidosis acute kidney injury with elevated BUN and creatinine Underlying history of congestive heart failure Abdominal pain, cause unclear, patient had a recent colon surgery for splenic flexure colon mass. computed tomography scan of the abdomen and pelvis done yesterday in the emergency room did not reveal acute abnormality Underlying history of hypertension Underlying history of hyperlipidemia history of hyperthyroidism maintained on methimazole Underlying history of coronary artery disease Underlying history of atrial fibrillation Underlying history of obstructive sleep apnea increased confusion. Neurology service is consulted at this time patient will be admitted to medical floor cardiology surgical and nephrology services following pulmonary and neurology services consulted Is maintained on IV Lasix and IV steroids Patient remains on IV antibiotics Will follow closely
--- NOTE | 2023-11-19 10:45 | P.PN ---
Subjective patient is seen for follow-up for acute kidney injury. Currently being diuresed. Shortness of breath much improved today. urine output documented at 2.1 L for 24 hours. serum creatinine 1.2 yesterday. Labs are pending from today. Objective - Vital Signs Vital signs: Vital Signs Temp 97.8 F 11/19/23 04:00 Pulse 88 11/19/23 09:57 Resp 18 11/19/23 04:00 BP 148/62 11/19/23 04:00 Pulse Ox 93 L 11/19/23 09:46 FiO2 Intake & Output 11/18/23 11/19/23 11/19/23 18:59 06:59 18:59 Intake Total 358 240 Output Total 1050 1050 850 Balance -692 -1050 -610 Weight 100 kg Intake: Oral 358 240 Output: Urine 1050 1050 850 Other: Voiding Method External Catheter External Catheter - Exam patient is awake, comfortable, in no acute distress Examination of the heart S1 and S2 Examination the lungs decreased breath sounds at the bases with basilar crackles Abdomen is soft nontender Examination of lower extremities shows no significant edema. 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 - Labs CBC & Chem 7: 11/18/23 10:56 11/18/23 10:56 Labs: Abnormal Lab Results - Last 24 Hours (Table) 11/18/23 11/18/23 11/18/23 Range/Units 10:56 10:56 10:56 WBC 11.6 H (3.8-10.6) k/uL RBC 3.66 L (4.30-5.90) m/uL Hgb 11.1 L (13.0-17.5) gm/dL Hct 37.2 L (39.0-53.0) % MCV 101.7 H (80.0-100.0) fL MCHC 29.7 L (31.0-37.0) g/dL Plt Count 127 L (150-450) k/uL Neutrophils # 10.6 H (1.3-7.7) k/uL Lymphocytes # 0.4 L (1.0-4.8) k/uL Sodium 135 L (137-145) mmol/L Chloride 97 L (98-107) mmol/L Carbon Dioxide 31 H (22-30) mmol/L BUN 53 H (9-20) mg/dL Glucose 145 H (74-99) mg/dL Hemoglobin A1c 6.4 H (<=6.0) % Calcium 8.2 L (8.4-10.2) mg/dL Total Protein 5.8 L (6.3-8.2) g/dL Albumin 3.0 L (3.5-5.0) g/dL Assessment and Plan Assessment: 1. Acute kidney injury, ATN secondary to hypotension, .UA shows trace proteinuria and WBCs at 145. no evidence of obstructive uropathy on ultrasound. 2. Pyuria rule out UTI 3. History of CHF with current chest x-ray suggestive of pulmonary vascular congestion. Status post IV fluids initially currently discontinued. 4. A. fib with RVR on initial admission, currently heart rate improved. 5. Possible pneumonia 6. Hyperthyroidism maintained on Tapazole 7. Volume overload Plan: continue IV Lasix Accurate I's and O's hold midodrine for systolic blood pressure more than 115 mmHg Repeat labs in a.m.
--- NOTE | 2023-11-19 11:32 | P.PN ---
Subjective Progress Note Date: 11/18/23 Patient was seen for follow-up. Patient's was also present. He is doing much better. Patient's agrees that he is more alert and more intact. Objective - Vital Signs Vital signs: Vital Signs Temp 97.5 F L 11/18/23 15:41 Pulse 77 11/18/23 15:54 Resp 18 11/18/23 15:41 BP 130/77 11/18/23 15:41 Pulse Ox 91 L 11/18/23 15:41 FiO2 Intake & Output 11/17/23 11/18/23 11/18/23 18:59 06:59 18:59 Intake Total 234 238 Output Total 750 1400 1050 Balance -678 -6247 -903 Weight 98.4 kg 94.5 kg Intake: Oral 234 238 Output: Urine 750 1400 1050 Other: Voiding Method External Catheter External Catheter External Catheter - Exam Patient is laying in the bed. No new concerns. Appears much more alert and awake, and calm. Less delirious. - Labs CBC & Chem 7: 11/21/23 11:50 11/21/23 11:50 Labs: Abnormal Lab Results - Last 24 Hours (Table) 11/18/23 11/18/23 11/18/23 Range/Units 02:11 10:56 10:56 WBC 11.6 H (3.8-10.6) k/uL RBC 3.66 L (4.30-5.90) m/uL Hgb 11.1 L (13.0-17.5) gm/dL Hct 37.2 L (39.0-53.0) % MCV 101.7 H (80.0-100.0) fL MCHC 29.7 L (31.0-37.0) g/dL Plt Count 127 L (150-450) k/uL Neutrophils # 10.6 H (1.3-7.7) k/uL Lymphocytes # 0.4 L (1.0-4.8) k/uL Sodium 135 L (137-145) mmol/L Chloride 97 L (98-107) mmol/L Carbon Dioxide 31 H (22-30) mmol/L BUN 53 H (9-20) mg/dL Glucose 145 H (74-99) mg/dL POC Glucose (mg/dL) 165 H (70-110) mg/dL Hemoglobin A1c (<=6.0) % Calcium 8.2 L (8.4-10.2) mg/dL Total Protein 5.8 L (6.3-8.2) g/dL Albumin 3.0 L (3.5-5.0) g/dL 11/18/23 Range/Units 10:56 WBC (3.8-10.6) k/uL RBC (4.30-5.90) m/uL Hgb (13.0-17.5) gm/dL Hct (39.0-53.0) % MCV (80.0-100.0) fL MCHC (31.0-37.0) g/dL Plt Count (150-450) k/uL Neutrophils # (1.3-7.7) k/uL Lymphocytes # (1.0-4.8) k/uL Sodium (137-145) mmol/L Chloride (98-107) mmol/L Carbon Dioxide (22-30) mmol/L BUN (9-20) mg/dL Glucose (74-99) mg/dL POC Glucose (mg/dL) (70-110) mg/dL Hemoglobin A1c 6.4 H (<=6.0) % Calcium (8.4-10.2) mg/dL Total Protein (6.3-8.2) g/dL Albumin (3.5-5.0) g/dL Microbiology - Last 24 Hours (Table) 11/12/23 11:43 Blood Culture - Final Blood 11/12/23 11:43 Blood Culture - Final Blood Assessment and Plan Assessment: * Altered mental status with agitation, likely due to metabolic encephalopathy. Reasons multifactorial as mentioned below. * CHF and pulmonary edema * Patient on steroids (methylprednisolone) can also produce delirium. * Possible UTI. * Atrial fibrillation with rapid ventricular rate * History of bioprosthetic aortic valve * Macrocytic anemia * Thrombocytopenia * Lactic acidosis * Mild to moderate renal insufficiency * History of hyperthyroidism, on methimazole * COPD * CAD Plan: * Patient's encephalopathy has much improved. However he still has evidence of encephalopathy based upon presence of myoclonic jerks of outstretched hands. His mentation can still fluctuate, but hopefully will resolve once multiple medical conditions comes under control. * Patient has atrial fibrillation, currently not on anticoagulation because of thrombocytopenia. We will defer to IM and cardiology. * Patient on aspirin 81 mg daily. Also on Lipitor 40 mg. * Patient has macrocytic anemia. B12 417, folate 13.2. Vitamin B12 is borderline, we will start B12 1000 mcg orally daily. * B6 and MMA pending. * Patient has history of peripheral neuropathy, likely diabetes related. Hemoglobin A1c 6.4. Diabetes is well-controlled. * Patient has mild to moderate renal insufficiency, but on very high-dose gabapentin. We will decrease dose of gabapentin to 600 mg 3 times daily. If the myoclonic jerks persist, may have to further decrease down the dose. * Patient has probable UTI, currently on ceftriaxone. * Other medical management as per IM and other specialties. * Neurologically clear. We will sign off. Please reconsult if any concerns.
[2023-11-19] MEDS: CYANOCOBALAMIN 500 MCG TAB PO SCH (11:48)
--- NOTE | 2023-11-19 12:51 | P.PN ---
Subjective HISTORY OF PRESENT ILLNESS: 11/14/2023 The patient is an 83-year-old male who presented to the hospital with abdominal discomfort and near syncope. He was found to be in A-fib with RVR. Echocardiogram from May 2023 revealed low normal LV function with normally functioning bioprosthetic aortic valve and biatrial enlargement. Chest x-ray saucedo s revealed diffuse bilateral infiltrates. Patient was interviewed and examined resting comfortably in bed. The patient states he has been feeling much better since his admission. He denies any curre nt shortness of breath or chest discomfort. 11/15/2023 Patient examined this morning at the bedside. Patient currently denies chest pain or pressure. He denies shortness of breath. He remains on IV Lasix. Patient remains in atrial fibrillation with controlled ventricular rate. Per nursing, patient did have a fall overnight. 11/16/2023 Patient examined this morning at the bedside. Patient denies chest pain or pressure. He denies shortness of breath. Patient's creatinine today 1.61. His Lasix has been discontinued. Telemetry reveals atrial fibrillation with controlled ventricular rate. 11/17/2023 Patient examined this morning at bedside. Patient currently denies chest pain or pressure. He does report shortness of breath. Patient is requiring supplemental oxygen to maintain oxygen saturations greater than 92%. He has been resumed on IV diuretics per nephrology today. 11/18/2023 Patient examined this morning at the bedside. Patient reports improvement in his shortness of breath today. He remains on IV diuretics with Lasix. Dosage has been increased per pulmonary medicine. He denies chest pain or pressure. Creatinine today is normalized at 1.23. 11/19/2023 Patient examined this morning the bedside. Patient denies chest pain or pressure. He reports his shortness of breath is improved today. He does report some mild chest discomfort with deep inspiration. He remains on 6 L nasal cannula with oxygen saturations greater than 92%. He remains on IV diuretics. Labs from today are currently pending. PHYSICAL EXAM: VITAL SIGNS: Reviewed. GENERAL: Well-developed in no acute distress. NECK: Supple. No JVD or thyromegaly LUNGS: Respirations even and unlabored. Lungs diminished with bibasilar crackles HEART: Irregular rate and rhythm. S1 and S2 heard. Systolic murmur noted. EXTREMITIES: Normal range of motion. No clubbing or cyanosis. Peripheral pulses intact. Bilateral lower extremity edema noted. 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 Continue to monitor kidney function. Continue telemetry monitoring Wean oxygen as tolerated Chest x-ray ordered for tomorrow morning Further recommendations pending patient course Nurse practitioner note has been reviewed by physician. Signing provider agrees with the documented findings, assessment, and plan of care documented by [employer] TECHNICIAN as a scribe. Objective - Vital Signs Vital signs: Vital Signs Temp 97.8 F 11/19/23 04:00 Pulse 88 11/19/23 09:57 Resp 18 11/19/23 04:00 BP 148/62 11/19/23 04:00 Pulse Ox 86 L 11/19/23 11:10 FiO2 Intake & Output 11/18/23 11/19/23 11/19/23 18:59 06:59 18:59 Intake Total 358 240 Output Total 1050 1050 850 Balance -692 -1050 -610 Weight 100 kg Intake: Oral 358 240 Output: Urine 1050 1050 850 Other: Voiding Method External Catheter External Catheter - Labs CBC & Chem 7: 11/18/23 10:56 11/18/23 10:56 Labs: Abnormal Lab Results - Last 24 Hours (Table) 11/18/23 Range/Units 10:56 Hemoglobin A1c 6.4 H (<=6.0) %
[2023-11-19 12:59] LABS: Basophils % (A) 0 %; Eosinophils % (A) 0 %; HCT 37.7 % (39.0-53.0); HGB 11.4 gm/dL (13.0-17.5); Hypochromasia Marked; Lymphocytes # (A) 0.4 k/uL (1.0-4.8); Lymphocytes % (A) 3 %; MCH 30.6 pg (25.0-35.0); MCHC 30.2 g/dL (31.0-37.0); MCV 101.5 fL (80.0-100.0); Macrocytosis Slight; Monocytes # (A) 0.8 k/uL (0-1.0); Monocytes % (A) 5 %; Neutrophils # (A) 14.5 k/uL (1.3-7.7); Neutrophils % (A) 92 %; Platelet Count 142 k/uL (150-450); RBC 3.72 m/uL (4.30-5.90); RDW 14.5 % (11.5-15.5); WBC 15.7 k/uL (3.8-10.6)
[2023-11-19 13:16] LABS: ALT 13 U/L (4-49); AST 16 U/L (17-59); African American GFR (CKD) 54 (>60 ml/min/1.73 sqM); Albumin 3.1 g/dL (3.5-5.0); Alkaline Phosphatase 102 U/L (38-126); Anion Gap 10 mmol/L; Blood Urea Nitrogen 60 mg/dL (9-20); Calcium 8.4 mg/dL (8.4-10.2); Carbon Dioxide 29 mmol/L (22-30); Chloride 97 mmol/L (98-107); Glucose 202 mg/dL (74-99); Non-African American GFR(CKD) 47 (>60 ml/min/1.73 sqM); Potassium 3.9 mmol/L (3.5-5.1); Sodium 136 mmol/L (137-145); Total Bilirubin 0.5 mg/dL (0.2-1.3); Total Protein 5.7 g/dL (6.3-8.2)
--- NOTE | 2023-11-19 15:27 | P.PN ---
Subjective Progress Note Date: 11/19/23 Patient is an 83-year-old white male with past medical history significant for atrial fibrillation, coronary artery disease, hyperlipidemia, hypertension, heart failure, aortic stenosis with previous TAVR, syncope, prior CVA/TIA, diabetes mellitus, neuropathy, chronic kidney disease, GERD, prior tobacco dependence, COPD, and recent hospitalization at [facility] for colectomy because of colon cancer. Patient presented to the emergency room back on 11/12/23 chiefly for cramping abdominal pain. Previously having some episodes of nausea and vomiting. Denies hematemesis. Reports normal daily formed bowel movements. No melonie bloody bowel movements or melena. He did have a CT of the abdomen pelvis 1 day prior which did not show any acute intra-abdominal abnormality. No evidence of obstruction. Prior anastomosis of the distal transverse colon noted. No pneumoperitoneum or free fluid. There was also cardiomegaly with small bilateral pleural effusions and interlobular septal thickening concerning for CHF exacerbation. He was also noted to have a near syncopal event when EMS arrived. In the emergency room, he was noted to be in atrial fibrillation with rapid ventricular response. Chest x-ray demonstrated cardiomegaly, diffuse bilateral patchy infiltrates, trace right pleural effusion concerning for CHF exacerbation. NT proBNP was elevated at 4490. Patient was initially placed on IV Lasix. Renal function has worsened during his admission, and his IV Lasix has been put on hold. His oxygen requirements have increased. He is currently lying in bed, on 6 L/min nasal cannula, no acute distress. A follow-up chest x-ray from this morning shows worsening bilateral multifocal edema and/or acute infiltrates consistent with worsening CHF exacerbation versus infectious etiology. In my opinion more consistent with CHF exacerbation. Patient denies any chest pain, heart palpitations, or worsening lower extremity edema. Denies any fevers or chills. Denies any cough. Denies any hemoptysis. Most recent CBC from yesterday: WBC count 8.7, hemoglobin 10.3, hematocrit 34.2, platelets 100. BMP from yesterday: Sodium 133, potassium 4.4, chloride 99, serum bicarb 26, BUN 50, creatinine 1.61, glucose 105. Troponin was less than 0.012 on arrival. Procalcitonin level is elevated at 0.93. Urinalysis shows large leukocyte esterase and rare bacteria. Patient is currently empirically covered on a combination of Rocephin and doxycycline. He has remained afebrile. Blood cultures have not demonstrated any growth at 72 hours. He remains in atrial fibrillation ventricular rate. Blood pressures is normotensive. Patient has been started on midodrine 3 times daily. The patient is seen today November 18, 2023 in follow-up on the selective care unit. He is currently sitting up in a chair at the bedside. Awake and alert in no acute distress. More oriented and cooperative today compared to yesterday. Continued O2 saturations in the 90s on 6 L high flow nasal cannula. He is afebrile. Hemodynamically stable. High-resolution CT scan of the chest reveals constellation of findings including patchy and confluent bilateral groundglass, septal lines, small to moderate bilateral pleural effusions and borderline cardiomegaly consistent with congestive heart failure and pulmonary edema. There is some scattered mediastinal lymph nodes measuring up to 2.0 cm probably reactive. Background COPD with moderate emphysema and pulmonary artery hypertension. He remains on IV diuretics. Currently in a -1.9 L balance. He has been off amiodarone. He is continued on bronchodilators, steroids and antibiotics. The patient is seen today November 19, 2023 in follow-up on the selective care unit. He is awake and alert in no acute distress. Sitting up in a chair. Denies any worsening shortness of breath, cough or congestion. He is maintaining O2 saturations in the 90s on 6 L high flow nasal cannula. He is afebrile. Hemodynamically stable. Blood cultures revealed no growth. White count 15.7. Hemoglobin 11.4. Platelets 142. Sodium 136. Potassium 3.9. Bicarb 29. BUN 60. Creatinine 1.37. Glucose 202. Completed antibiotics. Continued on DuoNeb ventilations, Symbicort, Solu-Medrol. He remains on Lasix 40 mg IV every 8 hours. He is currently in a -1.7 L balance. Objective - Vital Signs Vital signs: Vital Signs Temp 97.8 F 11/19/23 04:00 Pulse 92 11/19/23 13:19 Resp 18 11/19/23 04:00 BP 148/62 11/19/23 04:00 Pulse Ox 86 L 11/19/23 11:10 FiO2 Intake & Output 11/18/23 11/19/23 11/19/23 18:59 06:59 18:59 Intake Total 358 480 Output Total 1050 1050 850 Balance -692 -1050 -370 Weight 100 kg Intake: Oral 358 480 Output: Urine 1050 1050 850 Other: Voiding Method External Catheter External Catheter - Exam GENERAL EXAM: Alert, 83-year-old male, on 6 L high flow nasal cannula, in no apparent distress. HEAD: Normocephalic and atraumatic EYES: Normal reaction of pupils, equal size. NOSE: Clear with pink turbinates. THROAT: No erythema or exudates. NECK: No masses, no JVD. CHEST: No chest wall deformity. LUNGS: Equal air entry with bibasilar rales and expiratory wheezes heard throughout. No accessory muscle use. CVS: S1 and S2 normal with soft systolic audible murmur, irregular rhythm. No other extra heart sounds ABDOMEN: No hepatosplenomegaly, active bowel sounds, no guarding or rigidity. Multiple approximated laparoscopic incisions along with an approximated t ransverse incision, which is healing well. No erythema or drainage. SPINE: No scoliosis or deformity SKIN: Chronic venous stasis changes of the bilateral lower extremities CENTRAL NERVOUS SYSTEM: No focal deficits, tone is normal in all 4 extremities. EXTREMITIES: There is mild nonpitting lower extremity edema. No clubbing, or cyanosis. Peripheral pulses are intact. - Labs CBC & Chem 7: 11/19/23 12:33 11/19/23 12:33 Labs: Abnormal Lab Results - Last 24 Hours (Table) 11/18/23 11/19/23 11/19/23 Range/Units 10:56 12:33 12:33 WBC 15.7 H (3.8-10.6) k/uL RBC 3.72 L (4.30-5.90) m/uL Hgb 11.4 L (13.0-17.5) gm/dL Hct 37.7 L (39.0-53.0) % MCV 101.5 H (80.0-100.0) fL MCHC 30.2 L (31.0-37.0) g/dL Plt Count 142 L (150-450) k/uL Neutrophils # 14.5 H (1.3-7.7) k/uL Lymphocytes # 0.4 L (1.0-4.8) k/uL Sodium 136 L (137-145) mmol/L Chloride 97 L (98-107) mmol/L BUN 60 H (9-20) mg/dL Creatinine 1.37 H (0.66-1.25) mg/dL Glucose 202 H (74-99) mg/dL Hemoglobin A1c 6.4 H (<=6.0) % AST 16 L (17-59) U/L Total Protein 5.7 L (6.3-8.2) g/dL Albumin 3.1 L (3.5-5.0) g/dL Assessment and Plan Assessment: Suspect exacerbation of chronic diastolic congestive heart failure, most recent chest x-ray from this morning shows worsening bilateral multifocal pulmonary edema and/or acute infiltrates, consistent with worsening CHF exacerbation versus infectious etiology. High-resolution CT scan of the chest reveals constellation of findings including patchy and confluent bilateral groundglass, septal lines, small to moderate bilateral pleural effusions and borderline cardiomegaly consistent with congestive heart failure and pulmonary edema. There is some scattered mediastinal lymph nodes measuring up to 2.0 cm probably reactive. Background COPD with moderate emphysema and pulmonary artery hypertension. Acute on chronic hypoxemic respiratory failure, secondary to above Atrial fibrillation with rapid ventricular rate, rate is better controlled. Had been on amiodarone in the outpatient setting. Currently on hold Hypotension, currently on midodrine 3 times daily Acute on chronic kidney disease, possibly secondary to hypotension and ATN Rule out urinary tract infection Frequent falls History of syncope Abdominal pain, improved, CT of the abdomen pelvis 1 day prior to admission did not show any acute intra-abdominal abnormality. No evidence of obstruction. Prior anastomosis of the distal transverse colon noted. No pneumoperitoneum or free fluid. Reported recent history of colon cancer and partial colectomy at outside facility September, History of hyperlipidemia History of hyperthyroidism History of diabetes mellitus type II History of peripheral neuropathy History of chronic kidney disease stage III Thrombocytopenia History of coronary artery disease, with previous PCI/stent History of aortic valve replacement Chronic hypoxemic respiratory failure, normally maintained on 2 L/min nasal cannula at bedtime at home Former tobacco smoker, quitting over 40 years ago Plan: The patient was seen and evaluated Labs and medications reviewed Continue the current treatment plan Continued on IV diuretics Titrate down the FiO2 as tolerated Follow-up chest x-ray in a.m. We will continue to follow I have personally seen and examined the patient, performed the documentation and the assessment and plan as written. Number of minutes spent on the visit: 10.
--- NOTE | 2023-11-20 07:31 | XR ---
EXAMINATION TYPE: XR chest 1V portable DATE OF EXAM: 11/20/2023 Comparison: 11/17/2023 Clinical History: 83-year-old male CHF Findings: Moderate cardiomegaly. Loop recorder device over the left side of the heart. Endovascular aortic valv e replacement. Spinal stimulator radiates along the mid to lower thoracic spinal canal. Diffuse bilat eral airspace disease persists. Slight interval worsening. Reverse left shoulder arthroplasty. Impression: Moderate cardiomegaly and slight interval worsening in extensive diffuse bilateral airspace disease.
--- NOTE | 2023-11-20 11:22 | P.PN ---
Subjective patient is seen for follow-up for acute kidney injury. Currently being diuresed. patient remains short of breath. It seems worse today. Lasix was increased yesterday. urine output 3.9 L over 24 hours. maintained on 10 L of oxygen via nasal cannula. O2 sats at 90% Objective - Vital Signs Vital signs: Vital Signs Temp 98.2 F 11/20/23 04:00 Pulse 92 11/20/23 09:36 Resp 16 11/20/23 08:00 BP 135/65 11/20/23 08:00 Pulse Ox 92 L 11/20/23 09:45 FiO2 Intake & Output 11/19/23 11/20/23 11/20/23 18:59 06:59 18:59 Intake Total 720 180 Output Total 1850 2100 1150 Balance -1129 -2099970 Intake: Oral 720 180 Output: Urine 1850 2100 1150 Other: Voiding Method External Catheter External Catheter External Catheter - Exam patient is awake, comfortable, in no acute distress Examination of the heart S1 and S2 Examination the lungs decreased breath sounds at the bases with basilar crackles Abdomen is soft nontender Examination of lower extremities shows no significant edema. Chronic skin changes noted [employer] exam grossly intact - Labs CBC & Chem 7: 11/19/23 12:33 11/19/23 12:33 Labs: Abnormal Lab Results - Last 24 Hours (Table) 11/18/23 11/19/23 11/19/23 Range/Units 10:56 12:33 12:33 WBC 15.7 H (3.8-10.6) k/uL RBC 3.72 L (4.30-5.90) m/uL Hgb 11.4 L (13.0-17.5) gm/dL Hct 37.7 L (39.0-53.0) % MCV 101.5 H (80.0-100.0) fL MCHC 30.2 L (31.0-37.0) g/dL Plt Count 142 L (150-450) k/uL Neutrophils # 14.5 H (1.3-7.7) k/uL Lymphocytes # 0.4 L (1.0-4.8) k/uL Sodium 136 L (137-145) mmol/L Chloride 97 L (98-107) mmol/L BUN 60 H (9-20) mg/dL Creatinine 1.37 H (0.66-1.25) mg/dL Glucose 202 H (74-99) mg/dL AST 16 L (17-59) U/L Total Protein 5.7 L (6.3-8.2) g/dL Albumin 3.1 L (3.5-5.0) g/dL Methylmalonic Acid 1.10 H (<0.40) umol/L Assessment and Plan Assessment: 1. Acute kidney injury, ATN secondary to hypotension, .UA shows trace proteinuria and WBCs at 145. no evidence of obstructive uropathy on ultrasound. 2. Pyuria rule out UTI 3. History of CHF with acute exacerbation. 4. A. fib with RVR on initial admission, currently heart rate improved. 5. Possible pneumonia 6. Hyperthyroidism maintained on Tapazole 7. Volume overload 8. CKD stage III a with baseline creatinine 1.2-1.1 mg/dLsecondary to nephrosclerosis. Plan: switch to Lasix drip Accurate I's and O's hold midodrine for systolic blood pressure more than 115 mmHg Repeat labs in a.m.
--- NOTE | 2023-11-20 11:58 | P.PN ---
Subjective Progress Note Date: 11/20/23 Principal diagnosis: Shortness of breath The patient is an 83-year-old gentleman with a past medical history significant for valvular heart disease status post aortic valve replacement using bioprosthetic valve and coronary artery disease with prior stenting with unknown details as well as heart failure with preserved ejection fraction as well as hypertension and dyslipidemia and permanent atrial fibrillation. He was admitted to the hospital with heart failure. November 20, 2023 The patient was seen and evaluated this morning. He is not feeling well. He continues to have shortness of breath with exertion which has definitely progressed. He continues to have bilateral lower extremities edema. The chest x-ray from the morning showed worsening heart failure. Kidney function is slightly worse.. He was seen by the intensive care team and he was also seen by the nephrology team. No pain in the chest. The examination revealed bilateral rhonchi and bilateral lower extremities edema as well. The chest x-ray was reviewed. Assessment Permanent atrial fibrillation. Not on anticoagulation because of frequent fall and thrombocytopenia Valvular heart disease status post aortic valve replacement Heart failure with preserved ejection fraction Coronary artery disease with prior stenting with unknown details Multiple comorbid condition hypertension and dyslipidemia Plan Continue IV Lasix Continue monitoring the kidney function and electrolytes Follow-up with the patient Objective - Vital Signs Vital signs: Vital Signs Temp 98.2 F 11/20/23 04:00 Pulse 91 11/20/23 11:18 Resp 16 11/20/23 11:18 BP 128/61 11/20/23 11:18 Pulse Ox 90 L 11/20/23 11:18 FiO2 Intake & Output 11/19/23 11/20/23 11/20/23 18:59 06:59 18:59 Intake Total 720 180 Output Total 1850 2100 1150 Balance -1130 -2100 -970 Intake: Oral 720 180 Output: Urine 1850 2100 1150 Other: Voiding Method External Catheter External Catheter External Catheter - Labs CBC & Chem 7: 11/19/23 12:33 11/19/23 12:33 Labs: Abnormal Lab Results - Last 24 Hours (Table) 11/18/23 11/19/23 11/19/23 Range/Units 10:56 12:33 12:33 WBC 15.7 H (3.8-10.6) k/uL RBC 3.72 L (4.30-5.90) m/uL Hgb 11.4 L (13.0-17.5) gm/dL Hct 37.7 L (39.0-53.0) % MCV 101.5 H (80.0-100.0) fL MCHC 30.2 L (31.0-37.0) g/dL Plt Count 142 L (150-450) k/uL Neutrophils # 14.5 H (1.3-7.7) k/uL Lymphocytes # 0.4 L (1.0-4.8) k/uL Sodium 136 L (137-145) mmol/L Chloride 97 L (98-107) mmol/L BUN 60 H (9-20) mg/dL Creatinine 1.37 H (0.66-1.25) mg/dL Glucose 202 H (74-99) mg/dL AST 16 L (17-59) U/L Total Protein 5.7 L (6.3-8.2) g/dL Albumin 3.1 L (3.5-5.0) g/dL Methylmalonic Acid 1.10 H (<0.40) umol/L
[2023-11-20] MEDS: FUROSEMIDE 100 MG in SODIUM CHLORIDE 0.9% 90 ML IV SCH (11:59)
--- NOTE | 2023-11-20 13:10 | P.PN ---
Subjective Progress Note Date: 11/20/23 Conrad Campa, is an 83-year-old male who presented to [facility] emergency room with a chief complaint of abdominal pain weakness and near syncope. He was evaluated in the emergency room vital examination on presentation revealed a temperature of 99.4 pulse 91 respiration 18 blood pressure 96/50 pulse ox 86% on room air Laboratory data revealed a white blood count of 11.5 hemoglobin 11.7 platelet count 59 BUN 29 creatinine 1.29 lactic acid 3.1 urine analysis revealed evidence of urinary tract infection Testing in the emergency room revealed chest x-ray revealed evidence of conges tive heart failure versus interstitial pneumonia. patient presented on the day prior to this admission to emergency room with similar complaints at that time he had a computed tomography scan of the abdomen and pelvis that revealed no acute abnormality. Patient was admitted to medical floor for further evaluation and treatment Past medical history is significant for colon mass in the splenic flexure, with recent surgery, history of hyperlipidemia, history of coronary artery disease, history of atrial fibrillation, history of hypertension, history of obstructive sleep apnea Dr. Quintana prescription covering for 11/13/2023 to 11/14/2023 on 11/15/2023 patient is alert and oriented 3 patient apparently had a fall last night that was witnessed by 2 people helping him to the bathroom. Patient not hit his head denies any complaints at this time. Patient remains on IV antibiotics and IV Lasix. Cardiology in surgical service is following. Nephrology services also consulted for acute kidney injury. Current vital signs temp 97.5, heart rate 70, respiratory rate 18, blood pressure 120/85 with pulse ox 92% on 3 L on 11/16/2023 Patient having increased confusion per nursing staff patient received Dilaudid and became increasingly agitated following administration Dilaudid DC'd at this time. Cardiology, surgery and nephrology services consulted. Patient remains on IV Lasix in antibiotics. Lab work currently pending. Current vital signs temp 97.6, heart rate 68, respiratory rate 18, blood pressure 111/60 with pulse ox 96% on 3 L On 11/17/2023 patient continued to having increased confusion and agitation. Will consult neurology services.kidney ultrasound ordered per nephrology. Patient also requiring higher oxygen 6 L. Pulmonary services were consulted. nephrology cardiology pulmonary and neurology service is consulted. Current vital signs temp 97.4, heart rate 93, respiratory rate 20, blood pressure 167/70 with pulse ox of 93% on 6 L. Patient remains on antibiotics Rocephin and doxycycline along with IV Lasix and Solu-Medrol on 11/18/2023 patient was seen and examined on the medical floor he is alert and oriented in no apparent distress he reports some improvement in his shortness of breath and abdominal pain he is complaining of dry eyes and generalized weakness otherwise he denies any complaints at this time. On 11/19/2023 for patient's alert And oriented. Patient appears to be less confused. Patient has been started on increased dose of IV Lasix per pulmonary. Pulmonary, cardiology, nephrology and neurology services are following. Current vital signs temp 97.8, heart rate 84, respiratory rate 18, blood pressure 148/62 with a pulse ox of 93% on 6 L on 11/20/2023 patient was seen and examined on the medical floor he is alert and oriented 3 in no apparent distress, he is complaining of worsening shortness of breath, and complaining of abdominal pain, otherwise he denies any complaints, there is no fever or chills no headache or dizziness no chest pain, he has occasional cough no nausea or vomiting no diarrhea no blood in the stools and no urinary symptoms. Objective - Vital Signs Vital signs: Vital Signs Temp 98.2 F 11/20/23 04:00 Pulse 92 11/20/23 09:36 Resp 16 11/20/23 08:00 BP 135/65 11/20/23 08:00 Pulse Ox 92 L 11/20/23 09:45 FiO2 Intake & Output 11/19/23 11/20/23 11/20/23 18:59 06:59 18:59 Intake Total 720 180 Output Total 1850 2100 1150 Balance -1129 -2099 - Intake: Oral 720 180 Output: Urine 185 2100 1150 Other: Voiding Method External Catheter External Catheter External Catheter - Exam In general patient is alert and oriented x 3 in no distress HEENT head normocephalic and atraumatic Neck is supple no JVD no goiter no lymphadenopathy no carotid bruit Chest examination is clear to auscultation no crackles no wheezing Cardiac exam reveals regular heart sounds S1 and S2 no gallops no murmurs Abdomen is soft, with generalized tenderness no organomegaly with normal bowel sounds Extremity exam reveals no edema no cyanosis or clubbing Neurological examination reveals no gross focal deficits - Labs CBC & Chem 7: 11/19/23 12:33 11/19/23 12:33 Labs: Abnormal Lab Results - Last 24 Hours (Table) 11/18/23 11/19/23 11/19/23 Range/Units 10:56 12:33 12:33 WBC 15.7 H (3.8-10.6) k/uL RBC 3.72 L (4.30-5.90) m/uL Hgb 11.4 L (13.0-17.5) gm/dL Hct 37.7 L (39.0-53.0) % MCV 101.5 H (80.0-100.0) fL MCHC 30.2 L (31.0-37.0) g/dL Plt Count 142 L (150-450) k/uL Neutrophils # 14.5 H (1.3-7.7) k/uL Lymphocytes # 0.4 L (1.0-4.8) k/uL Sodium 136 L (137-145) mmol/L Chloride 97 L (98-107) mmol/L BUN 60 H (9-20) mg/dL Creatinine 1.37 H (0.66-1.25) mg/dL Glucose 202 H (74-99) mg/dL AST 16 L (17-59) U/L Total Protein 5.7 L (6.3-8.2) g/dL Albumin 3.1 L (3.5-5.0) g/dL Methylmalonic Acid 1.10 H (<0.40) umol/L Assessment and Plan Plan: sepsis likely related to urinary tract infection Lactic acidosis acute kidney injury with elevated BUN and creatinine Underlying history of congestive heart failure Abdominal pain, cause unclear, patient had a recent colon surgery for splenic flexure colon mass. computed tomography scan of the abdomen and pelvis done yesterday in the emergency room did not reveal acute abnormality Underlying history of hypertension Underlying history of hyperlipidemia history of hyperthyroidism maintained on methimazole Underlying history of coronary artery disease Underlying history of atrial fibrillation Underlying history of obstructive sleep apnea at this time patient will be admitted to medical floor cardiology surgical and nephrology services following Patient remains on IV antibiotics Home medications reviewed and reordered for DVT prophylaxis subcu Lovenox Will follow closely
--- NOTE | 2023-11-20 14:29 | CT ---
EXAMINATION TYPE: CT abdomen pelvis wo con DATE OF EXAM: 11/20/2023 COMPARISON: 11/11/2023 and 03/31/2023 HISTORY: 83-year-old male abdominal pain, UTI, weakness CT DLP: 1214.4 mGycm. Automated exposure control for dose reduction was used. TECHNIQUE: Contiguous axial scanning of the abdomen and pelvis without IV contrast. Coronal and sagit saqib reconstructions performed. FINDINGS: The heart is enlarged. Endovascular aortic valve replacement. Diffuse airspace disease in the visuali zed lungs with small to moderate effusions. Mildly hydropic gallbladder 4.2 cm wide. Unclear if there is surrounding fat stranding or prominent m otion artifact along the inferior aspect of the gallbladder. Motion is favored. Tiny 8 mm cyst in the central right lower lobe. Adrenal glands, left kidney, spleen show no gross abnormality. Exophytic lower pole cyst on the right kidney measuring 3.8 cm. Soft tissue nodularity at the tail of the pancreas measuring 2.9 x 1.5 cm versus 1.3 cm back on 2022. Ongoing follow-up recommended to exclude neoplasm here. Moderate atherosclerotic calcifications abdominal aorta. Suspect a replaced hepatic artery. Atheroscl erotic calcifications may contribute to severe disc height narrowing and SMA. No dilated small bowel, free fluid, or free air. Prominent fluid-filled small bowel loops throughout the abdomen. Scattered moderate stool. No pericolic inflammatory change. No mesenteric or retroperitoneal adenopathy seen. Bladder distended. No abnormal fluid collection the pelvis or pelvic lymphadenopathy. Mild generalized anasarca change. Bones: Diffuse osteopenia. Post surgical change L2-S1 levels. Laminectomies along the fused levels. S gerry stimulator array extends up into the thoracic spinal canal. [id number] degenerative riggins e of the hips. IMPRESSION: 1. Diffuse bilateral airspace disease with small to moderate pleural effusions, cardiomegaly, and ge neralized anasarca change. Correlate for CHF with pulmonary edema. 2. Suspect severe atherosclerotic stenoses within the SMA. 3. Prominent fluid-filled small bowel loops throughout the abdomen may be transient or could represe nt a nonspecific mild enteritis. 4. 3-6 month follow-up pancreas MRI to exclude a 2.9 x 1.5 cm pancreatic tail mass. Correlate with C A-19-9 levels in the meanwhile. 5. Moderate stool burden.
--- NOTE | 2023-11-20 14:30 | P.PN ---
Subjective Progress Note Date: 11/20/23 Patient is an 83-year-old white male with past medical history significant for atrial fibrillation, coronary artery disease, hyperlipidemia, hypertension, heart failure, aortic stenosis with previous TAVR, syncope, prior CVA/TIA, diabetes mellitus, neuropathy, chronic kidney disease, GERD, prior tobacco dependence, COPD, and recent hospitalization at [facility] for colectomy because of colon cancer. Patient presented to the emergency room back on 11/12/23 chiefly for cramping abdominal pain. Previously having some episodes of nausea and vomiting. Denies hematemesis. Reports normal daily formed bowel movements. No melonie bloody bowel movements or melena. He did have a CT of the abdomen pelvis 1 day prior which did not show any acute intra-abdominal abnormality. No evidence of obstruction. Prior anastomosis of the distal transverse colon noted. No pneumoperitoneum or free fluid. There was also cardiomegaly with small bilateral pleural effusions and interlobular septal thickening concerning for CHF exacerbation. He was also noted to have a near syncopal event when EMS arrived. In the emergency room, he was noted to be in atrial fibrillation with rapid ventricular response. Chest x-ray demonstrated cardiomegaly, diffuse bilateral patchy infiltrates, trace right pleural effusion concerning for CHF exacerbation. NT proBNP was elevated at 4490. Patient was initially placed on IV Lasix. Renal function has worsened during his admission, and his IV Lasix has been put on hold. His oxygen requirements have increased. He is currently lying in bed, on 6 L/min nasal cannula, no acute distress. A follow-up chest x-ray from this morning shows worsening bilateral multifocal edema and/or acute infiltrates consistent with worsening CHF exacerbation versus infectious etiology. In my opinion more consistent with CHF exacerbation. Patient denies any chest pain, heart palpitations, or worsening lower extremity edema. Denies any fevers or chills. Denies any cough. Denies any hemoptysis. Most recent CBC from yesterday: WBC count 8.7, hemoglobin 10.3, hematocrit 34.2, platelets 100. BMP from yesterday: Sodium 133, potassium 4.4, chloride 99, serum bicarb 26, BUN 50, creatinine 1.61, glucose 105. Troponin was less than 0.012 on arrival. Procalcitonin level is elevated at 0.93. Urinalysis shows large leukocyte esterase and rare bacteria. Patient is currently empirically covered on a combination of Rocephin and doxycycline. He has remained afebrile. Blood cultures have not demonstrated any growth at 72 hours. He remains in atrial fibrillation ventricular rate. Blood pressures is normotensive. Patient has been started on midodrine 3 times daily. The patient is seen today November 18, 2023 in follow-up on the selective care unit. He is currently sitting up in a chair at the bedside. Awake and alert in no acute distress. More oriented and cooperative today compared to yesterday. Continued O2 saturations in the 90s on 6 L high flow nasal cannula. He is afebrile. Hemodynamically stable. High-resolution CT scan of the chest reveals constellation of findings including patchy and confluent bilateral groundglass, septal lines, small to moderate bilateral pleural effusions and borderline cardiomegaly consistent with congestive heart failure and pulmonary edema. There is some scattered mediastinal lymph nodes measuring up to 2.0 cm probably reactive. Background COPD with moderate emphysema and pulmonary artery hypertension. He remains on IV diuretics. Currently in a -1.9 L balance. He has been off amiodarone. He is continued on bronchodilators, steroids and antibiotics. The patient is seen today November 19, 2023 in follow-up on the selective care unit. He is awake and alert in no acute distress. Sitting up in a chair. Denies any worsening shortness of breath, cough or congestion. He is maintaining O2 saturations in the 90s on 6 L high flow nasal cannula. He is afebrile. Hemodynamically stable. Blood cultures revealed no growth. White count 15.7. Hemoglobin 11.4. Platelets 142. Sodium 136. Potassium 3.9. Bicarb 29. BUN 60. Creatinine 1.37. Glucose 202. Completed antibiotics. Continued on DuoNeb ventilations, Symbicort, Solu-Medrol. He remains on Lasix 40 mg IV every 8 hours. He is currently in a -1.7 L balance. The patient is seen today November 20, 2023 in follow-up on the selective care unit. He is sitting up in bed. Awake and alert in no acute distress. He states he is feeling better. He is however requiring 9 L high flow nasal cannula. Chest x-ray shows worsening bilateral infiltrates with ongoing extensive diffuse bilateral airspace disease. Moderate cardiomegaly. Cultures revealed no growth. He is continued on bronchodilators and steroids. He is initiated on a Lasix drip at 5 mg/h. He is initiated on Zosyn. He is currently in a -3.2 L balance. No new labs today. Objective - Vital Signs Vital signs: Vital Signs Temp 98.2 F 11/20/23 04:00 Pulse 92 11/20/23 12:37 Resp 16 11/20/23 11:18 BP 128/61 11/20/23 11:18 Pulse Ox 90 L 11/20/23 11:18 FiO2 Intake & Output 11/19/23 11/20/23 11/20/23 18:59 06:59 18:59 Intake Total 720 360 Output Total 1850 2100 1900 Balance -1130 -2100 -1540 Intake: Oral 720 360 Output: Urine 1849 2099 1899 Other: Voiding Method External Catheter External Catheter External Catheter - Exam GENERAL EXAM: Alert, pleasant 83-year-old male, on 9 L high flow nasal cannula, in no apparent distress. HEAD: Normocephalic and atraumatic EYES: Normal reaction of pupils, equal size. NOSE: Clear with pink turbinates. THROAT: No erythema or exudates. NECK: No masses, no JVD. CHEST: No chest wall deformity. LUNGS: Equal air entry with bibasilar rales and expiratory wheezes heard th roughout. No accessory muscle use. CVS: S1 and S2 normal with soft systolic audible murmur, irregular rhythm. No other extra heart sounds ABDOMEN: No hepatosplenomegaly, active bowel sounds, no guarding or rigidity. Multiple approximated laparoscopic incisions along with an approximated transverse incision, which is healing well. No erythema or drainage. SPINE: No scoliosis or deformity SKIN: Chronic venous stasis changes of the bilateral lower extremities CENTRAL NERVOUS SYSTEM: No focal deficits, tone is normal in all 4 extremities. EXTREMITIES: There is mild nonpitting lower extremity edema. No clubbing, or cyanosis. Peripheral pulses are intact. - Labs CBC & Chem 7: 11/19/23 12:33 11/19/23 12:33 Labs: Abnormal Lab Results - Last 24 Hours (Table) 11/18/23 Range/Units 10:56 Methylmalonic Acid 1.10 H (<0.40) umol/L Assessment and Plan Assessment: Suspect exacerbation of chronic diastolic congestive heart failure, most recent chest x-ray from this morning shows worsening bilateral multifocal pulmonary edema and/or acute infiltrates, consistent with worsening CHF exacerbation versus infectious etiology. High-resolution CT scan of the chest reveals co nstellation of findings including patchy and confluent bilateral groundglass, septal lines, small to moderate bilateral pleural effusions and borderline cardiomegaly consistent with congestive heart failure and pulmonary edema. There is some scattered mediastinal lymph nodes measuring up to 2.0 cm probably reactive. Background COPD with moderate emphysema and pulmonary artery hypertension. Acute on chronic hypoxemic respiratory failure, secondary to above Atrial fibrillation with rapid ventricular rate, rate is better controlled. Had been on amiodarone in the outpatient setting. Currently on hold Hypotension, currently on midodrine 3 times daily Acute on chronic kidney disease, possibly secondary to hypotension and ATN Rule out urinary tract infection Frequent falls History of syncope Abdominal pain, improved, CT of the abdomen pelvis 1 day prior to admission did not show any acute intra-abdominal abnormality. No evidence of obstruction. Prior anastomosis of the distal transverse colon noted. No pneumoperitoneum or free fluid. Reported recent history of colon cancer and partial colectomy at outside facility September, History of hyperlipidemia History of hyperthyroidism History of diabetes mellitus type II History of peripheral neuropathy History of chronic kidney disease stage III Thrombocytopenia History of coronary artery disease, with previous PCI/stent History of aortic valve replacement Chronic hypoxemic respiratory failure, normally maintained on 2 L/min nasal cannula at bedtime at home Former tobacco smoker, quitting over 40 years ago Plan: The patient was seen and evaluated Chest x-ray and medications reviewed Worsening chest x-ray Worsening oxygenation Currently on 9 L high flow nasal cannula Initiated on a Lasix drip Initiated on Zosyn Continued on bronchodilators and steroids Prognosis remains guarded We will continue to follow I have personally seen and examined the patient, performed the documentation and the assessment and plan as written. Number of minutes spent on the visit: 10.
[2023-11-20] MEDS: PIPERACILLIN-TAZOBACTAM 3.375 GM in SODIUM CHLORIDE 0.9% 100 ML IVPB SCH (17:32)
[2023-11-20] MEDS: MELATONIN 3 MG TABLET PO SCH (20:52)
[2023-11-21 04:56] VITALS: TEMP 97.5
--- NOTE | 2023-11-21 10:12 | P.PN ---
Subjective Progress Note Date: 11/21/23 Conrad Campa, is an 83-year-old male who presented to [facility] emergency room with a chief complaint of abdominal pain weakness and near syncope. He was evaluated in the emergency room vital examination on presentation revealed a temperature of 99.4 pulse 91 respiration 18 blood pressure 96/50 pulse ox 86% on room air Laboratory data revealed a white blood count of 11.5 hemoglobin 11.7 platelet count 59 BUN 29 creatinine 1.29 lactic acid 3.1 urine analysis revealed evidence of urinary tract infection Testing in the emergency room revealed chest x-ray revealed evidence of conges tive heart failure versus interstitial pneumonia. patient presented on the day prior to this admission to emergency room with similar complaints at that time he had a computed tomography scan of the abdomen and pelvis that revealed no acute abnormality. Patient was admitted to medical floor for further evaluation and treatment Past medical history is significant for colon mass in the splenic flexure, with recent surgery, history of hyperlipidemia, history of coronary artery disease, history of atrial fibrillation, history of hypertension, history of obstructive sleep apnea Dr. Quintana prescription covering for 11/13/2023 to 11/14/2023 on 11/15/2023 patient is alert and oriented 3 patient apparently had a fall last night that was witnessed by 2 people helping him to the bathroom. Patient not hit his head denies any complaints at this time. Patient remains on IV antibiotics and IV Lasix. Cardiology in surgical service is following. Nephrology services also consulted for acute kidney injury. Current vital signs temp 97.5, heart rate 70, respiratory rate 18, blood pressure 120/85 with pulse ox 92% on 3 L on 11/16/2023 Patient having increased confusion per nursing staff patient received Dilaudid and became increasingly agitated following administration Dilaudid DC'd at this time. Cardiology, surgery and nephrology services consulted. Patient remains on IV Lasix in antibiotics. Lab work currently pending. Current vital signs temp 97.6, heart rate 68, respiratory rate 18, blood pressure 111/60 with pulse ox 96% on 3 L On 11/17/2023 patient continued to having increased confusion and agitation. Will consult neurology services.kidney ultrasound ordered per nephrology. Patient also requiring higher oxygen 6 L. Pulmonary services were consulted. nephrology cardiology pulmonary and neurology service is consulted. Current vital signs temp 97.4, heart rate 93, respiratory rate 20, blood pressure 167/70 with pulse ox of 93% on 6 L. Patient remains on antibiotics Rocephin and doxycycline along with IV Lasix and Solu-Medrol on 11/18/2023 patient was seen and examined on the medical floor he is alert and oriented in no apparent distress he reports some improvement in his shortness of breath and abdominal pain he is complaining of dry eyes and generalized weakness otherwise he denies any complaints at this time. On 11/19/2023 for patient's alert And oriented. Patient appears to be less confused. Patient has been started on increased dose of IV Lasix per pulmonary. Pulmonary, cardiology, nephrology and neurology services are following. Current vital signs temp 97.8, heart rate 84, respiratory rate 18, blood pressure 148/62 with a pulse ox of 93% on 6 L on 11/20/2023 patient was seen and examined on the medical floor he is alert and oriented 3 in no apparent distress, he is complaining of worsening shortness of breath, and complaining of abdominal pain, otherwise he denies any complaints, there is no fever or chills no headache or dizziness no chest pain, he has occasional cough no nausea or vomiting no diarrhea no blood in the stools and no urinary symptoms. On 11/21/2023 patient's alert and oriented 3. She requiring higher oxygen 15 L. Patient remains on Lasix drip. Pulmonary, cardiology, nephrology, infectious diseasein neurology have all been consulted will also consult oncology services due to abnormal computed tomography scancurrent vital signs temp 97.5, heart rate 88, respiratory rate 18, blood pressure 132/70 with pulse ox of 90% on 15 L Objective - Vital Signs Vital signs: Vital Signs Temp 97.5 F L 11/21/23 08:00 Pulse 96 11/21/23 09:29 Resp 18 11/21/23 08:00 BP 132/70 11/21/23 08:00 Pulse Ox 90 L 11/21/23 08:00 FiO2 Intake & Output 11/20/23 11/21/23 11/21/23 18:59 06:59 18:59 Intake Total 478 93.25 120 Output Total 1900 0 900 Balance -1762 -7436.75 -780 Weight 92.5 kg Intake: Intake, IV Titration 93.25 Amount Furosemide 100 mg In 93.25 Sodium Chloride 0.9% 90 ml @ 5 MG/HR 5 mls/hr IV .Q20H [facility] Rx#:[id number] Oral 478 120 Output: Urine 1900 2050 900 Other: Voiding Method External Catheter External Catheter # Bowel Movements 1 - Exam In general patient is alert and oriented x 3 in no distress HEENT head normocephalic and atraumatic Neck is supple no JVD no goiter no lymphadenopathy no carotid bruit Chest examination is clear to auscultation no crackles no wheezing Cardiac exam reveals regular heart sounds S1 and S2 no gallops no murmurs Abdomen is soft, with generalized tenderness no organomegaly with normal bowel sounds Extremity exam reveals no edema no cyanosis or clubbing Neurological examination reveals no gross focal deficits - Labs CBC & Chem 7: 11/19/23 12:33 11/19/23 12:33 Labs: Abnormal Lab Results - Last 24 Hours (Table) 11/20/23 Range/Units 20:43 C-Reactive Protein 14.9 H (<1.0) mg/dL Microbiology - Last 24 Hours (Table) 11/20/23 18:00 Gram Stain - Preliminary Sputum Assessment and Plan Plan: sepsis likely related to urinary tract infection Lactic acidosis acute kidney injury with elevated BUN and creatinine Underlying history of congestive heart failure Abdominal pain, cause unclear, patient had a recent colon surgery for splenic flexure colon mass. computed tomography scan of the abdomen and pelvis done yesterday in the emergency room did not reveal acute abnormality Underlying history of hypertension Underlying history of hyperlipidemia history of hyperthyroidism maintained on methimazole Underlying history of coronary artery disease Underlying history of atrial fibrillation Underlying history of obstructive sleep apnea abnormal CT showing possible pancreatic tail mass. Oncology service is consulted at this time patient will be admitted to medical floor Pulmonarycardiology surgical and nephrology services following Patient remains on IV antibiotics patient started on IV Lasix drip Home medications reviewed and reordered for DVT prophylaxis subcu Lovenox Will follow closely
[2023-11-21] MEDS: NYSTATIN 100,000 UNIT/ML SUSP 500,000 UNIT/5 ML CUP PO SCH (11:05)
[2023-11-21 11:38] VITALS: BP 153/77; RESP 16
--- NOTE | 2023-11-21 11:46 | P.PN ---
Subjective patient is seen for follow-up for acute kidney injury. Currently being diuresed. Started Lasix drip yesterday. Shortness of breath slightly improved. urine output 3.9 L over 24 hours. maintained on 15 L of oxygen via nasal cannula. O2 sats at 90% Objective - Vital Signs Vital signs: Vital Signs Temp 97.5 F L 11/21/23 08:00 Pulse 89 11/21/23 11:07 Resp 16 11/21/23 11:07 BP 153/77 11/21/23 11:07 Pulse Ox 90 L 11/21/23 11:07 FiO2 Intake & Output 11/20/23 11/21/23 11/21/23 18:59 06:59 18:59 Intake Total 478 93.25 120 Output Total 1900 2050 900 Balance -5512 -2466.75 -780 Weight 92.5 kg Intake: Intake, IV Titration 93.25 Amount Furosemide 100 mg In 93.25 Sodium Chloride 0.9% 90 ml @ 5 MG/HR 5 mls/hr IV .Q20H [facility] Rx#:[id number] Oral 478 120 Output: Urine 0 2049 900 Other: Voiding Method External Catheter External Catheter External Catheter # Bowel Movements 1 - Exam patient is awake, comfortable, in no acute distress Examination of the heart S1 and S2 Examination the lungs decreased breath sounds at the bases with basilar crackles Abdomen is soft nontender Examination of lower extremities shows no significant edema. Chronic skin changes noted PRESS SETTER exam grossly intact - Labs CBC & Chem 7: 11/19/23 12:33 11/19/23 12:33 Labs: Abnormal Lab Results - Last 24 Hours (Table) 11/20/23 11/20/23 Range/Units 20:43 20:43 C-Reactive Protein 14.9 H (<1.0) mg/dL Procalcitonin 0.17 H (0.02-0.09) ng/mL Microbiology - Last 24 Hours (Table) 11/20/23 18:00 Gram Stain - Preliminary Sputum Sputum Culture - Preliminary Assessment and Plan Assessment: 1. Acute kidney injury, ATN secondary to hypotension, .UA shows trace proteinuria and WBCs at 145. no evidence of obstructive uropathy on ultrasound. Currently being diuresed. 2. Pyuria rule out UTI 3. History of CHF with acute exacerbation. 4. A. fib with RVR on initial admission, currently heart rate improved. 5. Possible pneumonia 6. Hyperthyroidism maintained on Tapazole 7. Volume overload, started on Lasix drip. 8. CKD stage III a with baseline creatinine 1.2-1.1 mg/dLsecondary to nephrosclerosis. Plan: Continue with Lasix drip Accurate I's and O's hold midodrine for systolic blood pressure more than 115 mmHg Repeat labs in a.m.
--- NOTE | 2023-11-21 12:27 | P.PN ---
Subjective Progress Note Date: 11/21/23 Principal diagnosis: Shortness of breath The patient is an 83-year-old gentleman with a past medical history significant for valvular heart disease status post aortic valve replacement (TAVR) and coronary artery disease with prior stenting of the LAD as well as heart failure with preserved ejection fraction as well as hypertension and dyslipidemia and permanent atrial fibrillation and history of Watchman device placement. He was admitted to the hospital with heart failure. November 20, 2023 The patient was seen and evaluated this morning. He is not feeling well. He continues to have shortness of breath with exertion which has definitely progressed. He continues to have bilateral lower extremities edema. The chest x-ray from the morning showed worsening heart failure. Kidney function is slightly worse.. He was seen by the intensive care team and he was also seen by the nephrology team. No pain in the chest. The examination revealed bilateral rhonchi and bilateral lower extremities edema as well. The chest x-ray was reviewed. November 21, 2023 The patient was seen and evaluated this morning. He still not feeling well. He continues to have shortness of breath with exertion which has not improved. No pain in the chest. He continues to be on Lasix IV and continues to diurese well. Creatinine remains stable. Yesterday he underwent CT scan of the abdomen and pelvis and that showed possible pancreatic mass. Overall he is still hypervolemic. The last echo was in May 2023 showed low normal LV systolic function with bioprosthetic aortic valve and mean gradient of 10 mmHg ongoing to repeat the echocardiogram. The examination revealed bilateral rhonchi and bilateral lower extremities edema. Assessment Permanent atrial fibrillation. Not on anticoagulation because of frequent fall and thrombocytopenia Valvular heart disease status post (TAVR) Heart failure with preserved ejection fraction Coronary artery disease with prior stenting of the LAD Status post Watchman device placement Multiple comorbid condition hypertension and dyslipidemia Plan Continue IV Lasix for additional 24 hours. So far the kidney function has been stable Continue monitor the kidney function and electrolytes Obtain an echocardiogram to assess the current status of the ejection fraction and the aortic valve Consider right and left heart catheterization if there is no improvement in spite of maximized medical treatment and IV diuretics The pancreatic mass to be addressed by the internal medicine team Follow-up with the patient Objective - Vital Signs Vital signs: Vital Signs Temp 97.5 F L 11/21/23 08:00 Pulse 89 11/21/23 11:07 Resp 16 11/21/23 11:07 BP 153/77 11/21/23 11:07 Pulse Ox 90 L 11/21/23 11:07 FiO2 Intake & Output 11/20/23 11/21/23 11/21/23 18:59 06:59 18:59 Intake Total 478 93.25 120 Output Total 1899 2049 1899 Balance -1422 -1956.75 -1780 Weight 92.5 kg Intake: Intake, IV Titration 93.25 Amount Furosemide 100 mg In 93.25 Sodium Chloride 0.9% 90 ml @ 5 MG/HR 5 mls/hr IV .Q20H [facility] Rx#:[id number] Oral 478 120 Output: Urine 1899 2049 1899 Other: Voiding Method External Catheter External Catheter External Catheter # Bowel Movements 1 - Labs CBC & Chem 7: 11/19/23 12:33 11/19/23 12:33 Labs: Abnormal Lab Results - Last 24 Hours (Table) 11/20/23 11/20/23 Range/Units 20:43 20:43 C-Reactive Protein 14.9 H (<1.0) mg/dL Procalcitonin 0.17 H (0.02-0.09) ng/mL Microbiology - Last 24 Hours (Table) 11/20/23 18:00 Gram Stain - Preliminary Sputum Sputum Culture - Preliminary
[2023-11-21 12:33] LABS: ALT 12 U/L (4-49); AST 20 U/L (17-59); African American GFR (CKD) 62 (>60 ml/min/1.73 sqM); Albumin 3.2 g/dL (3.5-5.0); Alkaline Phosphatase 122 U/L (38-126); Blood Urea Nitrogen 55 mg/dL (9-20); Calcium 8.6 mg/dL (8.4-10.2); Chloride 91 mmol/L (98-107); Glucose 177 mg/dL (74-99); Non-African American GFR(CKD) 54 (>60 ml/min/1.73 sqM); Potassium 3.5 mmol/L (3.5-5.1); Sodium 135 mmol/L (137-145); Total Protein 5.9 g/dL (6.3-8.2)
[2023-11-21 12:40] LABS: Anion Gap 9 mmol/L
[2023-11-21 12:48] LABS: Carbon Dioxide 35 mmol/L (22-30)
[2023-11-21 13:04] LABS: Basophils % (A) 0 %; Eosinophils % (A) 0 %; HCT 42.9 % (39.0-53.0); HGB 12.9 gm/dL (13.0-17.5); Hypochromasia Marked; Lymphocytes # (A) 0.3 k/uL (1.0-4.8); Lymphocytes % (A) 2 %; MCH 30.4 pg (25.0-35.0); MCV 101.4 fL (80.0-100.0); Macrocytosis Slight; Mean Platelet Volume 10.7; Monocytes # (A) 0.7 k/uL (0-1.0); Monocytes % (A) 5 %; Neutrophils # (A) 13.3 k/uL (1.3-7.7); Neutrophils % (A) 92 %; Platelet Count 111 k/uL (150-450); RBC 4.23 m/uL (4.30-5.90); RDW 14.4 % (11.5-15.5); WBC 14.5 k/uL (3.8-10.6)
[2023-11-21 13:41] VITALS: PULSE 84
--- NOTE | 2023-11-21 15:22 | P.PN ---
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 Patient is an 83-year-old white male with past medical history significant for atrial fibrillation, coronary artery disease, hyperlipidemia, hypertension, heart failure, aortic stenosis with previous TAVR, syncope, prior CVA/TIA, diabetes mellitus, neuropathy, chronic kidney disease, GERD, prior tobacco dependence, COPD, and recent hospitalization at [facility] for colectomy because of colon cancer. Patient presented to the emergency room back on 11/12/23 chiefly for cramping abdominal pain. Previously having some episodes of nausea and vomiting. Denies hematemesis. Reports normal daily formed bowel movements. No melonie bloody bowel movements or melena. He did have a CT of the abdomen pelvis 1 day prior which did not show any acute intra-abdominal abnormality. No evidence of obstruction. Prior anastomosis of the distal transverse colon noted. No pneumoperitoneum or free fluid. There was also cardiomegaly with small bilateral pleural effusions and interlobular septal thickening concerning for CHF exacerbation. He was also noted to have a near syncopal event when EMS arrived. In the emergency room, he was noted to be in atrial fibrillation with rapid ventricular response. Chest x-ray demonstrated cardiomegaly, diffuse bilateral patchy infiltrates, trace right pleural effusion concerning for CHF exacerbation. NT proBNP was elevated at 4490. Patient was initially placed on IV Lasix. Renal function has worsened during his admission, and his IV Lasix has been put on hold. His oxygen requirements have increased. He is currently lying in bed, on 6 L/min nasal cannula, no acute distress. A follow-up chest x-ray from this morning shows worsening bilateral multifocal edema and/or acute infiltrates consistent with worsening CHF exacerbation versus infectious etiology. In my opinion more consistent with CHF exacerbation. Patient denies any chest pain, heart palpitations, or worsening lower extremity edema. Denies any fevers or chills. Denies any cough. Denies any hemoptysis. Most recent CBC from yesterday: WBC count 8.7, hemoglobin 10.3, hematocrit 34.2, platelets 100. BMP from yesterday: Sodium 133, potassium 4.4, chloride 99, serum bicarb 26, BUN 50, creatinine 1.61, glucose 105. Troponin was less than 0.012 on arrival. Procalcitonin level is elevated at 0.93. Urinalysis shows large leukocyte esterase and rare bacteria. Patient is currently empirically covered on a combination of Rocephin and doxycycline. He has remained afebrile. Blood cultures have not demonstrated any growth at 72 hours. He remains in atrial fibrillation ventricular rate. Blood pressures is normotensive. Patient has been started on midodrine 3 times daily. The patient is seen today November 18, 2023 in follow-up on the selective care unit. He is currently sitting up in a chair at the bedside. Awake and alert in no acute distress. More oriented and cooperative today compared to yesterday. Continued O2 saturations in the 90s on 6 L high flow nasal cannula. He is afebrile. Hemodynamically stable. High-resolution CT scan of the chest reveals constellation of findings including patchy and confluent bilateral groundglass, septal lines, small to moderate bilateral pleural effusions and borderline cardiomegaly consistent with congestive heart failure and pulmonary edema. There is some scattered mediastinal lymph nodes measuring up to 2.0 cm probably reactive. Background COPD with moderate emphysema and pulmonary artery hypertension. He remains on IV diuretics. Currently in a -1.9 L balance. He has been off amiodarone. He is continued on bronchodilators, steroids and antibiotics. The patient is seen today November 19, 2023 in follow-up on the selective care unit. He is awake and alert in no acute distress. Sitting up in a chair. Den ies any worsening shortness of breath, cough or congestion. He is maintaining O2 saturations in the 90s on 6 L high flow nasal cannula. He is afebrile. Hemodynamically stable. Blood cultures revealed no growth. White count 15.7. Hemoglobin 11.4. Platelets 142. Sodium 136. Potassium 3.9. Bicarb 29. BUN 60. Creatinine 1.37. Glucose 202. Completed antibiotics. Continued on DuoNeb ventilations, Symbicort, Solu-Medrol. He remains on Lasix 40 mg IV every 8 hours. He is currently in a -1.7 L balance. The patient is seen today November 20, 2023 in follow-up on the selective care unit. He is sitting up in bed. Awake and alert in no acute distress. He states he is feeling better. He is however requiring 9 L high flow nasal cannula. Chest x-ray shows worsening bilateral infiltrates with ongoing extensive diffuse bilateral airspace disease. Moderate cardiomegaly. Cultures revealed no growth. He is continued on bronchodilators and steroids. He is initiated on a Lasix drip at 5 mg/h. He is initiated on Zosyn. He is currently in a -3.2 L balance. No new labs today. Patient was reevaluated today on 11/21/2023, he is about the same, he is requiring more oxygen, FiO2 is up to 15 L high flow, and I will likely recommend that the patient goes on Airvo. Continues to have cough, shortness of breath, cough is productive yesterday we added Zosyn on this patient. Patient has been receiving Lasix drip, and has been extensively diuresed. His last chest x-ray is not showing much improvement in his bilateral air space disease.Normal WBC count today is 14.5 hemoglobin 12.9 basic metabolic profile is normal BUN is 55 creatinine 1.3 bicarb is 35. Procalcitonin level yesterday was 0.17. CT of the abdomen and pelvis from yesterday showed bilateral airspace disease with mo derate pleural effusions, cardiomegaly, anasarca, and prominent fluid filled small bowel loops throughout the abdomen. CT of the abdomen also raised the possibility of a 2.9 x 1.5 cm pancreatic mass in the tail of the pancreas. Objective - Vital Signs Vital signs: Vital Signs Temp 97.5 F L 11/21/23 08:00 Pulse 84 11/21/23 13:09 Resp 16 11/21/23 11:07 BP 153/77 11/21/23 11:07 Pulse Ox 94 L 11/21/23 12:45 FiO2 90 11/21/23 12:45 Intake & Output 11/20/23 11/21/23 11/21/23 18:59 06:59 18:59 Intake Total 478 93.25 240 Output Total 1899 2049 1899 Balance -1422 -1956.75 -1660 Weight 92.5 kg Intake: Intake, IV Titration 93.25 Amount Furosemide 100 mg In 93.25 Sodium Chloride 0.9% 90 ml @ 5 MG/HR 5 mls/hr IV .Q20H [facility] Rx#:[id number] Oral 478 240 Output: Urine 1899 2049 1899 Other: Voiding Method External Catheter External Catheter External Catheter # Bowel Movements 1 - Exam GENERAL EXAM: Alert, pleasant 83-year-old male, on 15 L high flow nasal cannula will likely recommend Airvo on this patient. HEAD: Normocephalic and atraumatic EYES: Normal reaction of pupils, equal size. NOSE: Clear with pink turbinates. THROAT: No erythema or exudates. NECK: No masses, no JVD. CHEST: No chest wall deformity. LUNGS: Bibasilar crackles and rhonchi noted bilaterally. CVS: S1 and S2 normal with soft systolic audible murmur, irregular rhythm. No other extra heart sounds ABDOMEN: No hepatosplenomegaly, active bowel sounds, no guarding or rigidity. Multiple approximated laparoscopic incisions along with an approximated transverse incision, which is healing well. No erythema or drainage. SKIN: Chronic venous stasis changes of the bilateral lower extremities, trace of bipedal edema. CENTRAL NERVOUS SYSTEM: No focal deficits, tone is normal in all 4 extremities. EXTREMITIES: There is mild nonpitting lower extremity edema. No clubbing, or cyanosis. Peripheral pulses are intact. - Labs CBC & Chem 7: 11/21/23 11:50 11/21/23 11:50 Labs: Abnormal Lab Results - Last 24 Hours (Table) 11/20/23 11/20/23 11/21/23 Range/Units 20:43 20:43 11:50 WBC 14.5 H (3.8-10.6) k/uL RBC 4.23 L (4.30-5.90) m/uL Hgb 12.9 L (13.0-17.5) gm/dL MCV 101.4 H (80.0-100.0) fL MCHC 30.0 L (31.0-37.0) g/dL Plt Count 111 L (150-450) k/uL Neutrophils # 13.3 H (1.3-7.7) k/uL Lymphocytes # 0.3 L (1.0-4.8) k/uL Sodium (137-145) mmol/L Chloride (98-107) mmol/L Carbon Dioxide (22-30) mmol/L BUN (9-20) mg/dL Glucose (74-99) mg/dL C-Reactive Protein 14.9 H (<1.0) mg/dL Total Protein (6.3-8.2) g/dL Albumin (3.5-5.0) g/dL Procalcitonin 0.17 H (0.02-0.09) ng/mL 11/21/23 Range/Units 11:50 WBC (3.8-10.6) k/uL RBC (4.30-5.90) m/uL Hgb (13.0-17.5) gm/dL MCV (80.0-100.0) fL MCHC (31.0-37.0) g/dL Plt Count (150-450) k/uL Neutrophils # (1.3-7.7) k/uL Lymphocytes # (1.0-4.8) k/uL Sodium 135 L (137-145) mmol/L Chloride 91 L (98-107) mmol/L Carbon Dioxide 35 H (22-30) mmol/L BUN 55 H (9-20) mg/dL Glucose 177 H (74-99) mg/dL C-Reactive Protein (<1.0) mg/dL Total Protein 5.9 L (6.3-8.2) g/dL Albumin 3.2 L (3.5-5.0) g/dL Procalcitonin (0.02-0.09) ng/mL Microbiology - Last 24 Hours (Table) 11/20/23 18:00 Gram Stain - Preliminary Sputum Sputum Culture - Preliminary Assessment and Plan Assessment: Impression: Suspect exacerbation of chronic diastolic congestive heart failure, 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 Acute on chronic hypoxemic respiratory failure, secondary to above Atrial fibrillation with rapid ventricular rate, rate is better controlled. Had been on amiodarone in the outpatient setting. Currently on hold Hypotension, currently on midodrine 3 times daily Acute on chronic kidney disease, possibly secondary to hypotension and ATN Rule out urinary tract infection Frequent falls History of syncope Abdominal pain, improved, CT of the abdomen pelvis 1 day prior to admission did not show any acute intra-abdominal abnormality. No evidence of obstruction. Prior anastomosis of the distal transverse colon noted. No pneumoperitoneum or free fluid. Reported recent history of colon cancer and partial colectomy at outside facility September, History of hyperlipidemia History of hyperthyroidism History of diabetes mellitus type II History of peripheral neuropathy History of chronic kidney disease stage III Thrombocytopenia History of coronary artery disease, with previous PCI/stent History of aortic valve replacement Chronic hypoxemic respiratory failure, normally maintained on 2 L/min nasal cannula at bedtime at home Former tobacco smoker, quitting over 40 years ago Recommendation: Continue oxygen and titrate accordingly Continue diuretics continue to monitor I's and O's and labs patient is on Lasix drip at 5 mg/h continue Zosyn Continue Solu-Medrol Continue updrafts Overall prognosis remains guarded Updated on his condition today at bedside. Time with Patient: Less than 30
--- NOTE | 2023-11-28 12:58 | P.CONS ---
History of Present Illness - Reason for Consult Consult date: 11/21/[address] Requesting physician: Nancy Alvarado - Chief Complaint abd pain, weakness - History of Present Illness Patient is a 83 yr old male who has previously been seen by Dr. Bashir and was referred because of a diagnosis of mildly low platelet counts, presumably new. Blood work from 12/03/20 showed platelets of 86,000. WBC 10,000 with hemoglobin of 13.5 and normal differential, other CBC indices were also normal. Chem panel showed a creatinine of 1.65 with normal liver enzymes. Peripheral smear on 12/11/20 had shown adequate platelet count with few clumps. It was felt that the thrombocytopenia could be due to prior alcohol damage from heavy alcohol use, with further age-related decrease in marrow function. US did show heterogenous liver. Patient was placed on observation for his mild pancytopenia, given the likely etiology, and stability in a safe range. Patient has a significant history of hypertension, hyperlipidemia, diabetes mellitus, history of chronic kidney disease, CAD/CHF, and atrial fibrillation. Pt presented to the emergency department with chief complaint of abdominal pain, weakness, and near syncope. Consult was placed for abnormal CT findings of pancreatic tail mass. Patient was trying to get out of his bed and fell, at which time EMS was called and upon arrival he had a reported syncopal episode. On admission UA suspicious for UTI and and chest x-ray revealed CHF versus interstitial pneumonia/atypical pneumonia. HPI is limited due to patients confusion. CT abd/Pelvis without contrast revealed diffuse bilateral airspace disease with small to moderate pleural effusions, cardiomegaly and generalized anasarca change. Prominent fluid-filled small bowel loops throughout the abdomen may be transient versus mild enteritis. A 2.9 x 1.5 cm pancreatic tail mass was noted which is increased in size from previous scan on 03/31/2023 which measured 1.3 cm at that time. CT chest revealed constellation of findings including patchy and confluent bilateral groundglass, septal lines, small to moderate bilateral pleural effusions, and borderline cardiomegaly. Scattered mediastinal lymph nodes measuring up to 2.0 cm, likely reactive. Background COPD with moderate emphysema and pulmonary arterial hypertension. At todays visit, pt breathing is labored, he is alert to person but is confused and restless Review of Systems 10 point ROS is negative except as stated in the HPI Past Medical History Past Medical History: Atrial Fibrillation, Coronary Artery Disease (CAD), Heart Failure, CVA/TIA, Diabetes Mellitus, GERD/Reflux, GI Bleed, Hyperlipidemia, Hypertension, Myocardial Infarction (PA), Osteoarthritis (OA), Pneumonia, Renal Disease, Syncope Additional Past Medical History / Comment(s): Past syncopal episodes with past work ups, TIA, recent diagnosis of diabetes, neuropathy bilateral legs, pt has had "low blood counts" and is to see a hedis specialist, CKD stage III, chronic low back pain/pt was to have permanent spinal stimulator placed today, bilateral lower leg edema, past small intestinal bleed, benign colon polyp, hemorrhoids, aortic stenosis and has had valve replaced. Last Myocardial Infarction Date:: 2007 History of Any Multi-Drug Resistant Organisms: None Reported Past Surgical History: Back Surgery, Heart Catheterization, Heart Catheteriza tion With Stent, Hernia Repair, Orthopedic Surgery Additional Past Surgical History / Comment(s): TAVR, CHRISTIAN/cardioversions, PCI with stents, nasal benign polypectomy, bilateral cataract removal/lens implants, EGD, colonoscopies/benign polypectomy, R inguinal hernia repair, low back surgery with edie/screws, temporary spinal stimulator, bilateral ACL arthroscopic surgery, vasectomy. Past Anesthesia/Blood Transfusion Reactions: No Reported Reaction Additional Past Anesthesia/Blood Transfusion Reaction / Comm: Pt had blood transfusion with back surgery without reaction. Date of Last Stent Placement:: 2018 Type of Cardiac Device: Loop Device Placement Date:: 2019 Past Psychological History: No Psychological Hx Reported Additional Psychological History / Comment(s): Pt resides with his spouse of 56 yrs. He uses a cane to ambulate. He owns a walker. He drives very little, his spouse is the main laborer driver. Smoking Status: Former smoker Past Alcohol Use History: None Reported Additional Past Alcohol Use History / Comment(s): Pt started smoking in 1946 and quit in 1994 Past Drug Use History: Marijuana - Past Family History Son(s) Family Medical History: Cancer Additional Family Medical History / Comment(s): FROM LUNG CANCER Father Family Medical History: Myocardial Infarction (PA) Additional Family Medical History / Comment(s): Father in a MVA. Mother Family Medical History: CVA/TIA, Myocardial Infarction (PA) Medications and Allergies Home Medications Medication Instructions Recorded Confirmed Type Atorvastatin [Lipitor] 40 mg PO HS 12/03/20 11/12/23 History DULoxetine HCL [Cymbalta] 60 mg PO DAILY 12/03/20 11/12/23 History Amiodarone [Cordarone] 100 mg PO DAILY 10/18/21 11/12/23 History Gabapentin [Neurontin] 800 mg PO TID 11/08/22 11/12/23 History HYDROcodone/APAP 10-325MG [[place] 1 tab PO 5XD 11/08/22 11/12/23 History 10-325] Midodrine [ProAmatine] 5 mg PO TID 11/08/22 11/12/23 History Cholecalciferol [Vitamin D3 (25 25 mcg PO DAILY 04/30/23 11/12/23 History Mcg = 1000 Iu)] Triamcinolone 0.1% Cream [Kenalog 1 applic TOPICAL BID PRN 04/30/23 11/12/23 History 0.1% Cream] Vitamin B Complex 1 cap PO DAILY 04/30/23 11/12/23 History Aspirin [Adult Low Dose Aspirin EC] 81 mg PO DAILY 30 Days #30 tab 05/20/23 11/12/23 Rx Biotin 5 mg PO DAILY 06/17/23 11/12/23 History Dapagliflozin Propanediol [Farxiga] 10 mg PO DAILY 06/17/23 11/12/23 History Albuterol Sulfate [Albuterol 2 puff INHALATION RT-Q6H PRN 11/11/23 11/12/23 History Sulfate Hfa] Ipratropium [place] 0.06%Nasal 1 spr EA NOSTRIL DAILY 11/11/23 11/12/23 History [Atrovent Nasal 0.06%] Pantoprazole Sodium [Protonix] 40 mg PO DAILY 11/11/23 11/12/23 History methIMAzole [Tapazole] 2.5 mg PO MOTUWETHFR 11/11/23 11/12/23 History Allergies Allergy/AdvReac Type Severity Reaction Status Date / Time No Known Allergies Allergy Verified 11/12/23 12:22 Physical Exam Vitals: Vital Signs Temp Pulse Pulse Resp BP Pulse Ox 11/21/23 11:07 89 16 153/77 90 L 11/21/23 09:29 96 11/21/23 09:17 88 11/21/23 08:00 97.5 F L 106 H 18 132/70 90 L 11/21/23 04:00 91 20 131/60 91 L 11/21/23 00:00 97.5 F L 91 20 138/66 89 L 11/20/23 20:33 99 11/20/23 20:24 93 11/20/23 20:00 97.7 F 91 20 133/66 89 L 11/20/23 17:58 93 16 143/73 93 L 11/20/23 17:54 93 L 11/20/23 16:56 90 11/20/23 16:47 88 11/20/23 12:37 92 11/20/23 12:29 93 11/20/23 11:18 91 16 128/61 90 L Intake and Output 11/20/23 11/21/23 11/21/23 22:59 06:59 14:59 Intake Total 118 93.25 120 Output Total 550 1500 900 Balance -432 -1406.75 -780 Intake: Intake, IV Titration 93.25 Amount Furosemide 100 mg In 93.25 Sodium Chloride 0.9% 90 ml @ 5 MG/HR 5 mls/hr IV .Q20H [facility] Rx#:[id number] Oral 118 120 Output: Urine 550 1500 900 Other: Voiding Method External Catheter External Catheter External Catheter # Bowel Movements 1 Weight 92.5 kg - Constitutional General appearance: mild distress - EENT Eyes: anicteric sclerae ENT: hearing grossly normal - Respiratory breathing labored, lungs diminished - Cardiovascular skin warm and dry - Gastrointestinal General gastrointestinal: tenderness Localized gastrointestinal: tender: diffuse, guarding: diffuse - Integumentary Integumentary: no cyanotic - Neurologic confused, generalized weakness Results CBC & Chem 7: 11/21/23 11:50 11/21/23 11:50 Labs: Abnormal Lab Results - Last 24 Hours (Table) 11/20/23 11/20/23 Range/Units 20:43 20:43 C-Reactive Protein 14.9 H (<1.0) mg/dL Procalcitonin 0.17 H (0.02-0.09) ng/mL Microbiology - Last 24 Hours (Table) 11/20/23 18:00 Gram Stain - Preliminary Sputum Sputum Culture - Preliminary Chest x-ray: report reviewed CT scan - abdomen: report reviewed CT scan - chest: report reviewed CT scan - pelvis: report reviewed Assessment and Plan (1) Abnormal CT of the abdomen Status: Acute Priority: Medium Code(s): R93.5 - ABN FINDINGS ON DX IMAGING OF ABD REGIONS, INC RETROPERITON SNOMED Code(s): 76125553717032222 (2) Abdominal pain Status: Acute Priority: High Code(s): R10.9 - UNSPECIFIED ABDOMINAL PAIN SNOMED Code(s): 72798887 (3) CHF exacerbation Status: Acute Priority: High Code(s): I50.9 - HEART FAILURE, UNSPECIFIED SNOMED Code(s): 101870792 Plan: Abdominal pain, r/o Pancreatic mass: Presented to the emergency department with chief complaint of abdominal pain, weakness, and near syncope. Consult was placed for abnormal CT findings of pancreatic tail mass -CT abdomen/pelvis without contrast revealed diffuse bilateral airspace disease with small to moderate pleural effusions, cardiomegaly and generalized anasarca change. Prominent fluid-filled small bowel loops throughout the abdomen may be transient versus mild enteritis. A 2.9 x 1.5 cm pancreatic tail mass was noted which is increased in size from previous scan on 03/31/2023 which measured 1.3 cm at that time. CT chest revealed constellation of findings including patchy and confluent bilateral groundglass, septal lines, small to moderate bilateral pleural effusions, and borderline cardiomegaly. Scattered mediastinal lymph nodes measuring up to 2.0 cm, likely reactive. Background COPD with moderate emphysema and pulmonary arterial hypertension Discussed findings with pt, he states he was never told about the previous pancreatic mass noted on CT scan from 03/31/23, however pt is confused and there is no family at bedside -CA 19-9 ordered. Once pt is more stable will obtain MRI pancreas for further evaluation of noted pancreatic tail mass
== END 2023-11-21 17:58 | disposition expired | DRG 871 ==
LOC: EC 09:05 → 3SCARD 12:20
PROVIDERS: ADMIT Internal Medicine; ATTEND Internal Medicine
DX: A41.9 Sepsis, unspecified organism (principal); G93.41 Metabolic encephalopathy; I50.33 Acute on chronic diastolic (congestive) heart failure; J18.9 Pneumonia, unspecified organism; N17.0 Acute kidney failure with tubular necrosis; J96.21 Acute and chronic respiratory failure with hypoxia; I13.0 Hypertensive heart and chronic kidney disease with heart failure and stage 1 through stage 4 chronic kidney disease, or unspecified chronic kidney disease; I48.19 Other persistent atrial fibrillation; N39.0 Urinary tract infection, site not specified; E87.20 Acidosis, unspecified; J44.0 Chronic obstructive pulmonary disease with (acute) lower respiratory infection; D69.6 Thrombocytopenia, unspecified; N18.30 Chronic kidney disease, stage 3 unspecified; D53.9 Nutritional anemia, unspecified; E11.22 Type 2 diabetes mellitus with diabetic chronic kidney disease; J43.9 Emphysema, unspecified; E11.42 Type 2 diabetes mellitus with diabetic polyneuropathy; I27.21 Secondary pulmonary arterial hypertension; N18.31 Chronic kidney disease, stage 3a; Z95.3 Presence of xenogenic heart valve; I27.20 Pulmonary hypertension, unspecified; Z66 Do not resuscitate; I45.10 Unspecified right bundle-branch block; K59.00 Constipation, unspecified; W06.XXXA Fall from bed, initial encounter; R29.6 Repeated falls; Z91.81 History of falling; E78.5 Hyperlipidemia, unspecified; I25.10 Atherosclerotic heart disease of native coronary artery without angina pectoris; M19.90 Unspecified osteoarthritis, unspecified site; G89.29 Other chronic pain; T46.2X5A Adverse effect of other antidysrhythmic drugs, initial encounter; T58.91XA Toxic effect of carbon monoxide from unspecified source, accidental (unintentional), initial encounter; I25.2 Old myocardial infarction; Z87.01 Personal history of pneumonia (recurrent); Z79.52 Long term (current) use of systemic steroids; Z79.82 Long term (current) use of aspirin; Z79.84 Long term (current) use of oral hypoglycemic drugs; Z79.899 Other long term (current) drug therapy; Z82.49 Family history of ischemic heart disease and other diseases of the circulatory system; Z86.73 Personal history of transient ischemic attack (TIA), and cerebral infarction without residual deficits; Z87.19 Personal history of other diseases of the digestive system; Z85.038 Personal history of other malignant neoplasm of large intestine; Z95.5 Presence of coronary angioplasty implant and graft; Z98.42 Cataract extraction status, left eye; Z98.41 Cataract extraction status, right eye; X58.XXXA Exposure to other specified factors, initial encounter; Z96.1 Presence of intraocular lens
CPT/HCPCS: 36415; 71045; 71046; 71250; 74019; 74176; 76770; 80048; 80053; 81001; 82607; 82746; 83036; 83605; 83735; 83880; 83921; 84145; 84207; 84443; 84484; 85025; 86140; 86301; 87040; 87070; 87205; 93005; 94640; 94760; 96361; 96374; 96375; 99291